=== PATIENT | female | born 1945 | race Caucasian/White ===

== ENCOUNTER 2020-10-26 13:00 | Outpatient (RCR) | payer MEDICARE, OTHER, SELFPAY ==
[2020-10-19 13:14] VITALS: BP 164/61; PULSE 82; RESP 18; TEMP 36.1; BMI 51.5
--- NOTE | 2020-10-19 13:40 | WC ---
pt states she takes no meds
--- NOTE | 2020-10-19 15:10 | PCM.WC.PN ---
(1) Super obesity Status: Chronic Code(s): E66.9 - Obesity, unspecified (2) Cellulitis of left heel Status: Acute Code(s): L03.116 - Cellulitis of left lower limb (3) Decubitus ulcer of left heel, stage 3 Status: Chronic Code(s): L89.623 - Pressure ulcer of left heel, stage 3 (4) Hyperglycemia Status: Chronic Code(s): R73.9 - Hyperglycemia, unspecified (5) CRF (chronic renal failure) Status: Chronic Qualifiers: Chronic kidney disease stage 3 subtype: stage 3b (GFR 30-44) Code(s): N18.9 - Chronic kidney disease, unspecified (6) Lymphedema Status: Chronic Code(s): I89.0 - Lymphedema, not elsewhere classified Comment: ARELY Raphael (7) Venous insufficiency of both lower extremities Status: Chronic Code(s): I87.2 - Venous insufficiency (chronic) (peripheral) (8) Generalized weakness Status: Chronic Code(s): R53.1 - Weakness (9) Elevated BP without diagnosis of hypertension Status: Acute Code(s): R03.0 - Elevated blood-pressure reading, without diagnosis of hypertension (10) Nephrolithiasis Status: Chronic Code(s): N20.0 - Calculus of kidney (11) Hiatal hernia Status: Chronic Code(s): K44.9 - Diaphragmatic hernia without obstruction or gangrene (12) History of gastric polyp Status: Chronic Code(s): Z87.19 - Personal history of other diseases of the digestive system (13) Hyperplastic colon polyp Status: Chronic Code(s): K63.5 - Polyp of colon Comment: Ileocecal valve on colonoscopy in 2016 (14) Tubular adenoma of colon Status: Acute Code(s): D12.6 - Benign neoplasm of colon, unspecified Comment: Ileocecal valve and proximal transverse colon on biopsies in 2016 (15) Right sided sciatica Status: Suspected Code(s): M54.31 - Sciatica, right side Type of Wound Date of Service: 10/19/20 Chief Complaint: non-healing wound of the left heel History of Wound: Cordelia has a ulcer on the Left heel that has been present for several months. He has been treating it with Bacitracin covered with gauze and then application of a JOSEFA wrap. Cordelia can not sleep in a bed and so she has been sleeping in a recliner for quite some time now. She is not ambulatory due to weakness. She has not seen her PCP in at least 14 months. She tells me that she has always been healthy but, when I look back at lab she had done in 2016 she had stage 3 b CRF and the glucose was 140. Her BP is elevated today and she denies hx of HTN. She denies a FH of DM. Her legs feel so heavy she is unable to lift them. She has noticed discoloration of her distal LE's and she also has very dry skin and lumpy skin. She is also c/o pain in the R lateral thigh and hip area and sometimes in the R buttock. - Physical Exam Vital Signs Temp Pulse Resp BP 96.9 F L 82 18 164/61 H 10/19/20 13:14 10/19/20 13:14 10/19/20 13:14 10/19/20 13:14 General: Alert, Oriented x3, Cooperative, - - morbidly obese and unable to even turn herself on her side in the bed. She can not walk and is getting around in a WC. Abdomen: Obese Extremities: - - The toes on the R are dusky.....which I suspect is due to venous HTN because the DP BL is 2-3/3. Wound Measurements and Assessment WC - Nurse 1 - General Ulcer Measurement Start: 10/19/20 13:11 Freq: Status: Active Protocol: Activity Type Activity Date Activity User E-Sign Co-Sign Detail Recorded Client Recorded Date Recorded By Document 10/19/20 13:14 [facility] [id number] 10/19/20 13:37 [facility] 10/19/20 13:14 Wound Center Nurse 1 [Ulcer Assessment] 1-left heel -Combined with other wound No -Current Size (cm) - Length 2.4 -Current Size (cm) - Width 2.4 -Current Size (cm) - Depth 0.5 -Total Square Cm 5.76 -Photo Taken Yes -Epithelialization Small 1-33% -Tunneling No -Undermining/Tunneling No -Circular Undermining No -Classification - Thickness Full Thickness without Exposed Support Structure -Exudate Amt Small -Exudate Type Serosanguineous -Wound Margin Flat & Intact -Granulation Amt None Present (0 %) -Slough/Fibrin Yes -Necrosis Amt Large (67-100%) -Necrotic Tissue Type Adherent Slough -Structure Exposed N/A -Texture (Leah-wound Skin Appearance) Assessed,Callus ,Localized Edema -Moisture (Leah-wound Skin Appearance Assessed ) -Color (Leah-wound Skin Appearance) Assessed -Temperature (Leah-wound Skin No Abnormality Appearance) (Pt Warm) -Tenderness on Palpation (Leah-wound No Skin Appearance) -Ulcer Cleansing Rinsed/ Irrigated with Saline -Foul Odor after Cleansing No -Anesthetic Used 5% Lidocaine Gel [Edema Assessment] -Lower Limb Edema Present Yes -Right Calf (cm) 66 -Right Ankle (cm) 35.3 -Left Calf (cm) 69.6 -Left Ankle (cm) 35.3 The skin over the distal LE's is dry and cracked. There is hyperpigmentation. The skin is inelastic/fibrotic and the edema is non-pitting. There are red nodules over both distal LE's. There is no increased warmth to touch. There is a heel ulcer over the left heel that was covered with eschar. Please see the measurements above. She has dog hair stuck to the bottom of her foot on the left and she and her say she is barefoot in the house because her feet are too swollen to get her shoes on.......she has a pair of tennis shoes on today and the skin folds hang over the sides of the shoes BL. The hard eschar was debrided and underneath the eschar thew wound was moist and malodorous. I debrided the base after the eschar was removed and it goes down into muscle. I could not see any visible bone. Cultures, both anaerobic and aerobic were taken. There was no undermining and no tunneling present. Debridement Note Wound debrided: left heel wound Laterality: Left Wound Grade/Stage: stage 3 Type of Debridement: Excisional debridement Anesthesia Used: 4% Lidocaine Solution Depth: to muscle Percentage of wound debrided: 100 Instrument Used: 7mm curette, #15 blade, Forceps Severity: Necrosis of Muscle Amount of bleeding with debridement: Mild Bleeding Controlled with: Pressure Patient tolerated procedure well Assessment/Plan Active Problems Super obesity (Chronic) Cellulitis of left heel (Acute) Decubitus ulcer of left heel, stage 3 (Chronic) Hyperglycemia (Chronic) CRF (chronic renal failure) (Chronic) Lymphedema (Chronic) BL LE's Venous insufficiency of both lower extremities (Chronic) Generalized weakness (Chronic) Elevated BP without diagnosis of hypertension (Acute) Nephrolithiasis (Chronic) Hiatal hernia (Chronic) History of gastric polyp (Chronic) Hyperplastic colon polyp (Chronic) Ileocecal valve on colonoscopy in 2016 Tubular adenoma of colon (Acute) Ileocecal valve and proximal transverse colon on biopsies in 2016 Plan: 1. plain Xray of the left heel. 2. CMP, CBC, mag, HGBA1C. 3. neuropathic compounded cream to be applied to the R lateral thigh 2-3 times a day. 4. Levaquin 250 mg daily - may nee to change the dose depending on what the kidney function is now. Await the result of the cultures. 5. Duoderm to the left heel. 6. RTC in 1 week for a 45 minute appt -. 7. I referred her to either Dr. Schwartz opr Dr. Mckeon for PCP. She was dropped by Dr. Garnett? 8. recommended weight loss and PT to get her stronger. I recommend she follow up with the [facility] program run by the dieticians at [facility]. 9. will likely need venous dopplers and arterial studies in the future - prime concern at this point is infection. 10. should have a sleep study at some point.....STOP BANG score puts her at high risk for sleep apnea. 11. she has not taken good care of herself for quite some time and has many issues to address. Once she has established herself with a [facility] will defer issues other than wound care to the PCP. 12. It sounds as though she may have sciatica and at some point this will need to be addressed to. Office Visits / Consults: [id number] OV L3 New
--- NOTE | 2020-10-19 15:44 | RAD_ITS ---
STUDY: X-RAY - LEFT FOOT CLINICAL: Female, 75 years old. NON HEALING WOUND TECHNIQUE: 3 view(s) of the foot. COMPARISON: None. FINDINGS: Diffuse osteopenia. Plantar calcaneal spur. Otherwise normal talus, calcaneus, and tarsal bones. Mild degenerative arthrosis of the visualized subtalar, talonavicular, calcaneocuboid, tarsal and tarsometatarsal articulations. Normal metatarsi. Normal metatarsophalangeal joint of the great toe. Normal tibial and fibular sesamoid bones. Normal interphalangeal joint of the great toe. Normal phalanges of the great toe. Normal second through fifth metatarsophalangeal joints. Mild narrowing of the interphalangeal joints otherwise unremarkable phalanges of the lesser toes. The soft tissue structures are unremarkable. There is no demonstrated fracture. Sequela of old fracture through the distal tibia. RAD/Foot min 3 Views IMPRESSION: Diffuse osteopenia along with mild multilevel degenerative disease. No acute fracture or subluxation. Electronically Signed: Radha Alaniz MD at 1:24 EDT , Service support ,
[2020-10-19 16:43] LABS: Absolute Lymphocyte Count 1.01 X10^3/uL (0.83-4.51); Absolute Neutrophil Count 3.5 X10^3/uL (2.0-7.7); Basophil# 0.02 X10^3/uL; Basophil% 0.4 % (0-1); Eosinophil# 0.12 X10^3/uL; Eosinophils% 2.4 % (0-5); Hematocrit 44.6 % (37-47); Hemoglobin 13.9 g/dL (12.0-15.0); Lymphocyte # 1.01 X10^3/ul (4.0); Lymphocyte % 20.5 % (19-41); Mean Corp Hgb Conc 31.2 g/dL (32-36); Mean Corpuscular Hgb 28.4 pg (27.0-32.0); Mean Corpuscular Volume 91.2 fL (81-99); Mean Platelet Vol. 10.2 fl (6.2-12.0); Monocyte# 0.27 X10^3/uL; Monocyte% 5.5 % (0-10); NRBC Flagged by Analyzer 0 % (0-5); Neutrophil # 3.48 X10^3/uL (2.7-7.7); Neutrophil % 70.8 % (47-70); Platelet Count 193 K/mm3 (150-450); RBC Distribution Width CV 14.2 % (11.6-14.6); RBC Distribution Width SD 46.9 fl (35.1-43.9); Red Blood Count 4.89 M/mm3 (4.2-5.4); White Blood Count 4.9 K/mm3 (4.4-11.0)
[2020-10-19 17:04] LABS: Hemoglobin A1c 5.2 % (3.8-5.6)
[2020-10-19 17:20] LABS: AST(SGOT) 14 U/L (15-37); Alanine Aminotransfer ALT/SGPT 16 U/L (13-56); Albumin, Serum 3.6 g/dL (3.2-5.0); Alkaline Phosphatase 98 U/L (45-117); Anion Gap 6 (5-15); BUN 14 mg/dL (7-18); BUN/Creat Ratio 21.8 RATIO (10-20); Calcium,Total 9.3 mg/dL (8.5-10.1); Chloride 105 mmol/L (98-107); Creatinine, Serum 0.64 mg/dL (0.55-1.02); EST Glomerular Filtration Rate 96 mL/min (>60); Est Glom Filt Rate - Afr Amer 116 mL/min (>60); Estimated Creatinine Clearance 42.62 ml/min; Globulin 3.7 g/dL (2.2-4.2); Glucose 84 mg/dL (74-106); Magnesium 2.3 mg/dL (1.6-2.6); Potassium 3.8 mmol/L (3.5-5.1); Protein, Total 7.3 g/dL (6.4-8.2); Sodium Level 141 mmol/L (136-145)
--- NOTE | 2020-10-21 16:13 | PCM.PN.BLA ---
Progress Note I spoke to Cordelia and told her to increase the Levaquin to 500 mg daily. the culture is growing a beta-hemolytic organism and this is most likely going to be Streptococcus. Cordelia will call me on my cell phone on 10/22/2020 at 9 AM and I will review the culture once more. At that time we will determine whether the antibiotic needs to be changed. I discussed the lab results with her and the results of the Xray of the Left foot. she hqas significant osteopenia and I suspect osteoporosis due to her inability to bear weight. She will need a DEXA in the future to accurately assess bone density.
--- NOTE | 2020-10-25 11:29 | PN_ITS ---
Progress Note The wound grew Streptococcus agalactiae and Staphylococcus intermedius. The Staph is oxacillin sensitive and covered by Levaquin. The group B strep is not covered by Levaquin and she is allergic to penicillins will prescribe clindamycin 800 mg 4 times daily for 5 days. This was sent to [facility] in [place]. I also sent a RX for Levaquin 500 mg #2 to the pharmacy to complete 7 days of tx.
[2020-10-26 13:03] VITALS: BP 196/73; PULSE 88; TEMP 36.3; BMI 51.5
--- NOTE | 2020-10-26 14:01 | PCM.WC.PN ---
(1) Super obesity Status: Chronic Code(s): E66.9 - Obesity, unspecified (2) Cellulitis of left heel Status: Acute Code(s): L03.116 - Cellulitis of left lower limb Comment: due to Group B Strep and Staph Intermedius (senitive to Levaquin) (3) Decubitus ulcer of left heel, stage 3 Status: Chronic Code(s): L89.623 - Pressure ulcer of left heel, stage 3 (4) Hyperglycemia Status: Chronic Code(s): R73.9 - Hyperglycemia, unspecified (5) Lymphedema Status: Chronic Code(s): I89.0 - Lymphedema, not elsewhere classified Comment: ARELY Raphael (6) Venous insufficiency of both lower extremities Status: Chronic Code(s): I87.2 - Venous insufficiency (chronic) (peripheral) (7) Generalized weakness Status: Chronic Code(s): R53.1 - Weakness (8) Elevated BP without diagnosis of hypertension Status: Acute Code(s): R03.0 - Elevated blood-pressure reading, without diagnosis of hypertension (9) Nephrolithiasis Status: Chronic Code(s): N20.0 - Calculus of kidney (10) Hiatal hernia Status: Chronic Code(s): K44.9 - Diaphragmatic hernia without obstruction or gangrene (11) History of gastric polyp Status: Chronic Code(s): Z87.19 - Personal history of other diseases of the digestive system (12) Hyperplastic colon polyp Status: Chronic Code(s): K63.5 - Polyp of colon Comment: Ileocecal valve on colonoscopy in 2016 (13) Tubular adenoma of colon Status: Acute Code(s): D12.6 - Benign neoplasm of colon, unspecified Comment: Ileocecal valve and proximal transverse colon on biopsies in 2016 (14) Right sided sciatica Status: Suspected Code(s): M54.31 - Sciatica, right side (15) HTN, goal below 130/80 Status: Chronic Code(s): I10 - Essential (primary) hypertension Type of Wound Date of Service: 11/02/20 Chief Complaint: non-healing wound of the left heel History of Wound: Cordelia has a ulcer on the Left heel that has been present for several months. He has been treating it with Bacitracin covered with gauze and then application of a JOSEFA wrap. Cordelia can not sleep in a bed and so she has been sleeping in a recliner for quite some time now. She is not ambulatory due to weakness. She has not seen her PCP in at least 14 months. She tells me that she has always been healthy but, when I look back at lab she had done in 2016 she had stage 3 b CRF and the glucose was 140. Her BP is elevated today and she denies hx of HTN. She denies a FH of DM. Her legs feel so heavy she is unable to lift them. She has noticed discoloration of her distal LE's and she also has very dry skin and lumpy skin. She is also c/o pain in the R lateral thigh and hip area and sometimes in the R buttock. Progress of Wound: She has not picked the Clindamycin up yet. She has been taking Levaquin 500 mg daily....the creat was normal. There is still an odor to the wound. She denies fevers, chills and sweats. She has the same Duoderm on that we applied last week when she left wound care. I personally reviewed all the lab. The XRAY of the left heel did not show any avinash destruction that would indicate she may have osteomyelitis. - Physical Exam Vital Signs Temp Pulse Resp BP 97.3 F L 88 18 196/73 H 10/26/20 13:03 10/26/20 13:03 10/19/20 13:14 10/26/20 13:03 General: Alert, - - forgetful......I am needing to repeat things to her 3-4 times until she gets it. Lungs: Diminished Cardiovascular: Regular rate, Regular Rhythm, No murmurs, - - Distant heart sounds Abdomen: Non Tender, Non-Distended, Obese, - - No guarding with palpation Extremities: No clubbing, No cyanosis, Edema - Severe lymphedema of both lower extremities extending from the groin to the toes. Skin: No rashes, Ulcer/ Wound Wound Measurements and Assessment WC - Nurse 1 - General Ulcer Measurement Start: 10/19/20 13:11 Freq: Status: Active Protocol: Activity Type Activity Date Activity User E-Sign Co-Sign Detail Recorded Client Recorded Date Recorded By Document 10/26/20 13:03 [facility] [id number] 10/26/20 13:11 [facility] 10/26/20 13:03 Wound Center Nurse 1 [Ulcer Assessment] 1-left heel -Current Size (cm) - Length 1.7 -Current Size (cm) - Width 1.6 -Current Size (cm) - Depth 0.2 -Total Square Cm 2.72 -Wound Margin Distinct, Outline Attached -Granulation Amt None Present (0 %) -Necrosis Amt Large (67-100%) -Necrotic Tissue Type Adherent Slough -Texture (Leah-wound Skin Appearance) Assessed, Scarring -Moisture (Leah-wound Skin Appearance Assessed, ) Maceration -Color (Leah-wound Skin Appearance) No Abnormality, Assessed -Temperature (Leah-wound Skin No Abnormality Appearance) (Pt Warm) -Tenderness on Palpation (Leah-wound No Skin Appearance) -Ulcer Cleansing soap and water -Anesthetic Used 4% Lidocaine Solution WC - Nurse 2 - General Ulcer CM Notes Start: 10/19/20 13:11 Freq: Status: Active Protocol: Activity Type Activity Date Activity User E-Sign Co-Sign Detail Recorded Client Recorded Date Recorded By Document 10/26/20 13:27 MW [id number] 10/26/20 13:32 MW 10/26/20 13:27 Wound Center Nurse 2 [Procedure/Treatment] -Time 13:27 -Correct Patient Yes -Correct Side, Site, Position Yes -Correct Procedure Yes -Procedure Performed Yes -Type of Procedure Debridement -Clinical Debridement Subcutaneous -Tissue Removed Subcutaneous -Post Debridement (cm) - Length 1.3 -Post Debridement (cm) - Width 1.5 -Post Debridement (cm) - Depth 0.2 -Total Square (Post) (cm) 1.95 -Area of Debridement (cm) - Length 1.3 -Area of Debridement (cm) - Width 1.5 -Total Square (Area) (cm) 1.95 -Tunneling No -Undermining/Tunneling No -Circular Undermining No -Wound/Ulcer Outcome Not Healed -Ulcer Cleansing Rinsed/ Irrigated with Saline -Foul Odor after Cleansing No -Bioengineered Tissue No -Bleeding Controlled with Pressure -Offloading No -Treatment Response Procedure Tolerated Well -Debridement - Subq, 1st 20sq cm Yes [See Physician Procedure note for Specifics] Pain Scale: 0-10 Numeric [Pain] -Is Patient Pain Free? Yes WC - Nurse 3 - General Ulcer D/C NN Start: 10/19/20 13:11 Freq: Status: Active Protocol: Activity Type Activity Date Activity User E-Sign Co-Sign Detail Recorded Client Recorded Date Recorded By Document 10/26/20 13:59 MW [id number] 10/26/20 14:01 MW 10/26/20 13:59 Wound Care Nurse 3 [Wound Dressing] 1-left heel -Ulcer Cleansing Rinsed/ Irrigated with Saline -Foul Odor after Cleansing No -Negative Pressure Wound Therapy N/A -Other Dressing c.hydrogel -Primary Dressing Covered/Secured Dry Gauze & with Roll Gauze, Secured with Tape [Post Procedure Tolerated] -Treatment Response Procedure Tolerated Well Pain Scale: 0-10 Numeric [Pain] -Is Patient Pain Free? Yes Teaching: Wound Center [Wound Center Education] (Items with an * have Printed Materials Available- Please identify what is given to patient under the Teaching materials given to patient and caregiver Section. Dressing Your Wound -Person Taught Patient,Family -Teaching Method Discussion, Demonstration -Response to teaching Verbalize understanding WC - Visit Discharge [Visit Discharge Information] -Discharge Condition Stable -Ambulatory Status Wheelchair -Transportation Private Auto -Accompanied by -Medication Reconcilliation completed No & provided to patient/care provider -Clinical Summary of Care Provided Yes The wound is still mostly necrotic slough but less than last week. There is still a mild odor....I suspect it will resolve when she completes the course of Clindamycin. There is no significant leah-wound erythema and there is no increased warmth to touch. The wound was debrided and there is now a portion of muscle visible. No visible bone. The slough is very adherent and difficult to debride off. The tissue of the left foot and LE is better moisturized and less flakey today. there are no other openings in the skin of the LLE. Neurological: Cranial nerves II-XII grossly intact, Neuro grossly intact Psych/Mental Status: Normal Affect, Appropriate Debridement Note Post-Debridement Measurements/Treatment WC - Nurse 2 - General Ulcer CM Notes Start: 10/19/20 13:11 Freq: Status: Active Protocol: Activity Type Activity Date Activity User E-Sign Co-Sign Detail Recorded Client Recorded Date Recorded By Document 10/19/20 17:00 PL [id number] 10/19/20 17:03 PL Document 10/26/20 13:27 MW [id number] 10/26/20 13:32 MW 10/19/20 10/26/20 17:00 13:27 Wound Center Nurse 2 1-left heel -Time 14:43 13:27 -Correct Patient Yes Yes -Correct Side, Site, Position Yes Yes -Correct Procedure Yes Yes -Procedure Performed Yes Yes -Type of Procedure Debridement Debridement -Clinical Debridement Subcutaneous Subcutaneous -Tissue Removed Subcutaneous Subcutaneous -Post Debridement (cm) - Length 2.4 1.3 -Post Debridement (cm) - Width 2.4 1.5 -Post Debridement (cm) - Depth 0.5 0.2 -Total Square (Post) (cm) 5.76 1.95 -Area of Debridement (cm) - Length 2.4 1.3 -Area of Debridement (cm) - Width 2.4 1.5 -Total Square (Area) (cm) 5.76 1.95 -Tunneling No No -Undermining/Tunneling No No -Circular Undermining No No -Wound/Ulcer Outcome Not Healed Not Healed -Ulcer Cleansing Rinsed/ Rinsed/ Irrigated with Irrigated with Saline Saline -Foul Odor after Cleansing No No -Bioengineered Tissue No No -Bleeding Controlled with Pressure Pressure -Offloading No -Treatment Response Procedure Procedure Tolerated Well Tolerated Well -Debridement - Subq, 1st 20sq cm Yes Yes Pain Scale: 0-10 Numeric Is Patient Pain Free? Yes Yes WC - Nurse 3 - General Ulcer D/C NN Start: 10/19/20 13:11 Freq: Status: Active Protocol: Activity Type Activity Date Activity User E-Sign Co-Sign Detail Recorded Client Recorded Date Recorded By Document 10/19/20 17:00 PL [id number] 10/19/20 17:03 PL Document 10/26/20 13:59 MW [id number] 10/26/20 14:01 MW 10/19/20 10/26/20 17:00 13:59 Pain Scale: 0-10 Numeric Is Patient Pain Free? Yes Yes Teaching: Wound Center Dressing Your Wound -Person Taught Patient,Family -Teaching Method Discussion, Demonstration -Response to teaching Verbalize understanding Wound Care Nurse 3 1-left heel -Ulcer Cleansing Rinsed/ Rinsed/ Irrigated with Irrigated with Saline Saline -Foul Odor after Cleansing No No -Negative Pressure Wound Therapy N/A -Primary Dressing Applied Hydrocolloid -Other Dressing c.hydrogel -Primary Dressing Covered/Secured with Dry Gauze & Dry Gauze & Roll Gauze Roll Gauze, Secured with Tape -Hydrocolloid 3 Treatment Response Procedure Tolerated Well WC - Visit Discharge Discharge Condition Stable Stable Ambulatory Status Wheelchair Wheelchair Transportation Private Auto Private Auto Accompanied by Medication Reconcilliation completed & No provided to patient/care provider Clinical Summary of Care Provided Yes Yes Laterality: Left Wound Grade/Stage: stage 3 Type of Debridement: Excisional debridement Anesthesia Used: 4% Lidocaine Solution Depth: in the subcutaneous layer Percentage of wound debrided: 100 Instrument Used: 5mm curette, #15 blade, Forceps Severity: Fat Layer Exposed - a small portion of muscle is exposed so the wound is a stage 3.....No visible bone. Amount of bleeding with debridement: Mild Bleeding Controlled with: Pressure Patient tolerated procedure well Assessment/Plan Clinical Impression(s) from Imaging Studies Foot X-Ray 10/19/20 15:44 IMPRESSION: Diffuse osteopenia along with mild multilevel degenerative disease. No acute fracture or subluxation. Electronically Signed: Radha Alaniz MD at 1:24 EDT , Service support , Active Problems Super obesity (Chronic) Cellulitis of left heel (Acute) due to Group B Strep and Staph Intermedius (senitive to Levaquin) Decubitus ulcer of left heel, stage 3 (Chronic) Hyperglycemia (Chronic) Lymphedema (Chronic) BL LE's Venous insufficiency of both lower extremities (Chronic) Generalized weakness (Chronic) Elevated BP without diagnosis of hypertension (Acute) Nephrolithiasis (Chronic) Hiatal hernia (Chronic) History of gastric polyp (Chronic) Hyperplastic colon polyp (Chronic) Ileocecal valve on colonoscopy in 2016 Tubular adenoma of colon (Acute) Ileocecal valve and proximal transverse colon on biopsies in 2016 HTN, goal below 130/80 (Chronic) Assessment: 1. super obesity. 2. long standing venous insufficiency which is more than likely the cause of lymphedema. 3. HTN - this is high when she comes to the [facility]. She will keep a record of BP's at home. HR is also high........consider starting a low dose beta jaciel. 4. ? memory issues? Will defer work up for this to Dr. Mckeon - she has an appt for November [address] Mckeon. 5. going forward will need a DEXA and a sleep study.......STOP BANG score is high and she is at risk for LEONARD Plan: 1. finish the 7 days of Levaquin 500 mg daily and the 7 days of Clindamycin 4 times a day,. 2. DC the Duoderm and change the dressing to Santyl daily. 3. apply for use of PurePLY. 4. order lymphedema pumps - eventually get her to [facility] for lymphedema and PT to get her walking again. 5. learning services coordinator consult in future for weight loss. 6. Will need an AFO to offload the Left heel. 7. start Atenolol 25 mg daily and have her check the BP at home and record to bring at her next visit Office Visits / Consults: [id number] OV L3 Est
== END 2020-10-27 23:59 ==
LOC: WC 13:00
PROVIDERS: PCP Family Medicine; Referring Provider Internal Medicine; Visit Provider Internal Medicine
DX: L89.623 Pressure ulcer of left heel, stage 3 (principal); L03.116 Cellulitis of left lower limb; E66.01 Morbid (severe) obesity due to excess calories; N18.32 Chronic kidney disease, stage 3b; I89.0 Lymphedema, not elsewhere classified; I87.2 Venous insufficiency (chronic) (peripheral); K44.9 Diaphragmatic hernia without obstruction or gangrene; M79.651 Pain in right thigh; M25.551 Pain in right hip; R03.0 Elevated blood-pressure reading, without diagnosis of hypertension; R53.1 Weakness; Z68.43 Body mass index [BMI] 50.0-59.9, adult; R73.9 Hyperglycemia, unspecified
CPT/HCPCS: 11042; 36415; 73630; 80053; 83036; 83735; 85025; 87070; 87075; 87077; 87186; 87205; 99213; G0463

== ENCOUNTER 2020-11-23 13:30 | Outpatient (RCR) | payer MEDICARE, OTHER, SELFPAY ==
[2020-10-28 00:53] VITALS: BP 196/73; PULSE 88; RESP 18; TEMP 36.3
[2020-11-02 13:26] VITALS: BP 142/77; PULSE 66; RESP 18; TEMP 36.6; BMI 51.5
--- NOTE | 2020-11-02 14:17 | PCM.WC.PN ---
(1) HK (hyperkeratosis) Status: Chronic Code(s): L85.9 - Epidermal thickening, unspecified (2) Cellulitis of left heel Status: Resolved Code(s): L03.116 - Cellulitis of left lower limb Comment: due to Group B Strep and Staph Intermedius (senitive to Levaquin) (3) Decubitus ulcer of left heel, stage 3 Status: Chronic Code(s): L89.623 - Pressure ulcer of left heel, stage 3 (4) HTN, goal below 130/80 Status: Chronic Code(s): I10 - Essential (primary) hypertension (5) Lymphedema Status: Chronic Code(s): I89.0 - Lymphedema, not elsewhere classified Comment: BL DELVIN's stage 3 (6) Venous insufficiency of both lower extremities Status: Chronic Code(s): I87.2 - Venous insufficiency (chronic) (peripheral) (7) Morbid obesity with BMI of 50.0-59.9, adult Status: Acute Code(s): E66.01 - Morbid (severe) obesity due to excess calories; Z68.43 - Body mass index [BMI] 50.0-59.9, adult (8) Memory deficit Status: Chronic Code(s): R41.3 - Other amnesia Type of Wound Date of Service: 11/02/20 Chief Complaint: non-healing wound of the left heel History of Wound: Cordelia has a ulcer on the Left heel that has been present for several months. He has been treating it with Bacitracin covered with gauze and then application of a JOSEFA wrap. Cordelia can not sleep in a bed and so she has been sleeping in a recliner for quite some time now. She is not ambulatory due to weakness. She has not seen her PCP in at least 14 months. She tells me that she has always been healthy but, when I look back at lab she had done in 2016 she had stage 3 b CRF and the glucose was 140. Her BP is elevated today and she denies hx of HTN. She denies a FH of DM. Her legs feel so heavy she is unable to lift them. She has noticed discoloration of her distal LE's and she also has very dry skin and lumpy skin. She is also c/o pain in the R lateral thigh and hip area and sometimes in the R buttock. Progress of Wound: She finished the Clindamycin and she denies fevers, chills and sweats. She had some GI upset while taking the pills but, she denies any diarrhea. She has been using the Ceravie for moisturizing the legs and they are looking much better. Her tells me that since he started wrapping her legs the edema has decreased and she has been able to walk around the house with the aid of a FWW. She has an appt with Dr. Mckeon next week to establish him as her PCP going forward. She was approved for [employer] so we will be doing the first application today. She denies any adverse reactions to the Atenolol. They have not been taking her BP and recording at home. - Physical Exam Vital Signs Temp Pulse Resp BP 97.8 F 66 18 142/77 H 11/02/20 13:26 11/02/20 13:26 11/02/20 13:26 11/02/20 13:26 General: Alert, Oriented x3, Cooperative, No apparent distress Cardiovascular: Regular rate, Regular Rhythm Extremities: No clubbing, No cyanosis, No Calf Tenderness, Edema - the edema in the distal LE's is better today. there is less edema of the dorsum of the foot. Itn is non-pitting. She continues to have many nodules on the anterior shins but the flakey skin is much improved. On the lateral aspect of the left ankle there are many hyperkeratotic raised bumps Wound Measurements and Assessment WC - Nurse 1 - General Ulcer Measurement Start: 11/02/20 13:25 Freq: Status: Active Protocol: Activity Type Activity Date Activity User E-Sign Co-Sign Detail Recorded Client Recorded Date Recorded By Document 11/02/20 13:26 [facility] [id number] 11/02/20 13:36 [facility] 11/02/20 13:26 Wound Center Nurse 1 [Ulcer Assessment] 1-left heel -Combined with other wound No -Current Size (cm) - Length 0.9 -Current Size (cm) - Width 1.3 -Current Size (cm) - Depth 0.1 -Total Square Cm 1.17 -Photo Taken No -Epithelialization None Present -Tunneling No -Undermining/Tunneling No -Circular Undermining No -Exudate Amt Small -Exudate Type Serosanguineous -Wound Margin Distinct, Outline Attached -Granulation Amt None Present (0 %) -Slough/Fibrin Yes -Necrosis Amt Large (67-100%) -Necrotic Tissue Type Adherent Slough -Texture (Leah-wound Skin Appearance) Assessed,Callus ,Scarring -Moisture (Leah-wound Skin Appearance Assessed,Dry/ ) Scaly -Color (Leah-wound Skin Appearance) Assessed -Temperature (Leah-wound Skin No Abnormality Appearance) (Pt Warm) -Tenderness on Palpation (Leah-wound No Skin Appearance) -Ulcer Cleansing Rinsed/ Irrigated with Saline -Foul Odor after Cleansing No -Anesthetic Used 5% Lidocaine Gel WC - Nurse 2 - General Ulcer CM Notes Start: 11/02/20 13:25 Freq: Status: Active Protocol: Activity Type Activity Date Activity User E-Sign Co-Sign Detail Recorded Client Recorded Date Recorded By Document 11/02/20 13:46 MW [id number] 11/02/20 14:10 MW 11/02/20 13:46 Wound Center Nurse 2 [Procedure/Treatment] -Time 13:50 -Correct Patient Yes -Correct Side, Site, Position Yes -Correct Procedure Yes -Procedure Performed Yes -Type of Procedure Debridement -Clinical Debridement Subcutaneous -Tissue Removed Subcutaneous -Post Debridement (cm) - Length 1.0 -Post Debridement (cm) - Width 1.2 -Post Debridement (cm) - Depth 0.1 -Total Square (Post) (cm) 1.20 -Area of Debridement (cm) - Length 1.0 -Area of Debridement (cm) - Width 1.2 -Total Square (Area) (cm) 1.20 -Tunneling No -Undermining/Tunneling No -Circular Undermining No -Wound/Ulcer Outcome Not Healed -Ulcer Cleansing Rinsed/ Irrigated with Saline -Foul Odor after Cleansing No -Bioengineered Tissue Yes -Type of Bioengineered Tissue PuraPly AM -Expiration Date 11/15/22 -Product Lot Number [id number] -Percent Used 100 -Lot number of Saline Used [id number] -Bleeding Controlled with Pressure -Offloading No -Treatment Response Procedure Tolerated Well -Debridement - Subq, 1st 20sq cm No -Apply Skin Sub - 1st 25 sq cm - Legs 1 -PuraPly AM (per sq cm) 4 [See Physician Procedure note for Specifics] Pain Scale: 0-10 Numeric [Pain] -Is Patient Pain Free? Yes The wound has decreased in size from 2.72 centimeters squared to 1.2 cm? today. They have been using Santyl once a day. the surface of the wound is dry and covered with yellow/brown eschar. There is no periwound erythema and no increased warmth to touch. The lateral foot and the plantar surface of the foot is covered with hyperkeratotic skin....the forefoot is not so bad as the lateral surface and the heel. When the eschar was debrided off the wound with a #15 blade and Forceps there was muscle visible in 1 spot but the wound is less deep than in the past. There is no odor today. There is no tunnelling and no undermining. No necrotic tissue today. Debridement Note Post-Debridement Measurements/Treatment WC - Nurse 2 - General Ulcer CM Notes Start: 11/02/20 13:25 Freq: Status: Active Protocol: Activity Type Activity Date Activity User E-Sign Co-Sign Detail Recorded Client Recorded Date Recorded By Document 11/02/20 13:46 MW [id number] 11/02/20 14:10 MW 11/02/20 13:46 Wound Center Nurse 2 1-left heel -Time 13:50 -Correct Patient Yes -Correct Side, Site, Position Yes -Correct Procedure Yes -Procedure Performed Yes -Type of Procedure Debridement -Clinical Debridement Subcutaneous -Tissue Removed Subcutaneous -Post Debridement (cm) - Length 1.0 -Post Debridement (cm) - Width 1.2 -Post Debridement (cm) - Depth 0.1 -Total Square (Post) (cm) 1.20 -Area of Debridement (cm) - Length 1.0 -Area of Debridement (cm) - Width 1.2 -Total Square (Area) (cm) 1.20 -Tunneling No -Undermining/Tunneling No -Circular Undermining No -Wound/Ulcer Outcome Not Healed -Ulcer Cleansing Rinsed/ Irrigated with Saline -Foul Odor after Cleansing No -Bioengineered Tissue Yes -Type of Bioengineered Tissue PuraPly AM -Expiration Date 11/15/22 -Product Lot Number [id number] -Percent Used 100 -Lot number of Saline Used [id number] -Bleeding Controlled with Pressure -Offloading No -Treatment Response Procedure Tolerated Well -Debridement - Subq, 1st 20sq cm No -Apply Skin Sub - 1st 25 sq cm - Legs 1 -PuraPly AM (per sq cm) 4 Pain Scale: 0-10 Numeric Is Patient Pain Free? Yes Wound debrided: Left Heel pressure ulcer. Laterality: Left Wound Grade/Stage: stage 3 Type of Debridement: Excisional debridement Anesthesia Used: 4% Lidocaine Solution, Cetacaine Depth: to muscle Percentage of wound debrided: 100 Instrument Used: #15 blade, Forceps Severity: Fat Layer Exposed Amount of bleeding with debridement: Mild Bleeding Controlled with: Pressure Patient tolerated procedure well Assessment/Plan Active Problems Decubitus ulcer of left heel, stage 3 (Chronic) Lymphedema (Chronic) BL LE's stage 3 Venous insufficiency of both lower extremities (Chronic) HTN, goal below 130/80 (Chronic) HK (hyperkeratosis) (Chronic) Assessment: 1. morbid obesity. 2. long standing venous insufficiency which is more than likely the cause of lymphedema. The edema has improved somewhat with compression, elevation and now that she is walkking I suspect it will improve more. 3. HTN. 4. ? memory issues? Will defer work up for this to Dr. Mckeon - she has an appt for November [address] Mckeon. 5. going forward will need a DEXA and a sleep study.......STOP BANG score is high and she is at risk for LEONARD Plan: 1. Pur-ply was applied to the wound today. This is week 1 and she was approved for 10 treatments. 2. the BP today is 142/77 with a HR of 66...this is down from 196/73 last week with a HR of 88 after starting Atenolol 25 mg daily. She denies lightheadedness, dizziness, fatigue and is toleraring the Atenolol with no adverse reactions. Will continue. 3. Encouraged her to increase the time walking until she is able to walk for 30 minutes. I am still trying to get her into the [facility] program at the hospital for wt loss which will significantly improve her ability to walk. PCP may be more successful at that. 4. needs a DEXA in the future since she has been non wt-bearing due to the severe lymphedema in her legs that make them too heavy to move. 5. RTC in 1 week. Call me if any fevers, pain, chills. Office Visits / Consults: [phone] OV L3 Est
[2020-11-09 13:24] VITALS: BP 182/74; PULSE 66; RESP 18; TEMP 36.6; BMI 51.5
--- NOTE | 2020-11-10 09:35 | PCM.WC.PN ---
(1) HK (hyperkeratosis) Status: Chronic Code(s): L85.9 - Epidermal thickening, unspecified (2) Cellulitis of left heel Status: Resolved Code(s): L03.116 - Cellulitis of left lower limb Comment: due to Group B Strep and Staph Intermedius (senitive to Levaquin) (3) Decubitus ulcer of left heel, stage 3 Status: Chronic Code(s): L89.623 - Pressure ulcer of left heel, stage 3 (4) HTN, goal below 130/80 Status: Chronic Code(s): I10 - Essential (primary) hypertension (5) Lymphedema Status: Chronic Code(s): I89.0 - Lymphedema, not elsewhere classified Comment: BL DELVIN's stage 3 (6) Venous insufficiency of both lower extremities Status: Chronic Code(s): I87.2 - Venous insufficiency (chronic) (peripheral) (7) Morbid obesity with BMI of 50.0-59.9, adult Status: Acute Code(s): E66.01 - Morbid (severe) obesity due to excess calories; Z68.43 - Body mass index [BMI] 50.0-59.9, adult (8) Memory deficit Status: Chronic Code(s): R41.3 - Other amnesia Type of Wound Date of Service: 11/10/20 Chief Complaint: non-healing wound of the left heel History of Wound: Cordelia has a ulcer on the Left heel that has been present for several months. He has been treating it with Bacitracin covered with gauze and then application of a JOSEFA wrap. Cordelia can not sleep in a bed and so she has been sleeping in a recliner for quite some time now. She is not ambulatory due to weakness. She has not seen her PCP in at least 14 months. She tells me that she has always been healthy but, when I look back at lab she had done in 2016 she had stage 3 b CRF and the glucose was 140. Her BP is elevated today and she denies hx of HTN. She denies a FH of DM. Her legs feel so heavy she is unable to lift them. She has noticed discoloration of her distal LE's and she also has very dry skin and lumpy skin. She is also c/o pain in the R lateral thigh and hip area and sometimes in the R buttock. Progress of Wound: Cordelia denies fever, chills, sweats. She denies pain in her left heel. They have been able to offload the pressure on the left heel with pillows quite effectively. She has an appointment with Dr. Mckeon tomorrow to establish care. - Physical Exam Vital Signs Temp Pulse Resp BP 98 F 66 18 182/74 H 11/09/20 13:24 11/09/20 13:24 11/09/20 13:24 11/09/20 13:24 Wound Measurements and Assessment WC - Nurse 1 - General Ulcer Measurement Start: 11/02/20 13:25 Freq: Status: Active Protocol: Activity Type Activity Date Activity User E-Sign Co-Sign Detail Recorded Client Recorded Date Recorded By Document 11/09/20 13:24 BM [id number] 11/09/20 13:26 BM 11/09/20 13:24 Wound Center Nurse 1 [Ulcer Assessment] 1-left heel -Combined with other wound No -Current Size (cm) - Length 0.2 -Current Size (cm) - Width 0.4 -Current Size (cm) - Depth 0.1 -Total Square Cm 0.08 -Photo Taken No -Epithelialization Medium 34-66% -Tunneling No -Undermining/Tunneling No -Circular Undermining No -Exudate Amt Small -Exudate Type Serosanguineous -Wound Margin Distinct, Outline Attached -Granulation Amt Large (67-100%) -Granulation Quality [place] -Texture (Leah-wound Skin Appearance) Assessed, Scarring,Rash -Moisture (Leah-wound Skin Appearance Assessed,Dry/ ) Scaly -Color (Leah-wound Skin Appearance) Assessed -Temperature (Leah-wound Skin No Abnormality Appearance) (Pt Warm) -Tenderness on Palpation (Leah-wound No Skin Appearance) -Ulcer Cleansing SOAPY WATER -Foul Odor after Cleansing No -Anesthetic Used 5% Lidocaine Gel WC - Nurse 2 - General Ulcer CM Notes Start: 11/02/20 13:25 Freq: Status: Active Protocol: Activity Type Activity Date Activity User E-Sign Co-Sign Detail Recorded Client Recorded Date Recorded By Document 11/09/20 13:46 MW [id number] 11/09/20 14:12 MW 11/09/20 13:46 Wound Center Nurse 2 [Procedure/Treatment] -Time 13:46 -Correct Patient Yes -Correct Side, Site, Position Yes -Correct Procedure Yes -Procedure Performed Yes -Type of Procedure Debridement -Clinical Debridement Subcutaneous -Tissue Removed Subcutaneous -Post Debridement (cm) - Length 0.3 -Post Debridement (cm) - Width 0.6 -Post Debridement (cm) - Depth 0.1 -Total Square (Post) (cm) 0.18 -Area of Debridement (cm) - Length 0.3 -Area of Debridement (cm) - Width 0.6 -Total Square (Area) (cm) 0.18 -Tunneling No -Undermining/Tunneling No -Circular Undermining No -Wound/Ulcer Outcome Not Healed -Ulcer Cleansing Rinsed/ Irrigated with Saline -Foul Odor after Cleansing No -Bioengineered Tissue Yes -Type of Bioengineered Tissue NuShield Disc -Expiration Date 02/08/25 -Product Lot Number [id number] -Percent Used 100 -Lot number of Saline Used [id number] -Bleeding Controlled with Pressure -Offloading No -Treatment Response Procedure Tolerated Well -Debridement - Subq, 1st 20sq cm No -Apply Skin Sub - 1st 25 sq cm - Feet 1 -NuShield 16mm Disc 2 Query Text:16mm = 2 [See Physician Procedure note for Specifics] Pain Scale: 0-10 Numeric [Pain] -Is Patient Pain Free? Yes WC - Nurse 3 - General Ulcer D/C NN Start: 11/02/20 13:25 Freq: Status: Active Protocol: Activity Type Activity Date Activity User E-Sign Co-Sign Detail Recorded Client Recorded Date Recorded By Document 11/09/20 14:12 MW [id number] 11/09/20 14:13 MW 11/09/20 14:12 Wound Care Nurse 3 [Wound Dressing] 1-left heel -Ulcer Cleansing Not Cleansed -Foul Odor after Cleansing No -Negative Pressure Wound Therapy N/A -Primary Dressing Applied C Hydrogel ($) -Primary Dressing Covered/Secured Dry Gauze & with Roll Gauze, Secured with Tape -Other Covering abd pad [Post Procedure Tolerated] -Treatment Response Procedure Tolerated Well Pain Scale: 0-10 Numeric [Pain] -Is Patient Pain Free? Yes Teaching: Wound Center [Wound Center Education] (Items with an * have Printed Materials Available- Please identify what is given to patient under the Teaching materials given to patient and caregiver Section. Dressing Your Wound -Person Taught Patient,Family -Teaching Method Discussion, Demonstration -Response to teaching Verbalize understanding WC - Visit Discharge [Visit Discharge Information] -Discharge Condition Stable -Ambulatory Status Wheelchair -Transportation Private Auto -Accompanied by -Medication Reconcilliation completed No & provided to patient/care provider -Clinical Summary of Care Provided Yes The wound continues to contract. It was dressed with Puraply last week for the first time. The wound is covered with adherent hyperkeratotic debris and this had to be debrided off with a Scalpel and forceps. the wound base following debridement is 100% granulating. There is no leah-wound erythema and no increased warmth touch in the area surrounding the wound. No drainage. No odor. No undermining or tunnelling. the skin of the Left foot and L leg distal to the knee is well moisturized and is no longer cracked. There is less edema since her has been applying the compression bandages daily in the AM. The size of the wound has decreased from 2.72cm to 0.18 cm today. Debridement Note Post-Debridement Measurements/Treatment - Nurse 2 - General Ulcer CM Notes Start: 11/02/20 13:25 Freq: Status: Active Protocol: Activity Type Activity Date Activity User E-Sign Co-Sign Detail Recorded Client Recorded Date Recorded By Document 11/02/20 13:46 MW [id number] 11/02/20 14:10 MW Document 11/09/20 13:46 MW [id number] 11/09/20 14:12 MW 11/02/20 11/09/20 13:46 13:46 Wound Center Nurse 2 1-left heel -Time 13:50 13:46 -Correct Patient Yes Yes -Correct Side, Site, Position Yes Yes -Correct Procedure Yes Yes -Procedure Performed Yes Yes -Type of Procedure Debridement Debridement -Clinical Debridement Subcutaneous Subcutaneous -Tissue Removed Subcutaneous Subcutaneous -Post Debridement (cm) - Length 1.0 0.3 -Post Debridement (cm) - Width 1.2 0.6 -Post Debridement (cm) - Depth 0.1 0.1 -Total Square (Post) (cm) 1.20 0.18 -Area of Debridement (cm) - Length 1.0 0.3 -Area of Debridement (cm) - Width 1.2 0.6 -Total Square (Area) (cm) 1.20 0.18 -Tunneling No No -Undermining/Tunneling No No -Circular Undermining No No -Wound/Ulcer Outcome Not Healed Not Healed -Ulcer Cleansing Rinsed/ Rinsed/ Irrigated with Irrigated with Saline Saline -Foul Odor after Cleansing No No -Bioengineered Tissue Yes Yes -Type of Bioengineered Tissue PuraPly AM NuShield Disc -Expiration Date 11/15/22 02/08/25 -Product Lot Number [id number] -Percent Used 100 100 -Lot number of Saline Used [id number] -Bleeding Controlled with Pressure Pressure -Offloading No No -Treatment Response Procedure Procedure Tolerated Well Tolerated Well -Debridement - Subq, 1st 20sq cm No No -Apply Skin Sub - 1st 25 sq cm - Legs 1 -Apply Skin Sub - 1st 25 sq cm - Feet 1 -NuShield 16mm Disc 2 Query Text:16mm = 2 -PuraPly AM (per sq cm) 4 Pain Scale: 0-10 Numeric Is Patient Pain Free? Yes Yes - Nurse 3 - General Ulcer D/C NN Start: 11/02/20 13:25 Freq: Status: Active Protocol: Activity Type Activity Date Activity User E-Sign Co-Sign Detail Recorded Client Recorded Date Recorded By Document 11/02/20 14:26 [facility] [id number] 11/02/20 14:27 [facility] Document 11/09/20 14:12 MW [id number] 11/09/20 14:13 MW 11/02/20 11/09/20 14:26 14:12 Wound Care Nurse 3 1-left heel -Ulcer Cleansing Not Cleansed -Foul Odor after Cleansing No -Negative Pressure Wound Therapy N/A -Primary Dressing Applied C Hydrogel ($) -Other Dressing PURAPLY -Primary Dressing Covered/Secured with Dry Gauze & Dry Gauze & Roll Gauze, Roll Gauze, Secured with Secured with Tape,Other Tape -Other Covering HEEL HAT abd pad Treatment Response Procedure Procedure Tolerated Well Tolerated Well Pain Scale: 0-10 Numeric Is Patient Pain Free? Yes Yes Teaching: Wound Center Dressing Your Wound -Person Taught Patient,Family -Teaching Method Discussion, Demonstration -Response to teaching Verbalize understanding WC - Visit Discharge Discharge Condition Stable Stable Ambulatory Status Wheelchair Wheelchair Transportation Private Auto Private Auto Accompanied by Medication Reconcilliation completed & No provided to patient/care provider Clinical Summary of Care Provided Yes Wound debrided: L heel Laterality: Left Type of Debridement: Excisional debridement Anesthesia Used: 4% Lidocaine Solution, Cetacaine Depth: Down to and including healthy tissue, in the subcutaneous layer Percentage of wound debrided: 100 Instrument Used: #15 blade, Forceps Severity: Fat Layer Exposed Amount of bleeding with debridement: Mild Bleeding Controlled with: Pressure Patient tolerated procedure well - she had some pain but we then used Cetacaine and we were able to proceed Assessment/Plan Active Problems (Last Updated 11/09/20 @ 15:59 by Janntete Kraft) Decubitus ulcer of left heel, stage 3 (Chronic) Lymphedema (Chronic) BL LE's stage 3 Venous insufficiency of both lower extremities (Chronic) HTN, goal below 130/80 (Chronic) HK (hyperkeratosis) (Chronic) Morbid obesity with BMI of 50.0-59.9, adult (Acute) Memory deficit (Chronic) Assessment: 1. morbid obesity. 2. long standing venous insufficiency which is more than likely the cause of lymphedema. The edema has improved somewhat with compression, elevation and now that she is walking I suspect it will improve more. 3. HTN. 4. ? memory issues? Will defer work up for this to Dr. Mckeon - she has an appt for November [address] Mckeon. 5. going forward will need a DEXA and a sleep study.......STOP BANG score is high and she is at risk for LEONARD Plan: 1. Puraply was applied to the wound today- second application. This is week 2 and she was approved for 10 treatments. The wound is very dry with adherent hyperkeratotic slough so we applied Hyrogel over the wound veil to keep the wound moist and her was given a tube of Hydrogel and instructed on how to apply. 2. The BP is elvated again today.....she has an appt with Dr. Mckeon and will defer further managemen of BP to him. 3. Encouraged her to increase the time walking until she is able to walk for 30 minutes. I am still trying to get her into the [facility] program at the hospital for wt loss which will significantly improve her ability to walk. PCP may be more successful at that. 4. needs a DEXA in the future since she has been non wt-bearing due to the severe lymphedema in her legs that make them too heavy to move. 5. RTC in 1 week. Call me if any fevers, pain, chills. 6. Cordelia asks me the same questions at least 3-4 times during the session. Will relay this to Dr. Mckeon because I think she needs to be evaluated for treatable causes of memory loss. 7. Lymphedema pumps when approved by insurance Office Visits / Consults: [id number] OV L2 Est
[2020-11-16 13:13] VITALS: BP 138/81; PULSE 50; TEMP 35.9; BMI 51.5
--- NOTE | 2020-11-16 14:17 | PN.PCM_ITS ---
(1) HK (hyperkeratosis) Status: Chronic Code(s): L85.9 - Epidermal thickening, unspecified (2) Cellulitis of left heel Status: Resolved Code(s): L03.116 - Cellulitis of left lower limb Comment: due to Group B Strep and Staph Intermedius (senitive to Levaquin) (3) Decubitus ulcer of left heel, stage 3 Status: Chronic Code(s): L89.623 - Pressure ulcer of left heel, stage 3 (4) HTN, goal below 130/80 Status: Chronic Code(s): I10 - Essential (primary) hypertension (5) Lymphedema Status: Chronic Code(s): I89.0 - Lymphedema, not elsewhere classified Comment: BL DELVIN's stage 3 (6) Venous insufficiency of both lower extremities Status: Chronic Code(s): I87.2 - Venous insufficiency (chronic) (peripheral) (7) Morbid obesity with BMI of 50.0-59.9, adult Status: Acute Code(s): E66.01 - Morbid (severe) obesity due to excess calories; Z68.43 - Body mass index [BMI] 50.0-59.9, adult (8) Memory deficit Status: Chronic Code(s): R41.3 - Other amnesia Type of Wound Date of Service: 11/16/20 Chief Complaint: non-healing wound of the left heel History of Wound: Cordelia has a ulcer on the Left heel that has been present for several months. He has been treating it with Bacitracin covered with gauze and then application of a JOSEFA wrap. Cordelia can not sleep in a bed and so she has been sleeping in a recliner for quite some time now. She is not ambulatory due to weakness. She has not seen her PCP in at least 14 months. She tells me that she has always been healthy but, when I look back at lab she had done in 2016 she had stage 3 b CRF and the glucose was 140. Her BP is elevated today and she denies hx of HTN. She denies a FH of DM. Her legs feel so heavy she is unable to lift them. She has noticed discoloration of her distal LE's and she also has very dry skin and lumpy skin. She is also c/o pain in the R lateral thigh and hip area and sometimes in the R buttock. Progress of Wound: Cordelia denies fever, chills, sweats. She denies pain in her left heel. They have been able to offload the pressure on the left heel with pillows quite effectively. She had her first appt with Dr. Mckeon and it went well and she is happy with her care. She has not received the lymphedema pumps yet. Hanane reapplied the hydrogel twice since her last visit to the [facility]. - Physical Exam Vital Signs Temp Pulse Resp BP 96.6 F L 50 L 18 138/81 H 11/16/20 13:13 11/16/20 13:13 11/09/20 13:24 11/16/20 13:13 Wound Measurements and Assessment WC - Nurse 1 - General Ulcer Measurement Start: 11/02/20 13:25 Freq: Status: Active Protocol: Activity Type Activity Date Activity User E-Sign Co-Sign Detail Recorded Client Recorded Date Recorded By Document 11/16/20 13:13 KR [id number] 11/16/20 13:19 KR 11/16/20 13:13 Wound Center Nurse 1 [Ulcer Assessment] 1-left heel -Current Size (cm) - Length 0.8 -Current Size (cm) - Width 1.4 -Current Size (cm) - Depth 0.1 -Total Square Cm 1.12 -Exudate Amt Small -Exudate Type Serosanguineous -Wound Margin Distinct, Outline Attached -Granulation Amt Medium (34-66%) -Granulation Quality Red -Necrosis Amt Medium (34-66%) -Necrotic Tissue Type Adherent Slough -Texture (Leah-wound Skin Appearance) Assessed, Scarring -Color (Leah-wound Skin Appearance) No Abnormality, Assessed -Temperature (Leah-wound Skin No Abnormality Appearance) (Pt Warm) -Tenderness on Palpation (Leah-wound No Skin Appearance) -Ulcer Cleansing soap and water -Foul Odor after Cleansing No -Anesthetic Used 4% Lidocaine Solution WC - Nurse 2 - General Ulcer CM Notes Start: 11/02/20 13:25 Freq: Status: Active Protocol: Activity Type Activity Date Activity User E-Sign Co-Sign Detail Recorded Client Recorded Date Recorded By Document 11/16/20 13:34 MW [id number] 11/16/20 13:49 MW 11/16/20 13:34 Wound Center Nurse 2 [Procedure/Treatment] -Time 13:35 -Correct Patient Yes -Correct Side, Site, Position Yes -Correct Procedure Yes -Procedure Performed Yes -Type of Procedure Debridement -Clinical Debridement Subcutaneous -Tissue Removed Subcutaneous -Post Debridement (cm) - Length 0.9 -Post Debridement (cm) - Width 0.6 -Post Debridement (cm) - Depth 0.1 -Total Square (Post) (cm) 0.54 -Area of Debridement (cm) - Length 0.9 -Area of Debridement (cm) - Width 0.6 -Total Square (Area) (cm) 0.54 -Tunneling No -Undermining/Tunneling No -Circular Undermining No -Wound/Ulcer Outcome Not Healed -Ulcer Cleansing Rinsed/ Irrigated with Saline -Foul Odor after Cleansing No -Bioengineered Tissue Yes -Type of Bioengineered Tissue NuShield Disc -Expiration Date 02/08/25 -Product Lot Number [id number] -Percent Used 100 -Lot number of Saline Used [id number] -Bleeding Controlled with Pressure -Offloading No -Treatment Response Procedure Tolerated Well -Debridement - Subq, 1st 20sq cm No -Apply Skin Sub - 1st 25 sq cm - Feet 1 -NuShield 16mm Disc 2 Query Text:16mm = 2 [See Physician Procedure note for Specifics] Pain Scale: 0-10 Numeric [Pain] -Is Patient Pain Free? Yes There is once again a hard callous over the wound on the left heel. There is no purulent DC and there is no per-wound erythema. No tunnelling and no undermining. The skin around the wound is dry and scaly. following debridement NuShield was applied and covered with hydrogel and then a wound veil. Debridement Note Post-Debridement Measurements/Treatment WC - Nurse 2 - General Ulcer CM Notes Start: 11/02/20 13:25 Freq: Status: Active Protocol: Activity Type Activity Date Activity User E-Sign Co-Sign Detail Recorded Client Recorded Date Recorded By Document 11/02/20 13:46 MW [id number] 11/02/20 14:10 MW Document 11/09/20 13:46 MW [id number] 11/09/20 14:12 MW Document 11/16/20 13:34 MW [id number] 11/16/20 13:49 MW 11/02/20 11/09/20 11/16/20 13:46 13:46 13:34 Wound Center Nurse 2 1-left heel -Time 13:50 13:46 13:35 -Correct Patient Yes Yes Yes -Correct Side, Site, Position Yes Yes Yes -Correct Procedure Yes Yes Yes -Procedure Performed Yes Yes Yes -Type of Procedure Debridement Debridement Debridement -Clinical Debridement Subcutaneous Subcutaneous Subcutaneous -Tissue Removed Subcutaneous Subcutaneous Subcutaneous -Post Debridement (cm) - Length 1.0 0.3 0.9 -Post Debridement (cm) - Width 1.2 0.6 0.6 -Post Debridement (cm) - Depth 0.1 0.1 0.1 -Total Square (Post) (cm) 1.20 0.18 0.54 -Area of Debridement (cm) - Length 1.0 0.3 0.9 -Area of Debridement (cm) - Width 1.2 0.6 0.6 -Total Square (Area) (cm) 1.20 0.18 0.54 -Tunneling No No No -Undermining/Tunneling No No No -Circular Undermining No No No -Wound/Ulcer Outcome Not Healed Not Healed Not Healed -Ulcer Cleansing Rinsed/ Rinsed/ Rinsed/ Irrigated with Irrigated with Irrigated with Saline Saline Saline -Foul Odor after Cleansing No No No -Bioengineered Tissue Yes Yes Yes -Type of Bioengineered Tissue PuraPly AM NuShield Disc NuShield Disc -Expiration Date 11/15/22 02/08/25 02/08/25 -Product Lot Number [id number] -Percent Used 100 100 100 -Lot number of Saline Used [id number] -Bleeding Controlled with Pressure Pressure Pressure -Offloading No No No -Treatment Response Procedure Procedure Procedure Tolerated Well Tolerated Well Tolerated Well -Debridement - Subq, 1st 20sq cm No No No -Apply Skin Sub - 1st 25 sq cm - Legs 1 -Apply Skin Sub - 1st 25 sq cm - Feet 1 1 -NuShield 16mm Disc 2 2 Query Text:16mm = 2 -PuraPly AM (per sq cm) 4 Pain Scale: 0-10 Numeric Is Patient Pain Free? Yes Yes Yes WC - Nurse 3 - General Ulcer D/C NN Start: 11/02/20 13:25 Freq: Status: Active Protocol: Activity Type Activity Date Activity User E-Sign Co-Sign Detail Recorded Client Recorded Date Recorded By Document 11/02/20 14:26 [facility] [id number] 11/02/20 14:27 [facility] Document 11/09/20 14:12 MW [id number] 11/09/20 14:13 MW 11/02/20 11/09/20 14:26 14:12 Wound Care Nurse 3 1-left heel -Ulcer Cleansing Not Cleansed -Foul Odor after Cleansing No -Negative Pressure Wound Therapy N/A -Primary Dressing Applied C Hydrogel ($) -Other Dressing PURAPLY -Primary Dressing Covered/Secured with Dry Gauze & Dry Gauze & Roll Gauze, Roll Gauze, Secured with Secured with Tape,Other Tape -Other Covering HEEL HAT abd pad Treatment Response Procedure Procedure Tolerated Well Tolerated Well Pain Scale: 0-10 Numeric Is Patient Pain Free? Yes Yes Teaching: Wound Center Dressing Your Wound -Person Taught Patient,Family -Teaching Method Discussion, Demonstration -Response to teaching Verbalize understanding WC - Visit Discharge Discharge Condition Stable Stable Ambulatory Status Wheelchair Wheelchair Transportation Private Auto Private Auto Accompanied by Medication Reconcilliation completed & No provided to patient/care provider Clinical Summary of Care Provided Yes Wound debrided: He will Laterality: Left Type of Debridement: Excisional debridement Anesthesia Used: 4% Lidocaine Solution, Cetacaine Percentage of wound debrided: 100 Instrument Used: #15 blade, Forceps Severity: Limited To Skin Breakdown Amount of bleeding with debridement: Mild Bleeding Controlled with: Pressure Patient tolerated procedure well Assessment/Plan Active Problems (Last Updated 11/10/20 @ 13:27 by Rosita Moreira) Decubitus ulcer of left heel, stage 3 (Chronic) Lymphedema (Chronic) BL LE's stage 3 Venous insufficiency of both lower extremities (Chronic) HTN, goal below 130/80 (Chronic) HK (hyperkeratosis) (Chronic) Morbid obesity with BMI of 50.0-59.9, adult (Acute) Memory deficit (Chronic) Assessment: 1. morbid obesity. 2. long standing venous insufficiency which is more than likely the cause of lymphedema. The edema has improved somewhat with compression, elevation and now that she is walking I suspect it will improve more. 3. HTN. 4. ? memory issues? D/W Dr. Mckeon and he will address this. 5. pressure ulcer of the left heel - stage 2 Plan: 1. The second application of NuShield was applied today. It was covered with hydrogel to keep the wound moist. 2. She will continue with off-loading the heel. 3. She will call me or the [facility] if she has any fevers, chills, night sweats. 4. RTC in 1 week Office Visits / Consults: [id number] OV L2 Est
[2020-11-23 13:26] VITALS: BP 151/70; PULSE 52; RESP 16; TEMP 36.2; BMI 51.5
--- NOTE | 2020-11-23 15:36 | PCM.WC.PN ---
History of Present Illness Date of Service: 11/29/20 Chief Complaint: non-healing wound of the left heel History of Wound: Cordelia has a ulcer on the Left heel that has been present for several months. He has been treating it with Bacitracin covered with gauze and then application of a JOSEFA wrap. Cordelia can not sleep in a bed and so she has been sleeping in a recliner for quite some time now. She is not ambulatory due to weakness. She has not seen her PCP in at least 14 months. She tells me that she has always been healthy but, when I look back at lab she had done in 2016 she had stage 3 b CRF and the glucose was 140. Her BP is elevated today and she denies hx of HTN. She denies a FH of DM. Her legs feel so heavy she is unable to lift them. She has noticed discoloration of her distal LE's and she also has very dry skin and lumpy skin. She is also c/o pain in the R lateral thigh and hip area and sometimes in the R buttock. Subjective Subjective: No fevers, sweats or chills. She and her are now trying to control what they eat better and they are eating salad for dinner every night. She lost 1/2 pound in the past week and she is trying to increase the time she walking every day. She denies pain. Objective Data Objective Data Vital Signs: Vital Signs Temp Pulse Resp BP 97.2 F L 52 L 16 151/70 H 11/23/20 13:26 11/23/20 13:26 11/23/20 13:26 11/23/20 13:26 Oxygen Delivery Method Room Air Weight: 300 lb Body Mass Index (BMI) 51.5 Assessment & Plan Assessment/Plan (1) Lymphedema: Status: Chronic Code(s): I89.0 - Lymphedema, not elsewhere classified Plan: still awaiting approval for the lymphedema pumps. (2) Decubitus ulcer of left heel, stage 3: Status: Chronic Code(s): L89.623 - Pressure ulcer of left heel, stage 3 Plan: healed. Cordelia will use a Mepilex over the area of the previous Left heel ulcer and cover this with a nurse's hat and then an JOSEFA wrap for compression. She will return for a recheck in 2 weeks. Charges/Coding Office Visits / Consults: [id number] OV L2 Est Physical Exam Const alert Constitutional Narrative: poor short term memory General Appearance: cooperative Extremity Extremity Narrative: the tissue of the LE's is softer since she has been using compression. the skin looks better since her has been using the moisturizer regularly. The skin over the plantar surface of the feet is looking better with less hyperkeratosis since they have been using the ammonium lactate.
== END 2020-11-26 23:59 ==
LOC: WC 13:30
PROVIDERS: PCP Family Medicine; Referring Provider Internal Medicine; Visit Provider Internal Medicine
DX: L89.623 Pressure ulcer of left heel, stage 3 (principal); I12.9 Hypertensive chronic kidney disease with stage 1 through stage 4 chronic kidney disease, or unspecified chronic kidney disease; I89.0 Lymphedema, not elsewhere classified; E66.01 Morbid (severe) obesity due to excess calories; Z68.43 Body mass index [BMI] 50.0-59.9, adult; I87.2 Venous insufficiency (chronic) (peripheral); L85.9 Epidermal thickening, unspecified; N18.32 Chronic kidney disease, stage 3b; L89.622 Pressure ulcer of left heel, stage 2
CPT/HCPCS: 15271; 15275; 99213; Q4160; Q4196; G0463

== ENCOUNTER 2020-12-07 13:30 | Outpatient (RCR) | payer MEDICARE, OTHER, SELFPAY ==
[2020-11-27 00:49] VITALS: BP 151/70; PULSE 52; RESP 16; TEMP 36.2
[2020-12-07 13:29] VITALS: BP 149/78; PULSE 77; RESP 16; TEMP 36.2; BMI 51.5
--- NOTE | 2020-12-07 15:09 | PCM.WC.PN ---
History of Present Illness Date of Service: 12/13/20 Chief Complaint: non-healing wound of the left heel History of Wound: Cordelia has a ulcer on the Left heel that has been present for several months. He has been treating it with Bacitracin covered with gauze and then application of a JOSEFA wrap. Cordelia can not sleep in a bed and so she has been sleeping in a recliner for quite some time now. She is not ambulatory due to weakness. She has not seen her PCP in at least 14 months. She tells me that she has always been healthy but, when I look back at lab she had done in 2016 she had stage 3 b CRF and the glucose was 140. Her BP is elevated today and she denies hx of HTN. She denies a FH of DM. Her legs feel so heavy she is unable to lift them. She has noticed discoloration of her distal LE's and she also has very dry skin and lumpy skin. She is also c/o pain in the R lateral thigh and hip area and sometimes in the R buttock. Subjective Subjective The wound remains healed per Cordelia and her Hanane. She has received the lymphedema pumps and will be having a visit to show her how to apply the pumps, for how long and at what settings in the near future. She is continuing to try and increase the distance she ambulates daily. Denies fevers/chills/night sweats. Denies Leg pain. Objective Data Objective Data Vital Signs: Vital Signs Temp Pulse Resp BP 97.2 F L 77 16 149/78 H 12/07/20 13:29 12/07/20 13:29 12/07/20 13:29 12/07/20 13:29 Weight: 300 lb Body Mass Index (BMI) 51.5 Assessment & Plan Assessment/Plan (1) Decubitus ulcer of left heel, stage 3: PLAN: Healed. She will follow up PRN if the wound opens up again or she develops any other wounds. (2) Lymphedema: PLAN: She will start using the lymphedema pumps after she is instructed in how to use by the nurse. (3) Venous insufficiency of both lower extremities: PLAN: Advised elevation, continued compression and wt loss. She is eating more healthy now and she is trying to increase ambulation time/distance. Charges/Coding Visit Charges Office Visits / Consults: [id number] OV L2 Est Physical Exam Const alert and oriented x3 Constitutional Narrative: forgetful and continues to ask the same question multiple times General Appearance: cooperative Extremity no calf tenderness Extremity Narrative: When her legs are dependent the foot is dusky and purple due to venous hypertension. When it is elevated the toes are pink again. Skin no wounds Wound Narrative: The left heel decubitus ulcer remains healed.
== END 2020-12-07 14:21 | disposition home or self-care (01) ==
LOC: WC 13:30
PROVIDERS: PCP Family Medicine; Referring Provider Internal Medicine; Visit Provider Internal Medicine
DX: Z09 Encounter for follow-up examination after completed treatment for conditions other than malignant neoplasm (principal); N18.32 Chronic kidney disease, stage 3b; I89.0 Lymphedema, not elsewhere classified; I87.2 Venous insufficiency (chronic) (peripheral)
CPT/HCPCS: 99213; G0463

== ENCOUNTER → 2021-07-05 10:23 | Outpatient (CLI) | payer MEDICARE, OTHER, SELFPAY ==
[2021-07-05 12:42] LABS: Absolute Neutrophil Count 2.8 X10^3/uL (2.0-7.7); Basophil# 0.02 X10^3/uL; Basophil% 0.5 % (0-1); Eosinophil# 0.07 X10^3/uL; Eosinophils% 1.7 % (0-5); Hematocrit 44.9 % (37-47); Hemoglobin 14.2 g/dL (12.0-15.0); Lymphocyte % 22.2 % (19-41); Mean Corp Hgb Conc 31.6 g/dL (32-36); Mean Corpuscular Hgb 29.6 pg (27.0-32.0); Mean Corpuscular Volume 93.7 fL (81-99); Mean Platelet Vol. 10.4 fl (6.2-12.0); Monocyte# 0.25 X10^3/uL; Monocyte% 6.2 % (0-10); NRBC Flagged by Analyzer 0 % (0-5); Neutrophil % 69.2 % (47-70); Platelet Count 177 K/mm3 (150-450); RBC Distribution Width CV 13.4 % (11.6-14.6); RBC Distribution Width SD 46.5 fl (35.1-43.9); Red Blood Count 4.79 M/mm3 (4.2-5.4); White Blood Count 4.1 K/mm3 (4.4-11.0)
[2021-07-05 13:18] LABS: AST(SGOT) 16 U/L (15-37); Alanine Aminotransfer ALT/SGPT 15 U/L (13-56); Albumin, Serum 3.7 g/dL (3.2-5.0); Alkaline Phosphatase 78 U/L (45-117); Anion Gap 8 (5-15); BUN 14 mg/dL (7-18); BUN/Creat Ratio 23.7 RATIO (10-20); Calcium,Total 9.3 mg/dL (8.5-10.1); Chloride 107 mmol/L (98-107); Cholesterol 190 mg/dL (200); Creatinine, Serum 0.59 mg/dL (0.55-1.02); EST Glomerular Filtration Rate 106 mL/min (>60); Est Glom Filt Rate - Afr Amer 128 mL/min (>60); Globulin 3.6 g/dL (2.2-4.2); Glucose 98 mg/dL (74-106); High Density Lipoprotein 69 mg/dL; Potassium 4.7 mmol/L (3.5-5.1); Protein, Total 7.3 g/dL (6.4-8.2); Sodium Level 142 mmol/L (136-145); Triglycerides 47 mg/dL; Very Low Density Lipoprotein 9 mg/dL (5-40)
== END ==
PROVIDERS: PCP Internal Medicine; Referring Provider Internal Medicine; Visit Provider Internal Medicine
DX: I10 Essential (primary) hypertension (principal); E55.9 Vitamin D deficiency, unspecified; I89.0 Lymphedema, not elsewhere classified; R53.1 Weakness; E66.01 Morbid (severe) obesity due to excess calories; Z68.43 Body mass index [BMI] 50.0-59.9, adult
CPT/HCPCS: 36415; 80053; 80061; 82306; 84443; 85025

== ENCOUNTER 2022-10-20 01:52 | Inpatient (IN) | payer MEDICARE, OTHER, SELFPAY ==
[2022-10-20] VITALS (47 sets, daily range): BP systolic 65–147; BP diastolic 44–127; PULSE 66–105; RESP 16–30; TEMP 37.2–38.3; O2SAT 92–99; BMI 47.8
--- NOTE | 2022-10-20 01:58 | EKG12_ITS ---
Test Reason : SOB Blood Pressure : / mmHG Vent. Rate : 101 BPM Atrial Rate : 101 BPM P-R Int : 172 ms QRS Dur : 108 ms QT Int : 398 ms P-R-T Axes : 054 -64 049 degrees QTc Int : 516 ms Sinus tachycardia Left axis deviation Minimal voltage criteria for LVH, may be normal variant ( Edward product ) Inferior infarct , age undetermined Anterolateral infarct , age undetermined Abnormal ECG Confirmed by DADA TRUONG, PEPPER ([id number]), web content editor TORREY FLORES ([id number]) on 10/23/2022 2:11:58 PM Referred By: Confirmed By:PEPPER GARLAND MD
--- NOTE | 2022-10-20 02:16 | EDS_ITS ---
HPI History of Present Illness Chief Complaint: Alt LOC Informant: patient, family and EMS Narrative Narrative: Patient presents via EMS secondary to altered level of consciousness, presumed COVID, fall. Daughter at bedside provides much of the history. Daughter states that she was diagnosed with COVID on Sunday of last week. On , 8 days ago, patient became ill with cough and congestion. It was presumed that she had COVID. She was never tested. Patient seemed to be doing well, however on of this week felt feverish around noon. Family turned the thermostat down in the house and gave her plenty of fluids. She seemed to somewhat improved. Tonight she slid from her chair and fell to the floor. She was more confused. EMS states her O2 sat was 76% on room air on their arrival. Patient was noted to have wheezing and was given Solu-Medrol in route. She was initially placed on 5 to 6 L nasal cannula but O2 sats only went up to 88%. She was then placed on CPAP. [facility] Medical History (Updated 10/20/22 @ 03:[address] Kamille Rios MD) Chronic acquired lymphedema GERD (gastroesophageal reflux disease) H/O renal calculi Headache, migraine Hiatal hernia Hypertension Memory deficit Morbid obesity Venous insufficiency of both lower extremities Home Medications NK 03/08/22 [History Last Taken Unknown] Allergy/AdvReac Type Severity Reaction Status Date / Time codeine Allergy Hives Verified 10/20/22 01:57 Penicillins Allergy Hives Verified 10/20/22 01:57 Family History (Updated 10/20/22 @ 02:[address] Mora Horan MD) Mother Myocardial infarction CAD (coronary artery disease) Hypertension Heart disease Father Bladder cancer Sister Diabetes Surgical History History of hysterectomy History of knee replacement History of umbilical hernia repair Social History (Updated 10/20/22 @ 02:[address] Mora Horan MD) household members: spouse Smoking Status: Never smoker alcohol intake: never substance use type: does not use what type of physical activity do you participate in: none ROS ROS ED ROS Narrative Patient removed from CPAP on arrival to the emergency room. She is able to answer questions for me. She denies having any pain. She denies feeling short of breath. She denies any injury from her fall. Constitutional Constitutional ED: Reports fever(s) Eyes Eyes: Denies change in vision ENT ENT ED: Denies rhinorrhea or sore throat Cardiovascular Cardiovascular: Denies chest pain or palpitations Respiratory/Chest Respiratory/Chest: Reports cough; Denies dyspnea Gastrointestinal Gastrointestinal: Denies abdominal pain or vomiting Musculoskeletal Musculoskeletal: Reports myalgias Integumentary Denies rash Neurologic Neurologic: Reports weakness Allergic/Immunologic Allergic/Immunologic ED: Denies mouth swelling or tongue swelling EXAM Physical Exam Const Vital Signs: 10/20/22 01:53 10/20/22 02:02 10/20/22 02:38 Temperature 99.6 F H Temperature Source Temporal Pulse Rate 105 H 97 Respiratory Rate 30 H 26 H Respiratory Effort Respiratory Depth Respiratory Pattern Tachypnea Blood Pressure 147/127 H Blood Pressure Mean 133 Pulse Ox 96 Oxygen Delivery Method Nasal Cannula Oxygen Flow Rate (L/min) 6 10/20/22 02:38 10/20/22 02:49 10/20/22 03:00 Temperature 101 F H 101 F H Temperature Source Core Core Pulse Rate 103 H 100 Respiratory Rate 27 H 29 H Respiratory Effort Short of Breath Respiratory Depth Normal Respiratory Pattern Tachypnea Blood Pressure 75/52 L 71/53 L Blood Pressure Mean 59 59 Pulse Ox 96 95 97 Oxygen Delivery Method Nasal Cannula Nasal Cannula Nasal Cannula Oxygen Flow Rate (L/min) 6 5 5 10/20/22 03:39 Temperature 100.5 F H Temperature Source Core Pulse Rate 96 Respiratory Rate 24 H Respiratory Effort Respiratory Depth Respiratory Pattern Blood Pressure 90/44 L Blood Pressure Mean 59 Pulse Ox 96 Oxygen Delivery Method Nasal Cannula Oxygen Flow Rate (L/min) 5 Positive well nourished and well developed General Appearance ED: well developed HEENT Reports normocephalic and head/scalp atraumatic Eyes PERRL and EOMs intact bilaterally Neck supple Chest Wall inspection of chest normal and palpation of chest normal Resp Resp Narrative: Tachypnea with expiratory wheezes. Cardio regular rhythm Rate: tachycardic GI non-tender Auscultation: hypoactive bowel sounds Palpation: soft Extremity normal to inspection Neuro Neuro Narrative: Patient alert. Spontaneously moves all 4 extremities. Answers questions. Sensorium / Orientation: alert Psych mental status grossly normal Skin no rashes or lesions noted MDM MDM MDM Narrative Medical decision making narrative: Patient placed on junior sales assistant. Patient is removed from CPAP and placed on 6 L nasal cannula. Labwork obtained to evaluate for leukocytosis, anemia, and electrolyte derangement. Troponin obtained to evaluate for cardiac ischemia. D-dimer obtained to evaluate for possible blood clot. Urinalysis obtained to evaluate for infection/hematuria. Swab for COVID and influenza obtained. Rectal Tylenol given for fever. History & Record Review Discussion w/independent historian: EMS personnel, Patient and Family Lab Data Attestation: I reviewed the patient's lab results. Labs: Laboratory Results - last 24 hr 10/20/22 10/20/22 10/20/22 02:27 02:27 02:27 WBC 15.9 H RBC 4.54 Hgb 13.3 Hct 42.2 MCV 93.0 MCH 29.3 MCHC 31.5 L RDW Std Deviation 46.3 H RDW Coeff of Gareth 13.5 Plt Count 123 L MPV 11.1 Immature Gran % (Auto) 2.600 H Neut % (Auto) 93.8 H Lymph % (Auto) 1.8 L Vernon % (Auto) 0.9 Eos % (Auto) 0.0 Baso % (Auto) 0.9 Absolute Neuts (auto) 14.9 H Absolute Lymphs (auto) 0.28 L Nucleated RBC % 0 Differential Comment SCANNED D-Dimer Quant (PE/DVT) 12.49 H* Sodium 138 Potassium 3.3 L Chloride 106 Carbon Dioxide 22.0 Anion Gap 10 BUN 25 H Creatinine 1.83 H Estim Creat Clear Calc 22.58 Est GFR (MDRD) Af Amer 34 L Est GFR (MDRD) Non-Af 29 L BUN/Creatinine Ratio 13.7 Glucose 108 H Lactic Acid Calcium 8.7 Total Bilirubin 2.00 H Direct Bilirubin 0.81 H AST 34 ALT 27 Alkaline Phosphatase 90 Troponin I High Sens 132 H* Total Protein 5.7 L Albumin 2.6 L Globulin 3.1 Procalcitonin Urine Color Urine Clarity Urine pH Ur Specific Marion Urine Protein Urine Glucose (UA) Urine Ketones Urine Occult Blood Urine Nitrite Urine Bilirubin Urine Urobilinogen Ur Leukocyte Esterase Urine RBC Urine WBC Ur Squamous Epith Cells Urine Bacteria Urine Mucus 10/20/22 10/20/22 10/20/22 02:27 02:27 02:41 WBC RBC Hgb Hct MCV MCH MCHC RDW Std Deviation RDW Coeff of Gareth Plt Count MPV Immature Gran % (Auto) Neut % (Auto) Lymph % (Auto) Vernon % (Auto) Eos % (Auto) Baso % (Auto) Absolute Neuts (auto) Absolute Lymphs (auto) Nucleated RBC % Differential Comment D-Dimer Quant (PE/DVT) Sodium Potassium Chloride Carbon Dioxide Anion Gap BUN Creatinine Estim Creat Clear Calc Est GFR (MDRD) Af Amer Est GFR (MDRD) Non-Af BUN/Creatinine Ratio Glucose Lactic Acid 3.8 H* Calcium Total Bilirubin Direct Bilirubin AST ALT Alkaline Phosphatase Troponin I High Sens Total Protein Albumin Globulin Procalcitonin > 50.00 H Urine Color Yellow Urine Clarity Cloudy Urine pH 5.0 Ur Specific Marion 1.025 Urine Protein 100 H Urine Glucose (UA) Normal Urine Ketones 5 H Urine Occult Blood 250 H Urine Nitrite Positive H Urine Bilirubin 1 H Urine Urobilinogen 1 H Ur Leukocyte Esterase 500 H Urine RBC 0-5 SEEN Urine WBC 10-25 SEEN Ur Squamous Epith Cells 0-5 SEEN Urine Bacteria 3+ Urine Mucus 0 SEEN Radiography Chest X-Ray - ED: 1 View and Chronic Changes Diagnostic Testing: Clinical Impression(s) from Imaging Studies Chest X-Ray 10/20/22 02:45 IMPRESSION: Prominent right hilar shadow most likely superimposed pulmonary vessels but underlying pulmonary mass or hilar adenopathy also in the differential. Consider follow-up PA and lateral chest x-ray and/or chest CT. Electronically Signed: Hola Delaney MD at 3:06 EDT , EKG Initial EKG: Attestation: I personally reviewed and interpreted this EKG as follows: Interpretation: Sinus Tachycardia (Sinus tach at 101. No acute ischemic change.) Management Discussion w/another healthcare provider: Hospitalist Additional Tests and Interventions Diagnositc testing considered but not performed: CTA chest considered, however patient's GFR is diminished and she is not able to tolerate IV contrast burden at this time. Treatment and Re-Evaluation :: Although patient's initial blood pressure was good at 147/127, repeat blood pressures have been low in the 70s to 80s systolic. CBC reveals elevated white count of 15.9 with 94% neutrophils. Chemistry studies reveal potassium of 3.3. BUN is 25 and creatinine is 1.83. This is an acute kidney injury when compared to prior labs from approximately 15 months ago. Lactic acid is elevated at 3.8. D-dimer is elevated at 12.49. Troponin is elevated at 132. Urinalysis does reveal veal infection with positive nitrites and 3+ bacteria. Procalcitonin is elevated at greater than 50. Rapid swab for COVID and influenza is negative, however patient has had upper respiratory symptoms for 8 days and rapid test may not be accurate. I believe the patient likely has been recovering from COVID but now has an acute UTI. She is in acute kidney injury. I will give her IV fluid bolus based on adjusted ideal body weight given her morbid obesity. She has been given IV Rocephin and blood and urine cultures have been sent. Potassium has been replaced IV. I will discuss with hospitalist regarding potential use of heparin given her elevated D-dimer and troponin values. Patient is denying chest pain and I see no ischemic change noted on her EKG at this time. Critical Care Time Critical Care Time: Yes Critical care time (excluding procedures): 30-74 minutes (35), Discussing w/Patient &/or Family/Biofuels Processing Technician, Discussing w/Consultants and Arranging Admission or Transfer Discharge Plan Dx/Rx/DC Orders Clinical Impression: Sepsis, UTI (urinary tract infection), Acute kidney injury, Hypokalemia, Respiratory failure, Elevated troponin, Elevated d-dimer Disposition Disposition: Acute Care [facility]
[2022-10-20] MEDS: Acetaminophen 650 MG Suppository RC (02:28)
[2022-10-20] MEDS: Albuterol 2.5 MG/3 ML VIAL.NEB. INHALATION ×2 (02:37→02:38)
[2022-10-20] MEDS: Ipratropium/Albuterol Sulfate 3 ML AMPUL.NEB INHALATION ×4 (02:37→19:11)
[2022-10-20 02:42] LABS: Absolute Lymphocyte Count 0.28 X10^3/uL (0.83-4.51); Absolute Neutrophil Count 14.9 X10^3/uL (2.0-7.7); Basophil# 0.14 X10^3/uL; Basophil% 0.9 % (0-1); Hematocrit 42.2 % (37-47); Hemoglobin 13.3 g/dL (12.0-15.0); Lymphocyte # 0.28 X10^3/ul (0.83-4.51); Lymphocyte % 1.8 % (19-41); Mean Corp Hgb Conc 31.5 g/dL (32-36); Mean Corpuscular Hgb 29.3 pg (27.0-32.0); Mean Platelet Vol. 11.1 fl (6.2-12.0); Monocyte# 0.15 X10^3/uL; Monocyte% 0.9 % (0-10); NRBC Flagged by Analyzer 0 % (0-5); Neutrophil # 14.89 X10^3/uL (2.7-7.7); Neutrophil % 93.8 % (47-70); POSITIVE DIFFERENTIAL YES; POSITIVE MORPHOLOGY YES; Platelet Count 123 K/mm3 (150-450); RBC Distribution Width CV 13.5 % (11.6-14.6); RBC Distribution Width SD 46.3 fl (35.1-43.9); Red Blood Count 4.54 M/mm3 (4.2-5.4); White Blood Count 15.9 K/mm3 (4.4-11.0)
--- NOTE | 2022-10-20 02:45 | RAD_ITS ---
INDICATION: Shortness of breath EXAMINATION/TECHNIQUE: X-RAY - AP view of chest COMPARISON: None FINDINGS: LINES/DEVICES: None. LUNGS: Prominent right hilar shadow. No pulmonary edema. No sizable pleural effusion. No detectable pneumothorax. MEDIASTINUM AND CARDIOVASCULAR STRUCTURES: Heart size within normal limits for imaging technique. Atherosclerotic calcifications along aorta. BONES AND SOFT TISSUES: Skeletal degenerative changes. RAD/Chest 1 View (Portable) IMPRESSION: Prominent right hilar shadow most likely superimposed pulmonary vessels but underlying pulmonary mass or hilar adenopathy also in the differential. Consider follow-up PA and lateral chest x-ray and/or chest CT. Electronically Signed: Hola Delaney MD at 3:06 EDT ,
[2022-10-20 02:47] LABS: Mucous, Urine 0 SEEN /hpf (<or=2+)
[2022-10-20 03:07] LABS: Color, Urine Yellow (Yellow); Glucose, Dipstick Normal (Normal); Ketone-Dipstick 5 mg/dl (Negative); Leukocyte Esterase-Dipstick 500 /ul (Negative); Nitrite-Dipstick Positive (Negative); Occult Blood-Urine 250 /ul (Negative); Protein-Dipstick 100 mg/dl (Negative); Specific Gravity, Urine 1.025 (1.002-1.030); Urine Clarity Cloudy (Clear); Urine Urobilinogen 1 mg/dl (Normal)
[2022-10-20 03:08] LABS: Urine Bilirubin Dipstick 1 mg/dL (Negative)
[2022-10-20 03:10] LABS: Bacteria 3+ /hpf (None Seen); Red Blood Cells-Urine 0-5 SEEN /hpf (0-5); Squamous Epithelial Cells - UA 0-5 SEEN /hpf (5-10); White Blood Cells 10-25 SEEN /hpf (0-5)
[2022-10-20 03:12] LABS: AST(SGOT) 34 U/L (15-37); Alanine Aminotransfer ALT/SGPT 27 U/L (13-56); Albumin, Serum 2.6 g/dL (3.2-5.0); Alkaline Phosphatase 90 U/L (45-117); Anion Gap 10 (5-15); BUN 25 mg/dL (7-18); BUN/Creat Ratio 13.7 RATIO (10-20); Bilirubin, Direct 0.81 mg/dL (0.00-0.30); Calcium,Total 8.7 mg/dL (8.5-10.1); Chloride 106 mmol/L (98-107); Creatinine, Serum 1.83 mg/dL (0.55-1.02); EST Glomerular Filtration Rate 29 mL/min (>60); Est Glom Filt Rate - Afr Amer 34 mL/min (>60); Estimated Creatinine Clearance 22.58 ml/min; Globulin 3.1 g/dL (2.2-4.2); Glucose 108 mg/dL (74-106); Potassium 3.3 mmol/L (3.5-5.1); Protein, Total 5.7 g/dL (6.4-8.2); Sodium Level 138 mmol/L (136-145); Troponin-I HS 132 pg/mL (3.0-54.0)
[2022-10-20 03:18] LABS: Procalcitonin > 50.00 ng/mL (0.00-0.09)
[2022-10-20] MEDS: 0.9% Normal Saline 1,000 ML 999 ML IV ×3 (03:22→07:58)
[2022-10-20 03:24] LABS: D-Dimer Quantitative (DVT/PE) 12.49 FEU/ug/m (0.27-0.49)
[2022-10-20 03:31] LABS: Lactic Acid 3.8 mmol/L (0.4-1.9)
[2022-10-20] MEDS: Potassium Chloride 10mEq/100mL 10 MEQ/100 ML IV.SOLN. 100 MEQ IV BOLUS ×4 (03:32→07:05)
[2022-10-20] MEDS: Ceftriaxone 1 GM/50 ML BAG IV (03:34)
[2022-10-20 03:35] LABS: Differential Indicated SCAN CRITERIA MET
[2022-10-20 03:46] LABS: Differential Comment SCANNED
--- NOTE | 2022-10-20 03:51 | PCM.HP.STD ---
HPI - General General Date of Admission: 10/20/22 Date of Service: 10/20/22 Chief Complaint: Encephalopathy, hypoxia. HPI Narrative The patient is a 77 y/o F w/ PMHx: Chronic Lymphedema, HTN, Migraines headaches, Hx Chronic LE Wounds previously following with [facility] who presents to the [facility] ED on 10/20/22 with reportedly the Sunday prior initially starting with cough and congestion although patient was never formally tested but they presumed COVID because daughter was diagnosed with COVID with initial mild improvement however on of the current week patient began to become feverish however on evening prior to ED presentation she had notable onset increased confusion as well as fall noted to have slid down out of her chair with no loss of consciousness, trauma or injury however given her worsening status EMS called per family with noted hypoxia upon their initial evaluation reported 76% on RA with transition to the ED for evaluation. EMS was concerned that patient was significantly wheezing therefore she was given Solu-Medrol on route to the emergency room. Patient was initially on 5 to 6 L nasal cannula however oxygen only increased to 80% therefore she was transition to CPAP. Patient was vaccinated with Zain & Zain single dose against COVID with no booster follow-up. Daughter present does report that she was confirmed COVID-positive and also the patient's was confirmed COVID +. Patient denies any recent specific urinary frequency, hesitancy or dysuria but on evaluation does have suprapubic discomfort. Patient denies any recent chest discomfort. Despite hypoxia she denies overt dyspnea complaints. In the ED her mental status does improve and she is oriented to self, place and recent events and discussing appropriately but very fatigued and lethargic. Work-up in the ED included T99.6, heart rate 105, BP 147/127--> 75/52-->BP 90/44, respiratory rate 30, 96% on 6 L nasal cannula, CBC with WBC 15.9, hemoglobin 13.3, platelet 123 with significant left shift and lymphopenia blood culture x2 pending per ED, CMP with potassium 3.3, BUN/creatinine 25/1.83, glucose 108, T. bili 2.0, D bili 0.81, AST/ALT 34/27, alk phos 90, troponin initial 132, lactic acid 3.8, procalcitonin >50, urinalysis with elevated specific gravity 1.025, protein 100, ketone 5, occult blood 250, nitrite positive, leukocyte Estrace 500 with urine WBCs 10-25 with 3+ urine bacteria, urine culture pending per ED, rapid SARS COVID and influenza negative, blood culture x2 pending per ED, chest x-ray with prominent right hilar shadow most likely superimposed pulmonary vessels but underlying pulmonary mass or hilar adenopathy also in the differential, EKG with ST without acute evidence of ischemia. Catheter placed in the ED. In the ED patient administered Tylenol 650 rectal x1, albuterol and DuoNeb therapy in addition to normal saline bolus, potassium 40 mEq IV and IV Rocephin. [facility] Medical History Chronic acquired lymphedema GERD (gastroesophageal reflux disease) H/O renal calculi Headache, migraine Hiatal hernia Hypertension Memory deficit Morbid obesity Venous insufficiency of both lower extremities Home Medications NK 03/08/22 [History Last Taken Unknown] Allergy/AdvReac Type Severity Reaction Status Date / Time codeine Allergy Hives Verified 10/20/22 01:57 Penicillins Allergy Hives Verified 10/20/22 01:57 Family History Mother Myocardial infarction CAD (coronary artery disease) Hypertension Heart disease Father Bladder cancer Sister Diabetes Surgical History History of hysterectomy History of knee replacement History of umbilical hernia repair Social History household members: spouse Smoking Status: Never smoker alcohol intake: never substance use type: does not use what type of physical activity do you participate in: none ROS ROS Narrative Admission Review of Systems: CONSTITUTIONAL: No weight loss, + fever, chills, weakness or fatigue. HEENT: + Congestion. Eyes: No visual loss, blurred vision, double vision or yellow sclerae. Ears, Nose, Throat: No hearing loss, sneezing. SKIN: No rash or itching, lesions, wounds. CARDIOVASCULAR: No chest pain, chest pressure or chest discomfort, palpitations, edema, orthopnea, syncopal events. RESPIRATORY: + shortness of breath, cough, wheezing. No marked sputum production, hemoptysis. GASTROINTESTINAL: + anorexia. No nausea, vomiting, diarrhea, abdominal pain, melena, BRBPR. GENITOURINARY: + Suprapubic discomfort. No dysuria, frequency, urgency or retention. NEUROLOGICAL: + headache, No dizziness, syncope, paralysis, ataxia, numbness or tingling in the extremities, focal weakness, change in bowel or bladder control, seizure. MUSCULOSKELETAL: + muscle, back pain, joint pain or stiffness. HEMATOLOGIC: + Easy bleeding or bruising. LYMPHATICS: No enlarged nodes. No history of splenectomy. PSYCHIATRIC: No history of depression or anxiety. ENDOCRINOLOGIC: No reports of sweating, cold or heat intolerance. No polyuria or polydipsia. ALLERGIES: + History of hives. Vital Signs Vital Signs Vital Signs: 10/20/22 01:53 10/20/22 02:02 10/20/22 02:38 Temperature 99.6 F H Temperature Source Temporal Pulse Rate 105 H 97 Respiratory Rate 30 H 26 H Respiratory Effort Respiratory Depth Respiratory Pattern Tachypnea Blood Pressure 147/127 H Blood Pressure Mean 133 Pulse Ox 96 Oxygen Delivery Method Nasal Cannula Oxygen Flow Rate (L/min) 6 10/20/22 02:38 10/20/22 02:49 10/20/22 03:00 Temperature 101 F H 101 F H Temperature Source Core Core Pulse Rate 103 H 100 Respiratory Rate 27 H 29 H Respiratory Effort Short of Breath Respiratory Depth Normal Respiratory Pattern Tachypnea Blood Pressure 75/52 L 71/53 L Blood Pressure Mean 59 59 Pulse Ox 96 95 97 Oxygen Delivery Method Nasal Cannula Nasal Cannula Nasal Cannula Oxygen Flow Rate (L/min) 6 5 5 10/20/22 03:39 Temperature 100.5 F H Temperature Source Core Pulse Rate 96 Respiratory Rate 24 H Respiratory Effort Respiratory Depth Respiratory Pattern Blood Pressure 90/44 L Blood Pressure Mean 59 Pulse Ox 96 Oxygen Delivery Method Nasal Cannula Oxygen Flow Rate (L/min) 5 Weight Weight: 278 lb 14.156 oz Body Mass Index (BMI) 47.8 Physical Exam Narrative Physical Examination: General: Awake, alert, oriented x 3 and cooperative, seated upright in the ED bed, fatigued and ill-appearing, mildly increased respiratory rate with some accessory muscle usage. Skin: Normal color, normal turgor, no icterus, no cyanosis except bilateral lower extremity chronic venous stasis skin changes/lymphedematous. HEENT: AT/NC, EOMI, PERRLA, moderately dry MM, no carotid bruits or JVD noted. Lungs: Diffusely diminished, greater bases, increased respiratory rate with some accessory muscle usage, distant expiratory wheezing noted, no obvious rales or rhonchi. Heart: Mildly tachycardic with regular rhythm; no gallop, rub audible. Abdomen: Soft, morbidly obese, suprapubic discomfort otherwise NTTP, unable to discern distention given habitus, distant hyperactive bowel sounds, unable to discern HSM secondary to habitus. Extremities: No cyanosis, no clubbing, chronic bilateral lower extremity lymphedema. Neurological: Patient awake, alert, oriented as noted, cognitive function intact; pupils equally reactive to light and accommodation, cranial nerves II-XII grossly normal, moving all 4 extremities, no focal deficits, strength severely global decrease secondary to acute presentation. Psychiatric: Affect appears fatigued, ill-appearing, no acute evidence of depressive or anxiety feelings. Results Lab / Micro Data Result Diagrams: 10/20/22 02:27 10/20/22 02:27 Labs: Laboratory Results - last 24 hr 10/20/22 02:27: WBC 15.9 H, RBC 4.54, Hgb 13.3, Hct 42.2, MCV 93.0, MCH 29.3, MCHC 31.5 L, RDW Std Deviation 46.3 H, RDW Coeff of Gareth 13.5, Plt Count 123 L, MPV 11.1, Immature Gran % (Auto) 2.600 H, Neut % (Auto) 93.8 H, Lymph % (Auto) 1.8 L, [place] % (Auto) 0.9, Eos % (Auto) 0.0, Baso % (Auto) 0.9, Absolute Neuts (auto) 14.9 H, Absolute Lymphs (auto) 0.28 L, Nucleated RBC % 0, Differential Comment SCANNED 10/20/22 02:27: D-Dimer Quant (PE/DVT) 12.49 H* 10/20/22 02:27: Sodium 138, Potassium 3.3 L, Chloride 106, Carbon Dioxide 22.0, Anion Gap 10, BUN 25 H, Creatinine 1.83 H, Estim Creat Clear Calc 22.58, Est GFR (MDRD) Af Amer 34 L, Est GFR (MDRD) Non-Af 29 L, BUN/Creatinine Ratio 13.7, Glucose 108 H, Calcium 8.7, Total Bilirubin 2.00 H, Direct Bilirubin 0.81 H, AST 34, ALT 27, Alkaline Phosphatase 90, Troponin I High Sens 132 H*, Total Protein 5.7 L, Albumin 2.6 L, Globulin 3.1 10/20/22 02:27: Lactic Acid 3.8 H* 10/20/22 02:27: Procalcitonin > 50.00 H 10/20/22 02:41: Urine Color Yellow, Urine Clarity Cloudy, Urine pH 5.0, Ur Specific [place] 1.025, Urine Protein 100 H, Urine Glucose (UA) Normal, Urine Ketones 5 H, Urine Occult Blood 250 H, Urine Nitrite Positive H, Urine Bilirubin 1 H, Urine Urobilinogen 1 H, Ur Leukocyte Esterase 500 H, Urine RBC 0-5 SEEN, Urine WBC 10-25 SEEN, Ur Squamous Epith Cells 0-5 SEEN, Urine Bacteria 3+, Urine Mucus 0 SEEN Micro: Microbiology 10/20/22 02:25 Nasal Secretion SARS-CoV-2 & FLU Antigen (Rapid) - Final Radiology Impression Chest X-Ray 10/20/22 02:45 IMPRESSION: Prominent right hilar shadow most likely superimposed pulmonary vessels but underlying pulmonary mass or hilar adenopathy also in the differential. Consider follow-up PA and lateral chest x-ray and/or chest CT. Electronically Signed: Hola Delaney MD at 3:06 EDT , Assessment & Plan Assessment/Plan (1) Sepsis: PLAN: Plan The patient is a 77 y/o F w/ PMHx: Chronic Lymphedema, HTN, Migraines headaches, Hx Chronic LE Wounds previously following with [facility] who presents to the [facility] ED on 10/20/22 with reportedly the Sunday prior initially starting with cough and congestion although patient was never formally tested with initial mild improvement however on of the current week patient began to become feverish however on evening prior to ED presentation she had notable onset increased confusion as well as fall noted to have slid down out of her chair with no loss of consciousness, trauma or injury however given her worsening status EMS called per family with noted hypoxia upon their initial evaluation reported 76% on RA with transition to the ED for evaluation. #1. Acute Encephalopathy (Infectious) secondary to Acute Sepsis, suspected multifactorial, Acute Hypoxic Respiratory Failure secondary to Suspected Recent Acute Viral Syndrome possibly COVID (pending PCR) w/ associated Bronchospasms and Acute Complicated UTI compounded by Morbid obesity, Possible Hypoventilation Syndrome, Possible undiagnosed LEONARD: Will admit patient to the ICU, will consult cellar pumper, will maintain on cardiac monitoring, continue IVF bolus per protocol with initiation of NEP if not effective, continue Gold catheter placed in the ED, trend lactic acid per facility protocol, ABG requested, maintain on oxygen with wean as tolerated to room air, continue ATC duonebs, PRN albuterol, given severity of significant wheezing on evaluation will initiate IV Solu-Medrol, maintained on IV Rocephin, MRSA screen requested, will plan repeat chest x-ray in AM to assure no underlying pneumonia more evident following hydration given dehydrated appearance upon presentation, maintain HOB, IS parameters w/ pending sputum cultures, full respiratory viral panel and urine antigens. Bld cx x 2 obtained in the ED. UCx pending per ED. If COVID positive will change steroids to IV decadron. Not candidate for antivirals given CrCl <30. #2. Acute NSTEMI, suspect type II secondary to acute presentation as noted #1: EKG in ED w/ ST without acute evidence of ischemia, CXR w/ prominent right hilar shadow most likely superimposed pulmonary vessels but underlying pulmonary mass or hilar adenopathy also in differential Trop elevated, 132. Will maintain on a monitored bed, continue serial cardiac enzymes and EKGs. Obtain magnesium level upon admission. Start Heparin drip. Continue medical management. Echocardiogram requested. Cardiology consulted, pending. ASA, NG, morphine. #3. Acute kidney injury: Secondary to suspected hypoperfusion with acute presentation as noted #1 septic shock associate with infection. Admission BUN/Cr 25/1.83, prior baseline creatinine noted to be primarily 0.5-1.0. Will continue to aggressively hydrate, hold nephrotoxic medications and repeat chemistry in AM. If no improvement would plan FeNa and renal ultrasound assessment. #4. Hyperbilirubinemia: Admission CMP with T. bili 2.0, D bili 0.81, LFTs and alk phos normal, suspect related to acute presentation with hypoperfusion, trend CMP with continue treatment as noted #1. #5. Abnormal chest x-ray: Chest x-ray with atypical findings with prominent right hilar shadow possibly superimposed pulmonary vessels but unable to rule out a pulmonary mass or hilar adenopathy, CT of the chest without contrast will be requested given notable acute kidney injury. #6. Elevated D-dimer: ED obtained D-dimer noted to be 12.49, given significant acute kidney injury not appropriate for CTPA, continued hydration with repeat renal function and if appropriate could certainly obtain CTPA however in the interim we will continue heparin drip and will request bilateral lower extremity duplex ultrasound. #7. Hypokalemia: Admission K+ 3.3, supplementation given, repeat level in AM. #8. Migraine headaches: Patient with a history of migraine headaches, not on any chronic regimen, encourage continued outpatient follow-up. #9. Chronic mild memory impairment/deficits: Complicates presentation, patient not on any chronic medications, following with her PCP, encourage continued outpatient assessment and follow-up. #10. History of prior chronic heel ulcer: Patient previously following at the wound care center, last note noted 12/07/2020, resolved. #11. Hypertension: Not on regimen, following with her PCP and given borderline blood pressures decision for continued lifestyle/diet management, currently hypotensive, continue to monitor. #12. Morbid Obesity: Unfortunately patient habitus causes her to utilize a wheelchair the majority of the time per review most recent PCP notes, weight loss and lifestyle changes encouraged. #13. GERD with hiatal hernia: Not on regimen per current list, will have as needed Mylanta. #14. Chronic bilateral lower extremity lymphedema, venous insufficiency: We will place snug Fernando wraps with elevation. #15. DVT prophylaxis: Heparin drip as noted. #16. CODE status: Patient HCPOA and living will are not in place however she does note that if she was unable to make any medical decisions for herself her as well as her daughters would be her decision makers. Discussed CODE status with both her and her daughter present at length including difference between FULL code, DNR-CCA and DNR-CC status. Following discussions about the differences in these status, requested Full Code status. Advanced Care Planning Face to Face Time: 16 minutes. Admission Evaluation Time spent evaluating chart, patient history, patient evaluation, care planning and discussion with specialists: 77 minutes. Charges/Coding Visit Charges Inpatient E&M: 76621 Init Hosp L3 Procedures Hospitalists Procedures: 97879 Advncd Care Plan 30 Min
--- NOTE | 2022-10-20 04:03 | CT_ITS ---
INDICATION: Abnormal CXR. Short of breath. EXAMINATION: CT CHEST WITHOUT CONTRAST - CT Chest W/O Contrast Injection TECHNIQUE: Helically acquired images were obtained of the chest. A radiation dose optimization technique was used for this scan. IV Contrast dosage and agent: None. COMPARISON: 10/20/2022 CXR FINDINGS: LUNGS, PLEURA AND LARGE AIRWAYS: No masses, consolidation, or edema. No pleural effusion or thickening. No pneumothorax. THYROID: No thyroid lesions. HEART AND PERICARDIUM: Mild cardiomegaly. No pericardial effusion. CORONARY ARTERIES: Coronary artery calcification VESSELS: Thoracic aorta is not dilated. The pulmonary arteries are dilated which accounts for the prominent jonas on the chest radiograph. MEDIASTINUM AND JONAS: No mediastinal or hilar adenopathy. Esophagus is unremarkable. No hiatal hernia. UPPER ABDOMEN: No acute pathology. BONES: No suspicious lytic or blastic abnormality. CT/Chest without Contrast IMPRESSION: No acute findings. Mild cardiomegaly. Pulmonary artery dilation which explains the prominent jonas on the radiograph. Electronically Signed: Chalo Jensen MD at 5:38 EDT Reading Location ID and State: [facility] / [place] Tel , Service support ,
--- NOTE | 2022-10-20 04:03 | VDLE_ITS ---
Reason For Study: Elevated D-dimer RIGHT LEFT GSV is normal. GSV is normal. CFV, CFV and PopV is compressible. CFV, CFV and PopV is compressible. T/P Trunk is compressible. T/P Trunk is compressible. PTV is compressible. PTV is compressible. RT PerV is compressible. LT PerV is compressible. Procedure This is a venous duplex using B-mode, color flow and spectral Doppler. Exam performed portable in ICU/CCU. The exam was abbreviated due to the COVID 19 protocol. FV distal visualized with color only, pt unable to tolerate compression. A preliminary report was called and/or faxed to [employer]. VL/Venous Duplex US - Lucien Extrem Interpretation Summary No evidence for acute deep venous thrombosis bilateral lower extremities with p atent and compressible bilateral great saphenous veins. Abbreviated COVID-19 protocol uti lized Ordering Physician: Mora Horan Referring Physician: Bea Mckeon M.D. Performed By: Corina Prasad RVT
[2022-10-20 04:19] LABS: Magnesium 1.4 mg/dL (1.6-2.6)
[2022-10-20 04:24] LABS: International Normalized Ratio 1.4; Prothrombin Time (Protime)PT. 17.3 SECONDS (11.7-14.9)
[2022-10-20 04:25] LABS: Partial Thromboplast Time 35.5 Seconds (24.1-36.2)
[2022-10-20 04:31] LABS: Allen Test Positive; Base Excess -5 mmol/L (-2 to +2); Bicarbonate 18.9 mmol/L (22-26); Blood Gas Specimen Type ART; O2 Delivery Device Cannula; PO2 69 mmHG (75-100); SITE R Radial; SO2 95 % (95-99); Total Carbon Dioxide 20 mmol/L; pCO2 27.6 mmHg (35-45); pH 7.44 (7.35-7.45)
--- NOTE | 2022-10-20 05:09 | ECHOD_ITS ---
Reason For Study: NSTEMI Procedure This was a limited 2D transthoracic echocardiogram. Exam performed portable in ICU/CCU. The exam was abbreviated due to the COVID 19 protocol. Left Ventricle Normal left ventricle. The estimated ejection fraction is 55-60 %. Right Ventricle Normal right ventricle. Normal systolic function. Atria Normal left atrium. Normal right atrium. Mitral Valve The mitral valve is structurally normal. No prolapse or stenosis seen. Trivial mitral valve insufficiency. Tricuspid Valve Normal tricuspid valve. Mild tricuspid valve insufficiency. Aortic Valve Mild diffuse aortic valve calcification. Pulmonic Valve The pulmonic valve is not well visualized. Great Vessels Normal aortic root. Pericardium/Pleural No pericardial effusion. MMode/2D Measurements & Calculations LVIDd: 4.8 cm IVSd: 1.6 cm LA dimension: 3.4 cm LVIDs: 3.8 cm LVPWd: 1.2 cm RVDd: 4.8 cm FS: 21.9 % LAV(MOD-sp4): 93.9 ml LA A4 area: 26.8 cm2 RA A4 area: 19.0 cm2 Doppler Measurements & Calculations Ao V2 max: 160.9 cm/sec PA V2 max: 112.5 cm/sec TR max scottie: 319.3 cm/sec Ao max P.4 mmHg TR max P.8 mmHg Ao V2 mean: 113.2 cm/sec Ao mean P.8 mmHg Ao V2 VTI: 31.5 cm ECHO/Echo Complete Interpretation Summary The estimated ejection fraction is 55-60 %. Mild TR No prior echo to compare Ordering Physician: Mora Horan Referring Physician: Bea Mckeon M.D. Performed By: Teto Ballesteros RCS
[2022-10-20 05:39] LABS: Hematocrit 36.3 % (37-47); Hemoglobin 11.9 g/dL (12.0-15.0); Mean Corp Hgb Conc 32.8 g/dL (32-36); Mean Corpuscular Hgb 29.5 pg (27.0-32.0); Mean Corpuscular Volume 89.9 fL (81-99); Mean Platelet Vol. 11.2 fl (6.2-12.0); POSITIVE COUNT YES; POSITIVE DIFFERENTIAL YES; POSITIVE MORPHOLOGY YES; Platelet Count 95 K/mm3 (150-450); RBC Distribution Width CV 13.5 % (11.6-14.6); RBC Distribution Width SD 44.7 fl (35.1-43.9); Red Blood Count 4.04 M/mm3 (4.2-5.4); White Blood Count 18.8 K/mm3 (4.4-11.0)
[2022-10-20] MEDS: 0.9% Normal Saline 1,000 ML 150 ML IV ×2 (06:05→09:09)
[2022-10-20 06:09] LABS: ALB/GLOB Ratio 0.8 RATIO (0.9-2.4); AST(SGOT) 39 U/L (15-37); Alanine Aminotransfer ALT/SGPT 24 U/L (13-56); Albumin, Serum 2.2 g/dL (3.2-5.0); Alkaline Phosphatase 58 U/L (45-117); Anion Gap 10 (5-15); BUN 27 mg/dL (7-18); BUN/Creat Ratio 15.3 RATIO (10-20); Calcium,Total 7.8 mg/dL (8.5-10.1); Chloride 108 mmol/L (98-107); Creatinine, Serum 1.77 mg/dL (0.55-1.02); EST Glomerular Filtration Rate 30 mL/min (>60); Est Glom Filt Rate - Afr Amer 36 mL/min (>60); Estimated Creatinine Clearance 23.35 ml/min; Globulin 2.7 g/dL (2.2-4.2); Glucose 125 mg/dL (74-106); Potassium 3.5 mmol/L (3.5-5.1); Protein, Total 4.9 g/dL (6.4-8.2); Sodium Level 139 mmol/L (136-145); Troponin-I HS 109 pg/mL (3.0-54.0)
[2022-10-20] MEDS: Heparin Injection (Vial) 5,000 UNIT/ML VIAL 9500 UNIT IV (06:15)
[2022-10-20] MEDS: HEPARIN/D5w 25,000 UNITS 25,000 UNITS/250 ML IV.SOLN. 16 UNITS CONT INF (06:16)
[2022-10-20] MEDS: Aspirin 325 MG Tablet PO (06:20)
[2022-10-20 06:27] LABS: Burr Cells 2+; Ovalocyte RARE; Platelet Estimate MOD DEC (ADEQ)
[2022-10-20 06:29] LABS: Differential Indicated MANUAL DIFF
[2022-10-20 06:31] LABS: Lymphocyte 3 % (19-41); Metamyelocyte 5 % (0-1); Monocyte 4 % (0-10); Myelocyte 1 % (0-0); Neutrophil-Band 10 % (0-5); Neutrophil-Segmented 77 % (47-70); Total Cells Counted 100 (MANUAL DIFF)
[2022-10-20 06:33] LABS: Absolute Lymphocyte Count 0.56 X10^3/uL (0.83-4.51); Absolute Neutrophil Count 16.4 X10^3/uL (2.0-7.7); Neutrophil # 16.35 X10^3/uL (2.7-7.7)
[2022-10-20 06:53] LABS: Reflex Lactate? Y
--- NOTE | 2022-10-20 06:58 | EX.PCM.CONCC ---
Assessment & Plan Assessment/Plan (1) Septic shock: PLAN: Plan RECOMMENDATIONS: 1. Broaden antimicrobials while awaiting infectious work-up. 2. Continue fluid resuscitation per sepsis protocol. 3. Continue Levophed to maintain a mean arterial pressure at or above 65 mmHg. 4. Obtain echocardiogram. 5. Continue Decadron 6 mg daily. 6. Continue heparin infusion while awaiting lower extremity Dopplers. 7. If renal function improves, consider obtaining CTA chest. 8. Wean supplemental oxygen to maintain saturations at or above 90%. IMPRESSIONS: 1. Septic shock The patient presented to the hospital with sepsis due to probable urinary tract source of infection with acute sepsis related organ dysfunction as evidenced by lactic acidemia, altered mental status, thrombocytopenia and acute kidney injury. The patient went on to develop fluid refractory hypotension, requiring the initiation of vasopressor support. Plan to continue gentle IV fluid hydration and Levophed in an attempt to maintain a mean arterial pressure at or above 65 mmHg. The patient will be maintained on empiric broad-spectrum antimicrobials. 2. Shortness of breath and hypoxemia related to COVID-19 pneumonia Continue supplemental oxygen to maintain saturations at or above 90%. Continue supportive measures including Decadron 6 mg daily. Holding off on remdesivir due to underlying renal insufficiency. In addition, the patient did have an elevated D-dimer at presentation. Therefore, underlying VTE is a possibility. However, the patient's underlying renal insufficiency precludes our ability to obtain a CTA chest. Therefore, the patient will remain on empiric heparin while awaiting lower extremity Dopplers. 3. Troponin elevation Likely secondary to demand ischemia in the setting of #1. Agree with obtaining echocardiogram as ordered. 4. Encephalopathy Likely metabolic in etiology. Continue supportive measures as noted above. Avoid sedating medications. 5. History of hypertension/morbid obesity/GERD/chronic lower extremity lymphedema Complicates care, management, recovery and prognosis. Continue supportive measures and medications as noted above. TIME: 36 minutes of critical care time, independent of procedures, was spent addressing the patient's septic shock, shortness of breath with hypoxemia, COVID-19, troponin elevation, encephalopathy, review of all data and collaboration with the care team. HPI Consult Data Date of Consult: 10/20/22 HPI Narrative Reason for Consultation: Sepsis HPI Narrative: The patient is a 77-year-old female, with a history as outlined below, who presented to the emergency department via EMS on October 20 with altered mental status, confusion and cough. The patient has a history of hypertension and chronic lower extremity wounds having previously been followed in the wound care clinic. The patient recently had multiple exposures to individuals who tested positive for COVID. On presentation to the emergency department, the patient was documented to be febrile with a temperature of 99.6 ?F. She was mildly tachycardic and tachypneic. Initial laboratory evaluation revealed an elevated white blood cell count to 16,000. Platelet count was low at 123,000. D-dimer was elevated at 12.49. Chemistry profile was notable for a potassium of 3.3 and creatinine of 1.83. Lactate was elevated at 3.8. Magnesium was low at 1.4. Troponin was elevated at 132. Procalcitonin was elevated to greater than 50. Urine analysis was positive for nitrites and leukocyte Estrace. 3+ urine bacteria was noted. Arterial blood gas obtained on 3 L/min demonstrated a pH of 7.4 with a PCO2 of 27 and PO2 of 69. The patient received supplemental IV fluid hydration and was started on antimicrobials. She was subsequently admitted to the medical intensive care unit for further management. [facility] Medical History Chronic acquired lymphedema GERD (gastroesophageal reflux disease) H/O renal calculi Headache, migraine Hiatal hernia Hypertension Memory deficit Morbid obesity Venous insufficiency of both lower extremities Home Medications NK 03/08/22 [History Last Taken Unknown] Allergy/AdvReac Type Severity Reaction Status Date / Time codeine Allergy Hives Verified 10/20/22 01:57 Penicillins Allergy Hives Verified 10/20/22 01:57 Family History Mother Myocardial infarction CAD (coronary artery disease) Hypertension Heart disease Father Bladder cancer Sister Diabetes Surgical History History of hysterectomy History of knee replacement History of umbilical hernia repair Social History household members: spouse Smoking Status: Never smoker alcohol intake: never substance use type: does not use what type of physical activity do you participate in: none ROS Review of Systems ROS Unobtainable: due to mental status Physical Exam Const Constitutional Narrative: Lethargic and ill in appearance. Responds transiently to verbal stimulation and falls quickly back to sleep. HEENT normocephalic and head/scalp atraumatic Eyes PERRL and EOMs intact bilaterally Neck supple General: trachea midline Chest inspection of chest normal Resp Effort and Inspection: tachypneic Auscultation: wheezes and diminished lung sounds Cardio regular rate and regular rhythm GI normal to inspection, nondistended, normoactive bowel sounds Extremity General Extremity: edema bilateral lower extremity; Negative for clubbing Skin General Skin Exam: venous stasis and dermatitis Neuro no focal motor deficits Psych Mood & Affect: flat affect Lab / Micro Data Result Diagrams: 10/20/22 05:27 10/20/22 05:27 Labs: Laboratory Results - last 24 hr 10/20/22 02:27: WBC 15.9 H, RBC 4.54, Hgb 13.3, Hct 42.2, MCV 93.0, MCH 29.3, MCHC 31.5 L, RDW Std Deviation 46.3 H, RDW Coeff of Gareth 13.5, Plt Count 123 L, MPV 11.1, Immature Gran % (Auto) 2.600 H, Neut % (Auto) 93.8 H, Lymph % (Auto) 1.8 L, Alexander % (Auto) 0.9, Eos % (Auto) 0.0, Baso % (Auto) 0.9, Absolute Neuts (auto) 14.9 H, Absolute Lymphs (auto) 0.28 L, Nucleated RBC % 0, Differential Comment SCANNED 10/20/22 02:27: D-Dimer Quant (PE/DVT) 12.49 H* 10/20/22 02:27: Sodium 138, Potassium 3.3 L, Chloride 106, Carbon Dioxide 22.0, Anion Gap 10, BUN 25 H, Creatinine 1.83 H, Estim Creat Clear Calc 22.58, Est GFR (MDRD) Af Amer 34 L, Est GFR (MDRD) Non-Af 29 L, BUN/Creatinine Ratio 13.7, Glucose 108 H, Calcium 8.7, Total Bilirubin 2.00 H, Direct Bilirubin 0.81 H, AST 34, ALT 27, Alkaline Phosphatase 90, Troponin I High Sens 132 H*, Total Protein 5.7 L, Albumin 2.6 L, Globulin 3.1 10/20/22 02:27: Lactic Acid 3.8 H* 03/24/23 02:27: Procalcitonin > 50.00 H 10/20/22 02:27: PT 17.3 H, INR 1.4, APTT 35.5 10/20/22 02:27: Magnesium 1.4 L 10/20/22 02:41: Urine Color Yellow, Urine Clarity Cloudy, Urine pH 5.0, Ur Specific [place] 1.025, Urine Protein 100 H, Urine Glucose (UA) Normal, Urine Ketones 5 H, Urine Occult Blood 250 H, Urine Nitrite Positive H, Urine Bilirubin 1 H, Urine Urobilinogen 1 H, Ur Leukocyte Esterase 500 H, Urine RBC 0-5 SEEN, Urine WBC 10-25 SEEN, Ur Squamous Epith Cells 0-5 SEEN, Urine Bacteria 3+, Urine Mucus 0 SEEN 10/20/22 05:27: WBC 18.8 H, RBC 4.04 L, Hgb 11.9 L, Hct 36.3 L, MCV 89.9, MCH 29.5, MCHC 32.8, RDW Std Deviation 44.7 H, RDW Coeff of [place]areth 13.5, Plt Count 95 L, MPV 11.2, Neut % (Auto) Not Reportable, Absolute Neuts (auto) 16.4 H, Absolute Lymphs (auto) 0.56 L, Total Counted 100, Neutrophils % (Manual) 77 H, Band Neutrophils % 10 H, Lymphocytes % (Manual) 3 L, Monocytes % (Manual) 4, Metamyelocytes % 5 H, Myelocytes % 1 H, Differential Comment COMMENT, Diff Path Review May foll, Platelet Estimate MOD DEC, Ovalocytes RARE, [place] Cells 2+ 10/20/22 05:27: Sodium 139, Potassium 3.5, Chloride 108 H, Carbon Dioxide 21.0, Anion Gap 10, BUN 27 H, Creatinine 1.77 H, Estim Creat Clear Calc 23.35, Est GFR (MDRD) Af Amer 36 L, Est GFR (MDRD) Non-Af 30 L, BUN/Creatinine Ratio 15.3, Glucose 125 H, Calcium 7.8 L, Total Bilirubin 1.70 H, AST 39 H, ALT 24, Alkaline Phosphatase 58, Troponin I High Sens 109 H, Total Protein 4.9 L, Albumin 2.2 L, Globulin 2.7, Albumin/Globulin Ratio 0.8 L Micro: Microbiology 10/20/22 02:41 Urine Catheter - Catheter Streptococcus pneumoniae Antigen (M - Final 10/20/22 02:25 Nasal Secretion SARS-CoV-2 & FLU Antigen (Rapid) - Final ABG Data ABG results: ABG 10/20/22 04:24 Specimen Type ART Sample Site R Radial pH 7.44 Bicarbonate Actual 18.9 L Total CO2 20 Base Excess -5 L O2 Saturation 95 ABG pCO2 27.6 L ABG pO2 69 L Chang Test Positive O2 Delivery Device Cannula Liter Flow 3.0 Radiology Impression Chest X-Ray 10/20/22 02:45 IMPRESSION: Prominent right hilar shadow most likely superimposed pulmonary vessels but underlying pulmonary mass or hilar adenopathy also in the differential. Consider follow-up PA and lateral chest x-ray and/or chest CT. Electronically Signed: Hola Delaney MD at 3:06 EDT , Chest CT 10/20/22 04:03 IMPRESSION: No acute findings. Mild cardiomegaly. Pulmonary artery dilation which explains the prominent bryan on the radiograph. Electronically Signed: Chalo Jensen MD at 5:38 EDT , Charges/Coding Procedures Hospitalists Procedures: [id number] Critial Care 1st Hr
--- NOTE | 2022-10-20 07:03 | SEPSISATNOTE ---
Sepsis Attestation Sepsis Attestation: Agree w/Sepsis Date exam was performed: 10/20/22 Time exam was performed: 07:03 Possible Source of Sepsis: Genitourinary Sepsis Organ Dysfunction Criteria Present: SBP < 90 mmHg or MAP < 65 mmHg, Platelets <100,000 / uL, Lactic Acid > 2 mmol/L and New/Unexplained change in mental status Fluid Resuscitation Fluid resuscitation indicated?: Yes Fluid Resuscitation ordered: 30 ml/kg fluid bolus ordered Sepsis Note Date exam was performed: 10/20/22 Time exam was performed: 07:05 Sepsis Attestation: Sepsis re-evaluation was performed Response to fluids: Non Fluid responsive hypotension and Vasopressors started
[2022-10-20] MEDS: 0.9% Saline Lock 10 ML Syringe IV (07:05)
--- NOTE | 2022-10-20 07:29 | PCM.HOSP.N ---
Hospitalist Note Patient is a 77-year-old lady admitted with altered mental status and hypoxia. An assessment of septic shock secondary to acute cystitis as well as COVID-19 infection with superimposed suspected bacterial pneumonia. Patient has been admitted to the intensive care unit where she is currently being managed per protocol Patient seen and examined, initial assessment including history and physical, diagnostic data, management orders reviewed. Case was also discussed with Dr Francois with intensive care. We will follow.
[2022-10-20 07:45] LABS: Lactic Acid 1.9 mmol/L (0.4-1.9)
--- NOTE | 2022-10-20 08:00 | EKG12_ITS ---
Test Reason : TIMED Blood Pressure : / mmHG Vent. Rate : 084 BPM Atrial Rate : 084 BPM P-R Int : 196 ms QRS Dur : 120 ms QT Int : 412 ms P-R-T Axes : 040 -48 -04 degrees QTc Int : 486 ms Normal sinus rhythm Left anterior fascicular block Left ventricular hypertrophy with QRS widening Abnormal ECG No previous ECGs available Confirmed by DADA TRUONG, PEPPER ([id number]), acquisitions editor TORREY FLORES ([id number]) on 10/24/2022 9:01:34 AM Referred By: MEGAN Confirmed By:PEPPER GARLAND MD
[2022-10-20 08:03] LABS: M R Staph aureus DNA By PCR Negative (Negative); Probe Check PASS; Specimen Processing Control PASS
--- NOTE | 2022-10-20 08:52 | CON.PCM.CA_ITS ---
Documented by User: Luzmaria DIAZ, EMILY 10/20/22 10:48 Assessment & Plan Assessment/Plan (1) Elevated troponin: (2) Septic shock: PLAN: Plan * NSTEMI: this is likely related to demand ischemia, Echo is pending. Currently on Heparin and ASA. * Hypotension: this is likely from septic shock. It was not responsive to fluids, she is currently on vasopressor. HPI Consult Data Date of Consult: 10/20/22 HPI Narrative HPI Narrative: BONNIE VELASQUEZ, is a 77 F who presented to [facility] on 10/20/2022 with altered level of consciousness. History was obtained by daughter. It was felt that she had COVID earlier in the week but she had not been tested. SPO2 was 76% on room air upon EMS arrival. Initial blood pressure was normal however she then became hypotensive with blood pressures in the 70-80 systolic. Rapid swab for COVID and influenza were negative. Patient was also noted to have an acute UTI with acute kidney injury. She was given IV fluids. Patient was admitted for COVID-19 pneumonia, septic shock, elevated troponin, encephalopathy. Initial troponin was 132, repeat troponin was 109. REPLACED BY [facility] Medical History Chronic acquired lymphedema GERD (gastroesophageal reflux disease) H/O renal calculi Headache, migraine Hiatal hernia Hypertension Memory deficit Morbid obesity Venous insufficiency of both lower extremities Home Medications NK 03/08/22 [History Last Taken Unknown] Allergy/AdvReac Type Severity Reaction Status Date / Time codeine Allergy Hives Verified 10/20/22 01:57 Penicillins Allergy Hives Verified 10/20/22 01:57 Family History Mother Myocardial infarction CAD (coronary artery disease) Hypertension Heart disease Father Bladder cancer Sister Diabetes Surgical History History of hysterectomy History of knee replacement History of umbilical hernia repair Social History household members: spouse Smoking Status: Never smoker alcohol intake: never substance use type: does not use what type of physical activity do you participate in: none ROS Review of Systems ROS Unobtainable: due to mental status Physical Exam Const Constitutional Narrative: Lethargic and ill in appearance. Responds transiently to verbal stimulation and falls quickly back to sleep. HEENT normocephalic and head/scalp atraumatic Eyes PERRL and EOMs intact bilaterally Neck supple General: trachea midline Chest inspection of chest normal Resp Effort and Inspection: tachypneic Auscultation: wheezes and diminished lung sounds Cardio regular rate and regular rhythm GI normal to inspection, nondistended, normoactive bowel sounds Extremity General Extremity: edema bilateral lower extremity; Negative for clubbing Skin General Skin Exam: venous stasis and dermatitis Neuro no focal motor deficits Psych Mood & Affect: flat affect Risk Stratification Risk Stratification Applicable: Yes Age >/= 65: Yes >/= 3 CAD Risk Factors (HTN, HLD, DM, family hx of CAD, or current smoker): No Aspirin Use in the Past 7 Days: Yes Severe Angina (>/= episodes in 24 hours): No EKG ST Changes >/= 0.5mm: No Positive Cardiac Marker: Yes SKINNY Risk Stratification Score: 3 SKINNY % Risk: 13% Risk Charges/Coding Visit Charges Office Visits / Consults: [id number] OP Consult L3 Objective Data Vital Signs: Vital Signs Temp Pulse Resp BP Pulse Ox O2 Del Method O2 Flow Rate 99.5 F H 81 19 H 82/58 L 96 Nasal Cannula 3 10/20/22 07:00 10/20/22 07:30 10/20/22 07:00 10/20/22 07:30 10/20/22 07:00 10/20/22 07:00 10/20/22 07:00 Oxygen Flow Rate (L/min) 3 Oxygen Delivery Method Nasal Cannula Weight: 278 lb 10.629 oz Body Mass Index (BMI) 47.8 Intake & Output: Intake and Output for Last 24 Hours 10/18/22 10/19/22 10/20/22 23:59 23:59 23:59 Intake Total 3075.15 / 3075.15 Output Total Balance 3065.15 / 3065.15 Lab / Micro Data Result Diagrams: 10/20/22 05:27 10/20/22 05:27 Labs: Laboratory Results - last 24 hr 10/20/22 02:27: WBC 15.9 H, RBC 4.54, Hgb 13.3, Hct 42.2, MCV 93.0, MCH 29.3, MCHC 31.5 L, RDW Std Deviation 46.3 H, RDW Coeff of Gareth 13.5, Plt Count 123 L, MPV 11.1, Immature Gran % (Auto) 2.600 H, Neut % (Auto) 93.8 H, Lymph % (Auto) 1.8 L, [place] % (Auto) 0.9, Eos % (Auto) 0.0, Baso % (Auto) 0.9, Absolute Neuts (auto) 14.9 H, Absolute Lymphs (auto) 0.28 L, Nucleated RBC % 0, Differential Comment SCANNED 10/20/22 02:27: D-Dimer Quant (PE/DVT) 12.49 H* 10/20/22 02:27: Sodium 138, Potassium 3.3 L, Chloride 106, Carbon Dioxide 22.0, Anion Gap 10, BUN 25 H, Creatinine 1.83 H, Estim Creat Clear Calc 22.58, Est GFR (MDRD) Af Amer 34 L, Est GFR (MDRD) Non-Af 29 L, BUN/Creatinine Ratio 13.7, Glucose 108 H, Calcium 8.7, Total Bilirubin 2.00 H, Direct Bilirubin 0.81 H, AST 34, ALT 27, Alkaline Phosphatase 90, Troponin I High Sens 132 H*, Total Protein 5.7 L, Albumin 2.6 L, Globulin 3.1 10/20/22 02:27: Lactic Acid 3.8 H* 10/20/22 02:27: Procalcitonin > 50.00 H 10/20/22 02:27: PT 17.3 H, INR 1.4, APTT 35.5 10/20/22 02:27: Magnesium 1.4 L 10/20/22 02:41: Urine Color Yellow, Urine Clarity Cloudy, Urine pH 5.0, Ur Specific [place] 1.025, Urine Protein 100 H, Urine Glucose (UA) Normal, Urine Ketones 5 H, Urine Occult Blood 250 H, Urine Nitrite Positive H, Urine Bilirubin 1 H, Urine Urobilinogen 1 H, Ur Leukocyte Esterase 500 H, Urine RBC 0-5 SEEN, Urine WBC 10-25 SEEN, Ur Squamous Epith Cells 0-5 SEEN, Urine Bacteria 3+, Urine Mucus 0 SEEN 10/20/22 04:15: COVID-19 (ESDRAS) Detected 10/20/22 05:27: WBC 18.8 H, RBC 4.04 L, Hgb 11.9 L, Hct 36.3 L, MCV 89.9, MCH 29.5, MCHC 32.8, RDW Std Deviation 44.7 H, RDW Coeff of Gareth 13.5, Plt Count 95 L , MPV 11.2, Neut % (Auto) Not Reportable, Absolute Neuts (auto) 16.4 H, Absolute Lymphs (auto) 0.56 L, Total Counted 100, Neutrophils % (Manual) 77 H, Band Neutrophils % 10 H, Lymphocytes % (Manual) 3 L, Monocytes % (Manual) 4, Metamyelocytes % 5 H, Myelocytes % 1 H, Differential Comment COMMENT, Diff Path Review May foll, Platelet Estimate MOD DEC, Ovalocytes RARE, [place] Cells 2+ 10/20/22 05:27: Sodium 139, Potassium 3.5, Chloride 108 H, Carbon Dioxide 21.0, Anion Gap 10, BUN 27 H, Creatinine 1.77 H, Estim Creat Clear Calc 23.35, Est GFR (MDRD) Af Amer 36 L, Est GFR (MDRD) Non-Af 30 L, BUN/Creatinine Ratio 15.3, Glucose 125 H, Calcium 7.8 L, Total Bilirubin 1.70 H, AST 39 H, ALT 24, Alkaline Phosphatase 58, Troponin I High Sens 109 H, Total Protein 4.9 L, Albumin 2.2 L, Globulin 2.7, Albumin/Globulin Ratio 0.8 L 10/20/22 05:27: MRSA (PCR) Negative 10/20/22 07:03: Lactic Acid 1.9 Micro: Microbiology 10/20/22 02:41 Urine Catheter - Catheter Streptococcus pneumoniae Antigen (M - Final 10/20/22 02:25 Nasal Secretion SARS-CoV-2 & FLU Antigen (Rapid) - Final ABG Data ABG results: ABG 10/20/22 04:24 Specimen Type ART Sample Site R Radial pH 7.44 Bicarbonate Actual 18.9 L Total CO2 20 Base Excess -5 L O2 Saturation 95 ABG pCO2 27.6 L ABG pO2 69 L Chang Test Positive O2 Delivery Device Cannula Liter Flow 3.0 Cardiology Labs/Tests 10/20/22 02:27: WBC 15.9 H, RBC 4.54, Hgb 13.3, Hct 42.2, MCV 93.0, MCH 29.3, MCHC 31.5 L, Plt Count 123 L, MPV 11.1, Immature Gran % (Auto) 2.600 H, Neut % (Auto) 93.8 H, Lymph % (Auto) 1.8 L, [place] % (Auto) 0.9, Eos % (Auto) 0.0, Baso % (Auto) 0.9, Absolute Neuts (auto) 14.9 H, Nucleated RBC % 0 10/20/22 02:27: D-Dimer Quant (PE/DVT) 12.49 H* 10/20/22 02:27: Sodium 138, Potassium 3.3 L, Chloride 106, Carbon Dioxide 22.0, Anion Gap 10, BUN 25 H, Creatinine 1.83 H, Est GFR (MDRD) Af Amer 34 L, Est GFR (MDRD) Non-Af 29 L, BUN/Creatinine Ratio 13.7, Glucose 108 H, Calcium 8.7, Total Bilirubin 2.00 H, Direct Bilirubin 0.81 H 10/20/22 02:27: Lactic Acid 3.8 H* 10/20/22 02:27: PT 17.3 H, INR 1.4, APTT 35.5 10/20/22 02:27: Magnesium 1.4 L 10/20/22 02:41: Urine Color Yellow, Urine Clarity Cloudy, Urine pH 5.0, Ur Specific [place] 1.025, Urine Protein 100 H, Urine Glucose (UA) Normal, Urine Ketones 5 H, Urine Occult Blood 250 H, Urine Nitrite Positive H, Urine Bilirubin 1 H, Urine Urobilinogen 1 H, Ur Leukocyte Esterase 500 H, Urine RBC 0-5 SEEN, Urine WBC 10-25 SEEN 10/20/22 04:24: pH 7.44, Bicarbonate Actual 18.9 L, Base Excess -5 L, O2 Saturation 95, ABG pCO2 27.6 L, ABG pO2 69 L, Chang Test Positive 10/20/22 05:27: WBC 18.8 H, RBC 4.04 L, Hgb 11.9 L, Hct 36.3 L, MCV 89.9, MCH 29.5, MCHC 32.8, Plt Count 95 L, MPV 11.2, Neut % (Auto) Not Reportable, Absolute Neuts (auto) 16.4 H, Total Counted 100, Neutrophils % (Manual) 77 H, Band Neutrophils % 10 H, Lymphocytes % (Manual) 3 L, Monocytes % (Manual) 4, Metamyelocytes % 5 H, Myelocytes % 1 H 10/20/22 05:27: Sodium 139, Potassium 3.5, Chloride 108 H, Carbon Dioxide 21.0, Anion Gap 10, BUN 27 H, Creatinine 1.77 H, Est GFR (MDRD) Af Amer 36 L, Est GFR (MDRD) Non-Af 30 L, BUN/Creatinine Ratio 15.3, Glucose 125 H, Calcium 7.8 L, Total Bilirubin 1.70 H 10/20/22 07:03: Lactic Acid 1.9 EKG:NSR with HR of 84 Radiography Diagnostic Testing: Radiology Impression Chest X-Ray 10/20/22 02:45 IMPRESSION: Prominent right hilar shadow most likely superimposed pulmonary vessels but underlying pulmonary mass or hilar adenopathy also in the differential. Consider follow-up PA and lateral chest x-ray and/or chest CT. Electronically Signed: Hola Delaney MD at 3:06 EDT , Chest CT 10/20/22 04:03 IMPRESSION: No acute findings. Mild cardiomegaly. Pulmonary artery dilation which explains the prominent bryan on the radiograph. Electronically Signed: Chalo Jensen MD at 5:38 EDT , Documented by User: Dr. Moisés Loya MD 10/20/22 14:37 Assessment & Plan Assessment/Plan (1) Elevated troponin: (2) Septic shock: PLAN: Plan * NSTEMI: this is likely related to demand ischemia, Echo is pending. Currently on Heparin and ASA. * Hypotension: this is likely from septic shock. It was not responsive to fluids, she is currently on vasopressor. Independently reviewed the record of this patient including the EKGs cardiac telemetry current lab test and cardiac enzymes Very critical patient with mild elevation of high sensitive troponin secondary to hypoxia and COVID-19 pneumonia with demand myocardial ischemia Patient also has septic shock. And has been on inotropic support From cardiac standpoint we will evaluate by echocardiogram and will continue to monitor and follow-up clinically. No invasive cardiac plan was set up for this patient. The high sensitive troponin is mildly elevated secondary to hypoxia, With 19 pneumonia and septic shock. HPI Consult Data Date of Consult: 10/20/22 REPLACED BY [facility] Medical History Chronic acquired lymphedema GERD (gastroesophageal reflux disease) H/O renal calculi Headache, migraine Hiatal hernia Hypertension Memory deficit Morbid obesity Venous insufficiency of both lower extremities Home Medications NK 03/08/22 [History Last Taken Unknown] Allergy/AdvReac Type Severity Reaction Status Date / Time codeine Allergy Hives Verified 10/20/22 01:57 Penicillins Allergy Hives Verified 10/20/22 01:57 Family History Mother Myocardial infarction CAD (coronary artery disease) Hypertension Heart disease Father Bladder cancer Sister Diabetes Surgical History History of hysterectomy History of knee replacement History of umbilical hernia repair Social History household members: spouse Smoking Status: Never smoker alcohol intake: never substance use type: does not use what type of physical activity do you participate in: none Risk Stratification Age >/= 65: Yes SKINNY Risk Stratification Score: 3 SKINNY % Risk: 13% Risk Lab / Micro Data Result Diagrams: 10/20/22 05:27 10/20/22 05:27
--- NOTE | 2022-10-20 09:40 | CASEMGMT ---
RN TOOTIE called for initial transition planning/care coordination assessment as patient is confused. LAUREL SOMMERS introduced self and role at [facility]. and daughters willing to participate in assessment and is able to answer all questions appropriately. Care providers, pharmacy, and demographics verified. wishes to discharge home will monitor progress with therapy for recommendations. states he has no further needs or concerns at this time. CM to follow for discharge planning needs that may arise. PCP: Linda Specialists: none [facility] Prescription Benefit: yes Living Will/HPOA: none LNOK: hsuband, daughters Living Arrangements: Patient lives with in a single story home with ramp to enter the home. Patient was independent at home. Transportation: , daughter DME/HHC: Patient has shower chair, grab bars, walker, rollator, wheelchair. No previous HHC or SNF. Disposition Plan: TBD, anticipate HHC vs SNF will monitor progress with therapy. Corina YANG, RN, CM
[2022-10-20] MEDS: dexAMETHasone 10 MG/ML Vial 6 MG IV (10:03)
--- NOTE | 2022-10-20 10:09 | PCM.RX.CS ---
Consult Pharmacy has been consulted to manage selected antiobiotic: Vancomycin Type of Consult: New start Prior Doses of Antibiotics Received/Current Regimen: Medications Vancomycin HCl 2,000 mg/ (Sodium Chloride) 540 mls @ 250 mls/hr IV X1 ONE Stop: 10/20/22 12:09 Last Admin: 10/20/22 10:07 Dose: 250 mls/hr Labs: Sodium 139 mmol/L (136-145) 10/20/22 05:27 Potassium 3.5 mmol/L (3.5-5.1) 10/20/22 05:27 Chloride 108 mmol/L (98-107) H 10/20/22 05:27 Carbon Dioxide 21.0 mmol/L (21.0-32.0) 10/20/22 05:27 Anion Gap 10 (5-15) 10/20/22 05:27 BUN 27 mg/dL (7-18) H 10/20/22 05:27 Creatinine 1.77 mg/dL (0.55-1.02) H 10/20/22 05:27 Est GFR (MDRD) Af Amer 36 mL/min (>60) L 10/20/22 05:27 Est GFR (MDRD) Non-Af 30 mL/min (>60) L 10/20/22 05:27 BUN/Creatinine Ratio 15.3 RATIO (10-20) 10/20/22 05:27 Glucose 125 mg/dL (74-106) H 10/20/22 05:27 Microbiology: Microbiology 10/20/22 02:41 Urine Catheter - Catheter Streptococcus pneumoniae Antigen (M - Final 10/20/22 02:25 Nasal Secretion SARS-CoV-2 & FLU Antigen (Rapid) - Final Weight used for dosin kg Estimated Creatinine Clearance: 23 Goal Trough: 15-20 mcg/mL Pharmacy Plan for Drug Dosing: Vancomycin 2000mg given x1, 1250mg IV q24h with trough prior to 3rd dose per policy. Pharmacy Service will continue to monitor and adjust dosing as required. Follow-Up Labs: Trough Vancomycin - 10/22 @ 0930
[2022-10-20 12:46] LABS: Pathologist Review Reviewed
[2022-10-20 13:31] LABS: Magnesium 2.2 mg/dL (1.6-2.6)
[2022-10-20 13:32] LABS: Troponin-I HS 115 pg/mL (3.0-54.0)
[2022-10-20 13:39] LABS: Partial Thromboplast Time > 200.0 Seconds (24.1-36.2)
--- NOTE | 2022-10-20 14:02 | CON.PCM.ID_ITS ---
Assessment & Plan Assessment/Plan (1) Septic shock: PLAN: Covid (+), will do dex and remdesivir given severity of illness. Suspect MARTIN will improve as we treat underlying causes, will order daily cbc and cmp. Ucx pending, UA with heavy pyuria. Ok to keep meropenem for now. Will stop vanc given negative pcr and low suspicion for new MRSA infection. BLE doppler pending. High d-dimer, on hep gtt. Will follow, thank you (2) Severe acute respiratory syndrome coronavirus 2 (SARS-CoV-2) detected: HPI Consult Data Date of Consult: 10/20/22 HPI Narrative Reason for Consultation: shock HPI Narrative: BONNIE VELASQUEZ, is a 77 F with h/o chronic lymphedema, presented one day of fever, confusion, hypoxia, weakness. Had some cough and congestion last week and daughter was dx with covid. Came to ED, admitted to icu on pressors with ceftriaxone, then changed to vanc/bekah. Covid (+) here. Vaccinated x1 with J&J. No dysuria, no abd pain, no change in taste or smell. Some sore throat. No sputum. Full ROS performed and neg except as noted above. [facility] Medical History Chronic acquired lymphedema GERD (gastroesophageal reflux disease) H/O renal calculi Headache, migraine Hiatal hernia Hypertension Memory deficit Morbid obesity Venous insufficiency of both lower extremities Home Medications NK 03/08/22 [History Last Taken Unknown] Allergy/AdvReac Type Severity Reaction Status Date / Time codeine Allergy Hives Verified 10/20/22 01:57 Penicillins Allergy Hives Verified 10/20/22 01:57 Family History Mother Myocardial infarction CAD (coronary artery disease) Hypertension Heart disease Father Bladder cancer Sister Diabetes Surgical History History of hysterectomy History of knee replacement History of umbilical hernia repair Social History household members: spouse Smoking Status: Never smoker alcohol intake: never substance use type: does not use what type of physical activity do you participate in: none Physical Exam Const alert and no apparent distress General Appearance: cooperative HEENT normocephalic Eyes PERRL and EOMs intact bilaterally Neck supple and No nodes Resp Auscultation: diminished lung sounds Cardio Rate: tachycardic GI soft to palpation, non-tender and non-distended Extremity General Extremity: edema Skin no rashes or lesions noted Neuro CN's II-XII intact bilaterally Lab / Micro Data Attestation: I reviewed the patient's lab results. Result Diagrams: 10/20/22 05:27 10/20/22 05:27 Labs: Laboratory Results - last 24 hr 10/20/22 02:27: WBC 15.9 H, RBC 4.54, Hgb 13.3, Hct 42.2, MCV 93.0, MCH 29.3, MCHC 31.5 L, RDW Std Deviation 46.3 H, RDW Coeff of Gareth 13.5, Plt Count 123 L, MPV 11.1, Immature Gran % (Auto) 2.600 H, Neut % (Auto) 93.8 H, Lymph % (Auto) 1.8 L, Mcdowell % (Auto) 0.9, Eos % (Auto) 0.0, Baso % (Auto) 0.9, Absolute Neuts (auto) 14.9 H, Absolute Lymphs (auto) 0.28 L, Nucleated RBC % 0, Differential Comment SCANNED 10/20/22 02:27: D-Dimer Quant (PE/DVT) 12.49 H* 10/20/22 02:27: Sodium 138, Potassium 3.3 L, Chloride 106, Carbon Dioxide 22.0, Anion Gap 10, BUN 25 H, Creatinine 1.83 H, Estim Creat Clear Calc 22.58, Est GFR (MDRD) Af Amer 34 L, Est GFR (MDRD) Non-Af 29 L, BUN/Creatinine Ratio 13.7, Glucose 108 H, Calcium 8.7, Total Bilirubin 2.00 H, Direct Bilirubin 0.81 H, AST 34, ALT 27, Alkaline Phosphatase 90, Troponin I High Sens 132 H*, Total Protein 5.7 L, Albumin 2.6 L, Globulin 3.1 10/20/22 02:27: Lactic Acid 3.8 H* 10/20/22 02:27: Procalcitonin > 50.00 H 10/20/22 02:27: PT 17.3 H, INR 1.4, APTT 35.5 10/20/22 02:27: Magnesium 1.4 L 10/20/22 02:41: Urine Color Yellow, Urine Clarity Cloudy, Urine pH 5.0, Ur Specific Bison 1.025, Urine Protein 100 H, Urine Glucose (UA) Normal, Urine Ketones 5 H, Urine Occult Blood 250 H, Urine Nitrite Positive H, Urine Bilirubin 1 H, Urine Urobilinogen 1 H, Ur Leukocyte Esterase 500 H, Urine RBC 0-5 SEEN, Urine WBC 10-25 SEEN, Ur Squamous Epith Cells 0-5 SEEN, Urine Bacteria 3+, Urine Mucus 0 SEEN 10/20/22 04:15: COVID-19 (ESDRAS) Detected 10/20/22 05:27: WBC 18.8 H, RBC 4.04 L, Hgb 11.9 L, Hct 36.3 L, MCV 89.9, MCH 29.5, MCHC 32.8, RDW Std Deviation 44.7 H, RDW Coeff of Gareth 13.5, Plt Count 95 L , MPV 11.2, Neut % (Auto) Not Reportable, Absolute Neuts (auto) 16.4 H, Absolute Lymphs (auto) 0.56 L, Total Counted 100, Neutrophils % (Manual) 77 H, Band Neutrophils % 10 H, Lymphocytes % (Manual) 3 L, Monocytes % (Manual) 4, Metamyelocytes % 5 H, Myelocytes % 1 H, Differential Comment COMMENT, Diff Path Review Reviewed, Platelet Estimate MOD DEC, Ovalocytes RARE, Mohan Cells 2+ 10/20/22 05:27: Sodium 139, Potassium 3.5, Chloride 108 H, Carbon Dioxide 21.0, Anion Gap 10, BUN 27 H, Creatinine 1.77 H, Estim Creat Clear Calc 23.35, Est GFR (MDRD) Af Amer 36 L, Est GFR (MDRD) Non-Af 30 L, BUN/Creatinine Ratio 15.3, Glucose 125 H, Calcium 7.8 L, Total Bilirubin 1.70 H, AST 39 H, ALT 24, Alkaline Phosphatase 58, Troponin I High Sens 109 H, Total Protein 4.9 L, Albumin 2.2 L, Globulin 2.7, Albumin/Globulin Ratio 0.8 L 10/20/22 05:27: MRSA (PCR) Negative 10/20/22 05:27: C-React Prot Ext Range 106.00 H 03/24/23 07:03: Lactic Acid 1.9 10/20/22 13:00: Troponin I High Sens 115 H 10/20/22 13:00: Magnesium 2.2 10/20/22 13:00: APTT > 200.0 H* Micro: Microbiology 10/20/22 04:15 Mucosa - Nasopharyngeal Respiratory Panel (PCR) - Final 10/20/22 02:41 Urine Catheter - Catheter Streptococcus pneumoniae Antigen (M - Final 10/20/22 02:25 Nasal Secretion SARS-CoV-2 & FLU Antigen (Rapid) - Final ABG Data ABG results: ABG 10/20/22 04:24 Specimen Type ART Sample Site R Radial pH 7.44 Bicarbonate Actual 18.9 L Total CO2 20 Base Excess -5 L O2 Saturation 95 ABG pCO2 27.6 L ABG pO2 69 L Chang Test Positive O2 Delivery Device Cannula Liter Flow 3.0 Radiology Impression Chest X-Ray 10/20/22 02:45 IMPRESSION: Prominent right hilar shadow most likely superimposed pulmonary vessels but underlying pulmonary mass or hilar adenopathy also in the differential. Consider follow-up PA and lateral chest x-ray and/or chest CT. Electronically Signed: Hola Delaney MD at 3:06 EDT , Chest CT 10/20/22 04:03 IMPRESSION: No acute findings. Mild cardiomegaly. Pulmonary artery dilation which explains the prominent bryan on the radiograph. Electronically Signed: Chalo Jensen MD at 5:38 EDT ,
[2022-10-20 22:10] LABS: Partial Thromboplast Time 210.9 Seconds (24.1-36.2)
[2022-10-21] VITALS (20 sets, daily range): BP systolic 89–129; BP diastolic 50–88; PULSE 81–97; RESP 13–24; TEMP 37–37.5; O2SAT 91–97; BMI 48.4
[2022-10-21 04:58] LABS: Hematocrit 38.1 % (37-47); Hemoglobin 12.4 g/dL (12.0-15.0); Mean Corp Hgb Conc 32.5 g/dL (32-36); Mean Corpuscular Volume 89.2 fL (81-99); Mean Platelet Vol. 11.3 fl (6.2-12.0); POSITIVE COUNT YES; POSITIVE DIFFERENTIAL YES; POSITIVE MORPHOLOGY YES; Platelet Count 86 K/mm3 (150-450); RBC Distribution Width CV 13.8 % (11.6-14.6); Red Blood Count 4.27 M/mm3 (4.2-5.4); White Blood Count 20.7 K/mm3 (4.4-11.0)
[2022-10-21] MEDS: 0.9% Normal Saline 1,000 ML 75 ML IV ×2 (05:00→17:18)
[2022-10-21] MEDS: HEPARIN/D5w 25,000 UNITS 25,000 UNITS/250 ML IV.SOLN. 10 UNITS CONT INF (05:01)
[2022-10-21 05:16] LABS: ALB/GLOB Ratio 0.7 RATIO (0.9-2.4); AST(SGOT) 69 U/L (15-37); Alanine Aminotransfer ALT/SGPT 36 U/L (13-56); Albumin, Serum 2.3 g/dL (3.2-5.0); Alkaline Phosphatase 79 U/L (45-117); Anion Gap 5 (5-15); BUN 36 mg/dL (7-18); BUN/Creat Ratio 21.1 RATIO (10-20); Calcium,Total 7.8 mg/dL (8.5-10.1); Chloride 113 mmol/L (98-107); Creatinine, Serum 1.71 mg/dL (0.55-1.02); EST Glomerular Filtration Rate 31 mL/min (>60); Est Glom Filt Rate - Afr Amer 37 mL/min (>60); Estimated Creatinine Clearance 24.17 ml/min; Globulin 3.1 g/dL (2.2-4.2); Glucose 118 mg/dL (74-106); Phosphorus 2.5 mg/dL (2.5-4.9); Potassium 3.9 mmol/L (3.5-5.1); Protein, Total 5.4 g/dL (6.4-8.2); Sodium Level 140 mmol/L (136-145)
[2022-10-21 05:29] LABS: Eosinophil 1 % (0-5); Lymphocyte 5 % (19-41); Metamyelocyte 2 % (0-1); Monocyte 2 % (0-10); Neutrophil-Band 6 % (0-5); Neutrophil-Segmented 84 % (47-70); Total Cells Counted 100 (MANUAL DIFF)
[2022-10-21 05:32] LABS: Burr Cells 1+; Platelet Estimate MOD DEC (ADEQ); Smudge Cells RARE
[2022-10-21 05:33] LABS: Differential Indicated MANUAL DIFF
[2022-10-21 05:34] LABS: Cholesterol 61 mg/dL (200); High Density Lipoprotein 11 mg/dL; Magnesium 2.4 mg/dL (1.6-2.6); Triglycerides 73 mg/dL; Very Low Density Lipoprotein 15 mg/dL (5-40)
[2022-10-21 05:35] LABS: Absolute Neutrophil Count 18.6 X10^3/uL (2.0-7.7); BNP,B-Type NATRIURETIC PEPTIDE 220.9 pg/mL (0-100); Neutrophil # 18.63 X10^3/uL (2.7-7.7)
[2022-10-21 05:36] LABS: Absolute Lymphocyte Count 1.04 X10^3/uL (0.83-4.51); Lymphocyte # 1.04 X10^3/ul (0.83-4.51)
--- NOTE | 2022-10-21 06:09 | PN.CC_ITS ---
Assessment & Plan Assessment/Plan (1) Septic shock: PLAN: Plan RECOMMENDATIONS: 1. Continue broad-spectrum antimicrobials per ID recommendations. 2. Continue remdesivir and Decadron. 3. Continue heparin infusion. 4. If renal function improves, consider obtaining CTA chest. 5. Wean supplemental oxygen to maintain saturations at or above 90%. IMPRESSIONS: 1. Septic shock The patient presented to the hospital with sepsis due to probable urinary tract source of infection with acute sepsis related organ dysfunction as evidenced by lactic acidemia, altered mental status, thrombocytopenia and acute kidney injury. The patient went on to develop fluid refractory hypotension, requiring the initiation of vasopressor support. The patient has been adequately volume resuscitated and was able to be ultimately weaned from vasopressor support. She remains hemodynamically stable this morning. Plan to continue antimicrobials p er ID recommendations. 2. Shortness of breath and hypoxemia related to COVID-19 pneumonia Continue supplemental oxygen to maintain saturations at or above 90%. Continue supportive measures including Decadron and remdesivir as ordered. In addition, the patient did have an elevated D-dimer at presentation. Therefore, underlying VTE is a possibility. However, the patient's underlying renal insufficiency precludes our ability to obtain a CTA chest. Therefore, the patient will remain on empiric heparin. Lower extremity Dopplers were negative. 3. Troponin elevation Likely secondary to demand ischemia in the setting of #1. Echocardiogram is pending. 4. History of hypertension/morbid obesity/GERD/chronic lower extremity lymphedema Complicates care, management, recovery and prognosis. Continue supportive me asures and medications as noted above. This note was generated with i[employer] dictation software. It may contain incorrect words, spelling, and punctuation that were not noted in checking the note before signing. Subjective Subjective The patient was seen and examined at the bedside this morning. Events from the last 24 hours have been reviewed. The patient is currently afebrile, hemodynamically stable and maintaining appropriate oxygen saturations on 2 L/min via nasal cannula. The patient's Levophed was able to be weaned off completely yesterday afternoon. The patient is documented to be overall net +6.2 L for the hospitalization. White count remains elevated at 20,000. Platelet count is low at 86,000. Creatinine is stable at 1.7. Objective Data Objective Data The patient's most recent lab work, culture data and imaging studies have all been personally reviewed. Lower extremity Doppler study was negative for DVT. Preliminary blood cultures were positive for gram-negative rods. Vital Signs: Vital Signs Temp Pulse Resp BP Pulse Ox O2 Del Method O2 Flow Rate 99.1 F 90 22 H 107/50 L 94 Nasal Cannula 2 10/21/22 06:00 10/21/22 06:00 10/21/22 06:00 10/21/22 06:00 10/21/22 05:00 10/21/22 06:00 10/21/22 06:00 Oxygen Flow Rate (L/min) 2 Oxygen Delivery Method Nasal Cannula Weight: 283 lb 8.231 oz Body Mass Index (BMI) 48.4 Intake & Output: Intake and Output for Last 24 Hours 10/19/22 10/20/22 10/21/22 23:59 23:59 23:59 Intake Total 6865.83 / 6865.83 155.17 / 155.17 Output Total 560 / 560 200 / 200 Balance 6305.83 / 6305.83 -44.83 / -44.83 Lab / Micro Data Attestation: I reviewed the patient's lab results. Result Diagrams: 10/21/22 04:45 10/21/22 04:45 Labs: Laboratory Results - last 24 hr 10/20/22 04:15: COVID-19 (ESDRAS) Detected 10/20/22 05:27: WBC 18.8 H, RBC 4.04 L, Hgb 11.9 L, Hct 36.3 L, MCV 89.9, MCH 29.5, MCHC 32.8, RDW Std Deviation 44.7 H, RDW Coeff of Gareth 13.5, Plt Count 95 L , MPV 11.2, Neut % (Auto) Not Reportable, Absolute Neuts (auto) 16.4 H, Absolute Lymphs (auto) 0.56 L, Total Counted 100, Neutrophils % (Manual) 77 H, Band Neutrophils % 10 H, Lymphocytes % (Manual) 3 L, Monocytes % (Manual) 4, Metamyelocytes % 5 H, Myelocytes % 1 H, Differential Comment COMMENT, Diff Path Review Reviewed, Platelet Estimate MOD DEC, Ovalocytes RARE, Bellerose Cells 2+ 10/20/22 05:27: Sodium 139, Potassium 3.5, Chloride 108 H, Carbon Dioxide 21.0, Anion Gap 10, BUN 27 H, Creatinine 1.77 H, Estim Creat Clear Calc 23.35, Est GFR (MDRD) Af Amer 36 L, Est GFR (MDRD) Non-Af 30 L, BUN/Creatinine Ratio 15.3, Glucose 125 H, Calcium 7.8 L, Total Bilirubin 1.70 H, AST 39 H, ALT 24, Alkaline Phosphatase 58, Troponin I High Sens 109 H, Total Protein 4.9 L, Albumin 2.2 L, Globulin 2.7, Albumin/Globulin Ratio 0.8 L 10/20/22 05:27: MRSA (PCR) Negative 10/20/22 05:27: C-React Prot Ext Range 106.00 H 10/20/22 07:03: Lactic Acid 1.9 10/20/22 13:00: Troponin I High Sens 115 H 10/20/22 13:00: Magnesium 2.2 10/20/22 13:00: APTT > 200.0 H* 10/20/22 21:40: APTT 210.9 H* 10/21/22 04:45: Magnesium 2.4, Triglycerides 73, Cholesterol 61, LDL Cholesterol 35, VLDL Cholesterol 15, HDL Cholesterol 11 L 10/21/22 04:45: WBC 20.7 H, RBC 4.27, Hgb 12.4, Hct 38.1, MCV 89.2, MCH 29.0, MCHC 32.5, RDW Std Deviation 45.0 H, RDW Coeff of Gareth 13.8, Plt Count 86 L, MPV 11.3, Neut % (Auto) Not Reportable, Absolute Neuts (auto) 18.6 H, Absolute Lymphs (auto) 1.04, Total Counted 100, Neutrophils % (Manual) 84 H, Band Neutro phils % 6 H, Lymphocytes % (Manual) 5 L, Monocytes % (Manual) 2, Eosinophils % (Manual) 1, Metamyelocytes % 2 H, Differential Comment COMMENT, Diff Path Review May foll, Smudge Cells RARE, Platelet Estimate MOD DEC, Bellerose Cells 1+ 10/21/22 04:45: Sodium 140, Potassium 3.9, Chloride 113 H, Carbon Dioxide 22.0, Anion Gap 5, BUN 36 H, Creatinine 1.71 H, Estim Creat Clear Calc 24.17, Est GFR (MDRD) Af Amer 37 L, Est GFR (MDRD) Non-Af 31 L, BUN/Creatinine Ratio 21.1 H, Gl ucose 118 H, Calcium 7.8 L, Phosphorus 2.5, Total Bilirubin 1.20 H, AST 69 H, ALT 36, Alkaline Phosphatase 79, Total Protein 5.4 L, Albumin 2.3 L, Globulin 3.1, Albumin/Globulin Ratio 0.7 L 10/21/22 04:45: B-Natriuretic Peptide 220.9 H Micro: Microbiology 10/20/22 02:27 Blood Culture (Wb) - Anticubital Left Blood Culture - Preliminary 10/20/22 02:27 Blood Culture (Wb) - Anticubital Left Blood Culture - Preliminary 10/20/22 04:15 Mucosa - Nasopharyngeal Respiratory Panel (PCR) - Final 10/20/22 02:41 Urine Catheter - Catheter Streptococcus pneumoniae Antigen (M - Final 10/20/22 02:25 Nasal Secretion SARS-CoV-2 & FLU Antigen (Rapid) - Final Radiography Diagnostic Testing: Radiology Impression Venous Doppler Study 10/20/22 04:03 Interpretation Summary No evidence for acute deep venous thrombosis bilateral lower extremities with patent and compressible bilateral great saphenous veins. Abbreviated COVID-19 protocol utilized Ordering Physician: Mora Horan Referring Physician: Bea Mckeon M.D. Performed By: Corina Prasad RVT Physical Exam Const alert and no apparent distress General Appearance: ill appearing Nutritional Appearance: morbidly obese HEENT normocephalic and head/scalp atraumatic Eyes PERRL and EOMs intact bilaterally Neck supple General: trachea midline Chest inspection of chest normal Resp normal respiratory effort Auscultation: diminished lung sounds; Negative for rales, rhonchi or wheezes Cardio regular rate and regular rhythm GI normal to inspection, nondistended, normoactive bowel sounds Extremity General Extremity: edema bilateral lower extremity; Negative for clubbing Skin General Skin Exam: venous stasis and dermatitis Neuro no focal motor deficits Psych Mood & Affect: flat affect Charges/Coding Visit Charges Inpatient E&M: 01560 Subs Hosp L3
[2022-10-21] MEDS: Ipratropium/Albuterol Sulfate 3 ML AMPUL.NEB INHALATION ×4 (07:14→23:40)
[2022-10-21 08:29] LABS: Partial Thromboplast Time 183.7 Seconds (24.1-36.2)
[2022-10-21] MEDS: Menthol/Lanolin/Calamine/Znox 113 GM Tube 1 APPLIC TOPICAL ×2 (09:47→22:21)
[2022-10-21] MEDS: Aspirin 81 MG TAB.CHEW PO (09:47)
[2022-10-21] MEDS: dexAMETHasone 10 MG/ML Vial 6 MG IV (09:48)
--- NOTE | 2022-10-21 13:16 | PN.HOSP_ITS ---
Reason for Visit Reason for Visit: Diagnoses Sepsis, unspecified organism (10/20/22) Severe sepsis with septic shock (10/20/22) Other specified abnormalities of plasma proteins (10/20/22) COVID-19 (10/20/22) Subjective Subjective Was seen and examined in ICU today, I talked briefly with critical care about her care today. Patient is no longer on any pressors, she remains on low-flow nasal cannula oxygen at this time. Objective Data Objective Data Vital Signs: Vital Signs Temp Pulse Resp BP Pulse Ox O2 Del Method O2 Flow Rate 99.1 F 91 20 H 106/80 91 Nasal Cannula 2 10/21/22 12:00 10/21/22 12:00 10/21/22 12:00 10/21/22 12:00 10/21/22 12:00 10/21/22 12:00 10/21/22 12:00 Oxygen Flow Rate (L/min) 2 Oxygen Delivery Method Nasal Cannula Weight: 128.6 kg Body Mass Index (BMI) 48.4 Intake & Output: Intake and Output for Last 24 Hours 10/19/22 10/20/22 10/21/22 23:59 23:59 23:59 Intake Total 6865.83 / 6865.83 191.50 / 191.50 Output Total 560 / 560 200 / 200 Balance 6305.83 / 6305.83 -8.50 / -8.50 Lab / Micro Data Result Diagrams: 10/21/22 04:45 10/21/22 04:45 Labs: Laboratory Results - last 24 hr 10/20/22 13:00: Troponin I High Sens 115 H 10/20/22 13:00: Magnesium 2.2 10/20/22 13:00: APTT > 200.0 H* 10/20/22 21:40: APTT 210.9 H* 10/21/22 04:45: Magnesium 2.4, Triglycerides 73, Cholesterol 61, LDL Cholesterol 35, VLDL Cholesterol 15, HDL Cholesterol 11 L 10/21/22 04:45: WBC 20.7 H, RBC 4.27, Hgb 12.4, Hct 38.1, MCV 89.2, MCH 29.0, MCHC 32.5, RDW Std Deviation 45.0 H, RDW Coeff of Gareth 13.8, Plt Count 86 L, MPV 11.3, Neut % (Auto) Not Reportable, Absolute Neuts (auto) 18.6 H, Absolute Lymphs (auto) 1.04, Total Counted 100, Neutrophils % (Manual) 84 H, Band Williams trophils % 6 H, Lymphocytes % (Manual) 5 L, Monocytes % (Manual) 2, Eosinophils % (Manual) 1, Metamyelocytes % 2 H, Differential Comment COMMENT, Diff Path Review May foll, Smudge Cells RARE, Platelet Estimate MOD DEC, Mohan Cells 1+ 10/21/22 04:45: Sodium 140, Potassium 3.9, Chloride 113 H, Carbon Dioxide 22.0, Anion Gap 5, BUN 36 H, Creatinine 1.71 H, Estim Creat Clear Calc 24.17, Est GFR (MDRD) Af Amer 37 L, Est GFR (MDRD) Non-Af 31 L, BUN/Creatinine Ratio 21.1 H, Glucose 118 H, Calcium 7.8 L, Phosphorus 2.5, Total Bilirubin 1.20 H, AST 69 H, ALT 36, Alkaline Phosphatase 79, Total Protein 5.4 L, Albumin 2.3 L, Globulin 3.1, Albumin/Globulin Ratio 0.7 L 10/21/22 04:45: B-Natriuretic Peptide 220.9 H 10/21/22 07:45: APTT 183.7 H* Micro: Microbiology 10/20/22 02:41 Urine, Catheterized Urine Culture - Preliminary GNR lactose pharmacy services representative 10/20/22 18:00 Stool Enteric Bacteriology - Final 10/20/22 02:27 Blood Culture (Wb) - Anticubital Left Blood Culture - Preliminary GNR lactose pharmacy services representative 10/20/22 02:27 Blood Culture (Wb) - Anticubital Left Blood Culture - Preliminary GNR lactose pharmacy services representative 10/20/22 04:15 Mucosa - Nasopharyngeal Respiratory Panel (PCR) - Final 10/20/22 02:41 Urine Catheter - Catheter Streptococcus pneumoniae Antigen (M - Final 10/20/22 02:25 Nasal Secretion SARS-CoV-2 & FLU Antigen (Rapid) - Final Radiography Diagnostic Testing: Radiology Impression Venous Doppler Study 10/20/22 04:03 Interpretation Summary No evidence for acute deep venous thrombosis bilateral lower extremities with patent and compressible bilateral great saphenous veins. Abbreviated COVID-19 protocol utilized Ordering Physician: Mora Horan Referring Physician: Bea Mckeon M.D. Performed By: Corina Prasad RVT Echocardiogram 10/20/22 05:09 Interpretation Summary The estimated ejection fraction is 55-60 %. Mild TR No prior echo to compare Ordering Physician: Mora Horan Referring Physician: Bea Mckeon M.D. Performed By: Teto Ballesteros [facility] Physical Exam Const alert, oriented x3 and no apparent distress Constitutional Narrative: Patient is morbidly obese HEENT head/scalp atraumatic and moist oral mucous membranes Neck supple and no JVD Resp normal respiratory effort, no retractions, no use of accessory muscles and clear to auscultation bilaterally Cardio regular rate, regular rhythm, S1 normal heart sound, S2 normal heart sound, no rub and no gallops GI non-tender and non-distended GI Narrative: Patient is morbidly obese Extremity General Extremity: edema bilateral lower extremity Neuro oriented x3, CN's II-XII intact bilaterally, moves all extremities and no focal motor deficits Psych affect normal Assessment & Plan Assessment/Plan (1) Severe acute respiratory syndrome coronavirus 2 (SARS-CoV-2) detected: PLAN: Plan 1. Septic shock-secondary to urinary tract infection- patient's blood cultures grew out a lactose fermenting gram-negative jeremy, further defecation is pending at this time, continue present antibiotic coverage #2 COVID-19 pneumonia-continue dexamethasone and remdesivir, infectious diseases is participating in her care #3 acute kidney injury-continue IV fluids, monitor BMP #4 acute cystitis-secondary to gram-negative lactose fragmenting jeremy, further identification pending at this time, continue present antibiotics #5 elevated [id number] cannot undergo a CTA secondary to her impaired renal function at this time, she will continue full anticoagulation with IV heparin, her lower extremity venous duplex scan was negative for VTE. #6 morbid obesity-complicates care, medical course, recovery, and prognosis #7 debility-secondary to severe illness and morbid obesity-PT and OT will continue to work with patient, she may need short-term placement in a [facility] facility #8 chronic lymphedema-complicates care, medical course, recovery, and prognosis Total clinical time spent by myself addressing the patient's medical issues, reviewing all her data, and collaborating with the patient's care team: 50 minutes Charges/Coding Visit Charges Inpatient E&M: 61205 Init Hosp L3
[2022-10-21 18:28] LABS: Partial Thromboplast Time 54.1 Seconds (24.1-36.2)
[2022-10-21] MEDS: Nystatin Powder 15gm Bottle 1 APPLIC TOPICAL (22:21)
[2022-10-22] VITALS (13 sets, daily range): BP systolic 91–113; BP diastolic 59–84; PULSE 66–106; RESP 16–24; TEMP 36.8–37; O2SAT 92–97; BMI 49.7
[2022-10-22 05:27] LABS: Absolute Neutrophil Count 11.4 X10^3/uL (2.0-7.7); Basophil# 0.02 X10^3/uL; Basophil% 0.2 % (0-1); Hemoglobin 11.4 g/dL (12.0-15.0); Lymphocyte % 3.3 % (19-41); Mean Corp Hgb Conc 32.6 g/dL (32-36); Mean Corpuscular Hgb 29.2 pg (27.0-32.0); Mean Corpuscular Volume 89.7 fL (81-99); Mean Platelet Vol. 11.4 fl (6.2-12.0); Monocyte# 0.28 X10^3/uL; Monocyte% 2.3 % (0-10); NRBC Flagged by Analyzer 0 % (0-5); Neutrophil # 11.43 X10^3/uL (2.7-7.7); Neutrophil % 93.5 % (47-70); POSITIVE COUNT YES; POSITIVE DIFFERENTIAL YES; POSITIVE MORPHOLOGY YES; Platelet Count 77 K/mm3 (150-450); RBC Distribution Width CV 14.1 % (11.6-14.6); RBC Distribution Width SD 46.3 fl (35.1-43.9); White Blood Count 12.2 K/mm3 (4.4-11.0)
[2022-10-22 05:36] LABS: Differential Indicated SCAN CRITERIA MET
[2022-10-22 05:42] LABS: Partial Thromboplast Time 42.3 Seconds (24.1-36.2)
[2022-10-22 06:09] LABS: ALB/GLOB Ratio 0.6 RATIO (0.9-2.4); AST(SGOT) 59 U/L (15-37); Alanine Aminotransfer ALT/SGPT 45 U/L (13-56); Alkaline Phosphatase 77 U/L (45-117); Anion Gap 4 (5-15); BUN 47 mg/dL (7-18); BUN/Creat Ratio 31.3 RATIO (10-20); Chloride 114 mmol/L (98-107); EST Glomerular Filtration Rate 36 mL/min (>60); Est Glom Filt Rate - Afr Amer 43 mL/min (>60); Estimated Creatinine Clearance 27.55 ml/min; Globulin 3.1 g/dL (2.2-4.2); Glucose 151 mg/dL (74-106); Protein, Total 5.1 g/dL (6.4-8.2); Sodium Level 139 mmol/L (136-145)
--- NOTE | 2022-10-22 07:08 | PN.CC_ITS ---
Assessment & Plan Assessment/Plan (1) Septic shock: PLAN: Plan RECOMMENDATIONS: 1. Continue antimicrobials per ID recommendations. 2. Continue remdesivir and Decadron. 3. Continue heparin infusion. 4. Consider obtaining CTA chest. 5. Wean supplemental oxygen to maintain saturations at or above 90%. 6. Encourage incentive spirometer use and mobilize patient as tolerated. IMPRESSIONS: 1. Gram-negative septic shock The patient presented to the hospital with sepsis due to urinary tract source of infection with acute sepsis related organ dysfunction as evidenced by lactic acidemia, altered mental status, thrombocytopenia and acute kidney injury. The patient went on to develop fluid refractory hypotension, requiring the initiation of vasopressor support. The patient has been adequately volume resuscitated and was able to be ultimately weaned from vasopressor support. She remains hemodynamically stable this morning. Plan to continue antimicrobials per ID recommendations. 2. Shortness of breath and hypoxemia related to COVID-19 pneumonia Continue supplemental oxygen to maintain saturations at or above 90%. Continue supportive measures including Decadron and remdesivir as ordered. In addition, the patient did have an elevated D-dimer at presentation. Therefore, underlying VTE is a possibility. However, the patient's underlying renal insufficiency precluded our ability to obtain a CTA chest. Therefore, the patient will remain on empiric heparin. Lower extremity Dopplers were negative. 3. Troponin elevation Likely secondary to demand ischemia in the setting of #1. Echocardiogram revealed normal systolic function. 4. History of hypertension/morbid obesity/GERD/chronic lower extremity lymphedema Complicates care, management, recovery and prognosis. Continue supportive measures and medications as noted above. This note was generated with [employer] dictation software. It may contain incorrect words, spelling, and punctuation that were not noted in checking the note before signing. Subjective Subjective The patient was seen and examined at the bedside this morning. Events from the last 24 hours have been reviewed. The patient is currently afebrile, hemodynamically stable and maintaining appropriate oxygen saturations on 3 L/min via nasal cannula. The patient is documented to be overall net +7 L for the hospitalization. Creatinine has improved to 1.5. Objective Data Objective Data The patient's most recent lab work, culture data and imaging studies have all been personally reviewed. Lower extremity Doppler study was negative for DVT. Preliminary blood and urine cultures were positive for gram-negative jeremy, lactose secret code expert. Vital Signs: Vital Signs Temp Pulse Resp BP Pulse Ox O2 Del Method O2 Flow Rate 98.6 F 93 24 H 111/84 H 95 Nasal Cannula 3 10/22/22 03:00 10/22/22 03:00 10/22/22 03:00 10/22/22 03:00 10/22/22 03:00 10/22/22 05:00 10/22/22 05:00 Oxygen Flow Rate (L/min) 3 Oxygen Delivery Method Nasal Cannula Weight: 291 lb 7.218 oz Body Mass Index (BMI) 49.7 Intake & Output: Intake and Output for Last 24 Hours 10/20/22 10/21/22 10/22/22 23:59 23:59 23:59 Intake Total 6865.83 / 6865.83 1901.50 / 1901.50 203.6 / 203.6 Output Total 560 / 560 650 / 1100 450 / 450 Balance 6305.83 / 6305.83 1251.50 / 801.50 -246.4 / -246.4 Lab / Micro Data Attestation: I reviewed the patient's lab results. Result Diagrams: 10/22/22 04:00 10/22/22 04:00 Labs: Laboratory Results - last 24 hr 10/21/22 07:45: APTT 183.7 H* 10/21/22 17:50: APTT 54.1 H 10/22/22 04:00: WBC 12.2 H, RBC 3.90 L, Hgb 11.4 L, Hct 35.0 L, MCV 89.7, MCH 29.2, MCHC 32.6, RDW Std Deviation 46.3 H, RDW Coeff of Gareth 14.1, Plt Count 77 L , MPV 11.4, Immature Gran % (Auto) 0.700, Neut % (Auto) 93.5 H, Lymph % (Auto) 3.3 L, Martin % (Auto) 2.3, Eos % (Auto) 0.0, Baso % (Auto) 0.2, Absolute Neuts (auto) 11.4 H, Absolute Lymphs (auto) 0.40 L, Nucleated RBC % 0 10/22/22 04:00: Sodium 139, Potassium 4.0, Chloride 114 H, Carbon Dioxide 21.0, Anion Gap 4 L, BUN 47 H, Creatinine 1.50 H, Estim Creat Clear Calc 27.55, Est GFR (MDRD) Af Amer 43 L, Est GFR (MDRD) Non-Af 36 L, BUN/Creatinine Ratio 31.3 H , Glucose 151 H, Calcium 8.0 L, Total Bilirubin 0.50, AST 59 H, ALT 45, Alkaline Phosphatase 77, Total Protein 5.1 L, Albumin 2.0 L, Globulin 3.1, Albumin/Globulin Ratio 0.6 L 10/22/22 04:00: APTT 42.3 H Micro: Microbiology 10/20/22 02:41 Urine, Catheterized Urine Culture - Preliminary GNR lactose secret code expert 10/20/22 18:00 Stool Enteric Bacteriology - Final 10/20/22 02:27 Blood Culture (Wb) - Anticubital Left Blood Culture - Preliminary GNR lactose secret code expert 10/20/22 02:27 Blood Culture (Wb) - Anticubital Left Blood Culture - Preliminary GNR lactose secret code expert 10/20/22 04:15 Mucosa - Nasopharyngeal Respiratory Panel (PCR) - Final 10/20/22 02:41 Urine Catheter - Catheter Streptococcus pneumoniae Antigen (M - Final 10/20/22 02:25 Nasal Secretion SARS-CoV-2 & FLU Antigen (Rapid) - Final Radiography Diagnostic Testing: Radiology Impression Echocardiogram 10/20/22 05:09 Interpretation Summary The estimated ejection fraction is 55-60 %. Mild TR No prior echo to compare Ordering Physician: Mora Horan Referring Physician: Bea Mckeon M.D. Performed By: Teto Ballesteros RCS Physical Exam Const alert and no apparent distress General Appearance: ill appearing Nutritional Appearance: morbidly obese HEENT normocephalic and head/scalp atraumatic Eyes PERRL and EOMs intact bilaterally Neck supple General: trachea midline Chest inspection of chest normal Resp normal respiratory effort Auscultation: diminished lung sounds; Negative for rales, rhonchi or wheezes Cardio regular rate and regular rhythm GI normal to inspection, nondistended, normoactive bowel sounds Extremity General Extremity: edema bilateral lower extremity; Negative for clubbing Skin General Skin Exam: venous stasis and dermatitis Neuro no focal motor deficits Psych Mood & Affect: flat affect Charges/Coding Visit Charges Inpatient E&M: 72372 Subs Hosp L2
[2022-10-22 07:16] LABS: Differential Comment SCANNED
--- NOTE | 2022-10-22 07:16 | CT_ITS ---
We are attempting to reach an attending provider to discuss findings. An addendum with communication details will be sent when the communication is complete. STUDY: CTA CHEST REASON FOR EXAM: Female, 77 years old. elevated d-dimer, R/O PE RADIATION DOSAGE (If Supplied By Facility): CTDIvol = ( 10.89 ) mGy, DLP = ( 439.96 ) mGycm TECHNIQUE: The examination was performed with the intravenous administration of IV 100mL Isovue-370. Post-processing of the angiographic images was performed, with multiplanar reformation and 3D reconstruction. Individualized dose optimization techniques were used for this CT. COMPARISON: 10/20/2022 FINDINGS: Normal enhancement of the main pulmonary artery and right and left pulmonary arteries. Normal enhancement of the bilateral peripheral pulmonary arteries. Filling defect within the descending right pulmonary artery consistent with pulmonary embolism. There is prominence of the main pulmonary arteries without peripheral pulmonary vascular congestion, suggesting pulmonary hypertension. Normal thoracic aorta and visualized great vessels. There is no demonstrated aortic dissection. There is cardiomegaly. Normal mediastinum. Normal hilar regions. Normal visualized trachea and bronchi. The lungs are well expanded. Normal pulmonary parenchyma. Small bilateral pleural effusions with some bibasilar atelectasis. Normal chest wall structures. Normal osseous structures. Normal visualized upper abdomen. CT/CTA Chest W/WO Contrast IMPRESSION: 1. Positive for pulmonary embolus in the descending right pulmonary artery. 2. Suspect pulmonary arterial hypertension. 3. Cardiomegaly. 4. Small bilateral pleural effusions with some bibasilar atelectasis. Electronically Signed: Wallace Jean-Baptiste MD at 9:44 EDT ,
[2022-10-22 10:04] LABS: Vancomycin, Trough Level 8.5 ug/mL (5.0-15.0)
[2022-10-22] MEDS: Aspirin 81 MG TAB.CHEW PO (10:29)
[2022-10-22] MEDS: Nystatin Powder 15gm Bottle 1 APPLIC TOPICAL ×2 (10:30→20:56)
[2022-10-22] MEDS: 0.9% Saline Lock 10 ML Syringe IV ×2 (10:31→20:56)
[2022-10-22] MEDS: dexAMETHasone 10 MG/ML Vial 6 MG IV (11:44)
[2022-10-22] MEDS: APIXABAN 5 MG TABLET 10 MG PO ×2 (11:45→20:56)
--- NOTE | 2022-10-22 14:37 | PCM.PN.HOSP ---
Reason for Visit Reason for Visit: Diagnoses Sepsis, unspecified organism (10/20/22) Severe sepsis with septic shock (10/20/22) Other specified abnormalities of plasma proteins (10/20/22) COVID-19 (10/20/22) Subjective Subjective Patient was seen and examined today, she is currently on 3 L of oxygen via nasal cannula. A CTA scan of the chest was performed today to rule out pulmonary embolism, patient did have a pulmonary emboli in the right pulmonary artery. Patient was taken off heparin and placed on Eliquis. Objective Data Objective Data Vital Signs: Vital Signs Temp Pulse Resp BP Pulse Ox O2 Del Method O2 Flow Rate 98.3 F 105 H 18 91/59 L 92 Nasal Cannula 3 10/22/22 14:00 10/22/22 14:00 10/22/22 14:00 10/22/22 14:00 10/22/22 14:00 10/22/22 14:00 10/22/22 14:00 Oxygen Flow Rate (L/min) 3 Oxygen Delivery Method Nasal Cannula Weight: 132.2 kg Body Mass Index (BMI) 49.7 Intake & Output: Intake and Output for Last 24 Hours 10/20/22 10/21/22 10/22/22 23:59 23:59 23:59 Intake Total 6865.83 / 6865.83 1901.50 / 1901.50 1850.9 / 1850.9 Output Total 560 / 560 650 / 1100 800 / 800 Balance 6305.83 / 6305.83 1251.50 / 801.50 1050.9 / 1050.9 Lab / Micro Data Result Diagrams: 10/22/22 04:00 10/22/22 04:00 Labs: Laboratory Results - last 24 hr 10/21/22 17:50: APTT 54.1 H 10/22/22 04:00: WBC 12.2 H, RBC 3.90 L, Hgb 11.4 L, Hct 35.0 L, MCV 89.7, MCH 29.2, MCHC 32.6, RDW Std Deviation 46.3 H, RDW Coeff of Gareth 14.1, Plt Count 77 L, MPV 11.4, Immature Gran % (Auto) 0.700, Neut % (Auto) 93.5 H, Lymph % (Auto) 3.3 L, Patrick % (Auto) 2.3, Eos % (Auto) 0.0, Baso % (Auto) 0.2, Absolute Neuts (auto) 11.4 H, Absolute Lymphs (auto) 0.40 L, Nucleated RBC % 0, Differential Comment SCANNED 10/22/22 04:00: Sodium 139, Potassium 4.0, Chloride 114 H, Carbon Dioxide 21.0, Anion Gap 4 L, BUN 47 H, Creatinine 1.50 H, Estim Creat Clear Calc 27.55, Est GFR (MDRD) Af Amer 43 L, Est GFR (MDRD) Non-Af 36 L, BUN/Creatinine Ratio 31.3 H, Glucose 151 H, Calcium 8.0 L, Total Bilirubin 0.50, AST 59 H, ALT 45, Alkaline Phosphatase 77, Total Protein 5.1 L, Albumin 2.0 L, Globulin 3.1, Albumin/Globulin Ratio 0.6 L 10/22/22 04:00: APTT 42.3 H 10/22/22 09:33: Vancomycin Trough 8.5 Micro: Microbiology 10/20/22 02:41 Urine, Catheterized Urine Culture - Final Escherichia coli 10/20/22 02:27 Blood Culture (Wb) - Anticubital Left Blood Culture - Final GNR lactose compliance examiner 10/20/22 02:27 Blood Culture (Wb) - Anticubital Left Blood Culture - Final Escherichia coli 10/20/22 18:00 Stool Enteric Bacteriology - Final 10/20/22 04:15 Mucosa - Nasopharyngeal Respiratory Panel (PCR) - Final 10/20/22 02:41 Urine Catheter - Catheter Streptococcus pneumoniae Antigen (M - Final 10/20/22 02:25 Nasal Secretion SARS-CoV-2 & FLU Antigen (Rapid) - Final Radiography Diagnostic Testing: Radiology Impression Chest CTA 10/22/22 07:16 IMPRESSION: 1. Positive for pulmonary embolus in the descending right pulmonary artery. 2. Suspect pulmonary arterial hypertension. 3. Cardiomegaly. 4. Small bilateral pleural effusions with some bibasilar atelectasis. Electronically Signed: Wallace Jean-Baptiste MD at 9:44 EDT , ADDENDUM: 10/22/22 0956 IMPRESSION: 1. Positive for pulmonary embolus in the descending right pulmonary artery. 2. Suspect pulmonary arterial hypertension. 3. Cardiomegaly. 4. Small bilateral pleural effusions with some bibasilar atelectasis. N.B. : The above Results were Read Back by Wallace Jean-Baptiste MD to Hola Kenyon MD, and understanding confirmed on 10/22/2022 09:50:01 (ET). Electronically Signed: Wallace Jean-Baptiste MD at 9:44 EDT , ADDENDUM: 10/22/22 1005 IMPRESSION: 1. Positive for pulmonary embolus in the descending right pulmonary artery. 2. Suspect pulmonary arterial hypertension. 3. Cardiomegaly. 4. Small bilateral pleural effusions with some bibasilar atelectasis. N.B. : The above Results were Read Back by Wallace Jean-Baptiste MD to Hola Kenyon MD, and understanding confirmed on 10/22/2022 09:58:26 (ET). Electronically Signed: Wallace Jean-Baptiste MD at 9:44 EDT , Physical Exam Narrative alert, oriented x3 and no apparent distress Constitutional Narrative: Patient is morbidly obese HEENT head/scalp atraumatic and moist oral mucous membranes Neck supple and no JVD Resp normal respiratory effort, no retractions, no use of accessory muscles and clear to auscultation bilaterally Cardio regular rate, regular rhythm, S1 normal heart sound, S2 normal heart sound, no rub and no gallops GI non-tender and non-distended GI Narrative: Patient is morbidly obese Extremity General Extremity: edema bilateral lower extremity Neuro oriented x3, CN's II-XII intact bilaterally, moves all extremities and no focal motor deficits Psych affect normal Assessment & Plan Assessment/Plan (1) Severe acute respiratory syndrome coronavirus 2 (SARS-CoV-2) detected: PLAN: Plan 1. Septic shock-secondary to urinary tract infection from E. coli, it is sensitive to all antibiotics tested. Patient is on meropenem at this time, infectious diseases will follow up with the patient tomorrow to adjust any antibiotics. #2 COVID-19 pneumonia-continue dexamethasone and remdesivir, infectious diseases is participating in her care #3 acute kidney injury-continue IV fluids, monitor BMP, patient's creatinine is improved at 1.5 today, I will recheck BMP tomorrow #4 acute cystitis-secondary to E. coli-antibiotic coverage per ID, patient is currently on meropenem #5 Right-sided pulmonary embolism-again patient was placed on Eliquis today and her heparin drip was discontinued #6 morbid obesity-complicates care, medical course, recovery, and prognosis #7 debility-secondary to severe illness and morbid obesity-PT and OT will continue to work with patient, she may need short-term placement in a long term facility #8 chronic lymphedema-complicates care, medical course, recovery, and prognosis Total clinical time spent by myself addressing the patient's medical issues, reviewing all her data, and collaborating with the patient's care team: 35 minutes Charges/Coding Visit Charges Inpatient E&M: 75929 Subs Hosp L2
[2022-10-22] MEDS: Ipratropium/Albuterol Sulfate 3 ML AMPUL.NEB INHALATION ×2 (14:43→20:27)
[2022-10-22] MEDS: 0.9% Normal Saline 1,000 ML 75 ML IV (17:02)
[2022-10-22] MEDS: Menthol/Lanolin/Calamine/Znox 113 GM Tube 1 APPLIC TOPICAL (20:56)
[2022-10-23] VITALS (10 sets, daily range): BP systolic 116–122; BP diastolic 76–95; PULSE 76–96; RESP 10–21; TEMP 36.8–36.9; O2SAT 95–98; BMI 49.9
[2022-10-23] MEDS: 0.9% Normal Saline 1,000 ML 75 ML IV ×2 (04:51→19:45)
[2022-10-23 06:46] LABS: Absolute Lymphocyte Count 0.65 X10^3/uL (0.83-4.51); Absolute Neutrophil Count 8.9 X10^3/uL (2.0-7.7); Basophil# 0.01 X10^3/uL; Basophil% 0.1 % (0-1); Hematocrit 34.5 % (37-47); Hemoglobin 11.2 g/dL (12.0-15.0); Lymphocyte # 0.65 X10^3/ul (0.83-4.51); Lymphocyte % 6.5 % (19-41); Mean Corp Hgb Conc 32.5 g/dL (32-36); Mean Corpuscular Hgb 29.2 pg (27.0-32.0); Mean Corpuscular Volume 90.1 fL (81-99); Mean Platelet Vol. 11.8 fl (6.2-12.0); Monocyte# 0.29 X10^3/uL; Monocyte% 2.9 % (0-10); NRBC Flagged by Analyzer 0 % (0-5); Neutrophil # 8.93 X10^3/uL (2.7-7.7); Neutrophil % 89.7 % (47-70); POSITIVE COUNT YES; Platelet Count 81 K/mm3 (150-450); RBC Distribution Width CV 14.6 % (11.6-14.6); RBC Distribution Width SD 48.3 fl (35.1-43.9); Red Blood Count 3.83 M/mm3 (4.2-5.4)
[2022-10-23 07:21] LABS: ALB/GLOB Ratio 0.6 RATIO (0.9-2.4); AST(SGOT) 39 U/L (15-37); Alanine Aminotransfer ALT/SGPT 50 U/L (13-56); Albumin, Serum 2.1 g/dL (3.2-5.0); Alkaline Phosphatase 85 U/L (45-117); Anion Gap 3 (5-15); BUN 50 mg/dL (7-18); BUN/Creat Ratio 36.5 RATIO (10-20); Calcium,Total 8.5 mg/dL (8.5-10.1); Chloride 114 mmol/L (98-107); Creatinine, Serum 1.37 mg/dL (0.55-1.02); EST Glomerular Filtration Rate 40 mL/min (>60); Est Glom Filt Rate - Afr Amer 48 mL/min (>60); Estimated Creatinine Clearance 30.17 ml/min; Globulin 3.3 g/dL (2.2-4.2); Glucose 158 mg/dL (74-106); Potassium 4.4 mmol/L (3.5-5.1); Protein, Total 5.4 g/dL (6.4-8.2); Sodium Level 140 mmol/L (136-145)
[2022-10-23] MEDS: Ipratropium/Albuterol Sulfate 3 ML AMPUL.NEB INHALATION ×4 (08:17→18:43)
[2022-10-23] MEDS: Aspirin 81 MG TAB.CHEW PO (10:06)
[2022-10-23] MEDS: Menthol/Lanolin/Calamine/Znox 113 GM Tube 1 APPLIC TOPICAL ×2 (10:06→23:03)
[2022-10-23] MEDS: Nystatin Powder 15gm Bottle 1 APPLIC TOPICAL ×2 (10:07→23:03)
[2022-10-23] MEDS: APIXABAN 5 MG TABLET 10 MG PO ×2 (10:07→23:04)
--- NOTE | 2022-10-23 10:28 | CASEMGMT ---
LAUREL SOMMERS updated by charge nurse that family is interested in SNF at discharge. LAUREL SOMMERS reviewed progress with therapy and patient was an assist x2 and ambulated 1 ft. LAUREL SOMMERS in to patient's room to discuss discharge planning with patient and daughter. Patient states she is agreeable to SNF at discharge for additional rehab. A list of SNF providers including quality and resource use data and consistent with the patient?s preferred geographical region, medical needs, and insurance network were provided from the [facility] Guide. Patient and daughter to review list and provide preferences. Patient and daughter had no further questions or concerns at this time. LAUREL SOMMERS updated SW.
--- NOTE | 2022-10-23 11:27 | CASEMGMT ---
LAUREL SOMMERS received voicemail from daughter that preferences for SNF at 1. [facility]. [facility]. [facility]. Per message daughter will be working today but is able to be reached at [phone]. LAUREL SOMMERS updated SW.
[2022-10-23] MEDS: Bisacodyl 5 MG Tablet 10 MG PO (13:22)
[2022-10-23] MEDS: dexAMETHasone 10 MG/ML Vial 6 MG IV (13:22)
[2022-10-23] MEDS: 0.9% Saline Lock 10 ML Syringe IV (13:23)
[2022-10-23] MEDS: Cephalexin 500 MG Capsule PO ×2 (13:23→22:46)
--- NOTE | 2022-10-23 14:55 | CASEMGMT ---
JOSÉ MIGUEL spoke with family's SNF choices [facility], and [facility]. None of them accept COVID patients. JOSÉ MIGUEL called patient's daughter Gemma and let her know this information. Gemma then asked that referrals be sent to [facility], [facility], and [facility]. SW called [facility] and [facility] and neither of them are accepting COVID positive patients. JOSÉ MIGUEL knows [facility] is taking COVID patients so SW sent a referral to [facility] via [facility]. Johana Norton [employer] P[employer]ICIAN [place]
--- NOTE | 2022-10-23 15:14 | PCM.PN.ID ---
Physical Exam Narrative Feeling better, cough improved, no fever, no abd pain Const alert and no apparent distress Resp normal air movement Cardio regular rate and regular rhythm GI soft to palpation, non-tender and non-distended Skin no rashes or lesions noted ID ID: Route of nutrition/ use of supplements: [] Nutritional Intake: [] IV Site: [] Gold Catheter: [] Assessment & Plan Assessment/Plan (1) Septic shock: PLAN: Covid (+), improving on dex/remdesivir. Isolate for 20 days. Ok to stop these meds at discharge. Ecoli bacteremia from urinary source - abx narrow to keflex, plan on one more week. Will follow, d/w primary team (2) Severe acute respiratory syndrome coronavirus 2 (SARS-CoV-2) detected:
--- NOTE | 2022-10-23 19:03 | PCM.PN.HOSP ---
Reason for Visit Reason for Visit: Diagnoses Sepsis, unspecified organism (10/20/22) Severe sepsis with septic shock (10/20/22) Other specified abnormalities of plasma proteins (10/20/22) COVID-19 (10/20/22) Subjective Subjective Patient was seen and examined today, she is currently on room air, I talked briefly with infectious diseases about her care and we have changed the patient's antibiotics over to oral Keflex. We are currently awaiting for approval for her to be placed in a alf facility, I talked with the patient and her daughter in her room about this today and they are in agreement that she needs to go somewhere for short-term rehab services. Objective Data Objective Data Vital Signs: Vital Signs Temp Pulse Resp BP Pulse Ox O2 Del Method O2 Flow Rate 98.3 F 85 18 122/95 H 98 Room Air 3 10/23/22 18:41 10/23/22 18:41 10/23/22 18:41 10/23/22 18:41 10/23/22 18:43 10/23/22 18:43 10/23/22 04:52 Oxygen Flow Rate (L/min) 3 Oxygen Delivery Method Room Air Weight: 132.7 kg Body Mass Index (BMI) 49.9 Intake & Output: Intake and Output for Last 24 Hours 10/21/22 10/22/22 10/23/22 23:59 23:59 23:59 Intake Total 1901.50 / 1901.50 2200.9 / 2200.9 2036.25 / 2036.25 Output Total 650 / 1100 1075 / 1075 950 / 950 Balance 1251.50 / 801.50 1125.9 / 1125.9 1086.25 / 1086.25 Lab / Micro Data Result Diagrams: 10/23/22 06:20 10/23/22 06:20 Labs: Laboratory Results - last 24 hr 10/23/22 06:20: WBC 10.0, RBC 3.83 L, Hgb 11.2 L, Hct 34.5 L, MCV 90.1, MCH 29.2, MCHC 32.5, RDW Std Deviation 48.3 H, RDW Coeff of Gareth 14.6, Plt Count 81 L, MPV 11.8, Immature Gran % (Auto) 0.800, Neut % (Auto) 89.7 H, Lymph % (Auto) 6.5 L, [place] % (Auto) 2.9, Eos % (Auto) 0.0, Baso % (Auto) 0.1, Absolute Neuts (auto) 8.9 H, Absolute Lymphs (auto) 0.65 L, Nucleated RBC % 0 10/23/22 06:20: Sodium 140, Potassium 4.4, Chloride 114 H, Carbon Dioxide 23.0, Anion Gap 3 L, BUN 50 H, Creatinine 1.37 H, Estim Creat Clear Calc 30.17, Est GFR (MDRD) Af Amer 48 L, Est GFR (MDRD) Non-Af 40 L, BUN/Creatinine Ratio 36.5 H, Glucose 158 H, Calcium 8.5, Total Bilirubin 0.60, AST 39 H, ALT 50, Alkaline Phosphatase 85, Total Protein 5.4 L, Albumin 2.1 L, Globulin 3.3, Albumin/Globulin Ratio 0.6 L Micro: Microbiology 10/20/22 02:41 Urine, Catheterized Urine Culture - Final Escherichia coli 10/20/22 02:27 Blood Culture (Wb) - Anticubital Left Blood Culture - Final GNR lactose straightedge machine operator helper 10/20/22 02:27 Blood Culture (Wb) - Anticubital Left Blood Culture - Final Escherichia coli 10/20/22 18:00 Stool Enteric Bacteriology - Final 10/20/22 04:15 Mucosa - Nasopharyngeal Respiratory Panel (PCR) - Final 10/20/22 02:41 Urine Catheter - Catheter Streptococcus pneumoniae Antigen (M - Final 10/20/22 02:25 Nasal Secretion SARS-CoV-2 & FLU Antigen (Rapid) - Final Physical Exam Narrative alert, oriented x3 and no apparent distress Constitutional Narrative: Patient is morbidly obese HEENT head/scalp atraumatic and moist oral mucous membranes Neck supple and no JVD Resp normal respiratory effort, no retractions, no use of accessory muscles and clear to auscultation bilaterally Cardio regular rate, regular rhythm, S1 normal heart sound, S2 normal heart sound, no rub and no gallops GI non-tender and non-distended GI Narrative: Patient is morbidly obese Extremity General Extremity: edema bilateral lower extremity Neuro oriented x3, CN's II-XII intact bilaterally, moves all extremities and no focal motor deficits Psych affect normal Assessment & Plan Assessment/Plan (1) UTI (urinary tract infection): (2) Severe acute respiratory syndrome coronavirus 2 (SARS-CoV-2) detected: PLAN: Plan 1. Septic shock, resolved-secondary to urinary tract infection from E. coli, it is sensitive to all antibiotics tested. Patient was transitioned over to oral Keflex today #2 COVID-19 pneumonia-continue dexamethasone and remdesivir, infectious diseases is participating in her care #3 acute kidney injury-continue IV fluids, monitor BMP, patient's creatinine is improved at 1.37 today, I will recheck BMP tomorrow #4 acute cystitis-secondary to E. coli-again patient's antibiotics were changed to Keflex today #5 Right-sided pulmonary embolism-patient is on Eliquis #6 morbid obesity-complicates care, medical course, recovery, and prognosis #7 debility-secondary to severe illness and morbid obesity-PT and OT will continue to work with patient, she may need short-term placement in a alf facility #8 chronic lymphedema-complicates care, medical course, recovery, and prognosis Total clinical time spent by myself addressing the patient's medical issues, reviewing all her data, and collaborating with the patient's care team: 35 minutes Charges/Coding Visit Charges Inpatient E&M: 16557 Subs Hosp L2
[2022-10-23] MEDS: guaiFENesin 10 ML UDC (200MG/10ML) PO (23:02)
[2022-10-23] MEDS: Acetaminophen 325 MG Tablet 650 MG PO (23:02)
[2022-10-24] VITALS (9 sets, daily range): BP systolic 114–148; BP diastolic 69–96; PULSE 71–92; RESP 15–20; TEMP 36.5–36.9; O2SAT 92–98; BMI 51.9
[2022-10-24] MEDS: Cephalexin 500 MG Capsule PO ×2 (05:33→13:57)
[2022-10-24] MEDS: Acetaminophen 325 MG Tablet 650 MG PO (05:33)
[2022-10-24 06:06] LABS: Hematocrit 32.8 % (37-47); Hemoglobin 10.5 g/dL (12.0-15.0); Mean Corpuscular Hgb 28.8 pg (27.0-32.0); Mean Corpuscular Volume 89.9 fL (81-99); Mean Platelet Vol. 12.3 fl (6.2-12.0); POSITIVE COUNT YES; Platelet Count 79 K/mm3 (150-450); RBC Distribution Width CV 14.6 % (11.6-14.6); RBC Distribution Width SD 48.7 fl (35.1-43.9); Red Blood Count 3.65 M/mm3 (4.2-5.4)
[2022-10-24 06:58] LABS: ALB/GLOB Ratio 0.7 RATIO (0.9-2.4); AST(SGOT) 36 U/L (15-37); Alanine Aminotransfer ALT/SGPT 50 U/L (13-56); Albumin, Serum 2.1 g/dL (3.2-5.0); Alkaline Phosphatase 78 U/L (45-117); Anion Gap 4 (5-15); BUN 48 mg/dL (7-18); BUN/Creat Ratio 36.6 RATIO (10-20); Calcium,Total 8.5 mg/dL (8.5-10.1); Chloride 113 mmol/L (98-107); Creatinine, Serum 1.31 mg/dL (0.55-1.02); EST Glomerular Filtration Rate 42 mL/min (>60); Est Glom Filt Rate - Afr Amer 51 mL/min (>60); Estimated Creatinine Clearance 31.55 ml/min; Globulin 2.9 g/dL (2.2-4.2); Glucose 218 mg/dL (74-106); Potassium 4.7 mmol/L (3.5-5.1); Sodium Level 138 mmol/L (136-145)
[2022-10-24] MEDS: Ipratropium/Albuterol Sulfate 3 ML AMPUL.NEB INHALATION ×3 (07:17→15:46)
--- NOTE | 2022-10-24 08:25 | CASEMGMT ---
[facility] accepted patient and they can take her today. SW will notify patient, physician, and family. Johana Norton HELMET BINDER [place]
--- NOTE | 2022-10-24 09:20 | CASEMGMT ---
JOSÉ MIGUEL spoke with patient's daughter letting her know [facility] can take patient today. JOSÉ MIGUEL answered her questions. She asked that SW call her at work when SW has a hop picker time. Johana PADGETT
[2022-10-24] MEDS: 0.9% Normal Saline 1,000 ML 75 ML IV (09:49)
[2022-10-24] MEDS: Aspirin 81 MG TAB.CHEW PO (09:53)
[2022-10-24] MEDS: 0.9% Saline Lock 10 ML Syringe IV (09:53)
[2022-10-24] MEDS: APIXABAN 5 MG TABLET 10 MG PO (09:53)
[2022-10-24] MEDS: dexAMETHasone 10 MG/ML Vial 6 MG IV (09:53)
[2022-10-24] MEDS: Menthol/Lanolin/Calamine/Znox 113 GM Tube 1 APPLIC TOPICAL (09:54)
[2022-10-24] MEDS: Nystatin Powder 15gm Bottle 1 APPLIC TOPICAL (09:54)
--- NOTE | 2022-10-24 12:53 | TREXTCAR_ITS ---
Diet Diet Order/Speech Therapy: 10/21/22 09:31 Diet: 2000 dalila ADA Routine Orders/Code Status Routine Lab Work: - (Finger stick blood sugar fasting and 4 PM daily, notify attending if blood sugar above 150) Code Status: Full Code Wound(s) RIGHT SIDE ABD FOLD: Wound Type: Abrasion LEFT HAND: Wound Type: Skin Tear Therapies Weight Bearing: Full weight bearing (with walker) Physical Therapy: Eval and Treat Occupational Therapy: Eval and Treat Problem/Diagnosis (1) UTI (urinary tract infection): Status: Acute Code(s): N39.0 - Urinary tract infection, site not specified (2) Severe acute respiratory syndrome coronavirus 2 (SARS-CoV-2) detected: Status: Acute Code(s): U07.1 - COVID-19 Plan 1. Septic shock, resolved-secondary to urinary tract infection from E. coli, it is sensitive to all antibiotics tested. Patient was transitioned over to oral Keflex today #2 COVID-19 pneumonia-continue dexamethasone and remdesivir, infectious diseases is participating in her care #3 acute kidney injury-continue IV fluids, monitor BMP, patient's creatinine is improved at 1.31 today #4 acute cystitis-secondary to E. coli-again patient's antibiotics were changed to Keflex today #5 Right-sided pulmonary embolism-patient is on Eliquis #6 morbid obesity-complicates care, medical course, recovery, and prognosis #7 debility-secondary to severe illness and morbid obesity-PT and OT will nick nue to work with patient, she may need short-term placement in a fpc facility #8 chronic lymphedema-complicates care, medical course, recovery, and prognosis #9 hyperglycemia-this is probably secondary to corticosteroid usage, patient will be discharged to the fpc facility without corticosteroids, I will write for fingerstick blood sugars to monitor blood sugar Total clinical time spent by myself addressing the patient's medical issues, reviewing all her data, and collaborating with the patient's care team: 35 minutes Allergies/Procedures Done in Hospital Allergies codeine Allergy (Verified 10/20/22 01:57) Hives Penicillins Allergy (Verified 10/20/22 01:57) Hives wheezing/sob Procedures: None Type of Care/Length of Stay Estimated LOS: Convalescent Care Less Than 30 days Type of Care Needed: Skilled Rehab Potential: Good Prognosis: Good Additional Orders/Day of Discharge H&P will serve as current which was dated: 10/20/22 Day of Discharge: 10/24/22 Dietary and Speech Recommendations Dietitian Recommendations/Changes: Continue regular diet as ordered. Offer ONS as needed only if PO ails at meals. Restrict carbohydrates as indicated; blood glucose 158. Discharge Plan Admission Admit Date/Time: 10/20/22 03:53 Primary Reason for Your Visit: Septic shock secondary to E. coli urinary tract infection, COVID-19, PE Attending Provider: Hola Kenyon Primary Care Provider: Bea Mckeon Consulting Providers: Mora Horan ; Jose Moreno ; Moisés Loya ; Guido Joe ; Davion Tanner Discharge Orders/Prescriptions Prescriptions: New acetaminophen 325 mg Tablet 650 mg PO Q4H PRN PRN (Reason: Fever, pain 1-05/08) Qty: 0 0RF Eliquis 5 mg Tablet 10 mg PO BID Qty: 0 0RF Rx Instructions: take 10 mg tonite on 10/24/22, then take 10 mg twice a day for 4 days starting on 10/25/22, then take 5 mg twice a day thereafter cephalexin 500 mg Capsule 500 mg PO Q8 Qty: 0 0RF Rx Instructions: take for 5 days beginning tonite 10/24/22 and then discontinue aspirin 81 mg Tablet,Chewable 81 mg PO BREAKFAST Qty: 0 0RF nystatin [Nyamyc] 100,000 unit/gram Powder 1 applic topical BID Qty: 0 0RF Protocol: *Topical Application Instructions APPLICATION INSTRUCTIONS: Apply to affected areas Rx Instructions: apply to affected areas menthol-zinc oxide [Calmoseptine] 0.44-20.6 % Ointment 1 applic topical BID Qty: 0 0RF Protocol: *Topical Application Instructions APPLICATION INSTRUCTIONS: Apply to coccyx Rx Instructions: apply to affected areas Referrals / Follow Up: Bea Mckeon MD [Primary Care Provider] - Disposition Disposition (needs filled in before D/C Order can be placed): Detention Facility
--- NOTE | 2022-10-24 13:18 | PCM.DC.SUM ---
Providers Date of Admission: 10/20/22 Date of Discharge: 10/24/22 Primary Care Physician: Dr. Bea Mckeon MD Consultations 10/20/22 05:09 Consult: Desizing Machine Operator Head End / Pulmonary Medicine Routine Consulting Provider: Davion Tanner Reason for Consult: Sepsis, UTI EMERGENT Consult: No Notified: Yes Date Notified: 10/20/22 Time Notified: 03:57 Method of Notification: Text 10/20/22 07:00 Consult: Cardiology Routine Consulting Provider: Moisés Loya Reason for Consult: NSTEMI, type II EMERGENT Consult: No Notified: Yes Date Notified: 10/20/22 Time Notified: 07:00 Method of Notification: Text 10/20/22 07:30 Consult: Infectious Disease Routine Consulting Provider: Guido Joe Reason for Consult: COVID, Septic Shock EMERGENT Consult: No Notified: Yes Date Notified: 10/20/22 Time Notified: 08:20 Method of Notification: Text Reason For Visit: SEPSIS, ENCEPHALOPATHY, UTI Diagnosis Discharge Diagnosis (1) UTI (urinary tract infection): Status: Acute Code(s): N39.0 - Urinary tract infection, site not specified (2) Severe acute respiratory syndrome coronavirus 2 (SARS-CoV-2) detected: Status: Acute Code(s): U07.1 - COVID-19 Plan 1. Septic shock, resolved-secondary to urinary tract infection from E. coli, it is sensitive to all antibiotics tested. Patient was transitioned over to oral Keflex today #2 COVID-19 pneumonia-continue dexamethasone and remdesivir, infectious diseases is participating in her care #3 acute kidney injury-continue IV fluids, monitor BMP, patient's creatinine is improved at 1.31 today #4 acute cystitis-secondary to E. coli-again patient's antibiotics were changed to Keflex today #5 Right-sided pulmonary embolism-patient is on Eliquis #6 morbid obesity-complicates care, medical course, recovery, and prognosis #7 debility-secondary to severe illness and morbid obesity-PT and OT will continue to work with patient, she may need short-term placement in a retirement facility #8 chronic lymphedema-complicates care, medical course, recovery, and prognosis #9 hyperglycemia-this is probably secondary to corticosteroid usage, patient will be discharged to the retirement facility without corticosteroids, I will write for fingerstick blood sugars to monitor blood sugar #10 non-STEMI type II Total clinical time spent by myself addressing the patient's medical issues, reviewing all her data, and collaborating with the patient's care team: 35 minutes Medications at Discharge Home Medications acetaminophen 325 mg tablet 650 mg PO Q4H PRN PRN Fever, pain 1-05/08 #0 tabs 10/24/22 apixaban 5 mg tablet (Eliquis) 10 mg PO BID #0 tabs 10/24/22 aspirin 81 mg chewable tablet 81 mg PO BREAKFAST #0 tabs 10/24/22 cephalexin 500 mg capsule 500 mg PO Q8 #0 caps 10/24/22 menthol 0.44 %-zinc oxide 20.6 % topical ointment (Calmoseptine) 1 applic topical BID #0 grams 10/24/22 nystatin 100,000 unit/gram topical powder (Nyamyc) 1 applic topical BID #0 grams 10/24/22 Hospital Course Operations None Procedures 2-D Echocardiogram Summary of Care Provided Minutes Spent on Discharge: 33 Hospital Course: 27-year-old white female was seen in the emergency room at [facility] after being brought in by squad due to altered level of consciousness and a fall at home. Patient's daughter had been diagnosed with COVID recently, patient became ill approximately a week prior and had cough and congestion. Patient was never tested as an outpatient. EMS stated that the patient's O2 sat was 76 on room air on their arrival, she was given Solu-Medrol in route to the emergency room due to wheezing. Patient required 6 L nasal cannula O2 to maintain her pulse ox in the emergency room, swab for COVID and influenza was obtained, labs showed an elevated white blood cell count of 15.9, chemistry profile was remarkable for potassium of 3.3, creatinine of 1.83, BUN of 25. Patient troponin was elevated at 132, bilirubin was elevated at 2. Urinalysis showed +3 bacteria and 10-25 white blood cells. Chest x-ray showed prominent right hilar shadow much most likely superimposed pulmonary vessels but underlying pulmonary mass or hilar adenopathy could not be ruled out. Patient's blood pressure trended downward in the emergency room, lactic acid was noted to be elevated at 3.8 and D-dimer was elevated at 12.49. Patient's rapid COVID test was negative, she was given IV fluids and IV antibiotics, IV potassium was also administered. Patient was admitted to the ICU and placed on a heparin drip as well as IV antibiotics and IV fluids, she was seen in consultation by critical care and cardiology. Patient had a COVID-19 PCR performed which was positive. She was seen in consultation by infectious diseases also. Patient was placed on remdesivir and Decadron, she stabilized and was moved out of the ICU to PCU. A CTA of the chest was performed which showed a pulmonary embolism. Patient was transition from IV heparin over to Eliquis. Patient was seen by PT and OT, it was felt that she would benefit from short-term placement in a retirement facility. Patient was eventually weaned off oxygen. On 10/24/2022, patient was seen and examined: On examination she appeared in good health and spirits, she does not appear to be in any distress. Vital signs as documented. Skin warm and dry and without overt rashes. Neck without JVD, thyroid appears normal, trachea is midline, neck is supple. Lungs clear, normal air movement was noted. Heart exam notable for regular rhythm, normal sounds and absence of murmurs, rubs or gallops. Abdomen unremarkable and without evidence of organomegaly, masses, or abdominal aortic enlargement, bowel sounds are present in all 4 quadrants, no abdominal tenderness was noted. Extremities-patient had bilateral lower leg edema,, no cyanosis was noted, no clubbing was noted. Neuro: Cranial nerves II through XII are grossly intact, no focal motor deficits were noted, sensation to light touch and pinprick is intact, motor exam 5/5 throughout. Psych: Patient is alert and oriented x3, she does not appear anxious or depressed, she does not appear agitated. Patient was transferred to [facility] for further care on 10/24/2022 in stable condition. Weight / BMI Weight Weight: 137.2 kg Body Mass Index (BMI) 51.9 ABG / Lab / Microbiology Data Result Diagrams: 10/24/22 05:17 10/24/22 05:17 Laboratory: Laboratory Results - last 24 hr 10/24/22 05:17: WBC 8.0, RBC 3.65 L, Hgb 10.5 L, Hct 32.8 L, MCV 89.9, MCH 28.8, MCHC 32.0, RDW Std Deviation 48.7 H, RDW Coeff of Gareth 14.6, Plt Count 79 L, MPV 12.3 H 10/24/22 05:17: Sodium 138, Potassium 4.7, Chloride 113 H, Carbon Dioxide 21.0, Anion Gap 4 L, BUN 48 H, Creatinine 1.31 H, Estim Creat Clear Calc 31.55, Est GFR (MDRD) Af Amer 51 L, Est GFR (MDRD) Non-Af 42 L, BUN/Creatinine Ratio 36.6 H, Glucose 218 H, Calcium 8.5, Total Bilirubin 0.40, AST 36, ALT 50, Alkaline Phosphatase 78, Total Protein 5.0 L, Albumin 2.1 L, Globulin 2.9, Albumin/Globulin Ratio 0.7 L Microbiology: Microbiology 10/20/22 02:41 Urine, Catheterized Urine Culture - Final Escherichia coli 10/20/22 02:27 Blood Culture (Wb) - Anticubital Left Blood Culture - Final GNR lactose database management specialist 10/20/22 02:27 Blood Culture (Wb) - Anticubital Left Blood Culture - Final Escherichia coli 10/20/22 18:00 Stool Enteric Bacteriology - Final 10/20/22 04:15 Mucosa - Nasopharyngeal Respiratory Panel (PCR) - Final 10/20/22 02:41 Urine Catheter - Catheter Streptococcus pneumoniae Antigen (M - Final 10/20/22 02:25 Nasal Secretion SARS-CoV-2 & FLU Antigen (Rapid) - Final Meaningful Use Info Meaningful Use Diagnoses (Choose all that apply): None applicable Discharge Plan Admission Admit Date/Time: 10/20/22 03:53 Primary Reason for Your Visit: Septic shock secondary to E. coli urinary tract infection, COVID-19, PE Attending Provider: Hola Kenyon Primary Care Provider: Bea Mckeon Consulting Providers: Mora Horan ; Jose Moreno ; Moisés Loya ; Guido Joe ; Davion Tanner Discharge Orders/Prescriptions Prescriptions: New acetaminophen 325 mg Tablet 650 mg PO Q4H PRN PRN (Reason: Fever, pain 1-10/10) Qty: 0 0RF Eliquis 5 mg Tablet 10 mg PO BID Qty: 0 0RF Rx Instructions: take 10 mg tonite on 10/24/22, then take 10 mg twice a day for 4 days starting on 10/25/22, then take 5 mg twice a day thereafter cephalexin 500 mg Capsule 500 mg PO Q8 Qty: 0 0RF Rx Instructions: take for 5 days beginning tonite 10/24/22 and then discontinue aspirin 81 mg Tablet,Chewable 81 mg PO BREAKFAST Qty: 0 0RF nystatin [Nyamyc] 100,000 unit/gram Powder 1 applic topical BID Qty: 0 0RF Protocol: *Topical Application Instructions APPLICATION INSTRUCTIONS: Apply to affected areas Rx Instructions: apply to affected areas menthol-zinc oxide [Calmoseptine] 0.44-20.6 % Ointment 1 applic topical BID Qty: 0 0RF Protocol: *Topical Application Instructions APPLICATION INSTRUCTIONS: Apply to coccyx Rx Instructions: apply to affected areas Referrals / Follow Up: Bea Mckeon MD [Primary Care Provider] - Disposition Disposition (needs filled in before D/C Order can be placed): Longterm Facility Charges/Coding Visit Charges Inpatient E&M: 73039 Disch Hosp >30min
[2022-10-24 13:36] LABS: Pathologist Review Reviewed
--- NOTE | 2022-10-24 14:23 | PHA.DC.MR ---
Pharmacy Service has performed discharge medication reconciliation for this patient. The patient's discharge medication list was reviewed for discrepancies and discrepancies were resolved. Home Medications acetaminophen 325 mg tablet 650 mg PO Q4H PRN PRN Fever, pain 1-05/08 #0 tabs 10/24/22 apixaban 5 mg tablet (Eliquis) 10 mg PO BID #0 tabs 10/24/22 aspirin 81 mg chewable tablet 81 mg PO BREAKFAST #0 tabs 10/24/22 cephalexin 500 mg capsule 500 mg PO Q8 #0 caps 10/24/22 menthol 0.44 %-zinc oxide 20.6 % topical ointment (Calmoseptine) 1 applic topical BID #0 grams 10/24/22 nystatin 100,000 unit/gram topical powder (Nyamyc) 1 applic topical BID #0 grams 10/24/22
--- NOTE | 2022-10-24 15:42 | CASEMGMT ---
Patient is ready for discharge to [facility]. JOSÉ MIGUEL called [facility] and arranged for patient to get picked up at 5p via cot. SW sent orders and picker/puller time to [facility] via [employer]. JOSÉ MIGUEL called patient's daughter Gemma and notified her of picker/puller time. Gmema asked JOSÉ MIGUEL to tell patient she will be going to [facility] today at 5p. SW went to patient's room and told her the plan. JOSÉ MIGUEL also notified medical secretary receptionist and RN. Plan: d/c to [facility] under skilled level of care on a convalescent stay. Physicians transported via cot. Johana Norton WAISTLINE JOINER [place]
== END 2022-10-24 16:54 | disposition skilled nursing facility (03) | DRG 871 ==
LOC: ED 03:49 → ICU 04:17 → PCU 10-21 16:59
PROVIDERS: Internal Medicine; Internal Medicine Critical Care Medicine; Internal Medicine Infectious Disease; Admitting Provider Family Medicine; Emergency Provider Emergency Medicine; PCP Internal Medicine; Visit Provider Internal Medicine
DX: A41.51 Sepsis due to Escherichia coli [E. coli] (principal); U07.1 COVID-19; I26.99 Other pulmonary embolism without acute cor pulmonale; J12.82 Pneumonia due to coronavirus disease 2019; R65.21 Severe sepsis with septic shock; J15.5 Pneumonia due to Escherichia coli; I21.A1 Myocardial infarction type 2; N17.9 Acute kidney failure, unspecified; Z68.43 Body mass index [BMI] 50.0-59.9, adult; E87.20 Acidosis, unspecified; N30.00 Acute cystitis without hematuria; E66.01 Morbid (severe) obesity due to excess calories; I10 Essential (primary) hypertension; E87.6 Hypokalemia; I87.2 Venous insufficiency (chronic) (peripheral); G31.84 Mild cognitive impairment of uncertain or unknown etiology; R53.81 Other malaise; R09.02 Hypoxemia; Z79.01 Long term (current) use of anticoagulants; Z79.52 Long term (current) use of systemic steroids; Z79.899 Other long term (current) drug therapy
CPT/HCPCS: 36415; 36569; 36600; 51702; 71045; 71250; 71275; 80048; 80053; 80061; 80076; 80202; 81001; 82803; 83605; 83735; 83880; 84100; 84145; 84484; 85025; 85027; 85379; 85610; 85730; 86140; 87040; 87077; 87086; 87088; 87186; 87428; 87449; 87506; 87633; 87635; 87641; 93005; 93306; 93970; 94640; 94668; 94762; 97110; 97163; 97166; 99252; 99285; J2185; J7030; J7040; J7050; Q9957; Q9967; A4216; G0463; J0248; U0003; U0005

== ENCOUNTER 2022-11-07 16:40 | Inpatient (IN) | payer MEDICARE, OTHER, SELFPAY ==
[2022-11-07] VITALS (13 sets, daily range): BP systolic 96–139; BP diastolic 37–80; PULSE 66–82; RESP 12–22; TEMP 36.4–37.2; O2SAT 90–96; BMI 49.3; BMI 47.0
--- NOTE | 2022-11-07 16:56 | EX.ED.DYSGE1 ---
HPI <SHERRELL Jara - Last Filed: 11/07/22 18:34> History of Present Illness Chief Complaint: GI Bleed Narrative Narrative: 77-year-old female with history of morbid obesity, dementia, generalized weakness, who currently lives in residential presents to the emergency department for blood in stool. The patient was recently admitted to the hospital October 19, 2022 for COVID-19, diagnosed with COVID-19, pulmonary embolus, started on Eliquis. Patient has been at the residential for 10+ days. The patient's hemoglobin is continued to drop.Patient's hemoglobin on October 25, 2022, hemoglobin 10.5, 9.5 on November 01, today is 8.8 on November 07, 2022. Patient states that she has been feeling weak. I spoke with the nurse practitioner taking care of this patient, she has not been very participative, she does not get around a lot and has been sleeping more often. Patient is currently on Eliquis as well as aspirin. PFSH <SHERRELL Jara - Last Filed: 11/07/22 18:34> [facility] Medical History Chronic acquired lymphedema GERD (gastroesophageal reflux disease) H/O renal calculi Headache, migraine Hiatal hernia Hypertension Memory deficit Morbid obesity Venous insufficiency of both lower extremities Home Medications nystatin 100,000 unit/gram topical powder (Nyamyc) 1 applic topical BID #0 grams 10/24/22 [Rx Last Taken 11/07/22] acetaminophen 500 mg tablet (Acetaminophen Extra Strength) 500 mg PO TID PAIN 11/07/22 [History Last Taken 11/07/22] apixaban 5 mg tablet (Eliquis) 10 mg PO BID BLOOD THINNER 11/07/22 [History Last Taken 11/07/22] aspirin 81 mg chewable tablet 81 mg PO BREAKFAST HEART HEALTH 11/07/22 [History Last Taken 11/07/22] ferrous sulfate 325 mg (65 mg iron) tablet 325 mg PO QHS SUPPLEMENT 11/07/22 [History Last Taken Unknown] sennosides 8.6 mg-docusate sodium 50 mg capsule (Senna Plus) 1 tab-cap PO BID STOOL 11/07/22 [History Last Taken 11/07/22] zinc oxide 20 % topical ointment 1 applic topical BID 11/07/22 [History Last Taken 11/07/22] Allergy/AdvReac Type Severity Reaction Status Date / Time codeine Allergy Hives Verified 11/07/22 16:50 Penicillins Allergy Hives Verified 11/07/22 16:50 Family History Mother Myocardial infarction CAD (coronary artery disease) Hypertension Heart disease Father Bladder cancer Sister Diabetes Surgical History History of hysterectomy History of knee replacement History of umbilical hernia repair Social History household members: spouse Smoking Status: Never smoker alcohol intake: never substance use type: does not use what type of physical activity do you participate in: none ROS <SHERRELL Jara - Last Filed: 11/07/22 18:34> ROS ED ROS Narrative Constitutional: Negative for fever, chills, weight loss, positive for weakness Eyes: Negative for vision loss, vision change, double vision ENT: Negative for any sore throat, ear pain, congestion Cardiovascular: Negative for any chest pain, tightness, palpitations Respiratory: Negative for any cough, sputum production, hemoptysis, dyspnea, dyspnea on exertion, orthopnea Gastrointestinal: Negative for any abdominal pain, nausea, vomiting, diarrhea, constipation, blood in vomit. Positive for blood in stool : Negative for any urinary frequency, dysuria, retention, blood in urine Muscle skeletal: Negative for any muscle joint pain, stiffness, myalgias, arthralgias, neck pain, back pain Neurological: Negative for any headache, syncope, numbness or tingling, dizziness Skin: Negative for any rashes, lumps, itching, abrasions, lacerations Psychiatric: Negative for any depression, anxiety, stress, suicidal ideation, homicidal ideation Hematologic: Negative for any easy bruising, excessive bruising, easy bleeding Allergies: Negative for any eczema, hives, rash EXAM <SHERRELL Jara - Last Filed: 11/07/22 18:34> Physical Exam Narrative Exam Narrative: Vital signs reviewed. Vital signs are stable. HEET: Head normocephalic atraumatic, TMs clear bilaterally. Posterior pharynx is clear, moist mucous membranes. Nares clear bilaterally. Pale conjunctiva Neck: Supple with no lymphadenopathy or tenderness. No signs of meningismus, negative jolt sign. Cardiac: Regular rate and rhythm no murmurs gallops or rubs, equal peripheral pulses bilaterally. Respiratory: Lungs clear to auscultation bilaterally. No chest tenderness. Abdomen: Soft, nontender, nondistended. No abdominal bruit or pulsatile masses. No hepatosplenomegaly Extremities: No peripheral edema, no signs of gross trauma or deformity. Active full range of motion of all extremities. Neuro: Cranial nerves II through XII intact, no focal neurological deficits. Skin: Clean dry and intact with no rash, purpura, petechiae, vesicles or pustules. Backs/flank: No CVA tenderness, no midline spinal tenderness, no deformity. Psych: Normal mood and affect. No SI, HI or acute psychosis. Rectal exam: Patient had exam completed with female nurse readers' advisory service librarian. Patient had maroon-colored stools that was leaking out of the anus. The odor was of a GI bleed. Const Vital Signs: 11/07/22 16:42 11/07/22 17:52 11/07/22 18:30 Temperature 99 F 97.5 F L 97.8 F Temperature Source Temporal Temporal Temporal Pulse Rate 77 66 72 Respiratory Rate 14 12 21 H Blood Pressure 124/75 H 114/80 103/65 Blood Pressure Mean 91 91 77 Blood Pressure Source Monitor Blood Pressure Position Semi-Fowlers Blood Pressure Location Right Arm Pulse Ox 90 92 92 Oxygen Delivery Method Room Air Room Air Room Air 11/07/22 18:45 11/07/22 19:00 Temperature Temperature Source Pulse Rate 79 73 Respiratory Rate 22 H 21 H Blood Pressure 97/47 L 96/37 L Blood Pressure Mean 63 56 Blood Pressure Source Monitor Monitor Blood Pressure Position Semi-Fowlers Semi-Fowlers Blood Pressure Location Right Arm Right Arm Pulse Ox 91 92 Oxygen Delivery Method Room Air Room Air Positive obese Nutritional Appearance: obese <Dr. Fito Hernandez MD - Last Filed: 11/07/22 20:54> Physical Exam Const Vital Signs: 11/07/22 16:42 11/07/22 17:52 11/07/22 18:30 Temperature 99 F 97.5 F L 97.8 F Temperature Source Temporal Temporal Temporal Pulse Rate 77 66 72 Respiratory Rate 14 12 21 H Blood Pressure 124/75 H 114/80 103/65 Blood Pressure Mean 91 91 77 Blood Pressure Source Monitor Blood Pressure Position Semi-Fowlers Blood Pressure Location Right Arm Pulse Ox 90 92 92 Oxygen Delivery Method Room Air Room Air Room Air 11/07/22 18:45 11/07/22 19:00 Temperature Temperature Source Pulse Rate 79 73 Respiratory Rate 22 H 21 H Blood Pressure 97/47 L 96/37 L Blood Pressure Mean 63 56 Blood Pressure Source Monitor Monitor Blood Pressure Position Semi-Fowlers Semi-Fowlers Blood Pressure Location Right Arm Right Arm Pulse Ox 91 92 Oxygen Delivery Method Room Air Room Air [facility] <SHERRELL Jraa - Last Filed: 11/07/22 18:34> [facility] Lab Data Labs: Laboratory Results - last 24 hr 11/07/22 11/07/22 17:24 17:24 WBC 5.5 RBC 3.28 L Hgb 9.5 L Hct 30.8 L MCV 93.9 MCH 29.0 MCHC 30.8 L RDW Std Deviation 51.5 H RDW Coeff of Gareth 15.0 H Plt Count 213 MPV 9.7 Immature Gran % (Auto) 1.600 H Neut % (Auto) 69.7 Lymph % (Auto) 18.6 L Canadian % (Auto) 6.9 Eos % (Auto) 2.5 Baso % (Auto) 0.7 Absolute Neuts (auto) 3.9 Absolute Lymphs (auto) 1.03 Nucleated RBC % 0 Blood Type A POSITIVE Antibody Screen NEGATIVE Radiography Diagnostic Testing: Clinical Impression(s) from Imaging Studies Chest X-Ray 11/07/22 17:22 IMPRESSION: No acute findings in the chest. Electronically Signed: Alfredo Santoro MD at 17:33 EDT , EKG EKG shows normal sinus rhythm : Attestation: I personally reviewed and interpreted this EKG as follows: Comments: Normal sinus rhythm with sinus arrhythmia, rate of 81 bpm, DE interval 176 ms, QRS duration 96 ms, no acute ST elevation, no acute infarct noted. Treatment and Re-Evaluation :: Patient is alert and oriented x2, I believe this is the patient's baseline. Patient's vital signs are stable. Patient presents to the emergency department for lowering hemoglobin as well as GI bleed in her stool. Patient is currently on Eliquis as well as aspirin, rectal exam was positive for maroon-colored stools, it was leaking out of her rectum. Patient received a repeat CBC tonight to compare to today. Patient is currently a full code. Patient will be typed and screened, chest x-ray, EKG was unremarkable. Patient's CBC shows a hemoglobin 9.5, this was elevated from 8.8 which was earlier this morning. Patient's vital signs remained stable. Patient was stool occult positive. Patient did have blood typing completed. This case was slightly complex secondary to the patient being anticoagulated with Eliquis as well as aspirin. However patient is currently being treated for a pulmonary embolus that was diagnosed 2 weeks ago, this could cause another issue for the patient. We spoke with multiple specialists including vascular surgery who agrees that the patient needs a filter placed however the patient will not be placed off of her Eliquis today. Patient will be admitted to the hospital, she will admitted to ICU secondary to the anticoagulation, as well as the rectal bleeding. Patient, daughter were made aware. Patient is stable for admission. <Dr. Fito Hernandez MD - Last Filed: 11/07/22 20:54> [facility] MDM Narrative Medical decision making narrative: I have personally performed a face to face assessment of the patient and have reviewed the GLO Note. I performed a substantive portion of the visit including all aspects of the following. My yarbrough findings include: History is remarkable for decrease in hemoglobin of approximately 2 g from October 24. Heme globin was 10.5 on October 24. Hemoglobin was 9.5 on November 01 and earlier today it was 8.8. Patient was sent in for GI bleed especially since she is on Eliquis due to recent diagnosis of pulmonary embolus. Patient complains of generalized weakness. Blood work from earlier today was reviewed. Patient does have an elevated BUN to creatinine ratio. She presently has no complaints. Exam is patient appears pale. Conjunctive is pale. There is erythema crease of the palms. Patient has maroon-colored stool. Heart is regular without murmur, gallop or rub. Lungs are clear to auscultation. Abdomen soft nontender. Medical Decision Making Labs from earlier today were reviewed. H&H was obtained to determine if there is significant drop in her hemoglobin since stool was not maroon per nurse practitioner at nursing facility. H&H is now 9.5 and 30.8. Patient has been typed and screened. Case was discussed with hospitalist, stake setter and vascular surgeon. Per discussion with stake setter and vascular surgeon patient is not to be reversed unless she becomes hemodynamically unstable. Plan is for [place] filter be placed by Dr. Godwin in the morning. The hospitalist made aware of this. Other additions or changes: Critical care time 33 minutes Lab Data Labs: Laboratory Results - last 24 hr 11/07/22 11/07/22 17:24 17:24 WBC 5.5 RBC 3.28 L Hgb 9.5 L Hct 30.8 L MCV 93.9 MCH 29.0 MCHC 30.8 L RDW Std Deviation 51.5 H RDW Coeff of Gareth 15.0 H Plt Count 213 MPV 9.7 Immature Gran % (Auto) 1.600 H Neut % (Auto) 69.7 Lymph % (Auto) 18.6 L Canadian % (Auto) 6.9 Eos % (Auto) 2.5 Baso % (Auto) 0.7 Absolute Neuts (auto) 3.9 Absolute Lymphs (auto) 1.03 Nucleated RBC % 0 Blood Type A POSITIVE Antibody Screen NEGATIVE Radiography Diagnostic Testing: Clinical Impression(s) from Imaging Studies Chest X-Ray 11/07/22 17:22 IMPRESSION: No acute findings in the chest. Electronically Signed: Alfredo Santoro MD at 17:33 EDT Reading Location ID and State: [facility] / [place] , Service support , <Dr. Fito Hernandez MD - Last Filed: 11/07/22 20:54> Critical Care Time Critical Care Time: Yes Critical care time (excluding procedures): 30-74 minutes (33 minutes), Including time spent: (History, physical, documentation, interpretation of lab results), Discussing w/Patient &/or Family/Hoop Machine Operator (Spoke with family member in the room and patient and informed of plan), Discussing w/Consultants (Case discussed with hospitalist, stake setter and vascular surgeon) and Arranging Admission or Transfer Discharge Plan Dx/Rx/DC Orders Clinical Impression: Anticoagulated by anticoagulation treatment, Rectal bleed, Anemia, History of pulmonary embolism, Acute GI bleeding, Lymphedema, Acute blood loss anemia, Anticoagulant long-term use, Pulmonary embolus, Morbid obesity Disposition Disposition: Acute Care Hospital [facility] Discharge Date/Time: 11/07/22 18:43
--- NOTE | 2022-11-07 17:22 | RAD_ITS ---
EXAM: XR CHEST, 1 VIEW CLINICAL INDICATION: cough TECHNIQUE: Frontal view of the chest. This report was created using [employer] report generation technology. COMPARISON: 10.20.22 FINDINGS: LUNGS AND PLEURAL SPACES: Prominent right hilum. No pneumothorax. No effusion. HEART: Unremarkable. Cardiac silhouette not enlarged. MEDIASTINUM: Central airways and mediastinal contour are unremarkable. BONES/JOINTS: Unremarkable. SOFT TISSUES: Unremarkable. RAD/Chest 1 View (Portable) IMPRESSION: No acute findings in the chest. Electronically Signed: Alfredo Santoro MD at 17:33 EDT ,
[2022-11-07 17:45] LABS: Absolute Lymphocyte Count 1.03 X10^3/uL (0.83-4.51); Absolute Neutrophil Count 3.9 X10^3/uL (2.0-7.7); Basophil# 0.04 X10^3/uL; Basophil% 0.7 % (0-1); Eosinophil# 0.14 X10^3/uL; Eosinophils% 2.5 % (0-5); Hematocrit 30.8 % (37-47); Hemoglobin 9.5 g/dL (12.0-15.0); Lymphocyte # 1.03 X10^3/ul (0.83-4.51); Lymphocyte % 18.6 % (19-41); Mean Corp Hgb Conc 30.8 g/dL (32-36); Mean Corpuscular Volume 93.9 fL (81-99); Mean Platelet Vol. 9.7 fl (6.2-12.0); Monocyte# 0.38 X10^3/uL; Monocyte% 6.9 % (0-10); NRBC Flagged by Analyzer 0 % (0-5); Neutrophil # 3.86 X10^3/uL (2.7-7.7); Neutrophil % 69.7 % (47-70); Platelet Count 213 K/mm3 (150-450); RBC Distribution Width SD 51.5 fl (35.1-43.9); Red Blood Count 3.28 M/mm3 (4.2-5.4); White Blood Count 5.5 K/mm3 (4.4-11.0)
--- NOTE | 2022-11-07 20:04 | HP.PCM.HOS_ITS ---
HPI - General General Date of Admission: 11/07/22 Date of Service: 11/07/22 Chief Complaint: Red rectal bleeding HPI Narrative BONNIE VELASQUEZ, is a 77 F who presents to the emergency room at [facility] after being sent in from a local extended care facility where the patient is undergoing inpatient rehab services after a hospitalization in September 2022 for septic shock and COVID-19 infection complicated by a pulmonary emboli sm. Patient was noted to have rectal bleeding yesterday at the care home, hemoglobin was obtained today at the care home which showed a hemoglobin of 8.8, when the patient was discharged from the hospital here on October 24, her hemoglobin was 10.5, it had been repeated in the care home on 11/01/2022 and was 9.5. Patient has been on Eliquis since she has been discharged from the hospital in September, in the emergency room today there was noted to be some maroon stool, her hemoglobin was repeated in the ER today and it was actually 9.5. Other labs obtained today included a chemistry panel which was remarkable for BUN of 21. The emergency room physician talked with critical care and vascular surgery, this discussion was undertaken before the patient's hemoglobin result in the emergency room was known today, initially was felt that the patient should go to ICU because it was unknown whether she was actively bleeding. At the time of this dictation, patient is seeing no more active rectal bleeding, her vital signs appear stable, I talked with critical care by phone tonight and they are available if necessary to see the patient, I do not think at this time they need to get involved with this patient's care, I also talked with vascular surgery (Dr. Godwin) and he will see the patient in the morning he advised that the patient be kept on IV heparin, it is unknown whether the patient will need an IVC filter placed. I think it would be a good idea that the patient undergo a lower endoscopy due to the necessity of her being on continued anticoagulants until her pulmonary embolus resolves. I will be contacting GI tomorrow and hopefully patient will be able to have a colonoscopy on to ascertain where the rectal bleeding is coming from. Patient states she had a colonoscopy in the past through the [facility], she is not sure what year this was she thinks it might be 2015 or 2012. I had a long discussion with her daughter who was in the room at the time my examination in the ICU, I answered all her medical questions and I had a lengthy discussion with the patient about her medical care. Patient will be kept on clear liquids for now and I have placed her on IV fluids and IV Protonix, the source of her lower GI bleeding might be either diverticular, hemorrhoidal, neoplastic, polyps, or AVM. [facility] Medical History Chronic acquired lymphedema GERD (gastroesophageal reflux disease) H/O renal calculi Headache, migraine Hiatal hernia Hypertension Memory deficit Morbid obesity Venous insufficiency of both lower extremities Home Medications nystatin 100,000 unit/gram topical powder (Nyamyc) 1 applic topical BID #0 grams 10/24/22 [Rx Last Taken 11/07/22] acetaminophen 500 mg tablet (Acetaminophen Extra Strength) 500 mg PO TID PAIN 11/07/22 [History Last Taken 11/07/22] apixaban 5 mg tablet (Eliquis) 10 mg PO BID BLOOD THINNER 11/07/22 [History Last Taken 11/07/22] aspirin 81 mg chewable tablet 81 mg PO BREAKFAST HEART HEALTH 11/07/22 [History Last Taken 11/07/22] ferrous sulfate 325 mg (65 mg iron) tablet 325 mg PO QHS SUPPLEMENT 11/07/22 [History Last Taken Unknown] sennosides 8.6 mg-docusate sodium 50 mg capsule (Senna Plus) 1 tab-cap PO BID STOOL 11/07/22 [History Last Taken 11/07/22] zinc oxide 20 % topical ointment 1 applic topical BID 11/07/22 [History Last Taken 11/07/22] Allergy/AdvReac Type Severity Reaction Status Date / Time codeine Allergy Hives Verified 11/07/22 16:50 Penicillins Allergy Hives Verified 11/07/22 16:50 Family History Mother Myocardial infarction CAD (coronary artery disease) Hypertension Heart disease Father Bladder cancer Sister Diabetes Surgical History History of hysterectomy History of knee replacement History of umbilical hernia repair Social History household members: spouse Smoking Status: Never smoker alcohol intake: never substance use type: does not use what type of physical activity do you participate in: none ROS Constitutional Constitutional: Denies anorexia, change in weight, chills, fatigue, fever(s), night sweats or weakness Eyes Eyes: Denies blurry vision, change in vision, discharge from eye(s) or eye pain Cardiovascular Cardiovascular: Denies chest pain, claudication, dyspnea on exertion, edema, lightheadedness or palpitations Respiratory/Chest Respiratory/Chest: Denies cough, excessive phlegm production, hemoptysis, productive cough, shortness of breath at rest or shortness of breath with exertion Gastrointestinal Gastrointestinal: Reports hematochezia; Denies abdominal pain, constipation, diarrhea, hematemesis, melena, nausea or vomiting Genitourinary Genitourinary: Denies dysuria, hematuria, urinary frequency, urinary hesitancy, urinary incontinence or urinary urgency Musculoskeletal Musculoskeletal: Denies back pain, joint pain, joint stiffness, joint swelling, myalgias or neck pain Neurologic Neurologic: Denies abnormal gait, abnormal speech, dizziness, focal weakness, headache(s), loss of vision, numbness, other visual disturbances, paresthesias, syncope or tingling Psychiatric Psychiatric: Denies anxiety, cognitive impairment, depression, irritability, mood swings or suicidal ideation Endocrine Endocrinology: Denies change in body appearance, cold intolerance, excessive sweating, heat intolerance, polydipsia or polyuria Hematologic/Lymphatic Hematologic/Lymphatic: Denies none, anemia, easy bleeding, easy bruising or lymphadenopathy Allergic/Immunologic Allergic/Immunologic: Denies rhinitis, urticaria, eczemia or asthma Vital Signs Vital Signs Vital Signs: 11/07/22 16:42 11/07/22 17:52 11/07/22 18:30 Temperature 99 F 97.5 F L 97.8 F Temperature Source Temporal Temporal Temporal Pulse Rate 77 66 72 Respiratory Rate 14 12 21 H Blood Pressure 124/75 H 114/80 103/65 Blood Pressure Mean 91 91 77 Blood Pressure Source Monitor Blood Pressure Position Semi-Fowlers Blood Pressure Location Right Arm Pulse Ox 90 92 92 Oxygen Delivery Method Room Air Room Air Room Air 11/07/22 18:45 11/07/22 19:00 Temperature Temperature Source Pulse Rate 79 73 Respiratory Rate 22 H 21 H Blood Pressure 97/47 L 96/37 L Blood Pressure Mean 63 56 Blood Pressure Source Monitor Monitor Blood Pressure Position Semi-Fowlers Semi-Fowlers Blood Pressure Location Right Arm Right Arm Pulse Ox 91 92 Oxygen Delivery Method Room Air Room Air Weight Weight: 124.3 kg Body Mass Index (BMI) 47.0 Physical Exam Const alert, oriented x3 and no apparent distress Constitutional Narrative: Patient is morbidly obese General Appearance: cooperative, well kempt and well developed Orientation / Consciousness: awake, oriented to person, oriented to place and oriented to time HEENT normocephalic, head/scalp atraumatic and moist oral mucous membranes Eyes PERRL, EOMs intact bilaterally and conjunctivae normal Neck supple, no JVD, thyroid normal and no carotid bruits General: trachea midline Resp normal respiratory effort, no retractions, no use of accessory muscles and clear to auscultation bilaterally Auscultation: Negative for rales, rhonchi or wheezes Cardio regular rate, regular rhythm, S1 normal heart sound, S2 normal heart sound, no murmurs, no rub and no gallops GI normal to inspection, nondistended, normoactive bowel sounds, soft to palpation, non-tender and non-distended GI Narrative: Rectal examination was not done by this examiner Extremity normal to inspection and no clubbing, cyanosis or edema Skin no rashes or lesions noted General Skin Exam: no breakdown Neuro oriented x3, CN's II-XII intact bilaterally, moves all extremities, no focal motor deficits and no sensory deficits noted Sensorium / Orientation: awake and alert Speech: speech normal Psych affect normal Results Lab / Micro Data Result Diagrams: 11/07/22 17:24 Labs: Laboratory Results - last 24 hr 11/07/22 17:24: Blood Type A POSITIVE, Antibody Screen NEGATIVE 11/07/22 17:24: WBC 5.5, RBC 3.28 L, Hgb 9.5 L, Hct 30.8 L, MCV 93.9, MCH 29.0, MCHC 30.8 L, RDW Std Deviation 51.5 H, RDW Coeff of Gareth 15.0 H, Plt Count 213, MPV 9.7, Immature Gran % (Auto) 1.600 H, Neut % (Auto) 69.7, Lymph % (Auto) 18.6 L, Millard % (Auto) 6.9, Eos % (Auto) 2.5, Baso % (Auto) 0.7, Absolute Neuts (auto) 3.9, Absolute Lymphs (auto) 1.03, Nucleated RBC % 0 Micro: Microbiology 11/07/22 17:28 Stool Stool Occult Blood (DANE) - Final Occult Blood Positive Radiology Impression Chest X-Ray 11/07/22 17:22 IMPRESSION: No acute findings in the chest. Electronically Signed: Alfredo Santoro MD at 17:33 EDT , Assessment & Plan Assessment/Plan (1) Rectal bleed: PLAN: Plan 1. Hematochezia-etiology unclear at this point, patient will need a lower endoscopy performed before she returns back to the longterm facility for further rehab services. Patient was admitted to ICU, she will be given IV fluids, she will be seen in consultation by gastroenterology and vascular surgery, she will be placed on an IV heparin drip without bolus. Labs will be monitored, again at this time I do not see the need for critical care to see the patient. #2 recent pulmonary embolism September 2022-patient will be placed on IV heparin for now and monitor for any active bleeding, she is not requiring any supplemental oxygen at the time my examination #3 morbid obesity-complicates care, medical course, recovery, and prognosis #4 generalized debility secondary to recent hospitalization for septic shock and COVID-19-PT and OT will see the patient, she will need to return to longterm facility for further rehab services, she is not quite ready to go home at this time. #5 essential hypertension-patient will remain on her present medication Total clinical time spent by myself addressing the patient's medical issues, reviewing all of her data, and collaborating with patient's care team: 75 minutes Charges/Coding Visit Charges Inpatient E&M: 83071 Init Hosp L3
[2022-11-07] MEDS: HEPARIN/D5w 25,000 UNITS 25,000 UNITS/250 ML IV.SOLN. 16 UNITS CONT INF (22:31)
[2022-11-07] MEDS: 0.9% Normal Saline 1,000 ML 60 ML IV (22:45)
[2022-11-07 22:55] LABS: Partial Thromboplast Time 39.7 Seconds (24.1-36.2)
[2022-11-07 23:50] LABS: Hematocrit 28.5 % (37-47); Hemoglobin 8.6 g/dL (12.0-15.0)
[2022-11-08] VITALS (34 sets, daily range): BP systolic 73–133; BP diastolic 42–117; PULSE 74–122; RESP 17–36; TEMP 37–40; O2SAT 87–100; BMI 47.0
[2022-11-08] MEDS: Acetaminophen 325 MG Tablet 650 MG PO ×3 (03:22→16:30)
[2022-11-08] MEDS: oxyCODONE 5 MG Tablet PO (04:07)
[2022-11-08 04:38] LABS: Absolute Lymphocyte Count 0.31 X10^3/uL (0.83-4.51); Absolute Neutrophil Count 3.4 X10^3/uL (2.0-7.7); Basophil# 0.02 X10^3/uL; Basophil% 0.5 % (0-1); Eosinophil# 0.05 X10^3/uL; Eosinophils% 1.3 % (0-5); Hematocrit 31.7 % (37-47); Hemoglobin 9.6 g/dL (12.0-15.0); Lymphocyte # 0.31 X10^3/ul (0.83-4.51); Lymphocyte % 8.1 % (19-41); Mean Corp Hgb Conc 30.3 g/dL (32-36); Mean Corpuscular Hgb 28.7 pg (27.0-32.0); Mean Corpuscular Volume 94.6 fL (81-99); Mean Platelet Vol. 9.8 fl (6.2-12.0); Monocyte# 0.04 X10^3/uL; NRBC Flagged by Analyzer 0 % (0-5); Neutrophil # 3.35 X10^3/uL (2.7-7.7); Neutrophil % 87.5 % (47-70); POSITIVE DIFFERENTIAL YES; Platelet Count 166 K/mm3 (150-450); RBC Distribution Width CV 15.1 % (11.6-14.6); RBC Distribution Width SD 51.8 fl (35.1-43.9); Red Blood Count 3.35 M/mm3 (4.2-5.4); White Blood Count 3.8 K/mm3 (4.4-11.0)
[2022-11-08 04:44] LABS: Differential Indicated SCAN CRITERIA MET
[2022-11-08 04:52] LABS: Anion Gap 3 (5-15); BUN 21 mg/dL (7-18); BUN/Creat Ratio 20.8 RATIO (10-20); Calcium,Total 8.8 mg/dL (8.5-10.1); Chloride 106 mmol/L (98-107); Creatinine, Serum 1.01 mg/dL (0.55-1.02); EST Glomerular Filtration Rate 57 mL/min (>60); Est Glom Filt Rate - Afr Amer 68 mL/min (>60); Estimated Creatinine Clearance 40.92 ml/min; Glucose 123 mg/dL (74-106); Potassium 4.4 mmol/L (3.5-5.1); Sodium Level 136 mmol/L (136-145)
[2022-11-08] MEDS: Heparin Injection (Vial) 5,000 UNIT/ML VIAL IV (05:06)
[2022-11-08 05:26] LABS: Differential Comment SCANNED
[2022-11-08] MEDS: Furosemide 40 MG/4 ML Vial IV (09:59)
[2022-11-08 11:06] LABS: Color, Urine Yellow (Yellow); Glucose, Dipstick Normal (Normal); Ketone-Dipstick Negative (Negative); Leukocyte Esterase-Dipstick 500 /ul (Negative); Nitrite-Dipstick Negative (Negative); Occult Blood-Urine 25 /ul (Negative); Protein-Dipstick 15 mg/dl (Negative); Specific Gravity, Urine 1.015 (1.002-1.030); Urine Bilirubin Dipstick Negative (Negative); Urine Clarity Sl. Cloudy (Clear); Urine Urobilinogen Normal (Normal)
[2022-11-08 11:33] LABS: Partial Thromboplast Time 221.8 Seconds (24.1-36.2)
--- NOTE | 2022-11-08 11:50 | RAD_ITS ---
STUDY: X-RAY CHEST REASON FOR EXAM: Female, 77 years old. Hypoxia TECHNIQUE: Single AP portable view of the chest. COMPARISON: 11/07/2022 FINDINGS: EKG leads overlie the chest Lungs are expanded with chronic interstitial changes. Since the previous study, slight increase in opacification in the left costophrenic angle suggests an enlarging pleural effusion. Normal size heart. Normal mediastinum and bryan. Normal visualized pulmonary arteries. There is atherosclerotic calcification of the aortic arch with tortuosity. There are diffuse degenerative changes of the visualized thoracic spine. There is degenerative osteoarthritis of the bilateral shoulders. There is no demonstrated abnormality of the visualized soft tissue structures of the upper abdomen. RAD/Chest 1 View (Portable) IMPRESSION: Chronic interstitial changes with slight enlargement of a previously noted left pleural effusion since the previous study. Electronically Signed: Roman Gordon MD at 12:40 EDT ,
[2022-11-08] MEDS: Bisacodyl 5 MG Tablet 20 MG PO (13:48)
--- NOTE | 2022-11-08 15:25 | CON.PCM.SX_ITS ---
Assessment & Plan Assessment/Plan (1) History of pulmonary embolism: PLAN: -hgb remains stable for several serial lab checks while on Eliquis and now heparin -await results from endoscopy; pending findings continue anticoagulation vs IVC filter but expect the former HPI Consult Data Date of Consult: 11/08/22 HPI Narrative HPI Narrative: BONNIE VELASQUEZ, is a 77 F who presents with malaise/fatigue, loose maroon stools. Was on Eliquis for recent PE several weeks prior while admitted with covid, sepsis and she is currently residing in SNF. [facility] suggested acute on chronic anemia and initial labs in ED supported drop in Hgb. Repeats however have been stable/improved with no overt bleeding. She is currently on heparin drip. [facility] Medical History Acute kidney injury Chronic acquired lymphedema Elevated d-dimer Elevated troponin GERD (gastroesophageal reflux disease) H/O renal calculi Headache, migraine Hiatal hernia Hypertension Hypokalemia Memory deficit Morbid obesity Respiratory failure Sepsis Septic shock Severe acute respiratory syndrome coronavirus 2 (SARS-CoV-2) detected UTI (urinary tract infection) Venous insufficiency of both lower extremities Home Medications nystatin 100,000 unit/gram topical powder (Nyamyc) 1 applic topical BID #0 grams 10/24/22 [Rx Last Taken 11/07/22] acetaminophen 500 mg tablet (Acetaminophen Extra Strength) 500 mg PO TID PAIN 11/07/22 [History Last Taken 11/07/22] apixaban 5 mg tablet (Eliquis) 10 mg PO BID BLOOD THINNER 11/07/22 [History Last Taken 11/07/22] aspirin 81 mg chewable tablet 81 mg PO BREAKFAST HEART HEALTH 11/07/22 [History Last Taken 11/07/22] ferrous sulfate 325 mg (65 mg iron) tablet 325 mg PO QHS SUPPLEMENT 11/07/22 [History Last Taken Unknown] sennosides 8.6 mg-docusate sodium 50 mg capsule (Senna Plus) 1 tab-cap PO BID STOOL 11/07/22 [History Last Taken 11/07/22] zinc oxide 20 % topical ointment 1 applic topical BID 11/07/22 [History Last Taken 11/07/22] Allergy/AdvReac Type Severity Reaction Status Date / Time codeine Allergy Hives Verified 11/07/22 16:50 Penicillins Allergy Hives Verified 11/07/22 16:50 Family History Mother Myocardial infarction CAD (coronary artery disease) Hypertension Heart disease Father Bladder cancer Sister Diabetes Surgical History History of hysterectomy History of knee replacement History of umbilical hernia repair Social History household members: spouse Smoking Status: Never smoker alcohol intake: never substance use type: does not use what type of physical activity do you participate in: none ROS Review of Systems ROS Unobtainable: due to mental status Physical Exam Const no apparent distress General Appearance: cooperative and ill appearing; Negative for combative or le thargic Orientation / Consciousness: awake Exam Limitations: altered mental status HEENT Head and Scalp: normocephalic and atraumatic Eyes EOMs intact bilaterally General Eye: normal appearance of both eyes Neck full ROM General: trachea midline Resp normal respiratory effort and no use of accessory muscles Effort and Inspection: Negative for labored, stridor or audible wheezes Cardio regular rate and regular rhythm Peripheral Pulses: brachial pulses present and radial pulses present; Negative for popliteal pulses present, posterior tibial pulses present or dorsalis pedis pulses present GI non-tender and non-distended; Negative for hepatosplenomegaly Back/Spine Cervical Spine: cervical ROM normal Extremity General Extremity: edema Skin no rashes or lesions noted and no wounds Neuro oriented x3, CN's II-XII intact bilaterally, no focal motor deficits and no sensory deficits noted Psych thought process normal, cooperative, affect normal, speech normal and activity/motor behavior normal Lab / Micro Data Result Diagrams: 11/08/22 04:15 11/08/22 04:15 Labs: Laboratory Results - last 24 hr 11/07/22 17:24: Blood Type A POSITIVE, Antibody Screen NEGATIVE 11/07/22 17:24: WBC 5.5, RBC 3.28 L, Hgb 9.5 L, Hct 30.8 L, MCV 93.9, MCH 29.0, MCHC 30.8 L, RDW Std Deviation 51.5 H, RDW Coeff of Gareth 15.0 H, Plt Count 213, MPV 9.7, Immature Gran % (Auto) 1.600 H, Neut % (Auto) 69.7, Lymph % (Auto) 18.6 L, [place] % (Auto) 6.9, Eos % (Auto) 2.5, Baso % (Auto) 0.7, Absolute Neuts (auto) 3.9, Absolute Lymphs (auto) 1.03, Nucleated RBC % 0 11/07/22 22:10: APTT 39.7 H 11/07/22 23:30: Hgb 8.6 L, Hct 28.5 L 11/08/22 04:15: WBC 3.8 L, RBC 3.35 L, Hgb 9.6 L, Hct 31.7 L, MCV 94.6, MCH 28.7, MCHC 30.3 L, RDW Std Deviation 51.8 H, RDW Coeff of Gareth 15.1 H, Plt Count 166, MPV 9.8, Immature Gran % (Auto) 1.600 H, Neut % (Auto) 87.5 H, Lymph % (Auto) 8.1 L, [place] % (Auto) 1.0, Eos % (Auto) 1.3, Baso % (Auto) 0.5, Absolute Neuts (auto) 3.4, Absolute Lymphs (auto) 0.31 L, Nucleated RBC % 0, Differential Comment SCANNED, Diff Path Review November11/08/22 04:15: Sodium 136, Potassium 4.4, Chloride 106, Carbon Dioxide 27.0, Anion Gap 3 L, BUN 21 H, Creatinine 1.01, Estim Creat Clear Calc 40.92, Est GFR (MDRD) Af Amer 68, Est GFR (MDRD) Non-Af 57 L, BUN/Creatinine Ratio 20.8 H, Glucose 123 H, Calcium 8.8 11/08/22 04:15: APTT 53.0 H 11/08/22 10:45: Urine Color Yellow, Urine Clarity Sl. Cloudy, Urine pH 5.0, Ur Specific [place] 1.015, Urine Protein 15 H, Urine Glucose (UA) Normal, Urine Ketones Negative, Urine Occult Blood 25 H, Urine Nitrite Negative, Urine Bilirubin Negative, Urine Urobilinogen Normal, Ur Leukocyte Esterase 500 H 11/08/22 11:00: APTT 221.8 H* Micro: Microbiology 11/07/22 17:28 Stool Stool Occult Blood (DANE) - Final Occult Blood Positive Radiology Impression Chest X-Ray 11/07/22 17:22 IMPRESSION: No acute findings in the chest. Electronically Signed: Alfredo Santoro MD at 17:33 EDT Reading Location ID and State: [facility] / [place] , Service support , Charges/Coding Visit Charges Inpatient E&M: 69223 Init Hosp L3
[2022-11-08] MEDS: HEPARIN/D5w 25,000 UNITS 25,000 UNITS/250 ML IV.SOLN. 14 UNITS CONT INF (16:33)
[2022-11-08 16:45] LABS: Bacteria 0 SEEN /hpf (None Seen); Mucous, Urine 0 SEEN /hpf (<or=2+); Red Blood Cells-Urine 0 SEEN /hpf (0-5); Squamous Epithelial Cells - UA 0 SEEN /hpf (5-10)
[2022-11-08 16:52] LABS: Color, Urine Yellow (Yellow); Glucose, Dipstick Normal (Normal); Ketone-Dipstick Negative (Negative); Leukocyte Esterase-Dipstick 500 /ul (Negative); Nitrite-Dipstick Negative (Negative); Occult Blood-Urine 250 /ul (Negative); Protein-Dipstick 100 mg/dl (Negative); Urine Clarity Turbid (Clear); Urine Urobilinogen 1 mg/dl (Normal)
--- NOTE | 2022-11-08 17:05 | CT_ITS ---
STUDY: CT ABDOMEN AND PELVIS WITH CONTRAST REASON FOR EXAM: Female, 77 years old. Fever and blood in stool RADIATION DOSAGE (If Supplied By Facility): CTDIvol = ( 20.18 ) mGy, DLP = ( 1360.26 ) mGycm TECHNIQUE: IV 25 mL Isovue-300 was administered. Transaxial images were obtained from the dome of the diaphragm to the symphysis pubis. Multiplanar coronal and sagittal images were reformatted. Individualized Dose Optimization Techniques Were Used For This CT. COMPARISON: 08/05/2015; 10/22/2022 CTA chest FINDINGS: Mild bilateral dependent atelectasis. The visualized portions of the heart are within normal limits. Normal liver. Normal gallbladder and extrahepatic biliary system. There is moderate splenomegaly. Normal pancreas. Normal bilateral adrenal glands. Normal visualized stomach. Normal small intestine. Rectal stool ball with perhaps mild circumferential rectal wall thickening. No perirectal inflammatory stranding. Inspissated stool throughout the large bowel. There is non-visualization of the appendix. Normal abdominal aorta. No retroperitoneal adenopathy. Normal right kidney. Calculus or calculi measuring up to 7 mm in caliber. A 2.4 cm segment of the proximal left ureter. Moderate hydronephrosis. Multiple other left renal collecting system calculi. Delayed left nephrogram. Gold catheter and gas in the urinary bladder. There is absence of the uterus consistent with a prior hysterectomy. Normal abdominal wall. Right hip deformity. Lumbar spine degenerative change. CT/Abdomen/Pelvis W IV Cont ONLY IMPRESSION: 1. Large obstructing calculus burden in the proximal left ureter with moderate hydronephrosis and delayed left nephrogram. Multiple other left renal collecting system calculi. 2. Findings suspicious for developing stercoral colitis. No perirectal inflammatory stranding. Electronically Signed: Blake Saavedra MD at 17:36 EDT ,
--- NOTE | 2022-11-08 17:10 | CON.PCM.GI_ITS ---
HPI Consult Data Date of Consult: 11/08/22 HPI Narrative Reason for Consultation: GI bleed HPI Narrative: BONNIE VELASQUEZ, is a 77-year-old female with history of morbid obesity, dementia, generalized weakness, who [facility] presents to the emergency department for blood in stool.? The patient was recently admitted to the hospital October 19, 2022 for COVID-19, diagnosed with COVID-19, pulmonary embolus, started on Eliquis.? Patient has been at the penitentiary for 10[facility] days.? The patient's hemoglobin is continued to drop.Patient's hemoglobin on October 25, 2022, hemoglobin 10.5, 9.5 on November 01, today is 8.8 on November 07, 2022.? Patient states that she has been feeling weak.? I was consulted for GI bleed. Currently patient is experiencing rigors. Her current temperature is 103.7. She denies any dysuria but does complain of abdominal pain.? [facility] Medical History Acute kidney injury Chronic acquired lymphedema Elevated d-dimer Elevated troponin GERD (gastroesophageal reflux disease) H/O renal calculi Headache, migraine Hiatal hernia Hypertension Hypokalemia Memory deficit Morbid obesity Respiratory failure Sepsis Septic shock Severe acute respiratory syndrome coronavirus 2 (SARS-CoV-2) detected UTI (urinary tract infection) Venous insufficiency of both lower extremities Home Medications nystatin 100,000 unit/gram topical powder ([facility]) 1 applic topical BID #0 grams 10/24/22 [Rx Last Taken 11/07/22] acetaminophen 500 mg tablet (Acetaminophen Extra Strength) 500 mg PO TID PAIN 11/07/22 [History Last Taken 11/07/22] apixaban 5 mg tablet (Eliquis) 10 mg PO BID BLOOD THINNER 11/07/22 [History Last Taken 11/07/22] aspirin 81 mg chewable tablet 81 mg PO BREAKFAST HEART HEALTH 11/07/22 [History Last Taken 11/07/22] ferrous sulfate 325 mg (65 mg iron) tablet 325 mg PO QHS SUPPLEMENT 11/07/22 [History Last Taken Unknown] sennosides 8.6 mg-docusate sodium 50 mg capsule (Senna Plus) 1 tab-cap PO BID STOOL 11/07/22 [History Last Taken 11/07/22] zinc oxide 20 % topical ointment 1 applic topical BID 11/07/22 [History Last Taken 11/07/22] Allergy/AdvReac Type Severity Reaction Status Date / Time codeine Allergy Hives Verified 11/07/22 16:50 Penicillins Allergy Hives Verified 11/07/22 16:50 Family History Mother Myocardial infarction CAD (coronary artery disease) Hypertension Heart disease Father Bladder cancer Sister Diabetes Surgical History History of hysterectomy History of knee replacement History of umbilical hernia repair Social History household members: spouse Smoking Status: Never smoker alcohol intake: never substance use type: does not use what type of physical activity do you participate in: none ROS Constitutional Constitutional: Denies anorexia, change in weight, chills, fatigue, fever(s), night sweats or weakness Eyes Eyes: Denies blurry vision, change in vision, discharge from eye(s) or eye pain Cardiovascular Cardiovascular: Denies chest pain, claudication, dyspnea on exertion, edema, lightheadedness or palpitations Respiratory/Chest Respiratory/Chest: Denies cough, excessive phlegm production, hemoptysis, productive cough, shortness of breath at rest or shortness of breath with exertion Gastrointestinal Gastrointestinal: Reports hematochezia; Denies abdominal pain, constipation, diarrhea, hematemesis, melena, nausea or vomiting Genitourinary Genitourinary: Denies dysuria, hematuria, urinary frequency, urinary hesitancy, urinary incontinence or urinary urgency Musculoskeletal Musculoskeletal: Denies back pain, joint pain, joint stiffness, joint swelling, myalgias or neck pain Neurologic Neurologic: Denies abnormal gait, abnormal speech, dizziness, focal weakness, headache(s), loss of vision, numbness, other visual disturbances, paresthesias, syncope or tingling Psychiatric Psychiatric: Denies anxiety, cognitive impairment, depression, irritability, mood swings or suicidal ideation Endocrine Endocrinology: Denies change in body appearance, cold intolerance, excessive sweating, heat intolerance, polydipsia or polyuria Hematologic/Lymphatic Hematologic/Lymphatic: Denies none, anemia, easy bleeding, easy bruising or lymphadenopathy Allergic/Immunologic Allergic/Immunologic: Denies rhinitis, urticaria, eczemia or asthma Physical Exam Const no apparent distress General Appearance: cooperative and ill appearing; Negative for combative or let hargic Orientation / Consciousness: awake Exam Limitations: altered mental status HEENT Head and Scalp: normocephalic and atraumatic Eyes EOMs intact bilaterally General Eye: normal appearance of both eyes Neck full ROM General: trachea midline Resp normal respiratory effort and no use of accessory muscles Effort and Inspection: Negative for labored, stridor or audible wheezes Cardio regular rate and regular rhythm Peripheral Pulses: brachial pulses present and radial pulses present; Negative for popliteal pulses present, posterior tibial pulses present or dorsalis pedis pulses present GI non-tender and non-distended; Negative for hepatosplenomegaly Back/Spine Cervical Spine: cervical ROM normal Extremity General Extremity: edema Skin no rashes or lesions noted and no wounds Neuro oriented x3, CN's II-XII intact bilaterally, no focal motor deficits and no sensory deficits noted Psych thought process normal, cooperative, affect normal, speech normal and activity/motor behavior normal Lab / Micro Data Result Diagrams: 11/08/22 04:15 11/08/22 04:15 Labs: Laboratory Results - last 24 hr 11/07/22 17:24: Blood Type A POSITIVE, Antibody Screen NEGATIVE 11/07/22 17:24: WBC 5.5, RBC 3.28 L, Hgb 9.5 L, Hct 30.8 L, MCV 93.9, MCH 29.0, MCHC 30.8 L, RDW Std Deviation 51.5 H, RDW Coeff of Gareth 15.0 H, Plt Count 213, MPV 9.7, Immature Gran % (Auto) 1.600 H, Neut % (Auto) 69.7, Lymph % (Auto) 18.6 L, [place] % (Auto) 6.9, Eos % (Auto) 2.5, Baso % (Auto) 0.7, Absolute Neuts (auto) 3.9, Absolute Lymphs (auto) 1.03, Nucleated RBC % 0 11/07/22 22:10: APTT 39.7 H 11/07/22 23:30: Hgb 8.6 L, Hct 28.5 L 11/08/22 04:15: WBC 3.8 L, RBC 3.35 L, Hgb 9.6 L, Hct 31.7 L, MCV 94.6, MCH 28.7, MCHC 30.3 L, RDW Std Deviation 51.8 H, RDW Coeff of Gareth 15.1 H, Plt Count 166, MPV 9.8, Immature Gran % (Auto) 1.600 H, Neut % (Auto) 87.5 H, Lymph % (Auto) 8.1 L, [place] % (Auto) 1.0, Eos % (Auto) 1.3, Baso % (Auto) 0.5, Absolute Neuts (auto) 3.4, Absolute Lymphs (auto) 0.31 L, Nucleated RBC % 0, Differential Comment SCANNED, Diff Path Review November11/08/22 04:15: Sodium 136, Potassium 4.4, Chloride 106, Carbon Dioxide 27.0, Anion Gap 3 L, BUN 21 H, Creatinine 1.01, Estim Creat Clear Calc 40.92, Est GFR (MDRD) Af Amer 68, Est GFR (MDRD) Non-Af 57 L, BUN/Creatinine Ratio 20.8 H, Glucose 123 H, Calcium 8.8 11/08/22 04:15: APTT 53.0 H 11/08/22 10:45: Urine Color Yellow, Urine Clarity Sl. Cloudy, Urine pH 5.0, Ur Specific [place] 1.015, Urine Protein 15 H, Urine Glucose (UA) Normal, Urine Ketones Negative, Urine Occult Blood 25 H, Urine Nitrite Negative, Urine Bilirubin Negative, Urine Urobilinogen Normal, Ur Leukocyte Esterase 500 H 11/08/22 11:00: APTT 221.8 H* Micro: Microbiology 11/07/22 17:28 Stool Stool Occult Blood (DANE) - Final Occult Blood Positive Radiology Impression Chest X-Ray 11/07/22 17:22 IMPRESSION: No acute findings in the chest. Electronically Signed: Alfredo Santoro MD at 17:33 EDT Reading Location ID and State: [facility] / [place] , Service support , Chest X-Ray 11/08/22 11:50 IMPRESSION: Chronic interstitial changes with slight enlargement of a previously noted left pleural effusion since the previous study. Electronically Signed: Roman Gordon MD at 12:40 EDT , Assessment & Plan Assessment/Plan (1) Rectal bleed: PLAN: Plan Rectal bleeding. The differential diagnosis does include lower GI bleed secondary to diverticular disease, stercoral ulcer, ischemic colitis, less likely malignancy or hemorrhoidal disease. Since she has a lot abdominal pain I will get a stat CT scan abdomen pelvis. Would also recommend to check ESR, CRP, lactic acid, LDH. Her urine did look chronic cloudy. Recommend empiric antibiotic coverage. I will discuss this with the primary team. This plan was discussed in detail with the patient's daughter who is at the bedside. If everything is okay then we may be able to prep her for colonoscopy. Charges/Coding Visit Charges Inpatient E&M: 58306 Init Hosp L2
[2022-11-08 17:11] LABS: Urine Bilirubin Dipstick 1 mg/dL (Negative)
[2022-11-08 17:12] LABS: White Blood Cells >100 SEEN /hpf (0-5)
--- NOTE | 2022-11-08 17:15 | PCM.PN.HOSP ---
Reason for Visit Reason for Visit: Diagnoses Other pulmonary embolism without acute cor pulmonale (11/07/22) Hemorrhage of anus and rectum (11/07/22) Personal history of pulmonary embolism (11/07/22) Subjective Subjective Patient was seen and examined earlier today, I talk with her family members who were in the room visiting the patient. Patient did not complain of any abdominal discomfort today, her white blood cell count was low this morning and her hemoglobin appears stable at 9.6. Later this afternoon, patient spiked a temperature, I obtained blood cultures and a chest x-ray which did not show an active infiltrate, patient's urinalysis was read out as showing leukocyte esterase but there was no readout for white blood cells red blood cells or bacteria, we obtained another urinalysis on the patient this afternoon and it appears that she has a large number of white cells in the urine so I think it is possible she has a urinary tract infection. I have made the decision to start her on meropenem and vancomycin and I discussed this with the family and the patient today. I talked briefly with GI and it was recommended the patient undergo a CT of the abdomen and pelvis without contrast which was done this afternoon, at the time of this dictation results are pending. In addition, I think it is prudent to put a PICC line in the patient in case we needed for hemodynamic support. Patient has had some episodic hemoptysis today which did not appear to be severe however. Objective Data Objective Data Vital Signs: Vital Signs Temp Pulse Resp BP Pulse Ox O2 Del Method O2 Flow Rate 100.6 F H 74 19 H 93/49 L 100 Nasal Cannula 4 11/08/22 15:00 11/08/22 15:00 11/08/22 15:00 11/08/22 15:00 11/08/22 15:00 11/08/22 15:00 11/08/22 15:00 Oxygen Flow Rate (L/min) 4 Oxygen Delivery Method Nasal Cannula Weight: 124.3 kg Body Mass Index (BMI) 47.0 Intake & Output: Intake and Output for Last 24 Hours 11/06/22 11/07/22 11/08/22 23:59 23:59 23:59 Intake Total 110 / 110 1274.00 / 1274.00 Output Total 550 / 550 Balance 110 / 110 724.00 / 724.00 Lab / Micro Data Result Diagrams: 11/08/22 04:15 11/08/22 04:15 Labs: Laboratory Results - last 24 hr 11/07/22 17:24: Blood Type A POSITIVE, Antibody Screen NEGATIVE 11/07/22 17:24: WBC 5.5, RBC 3.28 L, Hgb 9.5 L, Hct 30.8 L, MCV 93.9, MCH 29.0, MCHC 30.8 L, RDW Std Deviation 51.5 H, RDW Coeff of Gareth 15.0 H, Plt Count 213, MPV 9.7, Immature Gran % (Auto) 1.600 H, Neut % (Auto) 69.7, Lymph % (Auto) 18.6 L, [place] % (Auto) 6.9, Eos % (Auto) 2.5, Baso % (Auto) 0.7, Absolute Neuts (auto) 3.9, Absolute Lymphs (auto) 1.03, Nucleated RBC % 0 11/07/22 22:10: APTT 39.7 H 11/07/22 23:30: Hgb 8.6 L, Hct 28.5 L 11/08/22 04:15: WBC 3.8 L, RBC 3.35 L, Hgb 9.6 L, Hct 31.7 L, MCV 94.6, MCH 28.7, MCHC 30.3 L, RDW Std Deviation 51.8 H, RDW Coeff of [place] 15.1 H, Plt Count 166, MPV 9.8, Immature Gran % (Auto) 1.600 H, Neut % (Auto) 87.5 H, Lymph % (Auto) 8.1 L, [place] % (Auto) 1.0, Eos % (Auto) 1.3, Baso % (Auto) 0.5, Absolute Neuts (auto) 3.4, Absolute Lymphs (auto) 0.31 L, Nucleated RBC % 0, Differential Comment SCANNED, Diff Path Review November11/08/22 04:15: Sodium 136, Potassium 4.4, Chloride 106, Carbon Dioxide 27.0, Anion Gap 3 L, BUN 21 H, Creatinine 1.01, Estim Creat Clear Calc 40.92, Est GFR (MDRD) Af Amer 68, Est GFR (MDRD) Non-Af 57 L, BUN/Creatinine Ratio 20.8 H, Glucose 123 H, Calcium 8.8 04/12/23 04:15: APTT 53.0 H 11/08/22 10:45: Urine Color Yellow, Urine Clarity Sl. Cloudy, Urine pH 5.0, Ur Specific [place] 1.015, Urine Protein 15 H, Urine Glucose (UA) Normal, Urine Ketones Negative, Urine Occult Blood 25 H, Urine Nitrite Negative, Urine Bilirubin Negative, Urine Urobilinogen Normal, Ur Leukocyte Esterase 500 H 11/08/22 11:00: APTT 221.8 H* 11/08/22 16:40: Urine Color Yellow, Urine Clarity Turbid, Urine pH 5.0, Ur Specific [place] 1.020, Urine Protein 100 H, Urine Glucose (UA) Normal, Urine Ketones Negative, Urine Occult Blood 250 H, Urine Nitrite Negative, Urine Bilirubin 1 H, Urine Urobilinogen 1 H, Ur Leukocyte Esterase 500 H, Urine RBC 0 SEEN, Urine WBC >100 SEEN, Ur Squamous Epith Cells 0 SEEN, Urine Bacteria 0 SEEN, Urine Mucus 0 SEEN Micro: Microbiology 11/07/22 17:28 Stool Stool Occult Blood (DANE) - Final Occult Blood Positive Radiography Diagnostic Testing: Radiology Impression Chest X-Ray 11/07/22 17:22 IMPRESSION: No acute findings in the chest. Electronically Signed: Alfredo Santoro MD at 17:33 EDT , Chest X-Ray 11/08/22 11:50 IMPRESSION: Chronic interstitial changes with slight enlargement of a previously noted left pleural effusion since the previous study. Electronically Signed: Roman Gordon MD at 12:40 EDT , Physical Exam Const alert, oriented x3 and no apparent distress Constitutional Narrative: Patient appears to be mildly somnolent, she does awaken to questions and appropriately responsive to them. Patient denies any dysuria General Appearance: cooperative, well kempt and well developed Orientation / Consciousness: awake, oriented to person, oriented to place and oriented to time HEENT normocephalic and moist oral mucous membranes Eyes PERRL, EOMs intact bilaterally and conjunctivae normal Neck supple, no JVD, thyroid normal and no carotid bruits General: trachea midline Resp normal respiratory effort, no retractions, no use of accessory muscles and clear to auscultation bilaterally Auscultation: Negative for rales, rhonchi or wheezes Cardio regular rate, regular rhythm, S1 normal heart sound, S2 normal heart sound, no murmurs, no rub and no gallops GI normal to inspection, nondistended, normoactive bowel sounds, soft to palpation, non-tender and non-distended Extremity no clubbing, cyanosis or edema Skin no rashes or lesions noted General Skin Exam: no breakdown Neuro oriented x3, CN's II-XII intact bilaterally, moves all extremities, no focal motor deficits and no sensory deficits noted Sensorium / Orientation: awake, oriented to person and oriented to place Speech: speech normal Psych affect normal Assessment & Plan Assessment/Plan (1) Rectal bleed: PLAN: Plan 1. Hematochezia-etiology unclear at this point, patient's hemoglobin has remained stable since admission, due to her suspected urinary tract infection and high fever, her colonoscopy will have to be delayed. CT of the abdomen and pelvis is pending at this time #2 febrile illness-felt to be acute urinary tract infection, patient will be given IV meropenem and vancomycin, urine culture was obtained, blood cultures were obtained earlier today. I obtained rapid influenza A and B testing, at the time of this dictation it is pending. Due to concerns of impending hypotension from possible severe infection, I have elected to have a PICC line placed in case the patient needs pressor support. #3 recent pulmonary embolism September 2022-patient will be placed on IV heparin for now and monitor for any active bleeding, she is not requiring any supplemental oxygen at the time my examination #4 morbid obesity-complicates care, medical course, recovery, and prognosis #5 generalized debility secondary to recent hospitalization for septic shock and COVID-19-PT and OT will see the patient, [facility], she is not quite ready to go home at this time. #6 essential hypertension-patient will remain on her present medication #7 leukopenia-probably secondary to acute infection, CBC will be monitored Total clinical time spent by myself addressing the patient's medical issues, reviewing all of her data, and collaborating with patient's care team: 50 minutes Charges/Coding Visit Charges Inpatient E&M: 10417 [facility] Hosp L3
[2022-11-08 19:33] LABS: Partial Thromboplast Time 109.1 Seconds (24.1-36.2)
--- NOTE | 2022-11-08 19:39 | PCM.RX.CS ---
Consult Pharmacy has been consulted to manage selected antiobiotic: Vancomycin Type of Consult: New start Suspected Infection: Other Labs: Sodium 136 mmol/L (136-145) 11/08/22 04:15 Potassium 4.4 mmol/L (3.5-5.1) 11/08/22 04:15 Chloride 106 mmol/L (98-107) 11/08/22 04:15 Carbon Dioxide 27.0 mmol/L (21.0-32.0) 11/08/22 04:15 Anion Gap 3 (5-15) L 11/08/22 04:15 BUN 21 mg/dL (7-18) H 11/08/22 04:15 Creatinine 1.01 mg/dL (0.55-1.02) 11/08/22 04:15 Est GFR (MDRD) Af Amer 68 mL/min (>60) 11/08/22 04:15 Est GFR (MDRD) Non-Af 57 mL/min (>60) L 11/08/22 04:15 BUN/Creatinine Ratio 20.8 RATIO (10-20) H 11/08/22 04:15 Glucose 123 mg/dL (74-106) H 11/08/22 04:15 Microbiology: Microbiology 11/07/22 17:28 Stool Stool Occult Blood (DANE) - Final Occult Blood Positive Goal Trough: 15-20 mcg/mL Pharmacy Plan for Drug Dosing: NEW START IV VANCOMYCIN Consulting Physician: Dr. Kenyon Indication: Infection R/O Goal Trough: 15-20 SrCr: 1.01 CrCl:62mL/min (using adjBW) Comments: Loading dose of 2g IV x1 ordered and administered 11/08/22 @1811 Vancomycin Dose: 1500mg IV Q12hr to start 11/09/22 @0600 Pending Level: 11/10/22 @0530, prior to 4th total dose per protocol Pharmacy Service will continue to monitor and adjust dosing as required.
[2022-11-08 19:43] LABS: Lactic Acid 1.3 mmol/L (0.4-1.9)
--- NOTE | 2022-11-08 19:57 | PCM.HOSP.N ---
Hospitalist Note Patient underwent a CT of the abdomen and pelvis tonmehrdad, it showed evidence of left ureteral obstruction from stones, I talked with Dr. Francois and he will see the patient in consultation. In the meantime I have elected to give the patient IV fluid, I gave her a bolus of 500 cc of normal saline and placed her on an IV of 100 cc/h of normal saline. Critical care will also see the patient tomorrow in consultation. I talked briefly with Dr. Riggs about it jakub.
[2022-11-08] MEDS: Polyethylene Glycol 3350 BOWEL PREP PO (21:02)
[2022-11-08] MEDS: 0.9% Normal Saline 1,000 ML 100 ML IV (21:03)
[2022-11-08 23:36] LABS: Hematocrit 26.4 % (37-47); Hemoglobin 8.4 g/dL (12.0-15.0)
[2022-11-09] VITALS (43 sets, daily range): BP systolic 80–155; BP diastolic 37–121; PULSE 69–118; RESP 14–32; TEMP 37.3–39.1; O2SAT 94–100; BMI 48.3
[2022-11-09] MEDS: Ondansetron 4 MG/2 ML Vial IV (03:26)
[2022-11-09] MEDS: 0.9% Saline Lock 10 ML Syringe IV (03:26)
[2022-11-09 03:41] LABS: Absolute Lymphocyte Count 0.73 X10^3/uL (0.83-4.51); Absolute Neutrophil Count 7.6 X10^3/uL (2.0-7.7); Basophil# 0.03 X10^3/uL; Basophil% 0.3 % (0-1); Eosinophil# 0.03 X10^3/uL; Eosinophils% 0.3 % (0-5); Hematocrit 28.7 % (37-47); Hemoglobin 8.5 g/dL (12.0-15.0); Lymphocyte # 0.73 X10^3/ul (0.83-4.51); Lymphocyte % 8.3 % (19-41); Mean Corp Hgb Conc 29.6 g/dL (32-36); Mean Corpuscular Hgb 28.9 pg (27.0-32.0); Mean Corpuscular Volume 97.6 fL (81-99); Mean Platelet Vol. 10.6 fl (6.2-12.0); Monocyte# 0.37 X10^3/uL; Monocyte% 4.2 % (0-10); NRBC Flagged by Analyzer 0 % (0-5); Neutrophil % 86.1 % (47-70); Platelet Count 171 K/mm3 (150-450); RBC Distribution Width CV 15.4 % (11.6-14.6); RBC Distribution Width SD 54.8 fl (35.1-43.9); Red Blood Count 2.94 M/mm3 (4.2-5.4); White Blood Count 8.8 K/mm3 (4.4-11.0)
[2022-11-09 04:04] LABS: Partial Thromboplast Time 92.8 Seconds (24.1-36.2)
[2022-11-09 04:11] LABS: ALB/GLOB Ratio 0.5 RATIO (0.9-2.4); AST(SGOT) 41 U/L (15-37); Alanine Aminotransfer ALT/SGPT 19 U/L (13-56); Alkaline Phosphatase 95 U/L (45-117); Anion Gap 4 (5-15); BUN 32 mg/dL (7-18); BUN/Creat Ratio 22.7 RATIO (10-20); Calcium,Total 8.1 mg/dL (8.5-10.1); Chloride 107 mmol/L (98-107); Creatinine, Serum 1.41 mg/dL (0.55-1.02); EST Glomerular Filtration Rate 39 mL/min (>60); Est Glom Filt Rate - Afr Amer 47 mL/min (>60); Estimated Creatinine Clearance 29.31 ml/min; Glucose 140 mg/dL (74-106); Sodium Level 136 mmol/L (136-145)
[2022-11-09] MEDS: Acetaminophen 325 MG Tablet 650 MG PO ×2 (05:33→15:33)
--- NOTE | 2022-11-09 07:08 | CON.PCM.UR_ITS ---
Assessment & Plan Assessment/Plan (1) Anticoagulated by anticoagulation treatment: (2) Rectal bleed: (3) Anemia: (4) History of pulmonary embolism: (5) Acute GI bleeding: (6) Morbid obesity: (7) H/O renal calculi: PLAN: She has a stone in the left proximal ureter with mild to moderate hydronephrosis on the left side looks chronic, at this point she is not clinically stable enough to take to the operating room for intervention. I spoke to the patient today let her know that when she is clinically stable we can get her on the schedule for lithotripsy and laser lithotripsy she will have to be off anticoagulation to treat the stone as well she does have a history of being on anticoagulations for a pulmonary embolism and multiple medical problems also GI bleeding. So for now no plan for intervention until medical service t hinks she is clinically stable, I spoke to the primary hospitalist regarding her care and we both agreed to the plan. HPI Consult Data Date of Consult: 11/09/22 HPI Narrative Reason for Consultation: Partially obstructing left this is a patient who presents to the hospital f HPI Narrative: BONNIE VELASQUEZ, is a 77 F with multiple medical problems she is in the intensive care unit on some intravenous pressure medications to maintain her blood pressure high she is being treated for an infection. CT scan demonstrates that she has a stone in the proximal left ureter some mild hydroureter nephrosis she has a partially obstructing stone in the left kidney she has no pain in that side. Overnight her blood pressures have been getting better she is weaning Levophed but still not clinically stable [facility] Medical History Acute kidney injury Chronic acquired lymphedema Elevated d-dimer Elevated troponin GERD (gastroesophageal reflux disease) H/O renal calculi Headache, migraine Hiatal hernia Hypertension Hypokalemia Memory deficit Morbid obesity Respiratory failure Sepsis Septic shock Severe acute respiratory syndrome coronavirus 2 (SARS-CoV-2) detected UTI (urinary tract infection) Venous insufficiency of both lower extremities Home Medications nystatin 100,000 unit/gram topical powder (Nyamyc) 1 applic topical BID #0 grams 10/24/22 [Rx Last Taken 11/07/22] acetaminophen 500 mg tablet (Acetaminophen Extra Strength) 500 mg PO TID PAIN 11/07/22 [History Last Taken 11/07/22] apixaban 5 mg tablet (Eliquis) 10 mg PO BID BLOOD THINNER 11/07/22 [History Last Taken 11/07/22] aspirin 81 mg chewable tablet 81 mg PO BREAKFAST HEART HEALTH 11/07/22 [History Last Taken 11/07/22] ferrous sulfate 325 mg (65 mg iron) tablet 325 mg PO QHS SUPPLEMENT 11/07/22 [Hi story Last Taken Unknown] sennosides 8.6 mg-docusate sodium 50 mg capsule (Senna Plus) 1 tab-cap PO BID STOOL 11/07/22 [History Last Taken 11/07/22] zinc oxide 20 % topical ointment 1 applic topical BID 11/07/22 [History Last Taken 11/07/22] Allergy/AdvReac Type Severity Reaction Status Date / Time codeine Allergy Hives Verified 11/07/22 16:50 Penicillins Allergy Hives Verified 11/07/22 16:50 Family History Mother Myocardial infarction CAD (coronary artery disease) Hypertension Heart disease Father Bladder cancer Sister Diabetes Surgical History History of hysterectomy History of knee replacement History of umbilical hernia repair Social History household members: spouse Smoking Status: Never smoker alcohol intake: never substance use type: does not use what type of physical activity do you participate in: none ROS Constitutional Constitutional: Denies chills, fever(s) or malaise Eyes Eyes: Denies blurry vision or change in vision ENT HEENT: Reports none Cardiovascular Cardiovascular: Denies chest pain or palpitations Respiratory/Chest Respiratory/Chest: Denies cough or shortness of breath with exertion Gastrointestinal Gastrointestinal: Denies abdominal pain, constipation or diarrhea Musculoskeletal Musculoskeletal: Denies back pain, joint stiffness or joint swelling Integumentary Integumentary: Denies dry skin, jaundice, lesions or rash Neurologic Neurologic: Denies confusion, syncope or weakness Psychiatric Psychiatric: Reports none; Denies anxiety or depression Endocrine Endocrinology: Denies excessive sweating, fatigue or flushing Hematologic/Lymphatic Hematologic/Lymphatic: Denies anemia, easy bleeding or easy bruising Physical Exam Const alert and oriented x3 General Appearance: cooperative HEENT normocephalic, head/scalp atraumatic, EAC's normal and TM's normal bilaterally Eyes PERRL and EOMs intact bilaterally Pupil: sluggish Neck no lymphadenopathy, supple and no JVD General: trachea midline Lymph Lymphatic: no lymphadenopathy noted, lymphedema and lymphadenopathy Resp normal respiratory effort, normal air movement and clear to auscultation bilaterally Cardio regular rate, regular rhythm and peripheral pulses 2+ throughout GI soft to palpation, non-tender and non-distended Extremity normal capillary refill and no clubbing, cyanosis or edema General Extremity: no tenderness to palpation of joints or extremities Skin no rashes or lesions noted General Skin Exam: turgor normal Lesions: no lesions Rashes: no rashes Neuro CN's II-XII intact bilaterally Speech: speech normal Motor Exam: strength 5/5 throughout; Negative for general weakness Psych thought process normal, cooperative and affect normal Appearance: appropriate Lab / Micro Data Result Diagrams: 11/09/22 03:30 11/09/22 03:30 Labs: Laboratory Results - last 24 hr 11/08/22 10:45: Urine Color Yellow, Urine Clarity Sl. Cloudy, Urine pH 5.0, Ur Specific [place] 1.015, Urine Protein 15 H, Urine Glucose (UA) Normal, Urine Ketones Negative, Urine Occult Blood 25 H, Urine Nitrite Negative, Urine Bilirubin Negative, Urine Urobilinogen Normal, Ur Leukocyte Esterase 500 H 11/08/22 11:00: APTT 221.8 H* 11/08/22 16:40: Urine Color Yellow, Urine Clarity Turbid, Urine pH 5.0, Ur Specific [place] 1.020, Urine Protein 100 H, Urine Glucose (UA) Normal, Urine Ketones Negative, Urine Occult Blood 250 H, Urine Nitrite Negative, Urine Bilirubin 1 H, Urine Urobilinogen 1 H, Ur Leukocyte Esterase 500 H, Urine RBC 0 SEEN, Urine WBC >100 SEEN, Ur Squamous Epith Cells 0 SEEN, Urine Bacteria 0 SEE N, Urine Mucus 0 SEEN 11/08/22 19:05: APTT 109.1 H* 11/08/22 19:05: Lactic Acid 1.3 11/08/22 23:29: Hgb 8.4 L, Hct 26.4 L 11/09/22 03:30: APTT 92.8 H* 11/09/22 03:30: WBC 8.8, RBC 2.94 L, Hgb 8.5 L, Hct 28.7 L, MCV 97.6, MCH 28.9, MCHC 29.6 L, RDW Std Deviation 54.8 H, RDW Coeff of [place] 15.4 H, Plt Count 171, MPV 10.6, Immature Gran % (Auto) 0.800, Neut % (Auto) 86.1 H, Lymph % (Auto) 8.3 L, [place] % (Auto) 4.2, Eos % (Auto) 0.3, Baso % (Auto) 0.3, Absolute Neuts (auto) 7.6, Absolute Lymphs (auto) 0.73 L, Nucleated RBC % 0 11/09/22 03:30: Sodium 136, Potassium 5.0, Chloride 107, Carbon Dioxide 25.0, Anion Gap 4 L, BUN 32 H, Creatinine 1.41 H, Estim Creat Clear Calc 29.31, Est GFR (MDRD) Af Amer 47 L, Est GFR (MDRD) Non-Af 39 L, BUN/Creatinine Ratio 22.7 H , Glucose 140 H, Calcium 8.1 L, Total Bilirubin 1.20 H, AST 41 H, ALT 19, Alkaline Phosphatase 95, Total Protein 6.0 L, Albumin 2.0 L, Globulin 4.0, Albumin/Globulin Ratio 0.5 L Micro: Microbiology 11/08/22 16:40 Mucosa - Nasopharyngeal Influenza Types A,B Direct FA (DANE) - Final 11/08/22 11:00 Blood Culture (Wb) - Left Wrist Blood Culture - Preliminary 11/08/22 10:45 Blood Culture (Wb) - Left Forearm Blood Culture - Preliminary Radiology Impression Chest X-Ray 11/08/22 11:50 IMPRESSION: Chronic interstitial changes with slight enlargement of a previously noted left pleural effusion since the previous study. Electronically Signed: Roman Gordon MD at 12:40 EDT , Abdomen/Pelvis CT 11/08/22 17:05 IMPRESSION: 1. Large obstructing calculus burden in the proximal left ureter with moderate hydronephrosis and delayed left nephrogram. Multiple other left renal collecting system calculi. 2. Findings suspicious for developing stercoral colitis. No perirectal inflammatory stranding. Electronically Signed: Blake Saavedra MD at 17:36 EDT ,
--- NOTE | 2022-11-09 07:50 | PCM.RX.CS ---
Consult Type of Consult: Follow-up Suspected Infection: Other - Empiric Labs: Sodium 136 mmol/L (136-145) 11/09/22 03:30 Potassium 5.0 mmol/L (3.5-5.1) 11/09/22 03:30 Chloride 107 mmol/L (98-107) 11/09/22 03:30 Carbon Dioxide 25.0 mmol/L (21.0-32.0) 11/09/22 03:30 Anion Gap 4 (5-15) L 11/09/22 03:30 BUN 32 mg/dL (7-18) H 11/09/22 03:30 Creatinine 1.41 mg/dL (0.55-1.02) H 11/09/22 03:30 Est GFR (MDRD) Af Amer 47 mL/min (>60) L 11/09/22 03:30 Est GFR (MDRD) Non-Af 39 mL/min (>60) L 11/09/22 03:30 BUN/Creatinine Ratio 22.7 RATIO (10-20) H 11/09/22 03:30 Glucose 140 mg/dL (74-106) H 11/09/22 03:30 Microbiology: Microbiology 11/08/22 16:40 Mucosa - Nasopharyngeal Influenza Types A,B Direct FA (DANE) - Final 11/08/22 11:00 Blood Culture (Wb) - Left Wrist Blood Culture - Preliminary 11/08/22 10:45 Blood Culture (Wb) - Left Forearm Blood Culture - Preliminary 11/07/22 17:28 Stool Stool Occult Blood (DANE) - Final Occult Blood Positive Goal Trough: 15-20 mcg/mL Pharmacy Plan for Drug Dosing: DAILY ASSESSMENT Current Vancomycin Dose: 1500mg Q12H Number of Doses Received: 2000mg x1, 1500mg x1 Current Renal Function: sCr 1.41 (CrCl 45 mL/min using AdjBW 83.9kg) Renal Function Trend: declined Any Change in Vanc Plan: Yes - adjust Vancomycin dosing regimen to 1000mg Q12H Pending Level: Vancomycin trough @ 1730 11/10/22 Pharmacy Service will continue to monitor and adjust dosing as required. Labs to be done on [date and time ordered]: Vancomycin trough @ 1730 11/10/22
--- NOTE | 2022-11-09 08:06 | EX.PCM.CONCC ---
Assessment & Plan Assessment/Plan (1) Septic shock: (2) History of pulmonary embolism: (3) Acute GI bleeding: (4) Morbid obesity: PLAN: Plan RECOMMENDATIONS: 1. Continue empiric antibiotics for now. Possibly discontinue vancomycin tomorrow 2. Wean pressors as tolerated 3. Await urology intervention once more hemodynamically stable 4. Defer to GI on bowel prep 5. Transfuse for hemoglobin less than 8 given concomitant sepsis and ongoing bleeding 6. Encourage incentive spirometer. Wean oxygen as tolerated 7. Possible empiric BiPAP therapy with sleep if continues to decompensate IMPRESSIONS: 1. Septic shock secondary to obstructive uropathy with gram-negative organism Cultures are showing gram-negative rods in the blood. Await final species and sensitivities. Anticipate vancomycin can be discontinued tomorrow. Continue meropenem as patient would be at risk for MDRO. Wean pressors as tolerated. Patient will likely require definitive therapy of stone in the future once more hemodynamically stable. 2. Hematochezia with acute blood loss anemia secondary to stercoral colitis Patient was given a bowel regimen overnight. Patient continues to have maroon stools. Continue with serial H&H's. Anticipate transfusions with hemoglobin of 8 or less given ongoing bleeding, Eliquis therapy and ongoing septic shock. Unclear if patient is going to require a decompressive colonoscopy at some point. Some inflammatory stranding may be secondary to the sepsis in general. GI has been consulted. 3. Acute hypoxic respiratory insufficiency with recent PE and COVID-pneumonia Patient on 4 L nasal cannula. High suspicion for concomitant obstructive sleep apnea. Could use BiPAP overnight with sleep. We will continue to have patient work with PT/OT when more clinically stable. Patient will benefit from outpatient pulmonary function test for quantification clarification of lung function once back to a stable condition. 4. Morbid obesity/generalized debility/hypertension/history of decubitus ulcers/sciatica Complicates care, management, recovery and prognosis. Antihypertensive should be held given problem #1. We will continue with skin care. PT/OT can follow with patient, but anticipate she will need to go back to a longterm facility for further rehab before going home. TIME: 37 minutes of critical care time spent addressing patient septic shock, obstructive uropathy, acute blood loss anemia, hypoxia, review of all data and collaboration with care team HPI Consult Data Date of Consult: 11/09/22 HPI Narrative Reason for Consultation: Hypotension HPI Narrative: BONNIE VELASQUEZ is a 77 F, with past medical history listed below, who presents to [facility] on 11/07/2022 secondary to generalized weakness and blood in her stool. Patient was recently hospitalized at the end of September secondary to COVID-19 and was diagnosed with a pulmonary embolism. Patient was started on Eliquis at that time and [facility]. Patient's hemoglobin appears to be 10.5 at baseline and is down to 8.8 on presentation. Patient had reported feeling weak and had not been participating in therapy. In the ER, patient was afebrile and normotensive. Patient was saturating well on room air initially. Over the course of the ER course, patient did have some hypotension and was given some fluids. Laboratory work-up showed a white blood cell count of 5.5, hemoglobin of 9.5 and platelets of 213. Chest x-ray showed no acute findings. Patient did have a maroon positive rectal exam. Vascular surgery was consulted for possible IVC filter. Patient was admitted to the hospital, but given relative stability of hemoglobin, critical care was not consulted initially. Overnight, patient was seen by GI. Patient subsequently had a CT scan of the abdomen showing colitis with an obstructing stone and hydronephrosis. Patient subsequently became hypotensive and had to be started on Levophed. For this reason, critical care was consulted. Patient has continued to have significant fevers as high as 40 ?C. Patient has come back positive with gram-negative rods in her blood. Patient overall feels subjectively slightly improved compared to previous. Patient is reporting rigors that she associates with the cooling blanket. Patient denies any current chest pain or dyspnea, but is requiring 3 L to maintain saturations. Patient was not feeling well enough to give a full review of systems and had asked to just get some sleep. [facility] Medical History (Updated 11/09/22 @ 08:[address] Dustin Riggs MD) Acute kidney injury Chronic acquired lymphedema Elevated d-dimer Elevated troponin GERD (gastroesophageal reflux disease) H/O renal calculi Headache, migraine Hiatal hernia Hypertension Hypokalemia Memory deficit Morbid obesity Respiratory failure Sepsis Septic shock Severe acute respiratory syndrome coronavirus 2 (SARS-CoV-2) detected UTI (urinary tract infection) Venous insufficiency of both lower extremities Home Medications nystatin 100,000 unit/gram topical powder (Nyamyc) 1 applic topical BID #0 grams 10/24/22 [Rx Last Taken 11/07/22] acetaminophen 500 mg tablet (Acetaminophen Extra Strength) 500 mg PO TID PAIN 11/07/22 [History Last Taken 11/07/22] apixaban 5 mg tablet (Eliquis) 10 mg PO BID BLOOD THINNER 11/07/22 [History Last Taken 11/07/22] aspirin 81 mg chewable tablet 81 mg PO BREAKFAST HEART HEALTH 11/07/22 [History Last Taken 11/07/22] ferrous sulfate 325 mg (65 mg iron) tablet 325 mg PO QHS SUPPLEMENT 11/07/22 [History Last Taken Unknown] sennosides 8.6 mg-docusate sodium 50 mg capsule (Senna Plus) 1 tab-cap PO BID STOOL 11/07/22 [History Last Taken 11/07/22] zinc oxide 20 % topical ointment 1 applic topical BID 11/07/22 [History Last Taken 11/07/22] Allergy/AdvReac Type Severity Reaction Status Date / Time codeine Allergy Hives Verified 11/07/22 16:50 Penicillins Allergy Hives Verified 11/07/22 16:50 Family History Mother Myocardial infarction CAD (coronary artery disease) Hypertension Heart disease Father Bladder cancer Sister Diabetes Surgical History History of hysterectomy History of knee replacement History of umbilical hernia repair Social History household members: spouse Smoking Status: Never smoker alcohol intake: never substance use type: does not use what type of physical activity do you participate in: none ROS ROS Narrative See HPI Physical Exam Const alert and oriented x3 Constitutional Narrative: Appears tired. Morbidly obese. Cooling blanket in place. HEENT normocephalic and head/scalp atraumatic HEENT Narrative: Dry mucous membranes. Mallampati 3. Eyes PERRL, EOMs intact bilaterally and conjunctivae normal Neck no lymphadenopathy, supple and no JVD General: trachea midline Lymph Lymphatic: no lymphadenopathy noted Resp normal respiratory effort Resp Narrative: Fair effort Auscultation: diminished lung sounds; Negative for rales, rhonchi or wheezes Cardio regular rate, regular rhythm, S1 normal heart sound, S2 normal heart sound, no murmurs, no rub and no gallops GI soft to palpation and non-distended Palpation: tender epigastric Percussion: Negative for fluid wave Extremity Extremity Narrative: Slightly reduced lower extremity capillary refill General Extremity: edema Skin no rashes or lesions noted Lesions: no lesions Rashes: no rashes Neuro CN's II-XII intact bilaterally Speech: speech normal Motor Exam: strength 5/5 throughout and general weakness Psych thought process normal and affect normal Appearance: appropriate Medical Records Data Attestation: I reviewed the patient's medical records Lab / Micro Data Attestation: I reviewed the patient's lab results. Result Diagrams: 11/09/22 03:30 11/09/22 03:30 Labs: Laboratory Results - last 24 hr 11/08/22 10:45: Urine Color Yellow, Urine Clarity Sl. Cloudy, Urine pH 5.0, Ur Specific [place] 1.015, Urine Protein 15 H, Urine Glucose (UA) Normal, Urine Ketones Negative, Urine Occult Blood 25 H, Urine Nitrite Negative, Urine Bilirubin Negative, Urine Urobilinogen Normal, Ur Leukocyte Esterase 500 H 11/08/22 11:00: APTT 221.8 H* 11/08/22 16:40: Urine Color Yellow, Urine Clarity Turbid, Urine pH 5.0, Ur Specific [place] 1.020, Urine Protein 100 H, Urine Glucose (UA) Normal, Urine Ketones Negative, Urine Occult Blood 250 H, Urine Nitrite Negative, Urine Bilirubin 1 H, Urine Urobilinogen 1 H, Ur Leukocyte Esterase 500 H, Urine RBC 0 SEEN, Urine WBC >100 SEEN, Ur Squamous Epith Cells 0 SEEN, Urine Bacteria 0 SEEN, Urine Mucus 0 SEEN 11/08/22 19:05: APTT 109.1 H* 11/08/22 19:05: Lactic Acid 1.3 11/08/22 23:29: Hgb 8.4 L, Hct 26.4 L 11/09/22 03:30: APTT 92.8 H* 11/09/22 03:30: WBC 8.8, RBC 2.94 L, Hgb 8.5 L, Hct 28.7 L, MCV 97.6, MCH 28.9, MCHC 29.6 L, RDW Std Deviation 54.8 H, RDW Coeff of Gareth 15.4 H, Plt Count 171, MPV 10.6, Immature Gran % (Auto) 0.800, Neut % (Auto) 86.1 H, Lymph % (Auto) 8.3 L, [place] % (Auto) 4.2, Eos % (Auto) 0.3, Baso % (Auto) 0.3, Absolute Neuts (auto) 7.6, Absolute Lymphs (auto) 0.73 L, Nucleated RBC % 0 11/09/22 03:30: Sodium 136, Potassium 5.0, Chloride 107, Carbon Dioxide 25.0, Anion Gap 4 L, BUN 32 H, Creatinine 1.41 H, Estim Creat Clear Calc 29.31, Est GFR (MDRD) Af Amer 47 L, Est GFR (MDRD) Non-Af 39 L, BUN/Creatinine Ratio 22.7 H, Glucose 140 H, Calcium 8.1 L, Total Bilirubin 1.20 H, AST 41 H, ALT 19, Alkaline Phosphatase 95, Total Protein 6.0 L, Albumin 2.0 L, Globulin 4.0, Albumin/Globulin Ratio 0.5 L Micro: Microbiology 11/08/22 16:40 Mucosa - Nasopharyngeal Influenza Types A,B Direct FA (DANE) - Final 11/08/22 11:00 Blood Culture (Wb) - Left Wrist Blood Culture - Preliminary 11/08/22 10:45 Blood Culture (Wb) - Left Forearm Blood Culture - Preliminary Radiology Impression Chest X-Ray 11/08/22 11:50 IMPRESSION: Chronic interstitial changes with slight enlargement of a previously noted left pleural effusion since the previous study. Electronically Signed: Roman Gordon MD at 12:40 EDT , Abdomen/Pelvis CT 11/08/22 17:05 IMPRESSION: 1. Large obstructing calculus burden in the proximal left ureter with moderate hydronephrosis and delayed left nephrogram. Multiple other left renal collecting system calculi. 2. Findings suspicious for developing stercoral colitis. No perirectal inflammatory stranding. Electronically Signed: Blake Saavedra MD at 17:36 EDT , Charges/Coding Procedures Hospitalists Procedures: [id number] [facility] 1st Hr
--- NOTE | 2022-11-09 08:22 | PCM.PROGNOTE ---
Subjective Subjective Patient still with fever complaining of some. Lower abdominal pain mostly on the left lower quadrant and suprapubic area. She had a couple episodes of rectal bleeding overnight. Objective Data Objective Data Vital Signs: Vital Signs Temp Pulse Resp BP Pulse Ox O2 Del Method O2 Flow Rate 100.4 F H 88 14 107/50 L 98 Nasal Cannula 4 11/09/22 07:00 11/09/22 07:00 11/09/22 07:00 11/09/22 07:00 11/09/22 07:00 11/09/22 07:00 11/09/22 07:00 Oxygen Flow Rate (L/min) 4 Oxygen Delivery Method Nasal Cannula Weight: 281 lb 12.012 oz Body Mass Index (BMI) 48.3 Intake & Output: Intake and Output for Last 24 Hours 11/07/22 11/08/22 11/09/22 23:59 23:59 23:59 Intake Total 110 / 110 2624.60 / 3174.00 2249.45 / 2249.45 Output Total 900 / 1125 550 / 550 Balance 110 / 110 1724.60 / 2049.00 1699.45 / 1699.45 Lab / Micro Data Result Diagrams: 11/09/22 03:30 11/09/22 03:30 Labs: Laboratory Results - last 24 hr 11/08/22 10:45: Urine Color Yellow, Urine Clarity Sl. Cloudy, Urine pH 5.0, Ur Specific [place] 1.015, Urine Protein 15 H, Urine Glucose (UA) Normal, Urine Ketones Negative, Urine Occult Blood 25 H, Urine Nitrite Negative, Urine Bilirubin Negative, Urine Urobilinogen Normal, Ur Leukocyte Esterase 500 H 11/08/22 11:00: APTT 221.8 H* 11/08/22 16:40: Urine Color Yellow, Urine Clarity Turbid, Urine pH 5.0, Ur Specific [place] 1.020, Urine Protein 100 H, Urine Glucose (UA) Normal, Urine Ketones Negative, Urine Occult Blood 250 H, Urine Nitrite Negative, Urine Bilirubin 1 H, Urine Urobilinogen 1 H, Ur Leukocyte Esterase 500 H, Urine RBC 0 SEEN, Urine WBC >100 SEEN, Ur Squamous Epith Cells 0 SEEN, Urine Bacteria 0 SEEN, Urine Mucus 0 SEEN 11/08/22 19:05: APTT 109.1 H* 11/08/22 19:05: Lactic Acid 1.3 11/08/22 23:29: Hgb 8.4 L, Hct 26.4 L 11/09/22 03:30: APTT 92.8 H* 11/09/22 03:30: WBC 8.8, RBC 2.94 L, Hgb 8.5 L, Hct 28.7 L, MCV 97.6, MCH 28.9, MCHC 29.6 L, RDW Std Deviation 54.8 H, RDW Coeff of Gareth 15.4 H, Plt Count 171, MPV 10.6, Immature Gran % (Auto) 0.800, Neut % (Auto) 86.1 H, Lymph % (Auto) 8.3 L, [place] % (Auto) 4.2, Eos % (Auto) 0.3, Baso % (Auto) 0.3, Absolute Neuts (auto) 7.6, Absolute Lymphs (auto) 0.73 L, Nucleated RBC % 0 11/09/22 03:30: Sodium 136, Potassium 5.0, Chloride 107, Carbon Dioxide 25.0, Anion Gap 4 L, BUN 32 H, Creatinine 1.41 H, Estim Creat Clear Calc 29.31, Est GFR (MDRD) Af Amer 47 L, Est GFR (MDRD) Non-Af 39 L, BUN/Creatinine Ratio 22.7 H, Glucose 140 H, Calcium 8.1 L, Total Bilirubin 1.20 H, AST 41 H, ALT 19, Alkaline Phosphatase 95, Total Protein 6.0 L, Albumin 2.0 L, Globulin 4.0, Albumin/Globulin Ratio 0.5 L Micro: Microbiology 11/08/22 16:40 Mucosa - Nasopharyngeal Influenza Types A,B Direct FA (DANE) - Final 11/08/22 11:00 Blood Culture (Wb) - Left Wrist Blood Culture - Preliminary 11/08/22 10:45 Blood Culture (Wb) - Left Forearm Blood Culture - Preliminary 11/07/22 17:28 Stool Stool Occult Blood (DANE) - Final Occult Blood Positive Radiography Diagnostic Testing: Radiology Impression Chest X-Ray 11/08/22 11:50 IMPRESSION: Chronic interstitial changes with slight enlargement of a previously noted left pleural effusion since the previous study. Electronically Signed: Roman Gordon MD at 12:40 EDT , Abdomen/Pelvis CT 11/08/22 17:05 IMPRESSION: 1. Large obstructing calculus burden in the proximal left ureter with moderate hydronephrosis and delayed left nephrogram. Multiple other left renal collecting system calculi. 2. Findings suspicious for developing stercoral colitis. No perirectal inflammatory stranding. Electronically Signed: Blake Saavedra MD at 17:36 EDT , Physical Exam Const alert and oriented x3 General Appearance: cooperative HEENT normocephalic, head/scalp atraumatic, EAC's normal and TM's normal bilaterally Eyes PERRL and EOMs intact bilaterally Pupil: sluggish Neck no lymphadenopathy, supple and no JVD General: trachea midline Lymph Lymphatic: no lymphadenopathy noted, lymphedema and lymphadenopathy Resp normal respiratory effort, normal air movement and clear to auscultation bilaterally Cardio regular rate, regular rhythm and peripheral pulses 2+ throughout GI soft to palpation, non-tender and non-distended Extremity normal capillary refill and no clubbing, cyanosis or edema General Extremity: no tenderness to palpation of joints or extremities Skin no rashes or lesions noted General Skin Exam: turgor normal Lesions: no lesions Rashes: no rashes Neuro CN's II-XII intact bilaterally Speech: speech normal Motor Exam: strength 5/5 throughout; Negative for general weakness Psych thought process normal, cooperative and affect normal Appearance: appropriate Assessment & Plan Assessment/Plan (1) Rectal bleed: PLAN: CT scan of the abdomen pelvis does show some inflammation in the rectal area. Differential diagnosis would be ischemic proctitis and sigmoiditis, Solitary Rectal Ulcer Syndrome, less likely ulcerative colitis. She is not having any bleeding at this time. Her current issues are sepsis possibly secondary to nephrolithiasis. I do not think it would be safe for her to undergo endoscopic procedure at this time due to sepsis and blood pressure instability secondary to sepsis. Continue to monitor hemoglobin at this time and transfuse 1 unit packed red blood cells for hemoglobin less than 8. Charges/Coding Visit Charges Inpatient E&M: 98614 Subs Hosp L2
[2022-11-09] MEDS: 0.9% Normal Saline 1,000 ML 100 ML IV ×2 (10:32→20:32)
--- NOTE | 2022-11-09 11:07 | CASEMGMT ---
Patient originally from [facility]. SW spoke with patient regarding discharge planning and whether she would like to return and patient was unable to provide an answe due to not feeling well. JOSÉ MIGUEL spoke with [facility] pt's spouse, who reports the plan is to return there and that she has been at [facility] since mid September and it was originally to be for 4-6 weeks. Updates and request to return sent to [place]. 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
[2022-11-09] MEDS: Menthol/Lanolin/Calamine/Znox 113 GM Tube 1 APPLIC TOPICAL ×2 (11:50→21:07)
--- NOTE | 2022-11-09 12:12 | PN.HOSP_ITS ---
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 Patient is stooling, there is no gross evidence of any blood from her stools. Patient's blood culture is growing gram-negative rods. I talked briefly with urology and they are planning lithotripsy and a stent to be placed in the left ureter this Sunday if the patient is medically stable. I talked briefly with pulmonary medicine about her care. Patient is having chills today, she does not complain of any shortness of breath, she does complain of generalized body aches. Objective Data Objective Data Vital Signs: Vital Signs Temp Pulse Resp BP Pulse Ox O2 Del Method O2 Flow Rate 101.7 F H 96 24 H 107/44 L 94 Nasal Cannula 4 11/09/22 11:00 11/09/22 11:45 11/09/22 11:00 11/09/22 11:45 11/09/22 11:00 11/09/22 11:00 11/09/22 11:00 Oxygen Flow Rate (L/min) 4 Oxygen Delivery Method Nasal Cannula Weight: 127.8 kg Body Mass Index (BMI) 48.3 Intake & Output: Intake and Output for Last 24 Hours 11/07/22 11/08/22 11/09/22 23:59 23:59 23:59 Intake Total 110 / 110 2624.60 / 3174.00 2621.15 / 2621.15 Output Total 900 / 1125 850 / 850 Balance 110 / 110 1724.60 / 2049.00 1771.15 / 1771.15 Lab / Micro Data Result Diagrams: 11/09/22 03:30 11/09/22 03:30 Labs: Laboratory Results - last 24 hr 11/08/22 16:40: Urine Color Yellow, Urine Clarity Turbid, Urine pH 5.0, Ur Specific [place] 1.020, Urine Protein 100 H, Urine Glucose (UA) Normal, Urine Ketones Negative, Urine Occult Blood 250 H, Urine Nitrite Negative, Urine Bilirubin 1 H, Urine Urobilinogen 1 H, Ur Leukocyte Esterase 500 H, Urine RBC 0 SEEN, Urine WBC >100 SEEN, Ur Squamous Epith Cells 0 SEEN, Urine Bacteria 0 SEEN, Urine Mucus 0 SEEN 11/08/22 19:05: APTT 109.1 H* 11/08/22 19:05: Lactic Acid 1.3 11/08/22 23:29: Hgb 8.4 L, Hct 26.4 L 11/09/22 03:30: APTT 92.8 H* 11/09/22 03:30: WBC 8.8, RBC 2.94 L, Hgb 8.5 L, Hct 28.7 L, MCV 97.6, MCH 28.9, MCHC 29.6 L, RDW Std Deviation 54.8 H, RDW Coeff of Gareth 15.4 H, Plt Count 171, MPV 10.6, Immature Gran % (Auto) 0.800, Neut % (Auto) 86.1 H, Lymph % (Auto) 8.3 L, [place] % (Auto) 4.2, Eos % (Auto) 0.3, Baso % (Auto) 0.3, Absolute Neuts (auto) 7.6, Absolute Lymphs (auto) 0.73 L, Nucleated RBC % 0 11/09/22 03:30: Sodium 136, Potassium 5.0, Chloride 107, Carbon Dioxide 25.0, Anion Gap 4 L, BUN 32 H, Creatinine 1.41 H, Estim Creat Clear Calc 29.31, Est GFR (MDRD) Af Amer 47 L, Est GFR (MDRD) Non-Af 39 L, BUN/Creatinine Ratio 22.7 H , Glucose 140 H, Calcium 8.1 L, Total Bilirubin 1.20 H, AST 41 H, ALT 19, Alkaline Phosphatase 95, Total Protein 6.0 L, Albumin 2.0 L, Globulin 4.0, Albumin/Globulin Ratio 0.5 L Micro: Microbiology 11/08/22 10:45 Urine Catheter - Catheter Urine Culture - 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 Electronically Signed: Roman Gordon MD at 12:40 EDT , Abdomen/Pelvis CT 11/08/22 17:05 IMPRESSION: 1. Large obstructing calculus burden in the proximal left ureter with moderate hydronephrosis and delayed left nephrogram. Multiple other left renal collecting system calculi. 2. Findings suspicious for developing stercoral colitis. No perirectal inflammatory stranding. Electronically Signed: Blake Saavedra MD at 17:36 EDT , Physical Exam Narrative alert, oriented x3, she appears to have chills at this time Constitutional Narrative: Patient appears to be mildly somnolent, she does awaken to questions and appropriately responsive to them.? General Appearance: cooperative, well kempt and well developed Orientation / Consciousness: awake, oriented to person, oriented to place and oriented to time HEENT normocephalic and moist oral mucous membranes Eyes PERRL, EOMs intact bilaterally and conjunctivae normal Neck supple, no JVD, thyroid normal and no carotid bruits General: trachea midline Resp normal respiratory effort, no retractions, no use of accessory muscles and clear to auscultation bilaterally Auscultation: Negative for rales, rhonchi or wheezes Cardio regular rate, regular rhythm, S1 normal heart sound, S2 normal heart sound, no murmurs, no rub and no gallops GI normal to inspection, nondistended, normoactive bowel sounds, soft to palpation, non-tender and non-distended Extremity no clubbing, cyanosis or edema Skin no rashes or lesions noted General Skin Exam: no breakdown Neuro oriented x3, CN's II-XII intact bilaterally, moves all extremities, no focal motor deficits and no sensory deficits noted Sensorium / Orientation: awake, oriented to person and oriented to place Speech: speech normal Psych affect normal Assessment & Plan Assessment/Plan (1) Septic shock: (2) Rectal bleed: PLAN: Plan 1. Septic shock secondary to left obstructive uropathy and pyelonephritis-Gram negative bacteremia-await culture results, patient remains on meropenem and v ancomycin at this time, she is on pressors at this time, patient was seen by urology, she will probably undergo lithotripsy and stent placement on 11/11/2022. Pulmonary medicine is participating in her care. #2 Hematochezia-etiology unclear at this point, patient's hemoglobin has remained stable since admission, due to septic shock from pyelonephritis, patient's colonoscopy will be delayed #3 recent pulmonary embolism September 2022-patient will be placed on IV heparin for now and monitor for any active bleeding, patient is currently on 4 L via nasal cannula #4 morbid obesity-complicates care, medical course, recovery, and prognosis #5 generalized debility secondary to recent hospitalization for septic shock and COVID-19-PT and OT will see the patient, she will need to return to [facility] facility for further rehab services, she is not quite ready to go home at this time. #6 essential hypertension-patient will remain on her present medication #7 leukopenia-probably secondary to acute infection, CBC will be monitored #8 hypoxia-etiology unclear, patient is currently on 4 L via nasal cannula Total clinical time spent by myself addressing the patient's medical issues, reviewing all of her data, and collaborating with patient's care team: 37 minutes Charges/Coding Visit Charges Inpatient E&M: 68100 Subs Hosp L2
[2022-11-09 12:32] LABS: Partial Thromboplast Time 69.2 Seconds (24.1-36.2)
[2022-11-09 12:56] LABS: Pathologist Review Reviewed
[2022-11-09] MEDS: TITRATION PARAMETER CHANGE 1 EACH IV (14:05)
--- NOTE | 2022-11-09 15:41 | PN.SURG_ITS ---
Subjective Subjective Evolving clinical situation, now on pressors and febrile with positive cultures, left ureteral obstructing stone. Hgb remains stable. Loose stools with prep were maroon, no overt bleeding and no concerning stools since prep completed. Objective Data Objective Data Vital Signs: Vital Signs Temp Pulse Resp BP Pulse Ox O2 Del Method O2 Flow Rate 100.7 F H 90 18 113/52 L 98 Nasal Cannula 3 11/09/22 14:00 11/09/22 14:00 11/09/22 14:00 11/09/22 14:00 11/09/22 14:00 11/09/22 14:00 11/09/22 15:15 Oxygen Flow Rate (L/min) 3 Oxygen Delivery Method Nasal Cannula Weight: 281 lb 12.012 oz Body Mass Index (BMI) 48.3 Intake & Output: Intake and Output for Last 24 Hours 11/07/22 11/08/22 11/09/22 23:59 23:59 23:59 Intake Total 110 / 110 2624.60 / 3174.00 3063.81 / 3063.81 Output Total 900 / 1125 850 / 850 Balance 110 / 110 1724.60 / 2049.00 2213.81 / 2213.81 Lab / Micro Data Result Diagrams: 11/09/22 03:30 11/09/22 03:30 Labs: Laboratory Results - last 24 hr 11/08/22 04:15: Diff Path Review Reviewed 11/08/22 16:40: Urine Color Yellow, Urine Clarity Turbid, Urine pH 5.0, Ur Specific [place] 1.020, Urine Protein 100 H, Urine Glucose (UA) Normal, Urine Ketones Negative, Urine Occult Blood 250 H, Urine Nitrite Negative, Urine Bilirubin 1 H, Urine Urobilinogen 1 H, Ur Leukocyte Esterase 500 H, Urine RBC 0 SEEN, Urine WBC >100 SEEN, Ur Squamous Epith Cells 0 SEEN, Urine Bacteria 0 SEEN, Urine Mucus 0 SEEN 11/08/22 19:05: APTT 109.1 H* 11/08/22 19:05: Lactic Acid 1.3 11/08/22 23:29: Hgb 8.4 L, Hct 26.4 L 11/09/22 03:30: APTT 92.8 H* 11/09/22 03:30: WBC 8.8, RBC 2.94 L, Hgb 8.5 L, Hct 28.7 L, MCV 97.6, MCH 28.9, MCHC 29.6 L, RDW Std Deviation 54.8 H, RDW Coeff of Gareth 15.4 H, Plt Count 171, MPV 10.6, Immature Gran % (Auto) 0.800, Neut % (Auto) 86.1 H, Lymph % (Auto) 8.3 L, [place] % (Auto) 4.2, Eos % (Auto) 0.3, Baso % (Auto) 0.3, Absolute Neuts (auto) 7.6, Absolute Lymphs (auto) 0.73 L, Nucleated RBC % 0 11/09/22 03:30: Sodium 136, Potassium 5.0, Chloride 107, Carbon Dioxide 25.0, Anion Gap 4 L, BUN 32 H, Creatinine 1.41 H, Estim Creat Clear Calc 29.31, Est GFR (MDRD) Af Amer 47 L, Est GFR (MDRD) Non-Af 39 L, BUN/Creatinine Ratio 22.7 H , Glucose 140 H, Calcium 8.1 L, Total Bilirubin 1.20 H, AST 41 H, ALT 19, Alkaline Phosphatase 95, Total Protein 6.0 L, Albumin 2.0 L, Globulin 4.0, Albumin/Globulin Ratio 0.5 L 11/09/22 12:10: APTT 69.2 H Micro: Microbiology 11/08/22 10:45 Urine Catheter - Catheter Urine Culture - Preliminary GNR lactose store loss prevention manager 11/08/22 16:40 Mucosa - Nasopharyngeal Influenza Types A,B Direct FA (DANE) - Final 11/08/22 11:00 Blood Culture (Wb) - Left Wrist Blood Culture - Preliminary 11/08/22 10:45 Blood Culture (Wb) - Left Forearm Blood Culture - Preliminary 11/07/22 17:28 Stool Stool Occult Blood (DANE) - Final Occult Blood Positive Radiography Diagnostic Testing: Radiology Impression Chest X-Ray 11/08/22 11:50 IMPRESSION: Chronic interstitial changes with slight enlargement of a previously noted left pleural effusion since the previous study. Electronically Signed: Roman Gordon MD at 12:40 EDT Reading Location ID and State: [facility] / [place] , Service support , Abdomen/Pelvis CT 11/08/22 17:05 IMPRESSION: 1. Large obstructing calculus burden in the proximal left ureter with moderate hydronephrosis and delayed left nephrogram. Multiple other left renal collecting system calculi. 2. Findings suspicious for developing stercoral colitis. No perirectal inflammatory stranding. Electronically Signed: Blake Saavedra MD at 17:36 EDT , Physical Exam Const no apparent distress General Appearance: cooperative and ill appearing; Negative for combative or lethargic Orientation / Consciousness: awake Exam Limitations: altered mental status HEENT Head and Scalp: normocephalic and atraumatic Eyes EOMs intact bilaterally General Eye: normal appearance of both eyes Neck full ROM General: trachea midline Resp normal respiratory effort and no use of accessory muscles Effort and Inspection: Negative for labored, stridor or audible wheezes Cardio regular rate and regular rhythm Back/Spine Cervical Spine: cervical ROM normal Extremity General Extremity: edema Skin no rashes or lesions noted and no wounds Neuro oriented x3, CN's II-XII intact bilaterally, no focal motor deficits and no sensory deficits noted Assessment & Plan Assessment/Plan (1) History of pulmonary embolism: PLAN: -hgb essentially stable -cont heparin, ok to hold for any procedures -no plan for filter at this time -will follow Charges/Coding Visit Charges Inpatient E&M: 97635 Subs Hosp L2
--- NOTE | 2022-11-09 16:37 | PCM.PROGNOTE ---
Subjective Subjective Patient says that she feels about the same she still having intermittent fevers. Her abdominal pain is a little better and regarding the intensity. This is the same location in the left lower quadrant and suprapubic region. Objective Data Objective Data Vital Signs: Vital Signs Temp Pulse Resp BP Pulse Ox O2 Del Method O2 Flow Rate 100.0 F H 70 22 H 101/51 L 99 Nasal Cannula 3 11/09/22 16:00 11/09/22 16:00 11/09/22 16:00 11/09/22 16:00 11/09/22 16:00 11/09/22 16:07 11/09/22 16:07 Oxygen Flow Rate (L/min) 3 Oxygen Delivery Method Nasal Cannula Weight: 281 lb 12.012 oz Body Mass Index (BMI) 48.3 Intake & Output: Intake and Output for Last 24 Hours 11/07/22 11/08/22 11/09/22 23:59 23:59 23:59 Intake Total 110 / 110 2624.60 / 3174.00 3101.41 / 3101.41 Output Total 900 / 1125 850 / 850 Balance 110 / 110 1724.60 / 2049.00 2251.41 / 2251.41 Lab / Micro Data Result Diagrams: 11/09/22 03:30 11/09/22 03:30 Labs: Laboratory Results - last 24 hr 11/08/22 04:15: Diff Path Review Reviewed 11/08/22 16:40: Urine Color Yellow, Urine Clarity Turbid, Urine pH 5.0, Ur Specific [place] 1.020, Urine Protein 100 H, Urine Glucose (UA) Normal, Urine Ketones Negative, Urine Occult Blood 250 H, Urine Nitrite Negative, Urine Bilirubin 1 H, Urine Urobilinogen 1 H, Ur Leukocyte Esterase 500 H, Urine RBC 0 SEEN, Urine WBC >100 SEEN, Ur Squamous Epith Cells 0 SEEN, Urine Bacteria 0 SEEN, Urine Mucus 0 SEEN 11/08/22 19:05: APTT 109.1 H* 11/08/22 19:05: Lactic Acid 1.3 11/08/22 23:29: Hgb 8.4 L, Hct 26.4 L 11/09/22 03:30: APTT 92.8 H* 11/09/22 03:30: WBC 8.8, RBC 2.94 L, Hgb 8.5 L, Hct 28.7 L, MCV 97.6, MCH 28.9, MCHC 29.6 L, RDW Std Deviation 54.8 H, RDW Coeff of Gareth 15.4 H, Plt Count 171, MPV 10.6, Immature Gran % (Auto) 0.800, Neut % (Auto) 86.1 H, Lymph % (Auto) 8.3 L, [place] % (Auto) 4.2, Eos % (Auto) 0.3, Baso % (Auto) 0.3, Absolute Neuts (auto) 7.6, Absolute Lymphs (auto) 0.73 L, Nucleated RBC % 0 11/09/22 03:30: Sodium 136, Potassium 5.0, Chloride 107, Carbon Dioxide 25.0, Anion Gap 4 L, BUN 32 H, Creatinine 1.41 H, Estim Creat Clear Calc 29.31, Est GFR (MDRD) Af Amer 47 L, Est GFR (MDRD) Non-Af 39 L, BUN/Creatinine Ratio 22.7 H, Glucose 140 H, Calcium 8.1 L, Total Bilirubin 1.20 H, AST 41 H, ALT 19, Alkaline Phosphatase 95, Total Protein 6.0 L, Albumin 2.0 L, Globulin 4.0, Albumin/Globulin Ratio 0.5 L 11/09/22 12:10: APTT 69.2 H Micro: Microbiology 11/08/22 10:45 Urine Catheter - Catheter Urine Culture - Preliminary GNR lactose director of anesthesia services 11/08/22 16:40 Mucosa - Nasopharyngeal Influenza Types A,B Direct FA (DANE) - Final 11/08/22 11:00 Blood Culture (Wb) - Left Wrist Blood Culture - Preliminary 11/08/22 10:45 Blood Culture (Wb) - Left Forearm Blood Culture - Preliminary 11/07/22 17:28 Stool Stool Occult Blood (DANE) - Final Occult Blood Positive Radiography Diagnostic Testing: Radiology Impression Abdomen/Pelvis CT 11/08/22 17:05 IMPRESSION: 1. Large obstructing calculus burden in the proximal left ureter with moderate hydronephrosis and delayed left nephrogram. Multiple other left renal collecting system calculi. 2. Findings suspicious for developing stercoral colitis. No perirectal inflammatory stranding. Electronically Signed: Blake Saavedra MD at 17:36 EDT , Physical Exam Const no apparent distress General Appearance: cooperative and ill appearing; Negative for combative or lethargic Orientation / Consciousness: awake Exam Limitations: altered mental status HEENT Head and Scalp: normocephalic and atraumatic Eyes EOMs intact bilaterally General Eye: normal appearance of both eyes Neck full ROM General: trachea midline Resp normal respiratory effort and no use of accessory muscles Effort and Inspection: Negative for labored, stridor or audible wheezes Cardio regular rate and regular rhythm Back/Spine Cervical Spine: cervical ROM normal Extremity General Extremity: edema Skin no rashes or lesions noted and no wounds Neuro oriented x3, CN's II-XII intact bilaterally, no focal motor deficits and no sensory deficits noted Assessment & Plan Assessment/Plan (1) Rectal bleed: PLAN: She is now on pressors and febrile with positive cultures, left ureteral obstructing stone. Hgb remains stable.CT scan of the abdomen pelvis does show some inflammation in the rectal area. Differential diagnosis would be ischemic proctitis and sigmoiditis, Solitary Rectal Ulcer Syndrome, less likely ulcerative colitis. She is not having any bleeding at this time. Her current issues are sepsis possibly secondary to nephrolithiasis. I do not think it would be safe for her to undergo endoscopic procedure at this time due to sepsis and blood pressure instability secondary to sepsis. Continue to monitor hemoglobin at this time and transfuse 1 unit packed red blood cells for hemoglobin less than 8. Charges/Coding Visit Charges Inpatient E&M: 09790 Subs Hosp L2
[2022-11-09 18:43] LABS: Partial Thromboplast Time 78.2 Seconds (24.1-36.2)
[2022-11-09] MEDS: Vancomycin IV 1,000 MG/200 ML BAG 200 MG IV (19:01)
[2022-11-09] MEDS: HEPARIN/D5w 25,000 UNITS 25,000 UNITS/250 ML IV.SOLN. 9 UNITS CONT INF (20:14)
[2022-11-10] VITALS (67 sets, daily range): BP systolic 81–145; BP diastolic 43–117; PULSE 70–130; RESP 14–38; TEMP 36.9–40; O2SAT 93–100; BMI 49.5
[2022-11-10 05:10] LABS: Absolute Lymphocyte Count 0.74 X10^3/uL (0.83-4.51); Absolute Neutrophil Count 4.5 X10^3/uL (2.0-7.7); Basophil# 0.03 X10^3/uL; Basophil% 0.5 % (0-1); Eosinophil# 0.23 X10^3/uL; Eosinophils% 3.8 % (0-5); Hematocrit 23.3 % (37-47); Hemoglobin 7.1 g/dL (12.0-15.0); Lymphocyte # 0.74 X10^3/ul (0.83-4.51); Lymphocyte % 12.2 % (19-41); Mean Corp Hgb Conc 30.5 g/dL (32-36); Mean Corpuscular Hgb 28.7 pg (27.0-32.0); Mean Corpuscular Volume 94.3 fL (81-99); Mean Platelet Vol. 10.6 fl (6.2-12.0); Monocyte# 0.52 X10^3/uL; Monocyte% 8.6 % (0-10); NRBC Flagged by Analyzer 0 % (0-5); Neutrophil # 4.45 X10^3/uL (2.7-7.7); Neutrophil % 73.6 % (47-70); Platelet Count 141 K/mm3 (150-450); RBC Distribution Width CV 15.5 % (11.6-14.6); RBC Distribution Width SD 53.3 fl (35.1-43.9); Red Blood Count 2.47 M/mm3 (4.2-5.4); White Blood Count 6.1 K/mm3 (4.4-11.0)
[2022-11-10] MEDS: CHLORHEXIDINE GLUC 2% CLOTH 1 EACH TOWELETTE TOPICAL (05:37)
[2022-11-10] MEDS: 0.9% Saline Lock 10 ML Syringe IV (05:37)
[2022-11-10] MEDS: Vancomycin IV 1,000 MG/200 ML BAG 200 MG IV (05:37)
[2022-11-10 05:54] LABS: Partial Thromboplast Time 56.3 Seconds (24.1-36.2)
[2022-11-10 05:57] LABS: Anion Gap 3 (5-15); BUN 25 mg/dL (7-18); BUN/Creat Ratio 25.2 RATIO (10-20); Chloride 111 mmol/L (98-107); Creatinine, Serum 0.99 mg/dL (0.55-1.02); EST Glomerular Filtration Rate 58 mL/min (>60); Est Glom Filt Rate - Afr Amer 70 mL/min (>60); Estimated Creatinine Clearance 41.75 ml/min; Glucose 112 mg/dL (74-106); Sodium Level 140 mmol/L (136-145)
[2022-11-10] MEDS: 0.9% Normal Saline 1,000 ML 100 ML IV ×2 (07:52→20:02)
--- NOTE | 2022-11-10 08:21 | PCM.PN.INT ---
Assessment & Plan Assessment/Plan (1) Septic shock: (2) History of pulmonary embolism: (3) Acute GI bleeding: (4) Morbid obesity: PLAN: Plan RECOMMENDATIONS: 1. Continue empiric antibiotics for now. Discontinue vancomycin 2. Wean pressors as tolerated 3. Await urology intervention once more hemodynamically stable 4. Defer to GI on bowel prep 5. Transfuse for hemoglobin less than 7 given cessation of ongoing bleeding 6. Encourage incentive spirometer. Wean oxygen as tolerated 7. Possible empiric BiPAP therapy with sleep if continues to decompensate IMPRESSIONS: 1. Septic shock secondary to obstructive uropathy with gram-negative organism Improving. Cultures are showing gram-negative rods in the blood. Await final species and sensitivities. Anticipate vancomycin can be discontinued tomorrow. Continue meropenem as patient would be at risk for MDRO. Wean pressors as tolerated. Patient will likely require definitive therapy of stone in the future once more hemodynamically stable. 2. Hematochezia with acute blood loss anemia secondary to stercoral colitis Resolved. Patient was given a bowel regimen overnight. Patient continues to have maroon stools. Continue with serial H&H's. Bleeding appears to be improved from the lower GI. Will transfuse for hemoglobin less than 7. Unclear if patient is going to require a decompressive colonoscopy at some point. Some inflammatory stranding may be secondary to the sepsis in general. GI is following. 3. Acute hypoxic respiratory insufficiency with recent PE and COVID-pneumonia Improving. Patient on 2L nasal cannula. High suspicion for concomitant obstructive sleep apnea. Could use BiPAP overnight with sleep. We will continue to have patient work with PT/OT when more clinically stable. Patient will benefit from outpatient pulmonary function test for quantification clarification of lung function once back to a stable condition. 4. Morbid obesity/generalized debility/hypertension/history of decubitus ulcers/sciatica Complicates care, management, recovery and prognosis. Antihypertensive should be held given problem #1. We will continue with skin care. PT/OT can follow with patient, but anticipate she will need to go back to a intermediate facility for further rehab before going home. TIME: 32 minutes of critical care time spent addressing patient septic shock, obstructive uropathy, acute blood loss anemia, hypoxia, review of all data and collaboration with care team Subjective Subjective Patient continues to improve. Patient is on a heparin and Levophed drip. Oxygenation has done well. Patient did have significant fever yesterday, but cooling blanket was able to be discontinued overnight. Patient reportedly has had bowel movements, but no blood reported. Objective Data Objective Data Vital Signs: Vital Signs Temp Pulse Resp BP Pulse Ox O2 Del Method O2 Flow Rate 37.3 C 86 25 H 127/55 H 100 Nasal Cannula 2 11/10/22 06:00 11/10/22 07:00 11/10/22 07:00 11/10/22 07:00 11/10/22 07:00 11/10/22 07:00 11/10/22 07:00 FiO2 40 11/10/22 06:00 Oxygen Flow Rate (L/min) 2 Oxygen Delivery Method Nasal Cannula Weight: 130.8 kg Body Mass Index (BMI) 49.5 Intake & Output: Intake and Output for Last 24 Hours 11/08/22 11/09/22 11/10/22 23:59 23:59 23:59 Intake Total 2624.60 / 3174.00 4262.37 / 4281.17 1516.76 / 1516.76 Output Total 900 / 1125 1200 / 1500 700 / 700 Balance 1724.60 / 2049.00 3062.37 / 2781.17 816.76 / 816.76 Lab / Micro Data Attestation: I reviewed the patient's lab results. Result Diagrams: 11/10/22 04:58 11/10/22 04:58 Labs: Laboratory Results - last 24 hr 11/08/22 04:15: Diff Path Review Reviewed 11/09/22 12:10: APTT 69.2 H 11/09/22 18:20: APTT 78.2 H 11/10/22 04:58: APTT 56.3 H 11/10/22 04:58: WBC 6.1, RBC 2.47 L, Hgb 7.1 L, Hct 23.3 L, MCV 94.3, MCH 28.7, MCHC 30.5 L, RDW Std Deviation 53.3 H, RDW Coeff of Gareth 15.5 H, Plt Count 141 L, MPV 10.6, Immature Gran % (Auto) 1.300 H, Neut % (Auto) 73.6 H, Lymph % (Auto) 12.2 L, [place] % (Auto) 8.6, Eos % (Auto) 3.8, Baso % (Auto) 0.5, Absolute Neuts (auto) 4.5, Absolute Lymphs (auto) 0.74 L, Nucleated RBC % 0 11/10/22 04:58: Sodium 140, Potassium 4.0, Chloride 111 H, Carbon Dioxide 26.0, Anion Gap 3 L, BUN 25 H, Creatinine 0.99, Estim Creat Clear Calc 41.75, Est GFR (MDRD) Af Amer 70, Est GFR (MDRD) Non-Af 58 L, BUN/Creatinine Ratio 25.2 H, Glucose 112 H, Calcium 8.0 L Micro: Microbiology 11/08/22 10:45 Urine Catheter - Catheter Urine Culture - Preliminary GNR lactose anesthesiology technologist 11/08/22 16:40 Mucosa - Nasopharyngeal Influenza Types A,B Direct FA (DANE) - Final 11/08/22 11:00 Blood Culture (Wb) - Left Wrist Blood Culture - Preliminary 11/08/22 10:45 Blood Culture (Wb) - Left Forearm Blood Culture - Preliminary 11/07/22 17:28 Stool Stool Occult Blood (DANE) - Final Occult Blood Positive Physical Exam Const alert and oriented x3 Constitutional Narrative: Appears tired. Morbidly obese. No longer on cooling blanket HEENT normocephalic and head/scalp atraumatic Eyes PERRL, EOMs intact bilaterally and conjunctivae normal Neck no lymphadenopathy, supple and no JVD General: trachea midline Lymph Lymphatic: no lymphadenopathy noted Resp normal respiratory effort Resp Narrative: Fair effort Auscultation: diminished lung sounds; Negative for rales, rhonchi or wheezes Cardio regular rate, regular rhythm, S1 normal heart sound, S2 normal heart sound, no murmurs, no rub and no gallops GI soft to palpation and non-distended Palpation: tender epigastric Percussion: Negative for fluid wave Extremity Extremity Narrative: Slightly reduced lower extremity capillary refill General Extremity: edema Skin no rashes or lesions noted Neuro CN's II-XII intact bilaterally Speech: speech normal Motor Exam: general weakness Psych cooperative Appearance: appropriate Mood & Affect: flat affect Charges/Coding Procedures Hospitalists Procedures: 66232 Critial Care 1st Hr
[2022-11-10] MEDS: Menthol/Lanolin/Calamine/Znox 113 GM Tube 1 APPLIC TOPICAL ×2 (10:52→21:19)
--- NOTE | 2022-11-10 11:23 | CASEMGMT ---
Addendum entered by Liyah Terrell 11/10/22 11:27: Social Work SW received a call back from Eva at [facility]. Pt is still skilled at [facility] but has been there longer than 30 days. She did not know how pt was moving, she gave SW number to call PT. SW called PT at [facility]([phone]), message left. SIMON Eddy Original Note: Social Work SW sent updates in [facility] to [facility], letting them know that pt will not be ready for discharge until early next week. As per [facility]'s response yesterday in [facility], they did not think pt was ready for discharge yet and would not be able to take her back until she was more stable. SW also called to inquire if pt is skilled or intermediate there, short vs jail, and how she was getting around prior to coming here. Message left. JOSÉ MIGUEL will continue to follow. SIMON Eddy
--- NOTE | 2022-11-10 13:02 | PCM.PROGNOTE ---
Objective Data Objective Data Vital Signs: Vital Signs Temp Pulse Resp BP Pulse Ox O2 Del Method O2 Flow Rate 99.3 F H 77 20 H 101/49 L 99 Nasal Cannula 2 11/10/22 12:25 11/10/22 12:25 11/10/22 12:25 11/10/22 12:25 11/10/22 12:25 11/10/22 12:25 11/10/22 12:25 FiO2 40 11/10/22 06:00 Oxygen Flow Rate (L/min) 2 Oxygen Delivery Method Nasal Cannula Weight: 288 lb 5.834 oz Body Mass Index (BMI) 49.5 Intake & Output: Intake and Output for Last 24 Hours 11/08/22 11/09/22 11/10/22 23:59 23:59 23:59 Intake Total 2624.60 / 3174.00 4262.37 / 4281.17 2219.01 / 2219.01 Output Total 900 / 1125 1200 / 1500 1000 / 1000 Balance 1724.60 / 2049.00 3062.37 / 2781.17 1219.01 / 1219.01 Lab / Micro Data Result Diagrams: 11/10/22 04:58 11/10/22 04:58 Labs: Laboratory Results - last 24 hr 11/07/22 17:22: Crossmatch See Detail 11/09/22 18:20: APTT 78.2 H 11/10/22 04:58: APTT 56.3 H 11/10/22 04:58: WBC 6.1, RBC 2.47 L, Hgb 7.1 L, Hct 23.3 L, MCV 94.3, MCH 28.7, MCHC 30.5 L, RDW Std Deviation 53.3 H, RDW Coeff of Gareth 15.5 H, Plt Count 141 L, MPV 10.6, Immature Gran % (Auto) 1.300 H, Neut % (Auto) 73.6 H, Lymph % (Auto) 12.2 L, [place] % (Auto) 8.6, Eos % (Auto) 3.8, Baso % (Auto) 0.5, Absolute Neuts (auto) 4.5, Absolute Lymphs (auto) 0.74 L, Nucleated RBC % 0 11/10/22 04:58: Sodium 140, Potassium 4.0, Chloride 111 H, Carbon Dioxide 26.0, Anion Gap 3 L, BUN 25 H, Creatinine 0.99, Estim Creat Clear Calc 41.75, Est GFR (MDRD) Af Amer 70, Est GFR (MDRD) Non-Af 58 L, BUN/Creatinine Ratio 25.2 H, Glucose 112 H, Calcium 8.0 L Micro: Microbiology 11/08/22 10:45 Urine Catheter - Catheter Urine Culture - Final Escherichia coli 11/08/22 10:45 Blood Culture (Wb) - Left Forearm Blood Culture - Preliminary GNR lactose vaccine specialist 11/08/22 11:00 Blood Culture (Wb) - Left Wrist Blood Culture - Preliminary GNR lactose vaccine specialist 11/08/22 16:40 Mucosa - Nasopharyngeal Influenza Types A,B Direct FA (DANE) - Final 11/07/22 17:28 Stool Stool Occult Blood (DANE) - Final Occult Blood Positive Assessment & Plan Assessment/Plan (1) Rectal bleed: PLAN: She is now on pressors and febrile with positive cultures, left ureteral obstructing stone. Hgb remains stable.CT scan of the abdomen pelvis does show some inflammation in the rectal area. Differential diagnosis would be ischemic proctitis and sigmoiditis, Solitary Rectal Ulcer Syndrome, less likely ulcerative colitis. She is not having any bleeding at this time. Her current issues are sepsis possibly secondary to nephrolithiasis. I do not think it would be safe for her to undergo endoscopic procedure at this time due to sepsis and blood pressure instability secondary to sepsis. Continue to monitor hemoglobin at this time and transfuse 1 unit packed red blood cells for hemoglobin less than 8. She is currently being followed by nephrology, likely due to infection. Charges/Coding Visit Charges Inpatient E&M: 13708 Subs Hosp L2
--- NOTE | 2022-11-10 17:55 | PCM.CONS.U ---
Assessment & Plan Assessment/Plan (1) Septic shock: (2) Nephrolithiasis: PLAN: Plan to proceed with cystoscopy and left stent placement in the morning HPI Consult Data Date of Consult: 11/10/22 HPI Narrative Reason for Consultation: Obstructing left ureteral calculus HPI Narrative: BONNIE VELASQUEZ, is a 77 F with multiple medical problems she was in the intensive care unit with sepsis for sepsis is improving so I plan to take her to surgery for a cystoscopy and left stent placement now that she is more clinically stable. [facility] Medical History (Updated 11/09/22 @ 08:[address] Dustin Riggs MD) Acute kidney injury Chronic acquired lymphedema Elevated d-dimer Elevated troponin GERD (gastroesophageal reflux disease) H/O renal calculi Headache, migraine Hiatal hernia Hypertension Hypokalemia Memory deficit Morbid obesity Respiratory failure Sepsis Septic shock Severe acute respiratory syndrome coronavirus 2 (SARS-CoV-2) detected UTI (urinary tract infection) Venous insufficiency of both lower extremities Home Medications nystatin 100,000 unit/gram topical powder (Nyamyc) 1 applic topical BID #0 grams 10/24/22 [Rx Last Taken 11/07/22] acetaminophen 500 mg tablet (Acetaminophen Extra Strength) 500 mg PO TID PAIN 11/07/22 [History Last Taken 11/07/22] apixaban 5 mg tablet (Eliquis) 10 mg PO BID BLOOD THINNER 11/07/22 [History Last Taken 11/07/22] aspirin 81 mg chewable tablet 81 mg PO BREAKFAST HEART HEALTH 11/07/22 [History Last Taken 11/07/22] ferrous sulfate 325 mg (65 mg iron) tablet 325 mg PO QHS SUPPLEMENT 11/07/22 [History Last Taken Unknown] sennosides 8.6 mg-docusate sodium 50 mg capsule (Senna Plus) 1 tab-cap PO BID STOOL 11/07/22 [History Last Taken 11/07/22] zinc oxide 20 % topical ointment 1 applic topical BID 11/07/22 [History Last Taken 11/07/22] Allergy/AdvReac Type Severity Reaction Status Date / Time codeine Allergy Hives Verified 11/07/22 16:50 Penicillins Allergy Hives Verified 11/07/22 16:50 Family History Mother Myocardial infarction CAD (coronary artery disease) Hypertension Heart disease Father Bladder cancer Sister Diabetes Surgical History History of hysterectomy History of knee replacement History of umbilical hernia repair Social History household members: spouse Smoking Status: Never smoker alcohol intake: never substance use type: does not use what type of physical activity do you participate in: none Lab / Micro Data Result Diagrams: 11/10/22 04:58 11/10/22 04:58 Labs: Laboratory Results - last 24 hr 11/07/22 17:22: Crossmatch See Detail 11/09/22 18:20: APTT 78.2 H 11/10/22 04:58: APTT 56.3 H 11/10/22 04:58: WBC 6.1, RBC 2.47 L, Hgb 7.1 L, Hct 23.3 L, MCV 94.3, MCH 28.7, MCHC 30.5 L, RDW Std Deviation 53.3 H, RDW Coeff of Gareth 15.5 H, Plt Count 141 L, MPV 10.6, Immature Gran % (Auto) 1.300 H, Neut % (Auto) 73.6 H, Lymph % (Auto) 12.2 L, [place] % (Auto) 8.6, Eos % (Auto) 3.8, Baso % (Auto) 0.5, Absolute Neuts (auto) 4.5, Absolute Lymphs (auto) 0.74 L, Nucleated RBC % 0 11/10/22 04:58: Sodium 140, Potassium 4.0, Chloride 111 H, Carbon Dioxide 26.0, Anion Gap 3 L, BUN 25 H, Creatinine 0.99, Estim Creat Clear Calc 41.75, Est GFR (MDRD) Af Amer 70, Est GFR (MDRD) Non-Af 58 L, BUN/Creatinine Ratio 25.2 H, Glucose 112 H, Calcium 8.0 L Micro: Microbiology 11/08/22 10:45 Urine Catheter - Catheter Urine Culture - Final Escherichia coli 11/08/22 10:45 Blood Culture (Wb) - Left Forearm Blood Culture - Preliminary GNR lactose senior benefits specialist 11/08/22 11:00 Blood Culture (Wb) - Left Wrist Blood Culture - Preliminary GNR lactose senior benefits specialist
--- NOTE | 2022-11-10 19:40 | PCM.PN.HOSP ---
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 coli which is pansensitive, her blood culture was positive for gram-negative lactose faculty support coordinator. I talked briefly with critical care and urology about her care today, urology is going to put a stent in her left ureter tomorrow. Patient was given 1 unit of packed red blood cells today. Objective Data Objective Data Vital Signs: Vital Signs Temp Pulse Resp BP Pulse Ox O2 Del Method O2 Flow Rate 100.4 F H 93 24 H 113/60 97 Nasal Cannula 2 11/10/22 19:00 11/10/22 19:00 11/10/22 19:00 11/10/22 19:00 11/10/22 19:00 11/10/22 19:00 11/10/22 19:00 FiO2 40 11/10/22 06:00 Oxygen Flow Rate (L/min) 2 Oxygen Delivery Method Nasal Cannula Weight: 130.8 kg Body Mass Index (BMI) 49.5 Intake & Output: Intake and Output for Last 24 Hours 11/08/22 11/09/22 11/10/22 23:59 23:59 23:59 Intake Total 2624.60 / 3174.00 4262.37 / 4281.17 2805.71 / 2805.71 Output Total 900 / 1125 1200 / 1500 1325 / 1325 Balance 1724.60 / 2049.00 3062.37 / 2781.17 1480.71 / 1480.71 Lab / Micro Data Result Diagrams: 11/11/22 04:00 11/11/22 04:00 Labs: Laboratory Results - last 24 hr 04/11/23 17:22: Crossmatch See Detail 11/10/22 04:58: APTT 56.3 H 11/10/22 04:58: WBC 6.1, RBC 2.47 L, Hgb 7.1 L, Hct 23.3 L, MCV 94.3, MCH 28.7, MCHC 30.5 L, RDW Std Deviation 53.3 H, RDW Coeff of Gareth 15.5 H, Plt Count 141 L, MPV 10.6, Immature Gran % (Auto) 1.300 H, Neut % (Auto) 73.6 H, Lymph % (Auto) 12.2 L, [place] % (Auto) 8.6, Eos % (Auto) 3.8, Baso % (Auto) 0.5, Absolute Neuts (auto) 4.5, Absolute Lymphs (auto) 0.74 L, Nucleated RBC % 0 11/10/22 04:58: Sodium 140, Potassium 4.0, Chloride 111 H, Carbon Dioxide 26.0, Anion Gap 3 L, BUN 25 H, Creatinine 0.99, Estim Creat Clear Calc 41.75, Est GFR (MDRD) Af Amer 70, Est GFR (MDRD) Non-Af 58 L, BUN/Creatinine Ratio 25.2 H, Glucose 112 H, Calcium 8.0 L Micro: Microbiology 11/08/22 10:45 Urine Catheter - Catheter Urine Culture - Final Escherichia coli 11/08/22 10:45 Blood Culture (Wb) - Left Forearm Blood Culture - Preliminary GNR lactose faculty support coordinator 11/08/22 11:00 Blood Culture (Wb) - Left Wrist Blood Culture - Preliminary GNR lactose faculty support coordinator 11/08/22 16:40 Mucosa - Nasopharyngeal Influenza Types A,B Direct FA (DANE) - Final 11/07/22 17:28 Stool Stool Occult Blood (DANE) - Final Occult Blood Positive Physical Exam Narrative alert, oriented x3, she appears comfortable at this time Constitutional Narrative: Patient appears to be mildly somnolent, she does awaken to questions and appropriately responsive to them.? General Appearance: cooperative, well kempt and well developed Orientation / Consciousness: awake, oriented to person, oriented to place and oriented to time HEENT normocephalic and moist oral mucous membranes Eyes PERRL, EOMs intact bilaterally and conjunctivae normal Neck supple, no JVD, thyroid normal and no carotid bruits General: trachea midline Resp normal respiratory effort, no retractions, no use of accessory muscles and clear to auscultation bilaterally Auscultation: Negative for rales, rhonchi or wheezes Cardio regular rate, regular rhythm, S1 normal heart sound, S2 normal heart sound, no murmurs, no rub and no gallops GI normal to inspection, nondistended, normoactive bowel sounds, soft to palpation, non-tender and non-distended Extremity no clubbing, cyanosis or edema Skin no rashes or lesions noted General Skin Exam: no breakdown Neuro oriented x3, CN's II-XII intact bilaterally, moves all extremities, no focal motor deficits and no sensory deficits noted Sensorium / Orientation: awake, oriented to person and oriented to place Speech: speech normal Psych affect normal Assessment & Plan Assessment/Plan (1) Septic shock: (2) Rectal bleed: PLAN: Plan 1. Septic shock secondary to left obstructive uropathy and pyelonephritis-Gram negative bacteremia-await culture results, patient remains on meropenem at this time, she is on pressors at this time, patient was seen by urology, she will probably undergo lithotripsy and stent placement on 11/11/2022. Pulmonary medicine is participating in her care. Patient's vancomycin was stopped. #2 Hematochezia-etiology unclear at this point, patient was given 1 unit of packed red blood cells #3 recent pulmonary embolism September 2022-patient is on IV heparin #4 morbid obesity-complicates care, medical course, recovery, and prognosis #5 generalized debility secondary to recent hospitalization for septic shock and COVID-19-PT and OT will see the patient, she will [facility], she is not quite ready to go home at this time. #6 essential hypertension-patient will remain on her present medication #7 leukopenia-probably secondary to acute infection, CBC will be monitored #8 hypoxia-etiology unclear, patient is currently on 4 L via nasal cannula Total clinical time spent by myself addressing the patient's medical issues, reviewing all of her data, and collaborating with patient's care team: 38 minutes Charges/Coding Visit Charges Inpatient E&M: 11288 Subs Hosp L2
[2022-11-10] MEDS: Acetaminophen 325 MG Tablet 650 MG PO (20:11)
[2022-11-11] VITALS (52 sets, daily range): BP systolic 88–143; BP diastolic 45–96; PULSE 72–115; RESP 15–32; TEMP 36.6–39.7; O2SAT 16–100; BMI 50.8
[2022-11-11 04:09] LABS: Absolute Neutrophil Count 5.1 X10^3/uL (2.0-7.7); Basophil# 0.02 X10^3/uL; Basophil% 0.3 % (0-1); Eosinophil# 0.03 X10^3/uL; Eosinophils% 0.5 % (0-5); Hematocrit 24.8 % (37-47); Hemoglobin 7.5 g/dL (12.0-15.0); Lymphocyte % 5.1 % (19-41); Mean Corp Hgb Conc 30.2 g/dL (32-36); Mean Corpuscular Hgb 28.3 pg (27.0-32.0); Mean Corpuscular Volume 93.6 fL (81-99); Mean Platelet Vol. 10.6 fl (6.2-12.0); Monocyte# 0.43 X10^3/uL; Monocyte% 7.3 % (0-10); NRBC Flagged by Analyzer 0 % (0-5); Neutrophil # 5.05 X10^3/uL (2.7-7.7); Neutrophil % 85.4 % (47-70); POSITIVE DIFFERENTIAL YES; POSITIVE MORPHOLOGY YES; Platelet Count 138 K/mm3 (150-450); RBC Distribution Width CV 15.4 % (11.6-14.6); Red Blood Count 2.65 M/mm3 (4.2-5.4); White Blood Count 5.9 K/mm3 (4.4-11.0)
[2022-11-11 04:11] LABS: Differential Indicated SCAN CRITERIA MET
[2022-11-11 04:18] LABS: Differential Comment SCANNED
[2022-11-11 04:19] LABS: Partial Thromboplast Time 34.7 Seconds (24.1-36.2)
[2022-11-11 04:22] LABS: Anion Gap 2 (5-15); BUN 22 mg/dL (7-18); BUN/Creat Ratio 22.9 RATIO (10-20); Chloride 112 mmol/L (98-107); Creatinine, Serum 0.96 mg/dL (0.55-1.02); EST Glomerular Filtration Rate 60 mL/min (>60); Est Glom Filt Rate - Afr Amer 73 mL/min (>60); Estimated Creatinine Clearance 43.05 ml/min; Glucose 112 mg/dL (74-106); Potassium 3.9 mmol/L (3.5-5.1); Sodium Level 140 mmol/L (136-145)
[2022-11-11] MEDS: 0.9% Saline Lock 10 ML Syringe IV ×3 (05:09→20:29)
[2022-11-11] MEDS: Acetaminophen 325 MG Tablet 650 MG PO ×2 (05:11→20:28)
[2022-11-11] MEDS: 0.9% Normal Saline 1,000 ML 100 ML IV (05:12)
--- NOTE | 2022-11-11 06:50 | PN.CC_ITS ---
Assessment & Plan Assessment/Plan (1) Septic shock: (2) History of pulmonary embolism: (3) Acute GI bleeding: (4) Morbid obesity: PLAN: Plan RECOMMENDATIONS: 1. Continue broad-spectrum antibiotics pending repeat cultures 2. Wean pressors as tolerated 3. Okay to proceed with urologic stent from my perspective 4. Defer to GI on bowel prep 5. Transfuse for hemoglobin less than 7 given cessation of ongoing bleeding 6. Encourage incentive spirometer. Wean oxygen as tolerated 7. Possible empiric BiPAP therapy with sleep if continues to decompensate IMPRESSIONS: 1. Septic shock secondary to obstructive uropathy with gram-negative organism Improving. Initial cultures showed pansensitive E. coli in the blood. However, given issues overnight we will continue with broad-spectrum gram- negative coverage for now. Continue meropenem as patient would be at risk for MDRO. Wean pressors as tolerated. Okay to proceed with stent from a critical care perspective. Plenty of room on pressors if necessary. Patient will likely require definitive therapy of stone in the future once more hemodynamically stable. 2. Hematochezia with acute blood loss anemia secondary to stercoral colitis Resolved. Patient was given a bowel regimen overnight. Patient continues to have intermittent maroon stools. Continue with serial H&H's. Bleeding appears to be improved from the lower GI. Will transfuse for hemoglobin less than 7. Unclear if patient is going to require a decompressive colonoscopy at some point. Some inflammatory stranding may be secondary to the sepsis in general. GI is following. 3. Acute hypoxic respiratory insufficiency with recent PE and COVID- pneumonia Improving. Patient on 2L nasal cannula. High suspicion for concomitant obstructive sleep apnea. Could use BiPAP overnight with sleep. We will continue to have patient work with PT/OT when more clinically stable. Patient will benefit from outpatient pulmonary function test for quantification clarification of lung function once back to a stable condition. 4. Morbid obesity/generalized debility/hypertension/history of decubitus ulcers/sciatica Complicates care, management, recovery and prognosis. Antihypertensive should be held given problem #1. We will continue with skin care. PT/OT can follow with patient, but anticipate she will need to [facility] for [facility] before going home. TIME: 32 minutes of critical care time spent addressing patient septic shock, obstructive uropathy, acute blood loss anemia, hypoxia, review of all data and collaboration with care team Subjective Subjective Overnight events were reviewed in detail with the nurses. Patient reportedly started to have chills and then rapidly developed a fever above 103 ?F. Patient's respiratory status did not change, but pressors had to be reinitiated. Patient was taken off of heparin overnight for a planned stent by urology today. Objective Data Objective Data Vital Signs: Vital Signs Temp Pulse Resp BP Pulse Ox O2 Del Method O2 Flow Rate 38.6 C H 96 22 H 94/51 L 95 Nasal Cannula 4 11/11/22 04:00 11/11/22 05:04 11/11/22 05:04 11/11/22 05:04 11/11/22 05:04 11/11/22 05:04 11/11/22 05:04 FiO2 40 11/10/22 06:00 Oxygen Flow Rate (L/min) 4 Oxygen Delivery Method Nasal Cannula Weight: 134.4 kg Body Mass Index (BMI) 50.8 Intake & Output: Intake and Output for Last 24 Hours 11/09/22 11/10/22 11/11/22 23:59 23:59 23:59 Intake Total 4262.37 / 4281.17 3402.63 / 3404.98 1186.65 / 1186.65 Output Total 1200 / 1500 1525 / 1525 150 / 150 Balance 3062.37 / 2781.17 1877.63 / 1879.98 1036.65 / 1036.65 Lab / Micro Data Attestation: I reviewed the patient's lab results. Result Diagrams: 11/11/22 04:00 11/11/22 04:00 Labs: Laboratory Results - last 24 hr 11/07/22 17:22: Crossmatch See Detail 11/11/22 04:00: APTT 34.7 11/11/22 04:00: WBC 5.9, RBC 2.65 L, Hgb 7.5 L, Hct 24.8 L, MCV 93.6, MCH 28.3, MCHC 30.2 L, RDW Std Deviation 53.0 H, RDW Coeff of Gareth 15.4 H, Plt Count 138 L, MPV 10.6, Immature Gran % (Auto) 1.400 H, Neut % (Auto) 85.4 H, Lymph % (Auto) 5.1 L, [place] % (Auto) 7.3, Eos % (Auto) 0.5, Baso % (Auto) 0.3, Absolute Neuts (auto) 5.1, Absolute Lymphs (auto) 0.30 L, Nucleated RBC % 0, Differential Comment SCANNED 11/11/22 04:00: Sodium 140, Potassium 3.9, Chloride 112 H, Carbon Dioxide 26.0, Anion Gap 2 L, BUN 22 H, Creatinine 0.96, Estim Creat Clear Calc 43.05, Est GFR (MDRD) Af Amer 73, Est GFR (MDRD) Non-Af 60, BUN/Creatinine Ratio 22.9 H, Glucose 112 H, Calcium 8.0 L Micro: Microbiology 11/08/22 10:45 Blood Culture (Wb) - Left Forearm Blood Culture - Final GNR lactose 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 Morbidly obese. Back on cooling blanket HEENT normocephalic and head/scalp atraumatic Eyes PERRL, EOMs intact bilaterally and conjunctivae normal Neck no lymphadenopathy, supple and no JVD General: trachea midline Lymph Lymphatic: no lymphadenopathy noted Resp normal respiratory effort Resp Narrative: Fair effort Auscultation: diminished lung sounds; Negative for rales, rhonchi or wheezes Cardio regular rate, regular rhythm, S1 normal heart sound, S2 normal heart sound, no murmurs, no rub and no gallops GI soft to palpation, non-tender and non-distended Percussion: Negative for fluid wave Extremity Extremity Narrative: Slightly reduced lower extremity capillary refill General Extremity: edema Skin no rashes or lesions noted Lesions: no lesions Rashes: no rashes Neuro CN's II-XII intact bilaterally Speech: speech normal Motor Exam: strength 5/5 throughout and general weakness Psych thought process normal, cooperative and affect normal Appearance: appropriate Mood & Affect: flat affect Charges/Coding Procedures Hospitalists Procedures: 82634 Critial Care 1st Hr
--- NOTE | 2022-11-11 08:24 | NURSING ---
Patient was taken to Surgery at this time and is now off the floor.
--- NOTE | 2022-11-11 08:56 | PCM.OPRPT ---
Report of Operation Date of Procedure: 11/11/22 Pre-Operative Diagnosis: Obstructing left ureteral calculus with sepsis Post-Operative Diagnosis: The same Description of Surgical Findings:: Patient was taken back to the operating room after induction of general anesthesia, the patient was placed in dorsolithotomy position. The urethra and genitals were prepped and draped in usual sterile fashion. Using a 21 Prydeinig rigid cystourethroscope the entire length of the urethra was normal then went into the bladder. Identified the trigone the left and right ureteral orifice. I then cannulated the left ureteral orifice and advanced a wire up into the kidney. I then backloaded a 5 Prydeinig open ended catheter over the wire and injected contrast to delineate the anatomy. After the retrograde was performed I then used fluoroscopic images and guidance to advanced a wire up into the kidney and over the 0.038 glidewire I advanced a 6 Prydeinig by 26 cm double pigtail stent. I then pulled the 0.038 Glidewire off and the stent coiled in the kidney bladder good position. The bladder was then drained. We confirmed the position of the stent by fluoroscopy. Patient anesthetic was reversed and was taken back to the PACU in good condition. Surgeon: Yair Francois Type of Anesthesia: General Drains: stent Admit VTE Documentation VTE Present on Admission: No VTE Mechan Device Prophylaxis: SCD's VTE Pharm Prophylaxis ordered?: No
[2022-11-11] MEDS: Menthol/Lanolin/Calamine/Znox 113 GM Tube 1 APPLIC TOPICAL ×2 (09:42→20:29)
[2022-11-11] MEDS: HEPARIN/D5w 25,000 UNITS 25,000 UNITS/250 ML IV.SOLN. 9 UNITS CONT INF (13:12)
[2022-11-11] MEDS: 0.9% Normal Saline 1,000 ML 75 ML IV (16:49)
--- NOTE | 2022-11-11 17:10 | PCM.PN.HOSP ---
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 Patient is currently on 2 L of oxygen, she remains on low-dose pressors at this time. I talked briefly with critical care about her care today. Patient underwent a stent placement this morning, her temperature at this time is 99.9. Objective Data Objective Data Vital Signs: Vital Signs Temp Pulse Resp BP Pulse Ox O2 Del Method O2 Flow Rate 99.9 F H 78 21 H 119/52 L 100 Nasal Cannula 2 11/11/22 16:00 11/11/22 17:00 11/11/22 17:00 11/11/22 17:00 11/11/22 17:00 11/11/22 17:00 11/11/22 17:00 FiO2 40 11/10/22 06:00 Oxygen Flow Rate (L/min) 2 Oxygen Delivery Method Nasal Cannula Weight: 134.4 kg Body Mass Index (BMI) 50.8 Intake & Output: Intake and Output for Last 24 Hours 11/09/22 11/10/22 11/11/22 23:59 23:59 23:59 Intake Total 4262.37 / 4281.17 3402.63 / 3404.98 2620.63 / 2620.63 Output Total 1200 / 1500 1525 / 1525 150 / 150 Balance 3062.37 / 2781.17 1877.63 / 1879.98 2470.63 / 2470.63 Lab / Micro Data Result Diagrams: 11/11/22 04:00 11/11/22 04:00 Labs: Laboratory Results - last 24 hr 11/11/22 04:00: APTT 34.7 11/11/22 04:00: WBC 5.9, RBC 2.65 L, Hgb 7.5 L, Hct 24.8 L, MCV 93.6, MCH 28.3, MCHC 30.2 L, RDW Std Deviation 53.0 H, RDW Coeff of Gareth 15.4 H, Plt Count 138 L, MPV 10.6, Immature Gran % (Auto) 1.400 H, Neut % (Auto) 85.4 H, Lymph % (Auto) 5.1 L, [place] % (Auto) 7.3, Eos % (Auto) 0.5, Baso % (Auto) 0.3, Absolute Neuts (auto) 5.1, Absolute Lymphs (auto) 0.30 L, Nucleated RBC % 0, Differential Comment SCANNED 11/11/22 04:00: Sodium 140, Potassium 3.9, Chloride 112 H, Carbon Dioxide 26.0, Anion Gap 2 L, BUN 22 H, Creatinine 0.96, Estim Creat Clear Calc 43.05, Est GFR (MDRD) Af Amer 73, Est GFR (MDRD) Non-Af 60, BUN/Creatinine Ratio 22.9 H, Glucose 112 H, Calcium 8.0 L Micro: Microbiology 11/08/22 10:45 Blood Culture (Wb) - Left Forearm Blood Culture - Final GNR lactose supervisor melt house 11/08/22 11:00 Blood Culture (Wb) - Left Wrist Blood Culture - Final Escherichia coli 11/08/22 10:45 Urine Catheter - Catheter Urine Culture - Final Escherichia coli 11/08/22 16:40 Mucosa - Nasopharyngeal Influenza Types A,B Direct FA (DANE) - Final 11/07/22 17:28 Stool Stool Occult Blood (DANE) - Final Occult Blood Positive Physical Exam Narrative alert, oriented x3, she appears comfortable at this time Constitutional Narrative: Patient appears to be mildly somnolent, she does awaken to questions and appropriately responsive to them.? General Appearance: cooperative, well kempt and well developed Orientation / Consciousness: awake, oriented to person, oriented to place and oriented to time HEENT normocephalic and moist oral mucous membranes Eyes PERRL, EOMs intact bilaterally and conjunctivae normal Neck supple, no JVD, thyroid normal and no carotid bruits General: trachea midline Resp normal respiratory effort, no retractions, no use of accessory muscles and clear to auscultation bilaterally Auscultation: Negative for rales, rhonchi or wheezes Cardio regular rate, regular rhythm, S1 normal heart sound, S2 normal heart sound, no murmurs, no rub and no gallops GI normal to inspection, nondistended, normoactive bowel sounds, soft to palpation, non-tender and non-distended Extremity no clubbing, cyanosis or edema Skin no rashes or lesions noted General Skin Exam: no breakdown Neuro oriented x3, CN's II-XII intact bilaterally, moves all extremities, no focal motor deficits and no sensory deficits noted Sensorium / Orientation: awake, oriented to person and oriented to place Speech: speech normal Psych affect normal Assessment & Plan Assessment/Plan (1) Septic shock: (2) Rectal bleed: PLAN: Plan 1. Septic shock secondary to left obstructive uropathy and pyelonephritis with E. coli, patient remains on meropenem at this time, she is on pressors at this time, patient underwent a stent placement in the left ureter today #2 Hematochezia-etiology unclear at this point, patient will need to undergo a colonoscopy on Sunday, hemoglobin today was 7.5 #3 recent pulmonary embolism September 2022-patient is on IV heparin #4 morbid obesity-complicates care, medical course, recovery, and prognosis #5 generalized debility secondary to recent hospitalization for septic shock and COVID-19-PT and OT will see the patient, [facility] #6 essential hypertension-patient's blood pressure medicines are being held at this time due to hypotension from septic shock #7 leukopenia-resolved at this time #8 hypoxia-etiology unclear, patient is currently on 2 L via nasal cannula Total clinical time spent by myself addressing the patient's medical issues, reviewing all of her data, and collaborating with patient's care team: 38 minutes Charges/Coding Visit Charges Inpatient E&M: 44407 Subs Hosp L2
[2022-11-11 21:08] LABS: Partial Thromboplast Time 46.8 Seconds (24.1-36.2)
[2022-11-11] MEDS: Heparin Injection (Vial) 5,000 UNIT/ML VIAL IV (21:33)
[2022-11-12] VITALS (22 sets, daily range): BP systolic 91–139; BP diastolic 48–70; PULSE 71–92; RESP 13–23; TEMP 36.6–37.3; O2SAT 92–100; BMI 51.3
[2022-11-12 03:57] LABS: Absolute Lymphocyte Count 0.86 X10^3/uL (0.83-4.51); Absolute Neutrophil Count 3.8 X10^3/uL (2.0-7.7); Basophil# 0.02 X10^3/uL; Basophil% 0.4 % (0-1); Eosinophil# 0.25 X10^3/uL; Eosinophils% 4.5 % (0-5); Hematocrit 23.6 % (37-47); Hemoglobin 7.1 g/dL (12.0-15.0); Lymphocyte # 0.86 X10^3/ul (0.83-4.51); Lymphocyte % 15.3 % (19-41); Mean Corp Hgb Conc 30.1 g/dL (32-36); Mean Corpuscular Hgb 28.3 pg (27.0-32.0); Mean Platelet Vol. 9.8 fl (6.2-12.0); Monocyte# 0.56 X10^3/uL; NRBC Flagged by Analyzer 0 % (0-5); Neutrophil # 3.76 X10^3/uL (2.7-7.7); Neutrophil % 66.9 % (47-70); Platelet Count 157 K/mm3 (150-450); RBC Distribution Width CV 15.7 % (11.6-14.6); RBC Distribution Width SD 54.4 fl (35.1-43.9); Red Blood Count 2.51 M/mm3 (4.2-5.4); White Blood Count 5.6 K/mm3 (4.4-11.0)
[2022-11-12 04:11] LABS: Anion Gap 2 (5-15); BUN 18 mg/dL (7-18); BUN/Creat Ratio 25.2 RATIO (10-20); Calcium,Total 7.6 mg/dL (8.5-10.1); Chloride 116 mmol/L (98-107); Creatinine, Serum 0.71 mg/dL (0.55-1.02); EST Glomerular Filtration Rate 85 mL/min (>60); Est Glom Filt Rate - Afr Amer 102 mL/min (>60); Estimated Creatinine Clearance 41.33 ml/min; Glucose 94 mg/dL (74-106); Partial Thromboplast Time 60.8 Seconds (24.1-36.2); Potassium 3.5 mmol/L (3.5-5.1); Sodium Level 142 mmol/L (136-145)
[2022-11-12] MEDS: 0.9% Normal Saline 1,000 ML 75 ML IV ×2 (05:18→19:58)
--- NOTE | 2022-11-12 06:48 | PCM.PN.INT ---
Assessment & Plan Assessment/Plan (1) Septic shock: (2) History of pulmonary embolism: (3) Acute GI bleeding: (4) Morbid obesity: PLAN: Plan RECOMMENDATIONS: 1. Complete 10 days of antibiotics 2. Await results of GI work-up 3. Transfuse 1 unit of packed red blood cells 4. Increase activity as tolerated 5. Continue empiric BiPAP with sleep recommendations. Outpatient sleep study 6. Okay to leave the intensive care unit from my perspective 7. Hemodynamically stable on room air. Will sign off from a critical care perspective IMPRESSIONS: 1. Septic shock secondary to obstructive uropathy with gram-negative organism Improving. Initial cultures showed pansensitive E. coli in the blood. However, given waxing and waning we will continue with broad-spectrum gram-negative coverage for now for total of 10 days. Continue meropenem as patient would be at risk for MDRO. Wean pressors as tolerated. Okay to proceed with stent from a critical care perspective. Plenty of room on pressors if necessary. Patient will likely require definitive therapy of stone in the future once more hemodynamically stable. 2. Hematochezia with acute blood loss anemia secondary to stercoral colitis Improved. Patient reportedly to have a colonoscopy tomorrow. Patient continues to have intermittent maroon stools. Continue with serial H&H's. Given marginal hemoglobin with ongoing maroon stools, will transfuse 1 unit of packed red blood cells. Some inflammatory stranding may be secondary to the sepsis in general. GI is following. 3. Acute hypoxic respiratory insufficiency with recent PE and COVID-pneumonia Improving. Patient on room air. High suspicion for concomitant obstructive sleep apnea. Could use BiPAP overnight with sleep while in the hospital. An outpatient sleep study would be recommended on discharge. We will continue to have patient work with PT/OT when more clinically stable. Patient will benefit from outpatient pulmonary function test for quantification clarification of lung function once back to a stable condition. 4. Morbid obesity/generalized debility/hypertension/history of decubitus ulcers/sciatica Complicates care, management, recovery and prognosis. Antihypertensive should be held given problem #1. We will continue with skin care. PT/OT can follow with patient, but anticipate she will need to go back to a [place] [facility] facility for further rehab before going home. Subjective Subjective Patient did well overnight. Patient had a stent placed yesterday and was able to be taken off of Levophed yesterday following the procedure. Patient did have a maroon stool overnight. Patient reportedly to have a colonoscopy possibly tomorrow. Patient does report generalized body aches, but no obvious pain Objective Data Objective Data Transition to room air during my evaluation Vital Signs: Vital Signs Temp Pulse Resp BP Pulse Ox O2 Del Method O2 Flow Rate 36.8 C 76 18 120/56 L 100 Nasal Cannula 2 11/12/22 00:00 11/12/22 01:00 11/12/22 01:00 11/12/22 01:00 11/12/22 01:00 11/12/22 04:00 11/12/22 04:00 FiO2 40 11/10/22 06:00 Oxygen Flow Rate (L/min) 2 Oxygen Delivery Method Nasal Cannula Weight: 135.7 kg Body Mass Index (BMI) 51.3 Intake & Output: Intake and Output for Last 24 Hours 11/10/22 11/11/22 11/12/22 23:59 23:59 23:59 Intake Total 3402.63 / 3404.98 2695.48 / 2820.48 1250.25 / 1250.25 Output Total 1525 / 1525 450 / 700 600 / 600 Balance 1877.63 / 1879.98 2245.48 / 2120.48 650.25 / 650.25 Lab / Micro Data Attestation: I reviewed the patient's lab results. Result Diagrams: 11/12/22 03:50 11/12/22 03:50 Labs: Laboratory Results - last 24 hr 11/11/22 20:30: APTT 46.8 H 11/12/22 03:50: WBC 5.6, RBC 2.51 L, Hgb 7.1 L, Hct 23.6 L, MCV 94.0, MCH 28.3, MCHC 30.1 L, RDW Std Deviation 54.4 H, RDW Coeff of Gareth 15.7 H, Plt Count 157, MPV 9.8, Immature Gran % (Auto) 2.900 H, Neut % (Auto) 66.9, Lymph % (Auto) 15.3 L, [place] % (Auto) 10.0, Eos % (Auto) 4.5, Baso % (Auto) 0.4, Absolute Neuts (auto) 3.8, Absolute Lymphs (auto) 0.86, Nucleated RBC % 0 11/12/22 03:50: Sodium 142, Potassium 3.5, Chloride 116 H, Carbon Dioxide 24.0, Anion Gap 2 L, BUN 18, Creatinine 0.71, Estim Creat Clear Calc 41.33, Est GFR (MDRD) Af Amer 102, Est GFR (MDRD) Non-Af 85, BUN/Creatinine Ratio 25.2 H, Glucose 94, Calcium 7.6 L 11/12/22 03:50: APTT 60.8 H 11/12/22 06:20: Crossmatch See Detail Micro: Microbiology 11/08/22 10:45 Blood Culture (Wb) - Left Forearm Blood Culture - Final GNR lactose newspaper illustrator 11/08/22 11:00 Blood Culture (Wb) - Left Wrist Blood Culture - Final Escherichia coli 11/08/22 10:45 Urine Catheter - Catheter Urine Culture - Final Escherichia coli 11/08/22 16:40 Mucosa - Nasopharyngeal Influenza Types A,B Direct FA (DANE) - Final 11/07/22 17:28 Stool Stool Occult Blood (DANE) - Final Occult Blood Positive Physical Exam Const alert and oriented x3 Constitutional Narrative: Appears tired. Morbidly obese. Off cooling blanket HEENT normocephalic and head/scalp atraumatic Eyes PERRL, EOMs intact bilaterally and conjunctivae normal Eyes Narrative: Glasses in place Neck no lymphadenopathy, supple and no JVD General: trachea midline Lymph Lymphatic: no lymphadenopathy noted Resp normal respiratory effort Auscultation: diminished lung sounds; Negative for rales, rhonchi or wheezes Cardio regular rate, regular rhythm, S1 normal heart sound, S2 normal heart sound, no murmurs, no rub and no gallops GI soft to palpation, non-tender and non-distended Palpation: tender epigastric Percussion: Negative for fluid wave Extremity Extremity Narrative: Slightly reduced lower extremity capillary refill General Extremity: edema Skin no rashes or lesions noted Lesions: no lesions Rashes: no rashes Neuro CN's II-XII intact bilaterally Speech: speech normal Motor Exam: strength 5/5 throughout and general weakness Psych thought process normal, cooperative and affect normal Appearance: appropriate Mood & Affect: flat affect Charges/Coding Visit Charges Inpatient E&M: 29815 Subs Hosp L2
[2022-11-12] MEDS: Menthol/Lanolin/Calamine/Znox 113 GM Tube 1 APPLIC TOPICAL (11:07)
[2022-11-12 12:33] LABS: Partial Thromboplast Time 49.3 Seconds (24.1-36.2)
[2022-11-12] MEDS: Heparin Injection (Vial) 5,000 UNIT/ML VIAL IV ×2 (13:30→20:47)
[2022-11-12] MEDS: HEPARIN/D5w 25,000 UNITS 25,000 UNITS/250 ML IV.SOLN. 11 UNITS CONT INF (14:16)
--- NOTE | 2022-11-12 19:41 | PN.HOSP_ITS ---
Reason for Visit Reason for Visit: Diagnoses Sepsis, unspecified organism (11/07/22) Anemia, unspecified (11/07/22) Morbid (severe) obesity due to excess calories (11/07/22) Other pulmonary embolism without acute cor pulmonale (11/07/22) Hemorrhage of anus and rectum (11/07/22) Gastrointestinal hemorrhage, unspecified (11/07/22) Calculus of kidney (11/07/22) Severe sepsis with septic shock (11/07/22) salvage determiner (current) use of anticoagulants (11/07/22) Personal history of pulmonary embolism (11/07/22) Personal history of urinary calculi (11/07/22) Subjective Subjective Patient was seen and examined today, her hemoglobin today was 7.1, patient's BMP was unremarkable. Patient is to undergo colonoscopy tomorrow. Objective Data Objective Data Vital Signs: Vital Signs Temp Pulse Resp BP Pulse Ox O2 Del Method O2 Flow Rate 98.2 F 80 16 111/57 L 100 Nasal Cannula 2 11/12/22 15:27 11/12/22 15:27 11/12/22 15:27 11/12/22 15:27 11/12/22 15:27 11/12/22 17:27 11/12/22 17:27 FiO2 40 11/10/22 06:00 Oxygen Flow Rate (L/min) 2 Oxygen Delivery Method Nasal Cannula Weight: 135.7 kg Body Mass Index (BMI) 51.3 Intake & Output: Intake and Output for Last 24 Hours 11/10/22 11/11/22 11/12/22 23:59 23:59 23:59 Intake Total 3402.63 / 3404.98 2695.48 / 2820.48 2299.50 / 2299.50 Output Total 1525 / 1525 450 / 700 1700 / 1700 Balance 1877.63 / 1879.98 2245.48 / 2120.48 599.50 / 599.50 Lab / Micro Data Result Diagrams: 11/12/22 03:50 11/12/22 03:50 Labs: Laboratory Results - last 24 hr 11/11/22 20:30: APTT 46.8 H 11/12/22 03:50: WBC 5.6, RBC 2.51 L, Hgb 7.1 L, Hct 23.6 L, MCV 94.0, MCH 28.3, MCHC 30.1 L, RDW Std Deviation 54.4 H, RDW Coeff of Gareth 15.7 H, Plt Count 157, MPV 9.8, Immature Gran % (Auto) 2.900 H, Neut % (Auto) 66.9, Lymph % (Auto) 15.3 L, [place] % (Auto) 10.0, Eos % (Auto) 4.5, Baso % (Auto) 0.4, Absolute Neuts (auto) 3.8, Absolute Lymphs (auto) 0.86, Nucleated RBC % 0 11/12/22 03:50: Sodium 142, Potassium 3.5, Chloride 116 H, Carbon Dioxide 24.0, Anion Gap 2 L, BUN 18, Creatinine 0.71, Estim Creat Clear Calc 41.33, Est GFR (MDRD) Af Amer 102, Est GFR (MDRD) Non-Af 85, BUN/Creatinine Ratio 25.2 H, Glucose 94, Calcium 7.6 L 11/12/22 03:50: APTT 60.8 H 11/12/22 06:20: Blood Type A POSITIVE, Antibody Screen NEGATIVE, Crossmatch See Detail 11/12/22 12:10: APTT 49.3 H Micro: Microbiology 11/08/22 10:45 Blood Culture (Wb) - Left Forearm Blood Culture - Final GNR lactose auto tire recapper 11/08/22 11:00 Blood Culture (Wb) - Left Wrist Blood Culture - Final Escherichia coli 11/08/22 10:45 Urine Catheter - Catheter Urine Culture - Final Escherichia coli 11/08/22 16:40 Mucosa - Nasopharyngeal Influenza Types A,B Direct FA (DANE) - Final 11/07/22 17:28 Stool Stool Occult Blood (DANE) - Final Occult Blood Positive Physical Exam Narrative alert, oriented x3, she appears comfortable at this time Constitutional Narrative: Patient appears to be mildly somnolent, she does awaken to questions and appropriately responsive to them.? General Appearance: cooperative, well kempt and well developed Orientation / Consciousness: awake, oriented to person, oriented to place and oriented to time HEENT normocephalic and moist oral mucous membranes Eyes PERRL, EOMs intact bilaterally and conjunctivae normal Neck supple, no JVD, thyroid normal and no carotid bruits General: trachea midline Resp normal respiratory effort, no retractions, no use of accessory muscles and clear to auscultation bilaterally Auscultation: Negative for rales, rhonchi or wheezes Cardio regular rate, regular rhythm, S1 normal heart sound, S2 normal heart sound, no murmurs, no rub and no gallops GI normal to inspection, nondistended, normoactive bowel sounds, soft to palpation, non-tender and non-distended Extremity no clubbing, cyanosis or edema Skin no rashes or lesions noted General Skin Exam: no breakdown Neuro oriented x3, CN's II-XII intact bilaterally, moves all extremities, no focal motor deficits and no sensory deficits noted Sensorium / Orientation: awake, oriented to person and oriented to place Speech: speech normal Psych affect normal Assessment & Plan Assessment/Plan (1) Septic shock: (2) Rectal bleed: PLAN: Plan 1. Septic shock secondary to left obstructive uropathy and pyelonephritis with E. coli, patient remains on meropenem at this time, she is not on no pressor agents at this time and will be transferred to PCU for further care. I will reorder a CBC in the morning on the patient #2 Hematochezia-etiology unclear at this point, patient will need to undergo a colonoscopy on Sunday, hemoglobin today was 7.5 #3 recent pulmonary embolism September 2022-patient is on IV heparin, patient will n eed to be placed back on Eliquis when she goes back to the skilled care facility #4 morbid obesity-complicates care, medical course, recovery, and prognosis #5 generalized debility secondary to recent hospitalization for recent septic shock and COVID-19-PT and OT will see the patient, she will need to return to group home facility for further rehab services #6 essential hypertension-patient's blood pressure medicines are being held at this time due to hypotension from septic shock #7 leukopenia-resolved at this time #8 hypoxia-etiology unclear, patient is currently on 2 L via nasal cannula #9 acute blood loss anemia-requiring blood transfusion, secondary to lower GI bleed, CBC will be repeated tomorrow morning, she will more than likely need a blood transfusion tomorrow if it drops to 7 or below. Total clinical time spent by myself addressing the patient's medical issues, rev iewing all of her data, and collaborating with patient's care team: 37 minutes Charges/Coding Visit Charges Inpatient E&M: 12658 Subs Hosp L2
[2022-11-12 20:14] LABS: Partial Thromboplast Time 50.3 Seconds (24.1-36.2)
[2022-11-12] MEDS: Electrolyte Solution/Peg's 4000 ML 2000 ML PO (20:47)
[2022-11-13] VITALS (16 sets, daily range): BP systolic 110–151; BP diastolic 55–87; PULSE 72–88; RESP 16–20; TEMP 36.3–36.9; O2SAT 92–100; BMI 52.2
[2022-11-13 02:55] LABS: Hemoglobin 8.6 g/dL (12.0-15.0); Mean Corp Hgb Conc 30.7 g/dL (32-36); Mean Corpuscular Hgb 28.3 pg (27.0-32.0); Mean Corpuscular Volume 92.1 fL (81-99); Mean Platelet Vol. 9.9 fl (6.2-12.0); POSITIVE COUNT YES; POSITIVE MORPHOLOGY YES; Platelet Count 205 K/mm3 (150-450); RBC Distribution Width CV 15.9 % (11.6-14.6); RBC Distribution Width SD 53.6 fl (35.1-43.9); Red Blood Count 3.04 M/mm3 (4.2-5.4); White Blood Count 5.9 K/mm3 (4.4-11.0)
[2022-11-13 03:20] LABS: Differential Indicated MANUAL DIFF
[2022-11-13 03:23] LABS: Partial Thromboplast Time 65.4 Seconds (24.1-36.2)
[2022-11-13 04:02] LABS: Anisocytosis 1+; Platelet Estimate ADEQUATE (ADEQ); Red Cell Morphology NORM C+C NORMAL (NORM C&C)
[2022-11-13 04:07] LABS: Absolute Lymphocyte Count 1.18 X10^3/uL (0.83-4.51); Eosinophil 2 % (0-5); Lymphocyte 20 % (19-41); Monocyte 8 % (0-10); Myelocyte 2 % (0-0); Neutrophil-Segmented 68 % (47-70); Total Cells Counted 100 (MANUAL DIFF)
[2022-11-13 04:20] LABS: ALB/GLOB Ratio 0.5 RATIO (0.9-2.4); AST(SGOT) 21 U/L (15-37); Alanine Aminotransfer ALT/SGPT 15 U/L (13-56); Albumin, Serum 1.8 g/dL (3.2-5.0); Alkaline Phosphatase 84 U/L (45-117); Anion Gap 0 (5-15); BUN 15 mg/dL (7-18); BUN/Creat Ratio 21.4 RATIO (10-20); Calcium,Total 8.3 mg/dL (8.5-10.1); Chloride 117 mmol/L (98-107); EST Glomerular Filtration Rate 86 mL/min (>60); Est Glom Filt Rate - Afr Amer 104 mL/min (>60); Estimated Creatinine Clearance 41.33 ml/min; Globulin 3.4 g/dL (2.2-4.2); Glucose 98 mg/dL (74-106); Potassium 3.8 mmol/L (3.5-5.1); Protein, Total 5.2 g/dL (6.4-8.2); Sodium Level 144 mmol/L (136-145)
[2022-11-13 09:14] LABS: Partial Thromboplast Time 51.3 Seconds (24.1-36.2)
[2022-11-13] MEDS: 0.9% Normal Saline 1,000 ML 75 ML IV ×2 (10:08→18:53)
--- NOTE | 2022-11-13 10:56 | CASEMGMT ---
Updates sent to [facility] Radha Harris
--- NOTE | 2022-11-13 11:45 | COLBX_PTH ---
PATIENT: BONNIE VELASQUEZ LOC: [facility] U#:[id number] AGE/SX: 77/F ROOM: [facility] RE11/07/[address]: Dr. Enrique Sanabria MD : 1945 BED: 1 DIS: 11/14/2022 SPEC #: [id number] RECD: 11/13/22 14:14 STATUS: JESSIE RE #: [id number] IVONNE: 11/13/22 11:[address]: Micah Gant DEPT: SURGICAL PATHOLOGY RECD BY: Thais Wills ENTERED: 11/14/22 09:35 SP TYPE: COLON BX OTHR DR: MD Dr. Davion Craig DO Dr. Eric Turney, MD Dr. Juan Miguel Proano, MD Dr. Lee Ann Baggott, MD Dr. Loren Kirchner, MD Dr. Mark Tereletsky, DO Dr. Prakash Chand, MD Dr. Tanmay Panchabhai, MD Christina Muller, DRIFT MINER-C Tissues: COLON BIOPSY Procedures: Surgery Specimen Level IV Comments: @ Ordering doctor for SUIV edited from to @ by RGOOD at 11/14/22 1444 @ Submitting doctor edited from to @ by RGOOD at 11/14/22 1444 HEADER OPERATION: Colonoscopy (MAC), polypectomy, gold probe PRE-OP DIAGNOSIS: Rectal bleed TISSUE SUBMITTED: Polyp hepatic flexure MICROSCOPIC DIAGNOSIS Colonic polyp at hepatic flexure, biopsy: Fragments of tubular adenoma. AM:jareth 11/15/2022 MICROSCOPIC DESCRIPTION Slides are reviewed. GROSS DESCRIPTION Received in fixative is one container labeled with the patient's name and designated polyp hepatic flexure. The specimen consists of multiple irregular fragments of light napoles soft tissue that in aggregate measure 1.0 x 0.5 x 0.3 cm. The specimen is totally submitted in one cassette. / SJ:jareth 11/14/2022 TC:5 CPT: 91175
--- NOTE | 2022-11-13 12:58 | OP.COLON_ITS ---
Patient Name: Modesta Hanson Procedure Date: 11/13/2022 12:06 PM Date of : 1945 Age: 77 Procedure: Colonoscopy Indications: Hematochezia Providers: Micah Gant DO Medicines: Monitored Anesthesia Care Patient Profile: This is a 77 year old female. Refer to note in patient chart for documentation of history and physical. Last Colonoscopy: date unknown. Unable to locate last colonoscopy report. Complications: No immediate complications. Procedure: Pre-Anesthesia Assessment: - Prior to the procedure, a History and Physical was performed, and patient medications and allergies were reviewed. The patient is competent. The risks and benefits of the procedure and the sedation options and risks were discussed with the patient. All questions were answered and informed consent was obtained. Patient identification and proposed procedure were verified by the physician. Mental Status Examination: normal. Prophylactic Antibiotics: The patient does not require prophylactic antibiotics. Prior Anticoagulants: The patient has taken aspirin, last dose was 6 days prior to procedure. ASA Grade Assessment: III - A patient with severe systemic disease. After reviewing the risks and benefits, the patient was deemed in satisfactory condition to undergo the procedure. The anesthesia plan was to use monitored anesthesia care (MAC). Immediately prior to administration of medications, the patient was re-assessed for adequacy to receive sedatives. The heart rate, respiratory rate, oxygen saturations, blood pressure, adequacy of pulmonary ventilation, and response to care were monitored throughout the procedure. The physical status of the patient was re-assessed after the procedure. After I obtained informed consent, the scope was passed under direct vision. Throughout the procedure, the patient's blood pressure, pulse, and oxygen saturations were monitored continuously. The Colonoscope was introduced through the anus and advanced to the cecum, identified by appendiceal orifice and ileocecal valve. The colonoscopy was performed without difficulty. The patient tolerated the procedure well. The quality of the bowel preparation was poor. Scope In: 12:20:26 PM Scope Withdrawal Time 0 hours 8 minutes 3 seconds Scope Out: 12:51:31 PM Total Procedure Duration Time 0 hours 31 minutes 5 seconds Findings: Hemorrhoids were found on perianal exam. Non-bleeding external and internal hemorrhoids were found during retroflexion. The hemorrhoids were Grade III (internal hemorrhoids that prolapse but require manual reduction). Multiple small and large-mouthed diverticula were found in the recto-sigmoid colon, sigmoid colon, descending colon and hepatic flexure. Discontinuous areas of bleeding ulcerated mucosa with stigmata of recent bleeding were present in the rectum. Coagulation for hemostasis using heater probe was successful. Area was successfully injected with 5 mL of a 1:10,000 solution of epinephrine for drug delivery. Estimated blood loss was minimal. A 5 mm polyp was found in the hepatic flexure. The polyp was sessile. The polyp was removed with a hot snare. Resection and retrieval were complete. Verification of patient identification for the specimen was done. To prevent bleeding after the polypectomy, two hemostatic clips were successfully placed. There was no bleeding at the end of the procedure. Impression: - Preparation of the colon was poor. - Hemorrhoids found on perianal exam. - Non-bleeding external and internal hemorrhoids. - Diverticulosis in the recto-sigmoid colon, in the sigmoid colon, in the descending colon and at the hepatic flexure. - Mucosal ulceration. Treated with a heater probe. Injected. - One 5 mm polyp at the hepatic flexure, removed with a hot snare. Resected and retrieved. Clips were placed. Recommendation: - Repeat colonoscopy in 4 months for surveillance. - Continue present medications. Procedure Code(s): --- Professional --- 71460, 59, Colonoscopy, flexible; with control of bleeding, any method 64879, Colonoscopy, flexible; with removal of tumor(s), polyp(s), or other lesion(s) by snare technique CPT copyright 2017 [employer]. All rights reserved. The codes documented in this report are preliminary and upon boiler control room operator review may be revised to meet current compliance requirements. Micah Gant DO 11/13/2022 12:57:50 PM This report has been signed electronically. Number of Addenda: 0 Note Initiated On: 11/13/2022 12:06 PM
--- NOTE | 2022-11-13 12:59 | OP.CCLET_ITS ---
11/13/2022 Bea Mckeon [facility] [address] [place] [address] Re : Colonoscopy procedure for Modesta Hanson Dear Dr. Mckeon This procedure was performed on Sunday, November 13, 2022. My impressions and recommendations are as follows: Impressions : - Preparation of the colon was poor. - Hemorrhoids found on perianal exam. - Non-bleeding external and internal hemorrhoids. - Diverticulosis in the recto-sigmoid colon, in the sigmoid colon, in the descending colon and at the hepatic flexure. - Mucosal ulceration. Treated with a heater probe. Injected. - One 5 mm polyp at the hepatic flexure, removed with a hot snare. Resected and retrieved. Clips were placed. Recommendations : - Repeat colonoscopy in 4 months for surveillance. - Continue present medications. My findings are described in the full procedure note, which is enclosed. If I can be of further assistance, please feel free to contact me at . Sincerely, Micah Gant, 11/13/2022 12:57:50 PM This report has been signed electronically.
--- NOTE | 2022-11-13 14:46 | PN.HOSP_ITS ---
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 Mild short of breath on appearance even on laying flat. Denies chest pain or tightness. Objective Data Objective Data Vital Signs: Vital Signs Temp Pulse Resp BP Pulse Ox O2 Del Method O2 Flow Rate 98.5 F 79 16 121/76 H 100 Nasal Cannula 2 11/13/22 14:32 11/13/22 14:32 11/13/22 14:32 11/13/22 14:32 11/13/22 14:32 11/13/22 14:32 11/13/22 14:32 FiO2 40 11/10/22 06:00 Oxygen Flow Rate (L/min) 2 Oxygen Delivery Method Nasal Cannula Weight: 304 lb 0.279 oz Body Mass Index (BMI) 52.2 Intake & Output: Intake and Output for Last 24 Hours 11/11/22 11/12/22 11/13/22 23:59 23:59 23:59 Intake Total 2695.48 / 2820.48 7542.40 / 7542.40 1527.20 / 1527.20 Output Total 450 / 700 2049 / 2049 300 / 300 Balance 2245.48 / 2120.48 5492.40 / 5492.40 1227.20 / 1227.20 Lab / Micro Data Result Diagrams: 11/13/22 02:49 11/13/22 02:49 Labs: Laboratory Results - last 24 hr 11/12/22 06:20: Blood Type A POSITIVE, Antibody Screen NEGATIVE, Crossmatch See Detail 11/12/22 19:35: APTT 50.3 H 11/13/22 02:49: WBC 5.9, RBC 3.04 L, Hgb 8.6 L, Hct 28.0 L, MCV 92.1, MCH 28.3, MCHC 30.7 L, RDW Std Deviation 53.6 H, RDW Coeff of Gareth 15.9 H, Plt Count 205, MPV 9.9, Neut % (Auto) Not Reportable, Absolute Neuts (auto) 4.0, Absolute Lymphs (auto) 1.18, Total Counted 100, Neutrophils % (Manual) 68, Lymphocytes % (Manual) 20, Monocytes % (Manual) 8, Eosinophils % (Manual) 2, Myelocytes % 2 H, Diff Path Review November, Platelet Estimate ADEQUATE, RBC Morphology NORM C+C, Anisocytosis 1+ 11/13/22 02:49: Sodium 144, Potassium 3.8, Chloride 117 H, Carbon Dioxide 27.0, Anion Gap 0 L, BUN 15, Creatinine 0.70, Estim Creat Clear Calc 41.33, Est GFR (MDRD) Af Amer 104, Est GFR (MDRD) Non-Af 86, BUN/Creatinine Ratio 21.4 H, Glucose 98, Calcium 8.3 L, Total Bilirubin 0.90, AST 21, ALT 15, Alkaline Phosphatase 84, Total Protein 5.2 L, Albumin 1.8 L, Globulin 3.4, Albumin/Jayda bulin Ratio 0.5 L 11/13/22 02:49: APTT 65.4 H 11/13/22 08:45: APTT 51.3 H Micro: Microbiology 11/08/22 10:45 Blood Culture (Wb) - Left Forearm Blood Culture - Final GNR lactose sliver lap tender 11/11/22 01:55 Blood Culture (Wb) - Pic Blood Culture - Preliminary No growth in 48 hours. 11/11/22 02:05 Blood Culture (Wb) - Right Forearm Blood Culture - Preliminary No growth in 48 hours. 11/10/22 22:40 Urine Catheter - Gold Urine Culture - Final Escherichia coli 11/08/22 11:00 Blood Culture (Wb) - Left Wrist Blood Culture - Final Escherichia coli 11/08/22 10:45 Urine Catheter - Catheter Urine Culture - Final Escherichia coli 11/08/22 16:40 Mucosa - Nasopharyngeal Influenza Types A,B Direct FA (DANE) - Final 11/07/22 17:28 Stool Stool Occult Blood (DANE) - Final Occult Blood Positive Physical Exam Narrative Seen and examined. I talked to the patient's daughter near the bedside. Patient was admitted with septic shock probably due to UTI and lower GI bleed. Pulmonary embolism on heparin drip. Colonoscopy scheduled for today. Physical exam General: Alert, Oriented x3, Cooperative, morbid obesity BMI 52.2 kg/m?. HEENT: Atraumatic, PERRLA, EOMI, Normocephalic Oral: Oral mucosa moist. No Gingival or Mucosal Lesions/ Ulcerations Neck: Supple, No JVD, Negative Carotid Bruits Chest wall/lungs: Air entry diminished in bilateral lung bases. No crepitation/rhonchi, cannot sit upright for posterior chest auscultation. Cardiovascular: Sinus rhythm, Normal S1, Normal S2, No murmurs Abdomen: Bowel Sounds Present, Soft, Non Tender, Non-Distended : Incontinent. No renal angle tenderness. No suprapubic tenderness. Extremities: Mild edema, Capillary Refill Less than 3 Seconds Skin: No rashes, No breakdown Musculoskeletal: No Tenderness to Palpation of Joints or Extremities. ROM severely limited. Bilateral knee and hip joints arthritis. Neurological: Cranial nerves II-XII grossly intact, DTR 2+/4, no acute focal n eurological deficit. Psych/Mental Status: Flat affect. Assessment & Plan Assessment/Plan (1) Septic shock: (2) Rectal bleed: PLAN: Plan 1. Septic shock secondary to left obstructive uropathy and pyelonephritis with E. coli: Patient was admitted in ICU for septic shock. The patient had septic shock due to obstructive left ureteral calculus leading to E. coli UTI with bacteremia with acute sepsis-related organ dysfunction as evidenced by lactic acidosis, leukocytosis, resistant hypotension requiring vasopressors. Patient on ESBL negative E. coli on blood culture and culture. Patient on meropenem since 11/08. She is allergic to penicillin with hives. Antibiotic changed to levofloxacin. Blood cultures from 11/11 are negative for more than [address] abdomen showed large obstructive calculus in proximal left ureter with moderate hydronephrosis and delayed nephrogram for which patient had left ureteric stent by Dr. Francois. It also showed developing stercoral colitis #2 Hematochezia-etiology unclear at this point, patient will need to undergo a colonoscopy on Sunday, hemoglobin today was 7.5. Patient had colonoscopy which reported preparation was poor. Hemorrhoids on perianal exam. Nonbleeding external and internal hemorrhoids. Diverticulosis in the rectosigmoid, sigmoid, DC and hepatic flexure. Mucosal ulceration. One 5 mm polyp at hepatic flexure. Repeat colonoscopy in 4 months for surveillance. #3 recent pulmonary embolism September 2022-patient on IV heparin temporarily held today for colonoscopy. Check with GI for restarting Eliquis. patient is on IV heparin, patient will need to be placed back on Eliquis when she goes back to the skilled care facility #4 morbid obesity-complicates care, medical course, recovery, and prognosis #5 generalized debility secondary to recent hospitalization for recent septic shock and COVID-19-PT and OT will see the patient, she will need to return to retirement facility for further rehab services #6 essential hypertension-patient's blood pressure medicines are being held at this time due to hypotension from septic shock #7 leukopenia-resolved at this time #8 hypoxia-etiology unclear, patient is currently on 2 L via nasal cannula #9 acute blood loss anemia-requiring blood transfusion, secondary to lower GI bleed, hemoglobin 8.6. Monitor CBC Clinical Impression(s) from Imaging Studies Chest X-Ray 11/07/22 17:22 IMPRESSION: No acute findings in the chest. Electronically Signed: Alfredo Santoro MD at 17:33 EDT , Chest X-Ray 11/08/22 11:50 IMPRESSION: Chronic interstitial changes with slight enlargement of a previously noted left pleural effusion since the previous study. Electronically Signed: Roman Gordon MD at 12:40 EDT , Abdomen/Pelvis CT 11/08/22 17:05 IMPRESSION: 1. Large obstructing calculus burden in the proximal left ureter with moderate hydronephrosis and delayed left nephrogram. Multiple other left renal collecting system calculi. 2. Findings suspicious for developing stercoral colitis. No perirectal inflammatory stranding. Electronically Signed: Blake Saavedra MD at 17:36 EDT , Charges/Coding Visit Charges Inpatient E&M: 60999 Subs Hosp L2
[2022-11-13] MEDS: Menthol/Lanolin/Calamine/Znox 113 GM Tube 1 APPLIC TOPICAL (20:57)
[2022-11-13] MEDS: Pantoprazole Sodium 40 MG Tablet PO (20:57)
[2022-11-13] MEDS: APIXABAN 5 MG TABLET PO (20:58)
[2022-11-14] VITALS (8 sets, daily range): BP systolic 120–142; BP diastolic 65–74; PULSE 69–94; RESP 16–18; TEMP 36.4–36.7; O2SAT 91–99; BMI 52.2
--- NOTE | 2022-11-14 09:00 | PN_ITS ---
Subjective Subjective Patient underwent an upper and lower endoscopy yesterday for lower GI bleeding and anemia. Objective Data Objective Data Vital Signs: Vital Signs Temp Pulse Resp BP Pulse Ox O2 Del Method O2 Flow Rate 98.1 F 75 16 120/65 91 Nasal Cannula 2 11/14/22 09:14 11/14/22 09:14 11/14/22 09:14 11/14/22 09:14 11/14/22 11:04 11/14/22 09:14 11/14/22 09:14 FiO2 40 11/10/22 06:00 Oxygen Flow Rate (L/min) 2 Oxygen Delivery Method Nasal Cannula Weight: 304 lb 10.861 oz Body Mass Index (BMI) 52.2 Intake & Output: Intake and Output for Last 24 Hours 11/12/22 11/13/22 11/14/22 23:59 23:59 23:59 Intake Total 7542.40 / 7542.40 3430.85 / 3430.85 1000 / 1000 Output Total 2049 / 2049 550 / 550 850 / 850 Balance 5492.40 / 5492.40 2880.85 / 2880.85 150 / 150 Lab / Micro Data Result Diagrams: 11/13/22 02:49 11/13/22 02:49 Labs: Laboratory Results - last 24 hr 11/13/22 02:49: Diff Path Review Reviewed Micro: Microbiology 11/14/22 10:40 Nasal Secretion SARS-CoV-2 Antigen (Rapid) - Final 11/08/22 10:45 Blood Culture (Wb) - Left Forearm Blood Culture - Final GNR lactose credit director 11/11/22 01:55 Blood Culture (Wb) - Pic Blood Culture - Preliminary No growth in 48 hours. 11/11/22 02:05 Blood Culture (Wb) - Right Forearm Blood Culture - Prelimin kuldip No growth in 48 hours. 11/10/22 22:40 Urine Catheter - Gold Urine Culture - Final Escherichia coli 11/08/22 11:00 Blood Culture (Wb) - Left Wrist Blood Culture - Final Escherichia coli 11/08/22 10:45 Urine Catheter - Catheter Urine Culture - Final Escherichia coli 11/08/22 16:40 Mucosa - Nasopharyngeal Influenza Types A,B Direct FA (DANE) - Final 11/07/22 17:28 Stool Stool Occult Blood (DANE) - Final Occult Blood Positive Physical Exam Narrative Seen and examined on the day of discharge. Patient on semireclined position. Gold catheter is getting removed. Patient has right arm PICC line. Discontinue PICC line. Physical exam General: Alert, Oriented x3, Cooperative, morbid obesity BMI 52.2 kg/m?. HEENT: Atraumatic, PERRLA, EOMI, Normocephalic Oral: Oral mucosa moist.? No Gingival or Mucosal Lesions/ Ulcerations Neck: Supple, No JVD, Negative Carotid Bruits Chest wall/lungs:? Air entry diminished in bilateral lung bases.? No crepitation/rhonchi. Cardiovascular: Sinus rhythm, Normal S1, Normal S2, No murmurs Abdomen: Bowel Sounds Present, Soft, Non Tender, Non-Distended : Incontinent.? No renal angle tenderness.? No suprapubic tenderness. Extremities: Bilateral chronic lymphedema. Capillary Refill Less than 3 Seconds Skin: No rashes, No breakdown Musculoskeletal: No Tenderness to Palpation of Joints or Extremities.? ROM severely limited.? Bilateral knee and hip joints arthritis. Neurological: Cranial nerves II-XII grossly intact, DTR? 2+/4, no acute focal neurological deficit. Psych/Mental Status: Flat affect. Assessment & Plan Assessment/Plan (1) Septic shock: (2) Rectal bleed: PLAN: Plan Septic shock secondary to left obstructive uropathy and pyelonephritis with E. coli: Patient was admitted in ICU for septic shock. The patient had septic shock due to obstructive left ureteral calculus leading to E. coli UTI with bacteremia with acute sepsis-related organ dysfunction as evidenced by lactic acidosis, leukocytosis, resistant hypotension requiring vasopressors. Patient on ESBL negative E. coli on blood culture and culture. Patient on meropenem since 11/08. She is allergic to penicillin with hives. Antibiotic changed to levofloxacin. Blood cultures from 11/11 are negative for more than [address] abdomen showed large obstructive calculus in proximal left ureter with moderate hydronephrosis and delayed nephrogram for which patient had left ureteric stent by Dr. Francois. It also showed developing stercoral colitis Hematochezia-etiology unclear at this point, patient will need to undergo a colonoscopy on Sunday, hemoglobin today was 7.5. Patient had colonoscopy which reported preparation was poor. Hemorrhoids on perianal exam. Nonbleeding external and internal hemorrhoids. Diverticulosis in the rectosigmoid, sigmoid, DC and hepatic flexure. Mucosal ulceration. One 5 mm polyp at hepatic flexure. She did have a total of 4 polyps were removed but none of them had any stigmata of bleeding. Repeat colonoscopy in 4 months for surveillance. Charges/Coding Visit Charges Inpatient E&M: 65945 Subs Hosp L3
[2022-11-14] MEDS: levoFLOXacin IV 500 MG/100 ML BAG 100 MG IV (09:23)
[2022-11-14] MEDS: 0.9% Saline Lock 10 ML Syringe IV (09:28)
[2022-11-14] MEDS: 0.9% Normal Saline 1,000 ML 75 ML IV (09:29)
[2022-11-14] MEDS: APIXABAN 5 MG TABLET PO (09:31)
[2022-11-14] MEDS: Pantoprazole Sodium 40 MG Tablet PO (09:31)
[2022-11-14] MEDS: Menthol/Lanolin/Calamine/Znox 113 GM Tube 1 APPLIC TOPICAL (09:32)
--- NOTE | 2022-11-14 09:34 | PN.HOSP_ITS ---
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 (11/07/22) Personal history of pulmonary embolism (11/07/22) Personal history of urinary calculi (11/07/22) Objective Data Objective Data Vital Signs: Vital Signs Temp Pulse Resp BP Pulse Ox O2 Del Method O2 Flow Rate 98.1 F 75 16 120/65 99 Nasal Cannula 2 11/14/22 09:14 11/14/22 09:14 11/14/22 09:14 11/14/22 09:14 11/14/22 09:14 11/14/22 09:14 11/14/22 09:14 FiO2 40 11/10/22 06:00 Oxygen Flow Rate (L/min) 2 Oxygen Delivery Method Nasal Cannula Weight: 304 lb 10.861 oz Body Mass Index (BMI) 52.2 Intake & Output: Intake and Output for Last 24 Hours 11/12/22 11/13/22 11/14/22 23:59 23:59 23:59 Intake Total 7542.40 / 7542.40 3430.85 / 3430.85 1000 / 1000 Output Total 2049 / 2049 550 / 550 850 / 850 Balance 5492.40 / 5492.40 2880.85 / 2880.85 150 / 150 Lab / Micro Data Result Diagrams: 11/13/22 02:49 11/13/22 02:49 Micro: Microbiology 11/08/22 10:45 Blood Culture (Wb) - Left Forearm Blood Culture - Final GNR lactose ski binding fitter and repairer 11/11/22 01:55 Blood Culture (Wb) - Pic Blood Culture - Preliminary No growth in 48 hours. 11/11/22 02:05 Blood Culture (Wb) - Right Forearm Blood Culture - Preliminary No growth in 48 hours. 11/10/22 22:40 Urine Catheter - Gold Urine Culture - Final Escherichia coli 11/08/22 11:00 Blood Culture (Wb) - Left Wrist Blood Culture - Final Escherichia coli 11/08/22 10:45 Urine Catheter - Catheter Urine Culture - Final Escherichia coli 11/08/22 16:40 Mucosa - Nasopharyngeal Influenza Types A,B Direct FA (DANE) - Final 11/07/22 17:28 Stool Stool Occult Blood (DANE) - Final Occult Blood Positive Physical Exam Narrative Seen and examined. I talked to the patient's daughter near the bedside. Patient was admitted with septic shock probably due to UTI and lower GI bleed. Pulmonary embolism on heparin drip. Colonoscopy scheduled for today. Physical exam General: Alert, Oriented x3, Cooperative, morbid obesity BMI 52.2 kg/m?. HEENT: Atraumatic, PERRLA, EOMI, Normocephalic Oral: Oral mucosa moist. No Gingival or Mucosal Lesions/ Ulcerations Neck: Supple, No JVD, Negative Carotid Bruits Chest wall/lungs: Air entry diminished in bilateral lung bases. No crepitation/rhonchi, cannot sit upright for posterior chest auscultation. Cardiovascular: Sinus rhythm, Normal S1, Normal S2, No murmurs Abdomen: Bowel Sounds Present, Soft, Non Tender, Non-Distended : Incontinent. No renal angle tenderness. No suprapubic tenderness. Extremities: Mild edema, Capillary Refill Less than 3 Seconds Skin: No rashes, No breakdown Musculoskeletal: No Tenderness to Palpation of Joints or Extremities. ROM severely limited. Bilateral knee and hip joints arthritis. Neurological: Cranial nerves II-XII grossly intact, DTR 2+/4, no acute focal neurological deficit. Psych/Mental Status: Flat affect. Assessment & Plan Assessment/Plan (1) Septic shock: (2) Rectal bleed: PLAN: Plan 1. Septic shock secondary to left obstructive uropathy and pyelonephritis with E. coli: Patient was admitted in ICU for septic shock. The patient had septic shock due to obstructive left ureteral calculus leading to E. coli UTI with bacteremia with acute sepsis-related organ dysfunction as evidenced by lactic acidosis, leukocytosis, resistant hypotension requiring vasopressors. Patient on ESBL negative E. coli on blood culture and culture. Patient on meropenem since 11/08. She is allergic to penicillin with hives. Antibiotic changed to levofloxacin. Blood cultures from 11/11 are negative for more than [address] abdomen showed large obstructive calculus in proximal left ureter with moderate hydronephrosis and delayed nephrogram for which patient had left ureteric stent by Dr. Francois. It also showed developing stercoral colitis #2 Hematochezia-etiology unclear at this point, patient will need to undergo a colonoscopy on Sunday, hemoglobin today was 7.5. Patient had colonoscopy which reported preparation was poor. Hemorrhoids on perianal exam. Nonbleeding external and internal hemorrhoids. Diverticulosis in the rectosigmoid, sigmoid, DC and hepatic flexure. Mucosal ulceration. One 5 mm polyp at hepatic flexure. Repeat colonoscopy in 4 months for surveillance. #3 recent pulmonary embolism September 2022-patient on IV heparin temporarily held today for colonoscopy. Check with GI for restarting Eliquis. patient is on IV heparin, patient will need to be placed back on Eliquis when she goes back to the skilled care facility #4 morbid obesity-complicates care, medical course, recovery, and prognosis #5 generalized debility secondary to recent hospitalization for recent septic shock and COVID-19-PT and OT will see the patient, she will need to return to assisted facility for further rehab services #6 essential hypertension-patient's blood pressure medicines are being held at this time due to hypotension from septic shock #7 leukopenia-resolved at this time #8 hypoxia-etiology unclear, patient is currently on 2 L via nasal cannula #9 acute blood loss anemia-requiring blood transfusion, secondary to lower GI bleed, hemoglobin 8.6. Monitor CBC Clinical Impression(s) from Imaging Studies Chest X-Ray 11/07/22 17:22 IMPRESSION: No acute findings in the chest. Electronically Signed: Alfredo Santoro MD at 17:33 EDT , Chest X-Ray 11/08/22 11:50 IMPRESSION: Chronic interstitial changes with slight enlargement of a previously noted left pleural effusion since the previous study. Electronically Signed: Roman Gordon MD at 12:40 EDT , Abdomen/Pelvis CT 11/08/22 17:05 IMPRESSION: 1. Large obstructing calculus burden in the proximal left ureter with moderate hydronephrosis and delayed left nephrogram. Multiple other left renal collecting system calculi. 2. Findings suspicious for developing stercoral colitis. No perirectal inflammatory stranding. Electronically Signed: Blake Saavedra MD at 17:36 EDT ,
--- NOTE | 2022-11-14 09:54 | PCM.TXEXTCAR ---
Diet Diet Order/Speech Therapy: 11/13/22 15:45 Diet: Transitional Food consistency:: Soft & Bite Sized Liquid Consistency:: Regular/Thin Is pt able to select menu?: Yes Routine Orders/Code Status Suppository Type: Dulcolax 10mg Suppository Frequency: Daily PRN Code Status: Full Code Wound(s) left inner thigh: Wound Type: Skin Tear Problem/Diagnosis (1) Septic shock: Status: Acute Code(s): A41.9 - Sepsis, unspecified organism; R65.21 - Severe sepsis with septic shock (2) Rectal bleed: Status: Acute Code(s): K62.5 - Hemorrhage of anus and rectum Plan 1. Septic shock secondary to left obstructive uropathy and pyelonephritis with E. coli: Patient was admitted in ICU for septic shock. The patient had septic shock due to obstructive left ureteral calculus leading to E. coli UTI with bacteremia with acute sepsis-related organ dysfunction as evidenced by lactic acidosis, leukocytosis, resistant hypotension requiring vasopressors. Patient on ESBL negative E. coli on blood culture and culture. Patient on meropenem since 11/08. She is allergic to penicillin with hives. Antibiotic changed to levofloxacin. Blood cultures from 11/11 are negative for more than [address] abdomen showed large obstructive calculus in proximal left ureter with moderate hydronephrosis and delayed nephrogram for which patient had left ureteric stent by Dr. Francois. It also showed developing stercoral colitis #2 Hematochezia-etiology unclear at this point, patient will need to undergo a colonoscopy on Sunday, hemoglobin today was 7.5. Patient had colonoscopy which reported preparation was poor. Hemorrhoids on perianal exam. Nonbleeding external and internal hemorrhoids. Diverticulosis in the rectosigmoid, sigmoid, DC and hepatic flexure. Mucosal ulceration. One 5 mm polyp at hepatic flexure. Repeat colonoscopy in 4 months for surveillance. #3 recent pulmonary embolism September 2022-patient on IV heparin temporarily held today for colonoscopy. Check with GI for restarting Eliquis. patient is on IV heparin, patient will need to be placed back on Eliquis when she goes back to the skilled care facility #4 morbid obesity-complicates care, medical course, recovery, and prognosis #5 generalized debility secondary to recent hospitalization for recent septic shock and COVID-19-PT and OT will see the patient, she will need to return to [facility] facility for further rehab services #6 essential hypertension-patient's blood pressure medicines are being held at this time due to hypotension from septic shock #7 leukopenia-resolved at this time #8 hypoxia-etiology unclear, patient is currently on 2 L via nasal cannula #9 acute blood loss anemia-requiring blood transfusion, secondary to lower GI bleed, hemoglobin 8.6. Monitor CBC Clinical Impression(s) from Imaging Studies Chest X-Ray 11/07/22 17:22 IMPRESSION: No acute findings in the chest. Electronically Signed: Alfredo Santoro MD at 17:33 EDT , Chest X-Ray 11/08/22 11:50 IMPRESSION: Chronic interstitial changes with slight enlargement of a previously noted left pleural effusion since the previous study. Electronically Signed: Roman Gordon MD at 12:40 EDT , Abdomen/Pelvis CT 11/08/22 17:05 IMPRESSION: 1. Large obstructing calculus burden in the proximal left ureter with moderate hydronephrosis and delayed left nephrogram. Multiple other left renal collecting system calculi. 2. Findings suspicious for developing stercoral colitis. No perirectal inflammatory stranding. Electronically Signed: Blake Saavedra MD at 17:36 EDT , Allergies/Procedures Done in Hospital Allergies codeine Allergy (Verified 11/07/22 16:50) Hives Penicillins Allergy (Verified 11/07/22 16:50) Hives wheezing/sob Type of Care/Length of Stay Estimated LOS: More Than 30 Days Type of Care Needed: Skilled Rehab Potential: Fair Prognosis: Fair Additional Orders/Day of Discharge Day of Discharge: 11/14/22 Dietary and Speech Recommendations Dietitian Recommendations/Changes: As medically able, rec MESSI to Regular Discharge Plan Admission Admit Date/Time: 11/07/22 19:15 Primary Reason for Your Visit: Septic shock secondary to left obstructive uropathy/pyelonephritis. Attending Provider: Enrique Sanabria Primary Care Provider: Bea Mckeon Consulting Providers: Dustin Riggs ; Davion Tanner ; Alejandro Garcia ; Taz Chase ; Cary Duenas INDUSTRIAL PLANT CUSTODIAN ; Yair Francois ; Juvenal Godwin ; Hola Kenyon Discharge Orders/Prescriptions Prescriptions: New pantoprazole 40 mg Tablet,Delayed Release (Dr/Ec) 40 mg PO BID Qty: 0 0RF Rx Instructions: 40 mg twice daily for 1 week and then once daily Deep Sea Nasal 0.65 % Aerosol,[place] 1 spray NASAL BID PRN PRN (Reason: NASAL DRYNESS) Qty: 0 0RF menthol-zinc oxide [Calmoseptine] 0.44-20.6 % Ointment 1 applic topical BID Qty: 0 0RF Protocol: *Topical Application Instructions APPLICATION INSTRUCTIONS: apply to affected area ciprofloxacin HCl [Cipro] 500 mg tablet 500 mg PO BID 4 Days Qty: 8 0RF Continued nystatin [Nyamyc] 100,000 unit/gram Powder 1 applic topical BID Qty: 0 0RF Protocol: *Topical Application Instructions APPLICATION INSTRUCTIONS: Apply to affected areas zinc oxide 20 % Ointment 1 applic TOPICAL BID acetaminophen [Acetaminophen Extra Strength] 500 mg Tablet 500 mg PO TID ferrous sulfate 325 mg (65 mg iron) Tablet 325 mg PO QHS Senna Plus 8.6-50 mg Capsule 1 tab-cap PO BID Changed Eliquis 5 mg tablet 5 mg PO BID 30 Days Qty: 60 2RF Discontinued aspirin 81 mg tablet,chewable 81 mg PO BREAKFAST Referrals / Follow Up: Bea Mckeon MD [Primary Care Provider] - Yair Francois MD [Med Staff - Active Staff] - Within 2 Weeks Alejandro Garcia MD [Med Staff - Active Staff] - Within 1 Month Micah Gant DO [Med Staff - Active Staff] - Within 1 Month Disposition Disposition (needs filled in before D/C Order can be placed): [facility] Facility
--- NOTE | 2022-11-14 10:18 | CASEMGMT ---
JOSÉ MIGUEL sent updates to [place] and notified Eva patient will be returning today. Johana Norton [employer]
--- NOTE | 2022-11-14 12:23 | DS.PCM_ITS ---
Providers Date of Admission: 11/07/22 Date of Discharge: 11/14/22 Primary Care Physician: Dr. Bea Mckeon MD Consultations 11/07/22 21:22 Consult: Vascular Surgery Routine Consulting Provider: Juvenal Godwin Reason for Consult: possible need for IVC filter EMERGENT Consult: No Notified: Yes Date Notified: 11/07/22 Time Notified: 19:38 Method of Notification: Verbal 11/08/22 07:42 Consult: Gastroenterology Routine Consulting Provider: [facility] Reason for Consult: lower GI bleed EMERGENT Consult: No Notified: Yes Date Notified: 11/08/22 Time Notified: 07:42 Method of Notification: Verbal 11/08/22 19:31 Consult: Medical Coding Instructor / Pulmonary Medicine Routine Consulting Provider: Pulmonary Medicine lavern [place] Reason for Consult: hypotension, sepsis EMERGENT Consult: No Notified: Yes Date Notified: 11/08/22 Time Notified: 19:34 Method of Notification: Verbal Consult: Urology Routine Consulting Provider: Yair Francois Reason for Consult: left ureteral obstruction EMERGENT Consult: No Notified: Yes Date Notified: 11/08/22 Time Notified: 19:31 Method of Notification: Verbal Reason For Visit: LOWER GI BLEED Diagnosis Discharge Diagnosis (1) Septic shock: Status: Acute Code(s): A41.9 - Sepsis, unspecified organism; R65.21 - Severe sepsis with septic shock (2) Rectal bleed: Status: Acute Code(s): K62.5 - Hemorrhage of anus and rectum Plan 77-year-old female initially came to ED from [facility] for rectal bleeding, noticed 1 day before admission. Hemoglobin at nursing was 8.8. During previous hospitalization in September 2022 patient was admitted for septic shock and COVID-19 infection complicated by pulmonary embolism. This time during hospital course patient again went to septic shock from left obstructive left ureteric calculus uropathy and pyelonephritis 1. Septic shock secondary to left obstructive uropathy and pyelonephritis with E. coli: Patient was admitted in ICU for septic shock. The patient had septic shock due to obstructive left ureteral calculus leading to E. coli UTI with bacteremia with acute sepsis-related organ dysfunction as evidenced by lactic acidosis, leukocytosis, resistant hypotension requiring vasopressors.? Patient on ESBL negative E. coli on blood culture and culture.? Patient on meropenem since 11/08.? She is allergic to penicillin with hives.? Antibiotic changed to levofloxacin.? Blood cultures from 11/11 are negative for more than [address] abdomen showed large obstructive calculus in proximal left ureter with moderate hydronephrosis and delayed nephrogram for which patient had left ureteric stent by Dr. Francois.? It also showed developing stercoral colitis. 11/14: Patient had 6 days of antibiotic meropenem. She is discharged on 4 more days of ciprofloxacin to complete total 10 days of antibiotic based on culture and sensitivity. Follow-up Dr. Francois for left ureteric stent and obstructive uropathy. Patient has Gold catheter getting removed today. Monitor for spontaneous voiding. #2 Hematochezia-etiology unclear at this point, patient will need to undergo a colonoscopy on Sunday, hemoglobin today was 7.5.? Patient had colonoscopy which reported preparation was poor.? Hemorrhoids on perianal exam.? Nonbleeding external and internal hemorrhoids.? Diverticulosis in the rectosigmoid, sigmoid, DC and hepatic flexure.? Mucosal ulceration.? One 5 mm polyp at hepatic flexure.? Repeat colonoscopy in 4 months for surveillance. 11/14: Patient is discharged on Protonix with follow-up with Dr. Gant in 4 weeks. #3 recent pulmonary embolism September 2022-patient on IV heparin temporarily held today for colonoscopy.? Check with GI for restarting Eliquis. patient is on IV heparin, patient will need to be placed back on Eliquis when she goes back to the skilled care facility 11/14: Patient was put back on Eliquis after colonoscopy. Tolerated well. Hemoglobin 8.6. Baby aspirin on home medication discontinued. #4 morbid obesity-complicates care, medical course, recovery, and prognosis #5 generalized debility secondary to recent hospitalization for recent septic shock and COVID-19-PT and OT will see the patient, she will need to [facility] to [facility] facility for further rehab services #6 essential hypertension-patient's blood pressure medicines are being held at this time due to hypotension from septic shock #7 leukopenia-resolved at this time #8 hypoxia-etiology unclear, patient is currently on 2 L via nasal cannula #9 acute blood loss anemia-requiring blood transfusion, secondary to lower GI bleed, hemoglobin 8.6.? As mentioned above. Patient is discharged on ferrous sulfate. Discharge medication reconciliation done. Discharge follow-up instructions completed. Discharge process discussed with the patient and all questions were answered to patient's satisfaction. Total time spent, exact 35 minutes on discharge meds reconciliation, examination, coordination of care with nurses and ancillary staff, review of imaging and blood test and discussion with the patient on follow-up instructions. Microbiology Past 72 Hours 11/14/22 10:40 Nasal Secretion SARS-CoV-2 Antigen (Rapid) - Final 11/08/22 10:45 Blood Culture (Wb) - Left Forearm Blood Culture - Final GNR lactose car construction superintendent 11/11/22 01:55 Blood Culture (Wb) - Pic Blood Culture - Preliminary No growth in 48 hours. 11/11/22 02:05 Blood Culture (Wb) - Right Forearm Blood Culture - Preliminary No growth in 48 hours. 11/10/22 22:40 Urine Catheter - Gold Urine Culture - Final Escherichia coli Medications at Discharge Home Medications nystatin 100,000 unit/gram topical powder (Nyamyc) 1 applic topical BID #0 grams 10/24/22 acetaminophen 500 mg tablet (Acetaminophen Extra Strength) 500 mg PO TID PAIN 11/07/22 ferrous sulfate 325 mg (65 mg iron) tablet 325 mg PO QHS SUPPLEMENT 11/07/22 sennosides 8.6 mg-docusate sodium 50 mg capsule (Senna Plus) 1 tab-cap PO BID STOOL 11/07/22 zinc oxide 20 % topical ointment 1 applic topical BID 11/07/22 apixaban 5 mg tablet (Eliquis) 5 mg PO BID BLOOD THINNER 30 days #60 tabs 11/14/22 ciprofloxacin HCl 500 mg tablet (Cipro) 500 mg PO BID 4 days #8 tabs 11/14/22 menthol 0.44 %-zinc oxide 20.6 % topical ointment (Calmoseptine) 1 applic topical BID #0 grams 11/14/22 pantoprazole 40 mg tablet,delayed release 40 mg PO BID #0 tabs 11/14/22 sodium chloride 0.65 % nasal spray aerosol (Deep Sea Nasal) 1 spray NASAL BID PRN PRN NASAL DRYNESS #0 mL 11/14/22 Physical Exam Narrative Seen and examined on the day of discharge. Patient on semireclined position. Gold catheter is getting removed. Patient has right arm PICC line. Discontinue PICC line. Physical exam General: Alert, Oriented x3, Cooperative, morbid obesity BMI 52.2 kg/m?. HEENT: Atraumatic, PERRLA, EOMI, Normocephalic Oral: Oral mucosa moist.? No Gingival or Mucosal Lesions/ Ulcerations Neck: Supple, No JVD, Negative Carotid Bruits Chest wall/lungs:? Air entry diminished in bilateral lung bases.? No crepitation/rhonchi. Cardiovascular: Sinus rhythm, Normal S1, Normal S2, No murmurs Abdomen: Bowel Sounds Present, Soft, Non Tender, Non-Distended : Incontinent.? No renal angle tenderness.? No suprapubic tenderness. Extremities: Bilateral chronic lymphedema. Capillary Refill Less than 3 Seconds Skin: No rashes, No breakdown Musculoskeletal: No Tenderness to Palpation of Joints or Extremities.? ROM severely limited.? Bilateral knee and hip joints arthritis. Neurological: Cranial nerves II-XII grossly intact, DTR? 2+/4, no acute focal neurological deficit. Psych/Mental Status: Flat affect. Weight / BMI Weight Weight: 304 lb 10.861 oz Body Mass Index (BMI) 52.2 ABG / Lab / Microbiology Data Result Diagrams: 11/13/22 02:49 11/13/22 02:49 Microbiology: Microbiology 11/14/22 10:40 Nasal Secretion SARS-CoV-2 Antigen (Rapid) - Final 11/08/22 10:45 Blood Culture (Wb) - Left Forearm Blood Culture - Final GNR lactose car construction superintendent 11/11/22 01:55 Blood Culture (Wb) - Pic Blood Culture - Preliminary No growth in 48 hours. 11/11/22 02:05 Blood Culture (Wb) - Right Forearm Blood Culture - Preliminary No growth in 48 hours. 11/10/22 22:40 Urine Catheter - Gold Urine Culture - Final Escherichia coli 11/08/22 11:00 Blood Culture (Wb) - Left Wrist Blood Culture - Final Escherichia coli 11/08/22 10:45 Urine Catheter - Catheter Urine Culture - Final Escherichia coli 11/08/22 16:40 Mucosa - Nasopharyngeal Influenza Types A,B Direct FA (DANE) - Final 11/07/22 17:28 Stool Stool Occult Blood (DANE) - Final Occult Blood Positive Meaningful Use Info Meaningful Use Diagnoses (Choose all that apply): None applicable Discharge Plan Admission Admit Date/Time: 11/07/22 19:15 Primary Reason for Your Visit: Septic shock secondary to left obstructive uropathy/pyelonephritis. Attending Provider: Enrique Sanabria Primary Care Provider: Bea Mckeon Consulting Providers: Dustin Riggs ; Davion Tanner ; Alejandro Garcia ; Taz Chase ; Cary Duenas VENDOR RELATIONSHIP MANAGER ; Yair Francois ; Juvenal Godwin ; Hola Keynon Discharge Orders/Prescriptions Prescriptions: New pantoprazole 40 mg Tablet,Delayed Release (Dr/Ec) 40 mg PO BID Qty: 0 0RF Rx Instructions: 40 mg twice daily for 1 week and then once daily Deep Sea Nasal 0.65 % Aerosol,[place] 1 spray NASAL BID PRN PRN (Reason: NASAL DRYNESS) Qty: 0 0RF menthol-zinc oxide [Calmoseptine] 0.44-20.6 % Ointment 1 applic topical BID Qty: 0 0RF Protocol: *Topical Application Instructions APPLICATION INSTRUCTIONS: apply to affected area ciprofloxacin HCl [Cipro] 500 mg tablet 500 mg PO BID 4 Days Qty: 8 0RF Continued nystatin [Nyamyc] 100,000 unit/gram Powder 1 applic topical BID Qty: 0 0RF Protocol: *Topical Application Instructions APPLICATION INSTRUCTIONS: Apply to affected areas zinc oxide 20 % Ointment 1 applic TOPICAL BID acetaminophen [Acetaminophen Extra Strength] 500 mg Tablet 500 mg PO TID ferrous sulfate 325 mg (65 mg iron) Tablet 325 mg PO QHS Senna Plus 8.6-50 mg Capsule 1 tab-cap PO BID Changed Eliquis 5 mg tablet 5 mg PO BID 30 Days Qty: 60 2RF Discontinued aspirin 81 mg tablet,chewable 81 mg PO BREAKFAST Referrals / Follow Up: Yair Francois MD [Med Staff - Active Staff] - Within 2 Weeks Alejandro Garcia MD [Med Staff - Active Staff] - Within 1 Month Bea Mckeon MD [Primary Care Provider] - Micah Gant DO [Med Staff - Active Staff] - Within 1 Month Disposition Disposition (needs filled in before D/C Order can be placed): [facility] Charges/Coding Visit Charges Inpatient E&M: 30199 Disch Hosp >30min
[2022-11-14 13:06] LABS: Pathologist Review Reviewed
--- NOTE | 2022-11-14 13:32 | PHA.DC.MR ---
Pharmacy Service has performed discharge medication reconciliation for this patient. The patient's discharge medication list was reviewed for discrepancies and discrepancies were resolved. Home Medications nystatin 100,000 unit/gram topical powder (Nyamyc) 1 applic topical BID #0 grams 10/24/22 acetaminophen 500 mg tablet (Acetaminophen Extra Strength) 500 mg PO TID PAIN 11/07/22 ferrous sulfate 325 mg (65 mg iron) tablet 325 mg PO QHS SUPPLEMENT 11/07/22 sennosides 8.6 mg-docusate sodium 50 mg capsule (Senna Plus) 1 tab-cap PO BID STOOL 11/07/22 zinc oxide 20 % topical ointment 1 applic topical BID 11/07/22 apixaban 5 mg tablet (Eliquis) 5 mg PO BID BLOOD THINNER 30 days #60 tabs 11/14/22 ciprofloxacin HCl 500 mg tablet (Cipro) 500 mg PO BID 4 days #8 tabs 11/14/22 menthol 0.44 %-zinc oxide 20.6 % topical ointment (Calmoseptine) 1 applic topical BID #0 grams 11/14/22 pantoprazole 40 mg tablet,delayed release 40 mg PO BID #0 tabs 11/14/22 sodium chloride 0.65 % nasal spray aerosol (Deep Sea Nasal) 1 spray NASAL BID PRN PRN NASAL DRYNESS #0 mL 11/14/22
--- NOTE | 2022-11-14 14:11 | CASEMGMT ---
Patient is ready for discharge back to [place]. SW called [facility] and arranged for patient to get picked up at 3p via cot. SW sent orders, COVID test, and picker and packer time to [place]. SW notified RN, nursing secretary, and patient's about picker and packer time. Patient was sleeping. Plan: d/c back to [place] under skilled level of care. Physicians transported via cot. Johana Norton [employer]ATING MIXER [employer]
--- NOTE | 2022-11-14 17:34 | NURSING ---
report called to nurse at [facility]
== END 2022-11-14 16:49 | disposition skilled nursing facility (03) | DRG 853 ==
LOC: ED 17:44 → ICU 18:34 → PCU 11-12 12:38
PROVIDERS: Hospitalist; Internal Medicine Critical Care Medicine; Internal Medicine Gastroenterology; Nurse Practitioner; Urology; Admitting Provider Internal Medicine; Emergency Provider Emergency Medicine; PCP Internal Medicine; Visit Provider Internal Medicine
PROC: 0T778DZ Dilation of Left Ureter with Intraluminal Device, Via Natural or Artificial Opening Endoscopic (ICD-10-PCS; principal; 2022-11-11 08:45)
PROC: 0DJD8ZZ Inspection of Lower Intestinal Tract, Via Natural or Artificial Opening Endoscopic (ICD-10-PCS; CPT 45378; principal; 2022-11-13 11:40)
DX: A41.51 Sepsis due to Escherichia coli [E. coli] (principal); R65.21 Severe sepsis with septic shock; I26.99 Other pulmonary embolism without acute cor pulmonale; K57.31 Diverticulosis of large intestine without perforation or abscess with bleeding; E87.20 Acidosis, unspecified; D68.32 Hemorrhagic disorder due to extrinsic circulating anticoagulants; D62 Acute posthemorrhagic anemia; K62.6 Ulcer of anus and rectum; Z68.43 Body mass index [BMI] 50.0-59.9, adult; N13.6 Pyonephrosis; Z16.12 Extended spectrum beta lactamase (ESBL) resistance; I95.9 Hypotension, unspecified; F03.90 Unspecified dementia, unspecified severity, without behavioral disturbance, psychotic disturbance, mood disturbance, and anxiety; E66.01 Morbid (severe) obesity due to excess calories; I10 Essential (primary) hypertension; I25.10 Atherosclerotic heart disease of native coronary artery without angina pectoris; K64.2 Third degree hemorrhoids; D12.3 Benign neoplasm of transverse colon; D72.819 Decreased white blood cell count, unspecified; T45.515A Adverse effect of anticoagulants, initial encounter; R53.81 Other malaise; R09.02 Hypoxemia; Z79.01 Long term (current) use of anticoagulants; Z79.82 Long term (current) use of aspirin; Z79.899 Other long term (current) drug therapy; Z86.16 Personal history of COVID-19
CPT/HCPCS: 36415; 36569; 71045; 74177; 76000; 80048; 80053; 81001; 81002; 82274; 83605; 85014; 85018; 85025; 85730; 86850; 86900; 86901; 86920; 86921; 86922; 87040; 87077; 87086; 87088; 87186; 87804; 87811; 88305; 93005; 94762; 97110; 97162; 97166; 97530; 97535; 99285; J2185; J7030; J7040; J7050; P9016; Q9967; A4216; C1769; C2617; J1940; J2405

== ENCOUNTER 2022-12-20 09:09 | Day surgery (SDC) | payer MEDICARE, OTHER, SELFPAY ==
[2022-12-20 09:44] VITALS: BP 102/71; PULSE 71; RESP 18; TEMP 36.4; O2SAT 95; BMI 54.1
[2022-12-20] MEDS: Lactated Ringers 1,000 ML 15 ML IV (09:55)
--- NOTE | 2022-12-20 12:05 | PCM.HP.STD ---
[facility] - General General Date of Service: 12/20/22 Chief Complaint: Kidney stones [facility] Narrative BONNIE VELASQUEZ, is a 77 F who presents for treatment of kidney stones of the left side with ureteroscopy laser and probable stent [facility] Medical History (Updated 12/19/22 @ 10:28 by Maliha Carrillo) Acute kidney injury Arthritis Chronic acquired lymphedema Depression Elevated d-dimer Elevated troponin H/O renal calculi Headache, migraine Hiatal hernia History of echocardiogram Hypertension Hypokalemia Lives in care home Memory deficit Morbid obesity Respiratory failure Sepsis Septic shock Severe acute respiratory syndrome coronavirus 2 (SARS-CoV-2) detected UTI (urinary tract infection) Venous insufficiency of both lower extremities Home Medications acetaminophen 500 mg capsule 1,000 mg PO Q8H PRN Pain 12/19/22 [History Last Taken Unknown] bacitracin 500 unit/gram topical ointment 1 applic topical TID 12/19/22 [History Last Taken Unknown] food supplemt, lactose-reduced 120 ml PO TID 12/19/22 [History Last Taken Unknown] cephalexin 500 mg capsule 500 mg PO TID 12/20/22 [History Last Taken Unknown] citalopram 10 mg tablet 10 mg PO DAILY 12/20/22 [History Last Taken Unknown] doxycycline hyclate 100 mg tablet 100 mg PO BID 12/20/22 [History Last Taken Unknown] ferrous sulfate 325 mg (65 mg iron) tablet 325 mg PO DAILY 12/20/22 [History Last Taken Unknown] pantoprazole 40 mg tablet,delayed release (Protonix) 40 mg PO DAILY 12/20/22 [History Last Taken Unknown] sucralfate 1 gram tablet (Carafate) 1 g PO TID 12/20/22 [History Last Taken Unknown] Allergy/AdvReac Type Severity Reaction Status Date / Time codeine Allergy Hives Verified 12/20/22 09:35 Penicillins Allergy Hives Verified 12/20/22 09:35 Family History Mother Myocardial infarction CAD (coronary artery disease) Hypertension Heart disease Father Bladder cancer Sister Diabetes Surgical History (Updated 12/18/22 @ 10:07 by Maliha Carrillo) History of cystoscopy History of hysterectomy History of knee replacement History of umbilical hernia repair Social History household members: spouse Smoking Status: Never smoker alcohol intake: never substance use type: does not use what type of physical activity do you participate in: none Vital Signs Vital Signs Vital Signs: 12/20/22 09:44 12/20/22 09:44 Temperature 97.5 F L Temperature Source Temporal Pulse Rate 71 Respiratory Rate 18 Respiratory Pattern Normal Blood Pressure 102/71 Blood Pressure Mean 81 Blood Pressure Source Monitor Blood Pressure Position Semi-Fowlers Blood Pressure Location Left Arm Pulse Ox 95 Oxygen Delivery Method Nasal Cannula Oxygen Flow Rate (L/min) 2 Weight Weight: 142.882 kg Body Mass Index (BMI) 54.1
[2022-12-20] MEDS: Cefazolin 2 GM in 0.9% Normal Saline 100 ML IV (12:47)
[2022-12-20] MEDS: Lubricating Jelly 60 GM Tube 30 GM (13:13)
--- NOTE | 2022-12-20 13:47 | DCINST_ITS ---
Discharge Instructions Diet Discharge Diet: No restrictions Follow Up Care Test Results: Test results from this visit will be discussed in further detail at your follow- up appointment, if applicable. Discharge Plan Admission Attending Provider: Yair Francois Primary Care Provider: Bea Mckeon Discharge Orders/Prescriptions Prescriptions: No Action bacitracin 500 unit/gram Ointment 1 applic TOPICAL TID acetaminophen 500 mg Capsule 1,000 mg PO Q8H PRN (Reason: Pain) Boost Breeze Liquid 120 ml PO TID citalopram 10 mg Tablet 10 mg PO DAILY sucralfate [Carafate] 1 gram Tablet 1 g PO TID cephalexin 500 mg Capsule 500 mg PO TID pantoprazole [Protonix] 40 mg Tablet,Delayed Release (Dr/Ec) 40 mg PO DAILY ferrous sulfate 325 mg (65 mg iron) Tablet 325 mg PO DAILY doxycycline hyclate 100 mg Tablet 100 mg PO BID Referrals / Follow Up: Bea Mckeon MD [Primary Care Provider] - Disposition Disposition (needs filled in before D/C Order can be placed): Home, Self Care
--- NOTE | 2022-12-20 13:48 | PCM.OPRPT ---
Report of Operation Date of Procedure: 12/20/22 Pre-Operative Diagnosis: Left ureteral calculi status post stent Post-Operative Diagnosis: The same Surgery/Procedure Performed:: Cystoscopy left stent removal, left ureteroscopy laser lithotripsy of stone, left retrograde pyelogram interpretation fluoroscopic images, no stent Description of Surgical Findings:: This is a patient who presents to the hospital for treatment for an obstructing ureter calculi. I discussed with the patient how the surgery would be performed and we reviewed the risks and benefits of the surgery. The risk and benefits include the risk of failure to remove the stone completely and that the patient may need multiple procedures. We discussed the risk of an infection, the risk of bleeding. We discussed the very rare risk of serious complicated injury to the ureter. The patient understands that if the stone is not able to be removed safely that we may abort the procedure and place a stent. After full discussion and all questions address with the patient the consent form was signed the side was marked appropriately and the patient was taken back to the operating room for the procedure. The patient was taken back to the operating room. After induction of anesthesia by the anesthesiology team the patient was placed in dorsolithotomy position. The genitals were prepped and draped in usual sterile fashion. I went into the bladder with a 21 Khmer rigid cystourethroscope through the urethra. Upon entering the bladder I inspected the trigone the left and right ureteral orifice and the bladder itself. I then advanced a 0.038 Glidewire up into the kidney. Then over the Glidewire I advanced a 5 Fr Ureteral catheter and performed a retrograde pyelogram with about 10cc of contrast, to delineate the anatomy and identify the stone location. Over the 0.038 guidewire I went in with the flexible 7.5fr ureteroscope. I was able to go inside with the 7.5Fr utereroscope and I pulled out the guidewire and then through the ureteroscope I engage the stone with laser lithotripsy using a 270miron laser fiber with energy setting of 15 Hertz and 1.2 J until the stone was lasered into tiny little pieces that should pass on their own. A retrograde pyelogram was performed with 10cc of contrast and no extravasation of contrast or perforation was identified in the ureter there was some mild irritation of the ureter where the stone was located. I then drained the patient's bladder and the cystoscope was removed and the patient was taken back to the recovery room in good position. I did not put a stent back in since all the stones were dusted little fragments that she will pass. Surgeon: Yair Francois Type of Anesthesia: General Drains: none Estimated Blood Loss (mL): 0 Admit VTE Documentation VTE Present on Admission: No VTE Mechan Device Prophylaxis: SCD's VTE Pharm Prophylaxis ordered?: No
[2022-12-20 13:56] VITALS: BP 102/71; BP 123/62; PULSE 98; RESP 16; TEMP 36.1; O2SAT 100
[2022-12-20 14:00] VITALS: BP 102/71; BP 113/65; PULSE 98; RESP 16; O2SAT 100
[2022-12-20 14:15] VITALS: BP 102/71; BP 113/61; PULSE 97; RESP 16; O2SAT 100
[2022-12-20 14:30] VITALS: BP 102/71; BP 105/55; PULSE 92; RESP 16; TEMP 36.1; O2SAT 95
[2022-12-20 15:50] VITALS: BP 102/71; BP 107/63; PULSE 75; RESP 18; TEMP 36.1; O2SAT 95
== END 2022-12-20 16:00 | disposition home or self-care (01) ==
LOC: SDC 09:11 → AC 09:13
PROVIDERS: PCP Internal Medicine; Referring Provider Urology; Visit Provider Urology
PROC: 0TJ98ZZ Inspection of Ureter, Via Natural or Artificial Opening Endoscopic (ICD-10-PCS; CPT 52352; principal; 2022-12-20 12:20)
DX: N20.2 Calculus of kidney with calculus of ureter (principal); I10 Essential (primary) hypertension; Z86.16 Personal history of COVID-19; Z79.899 Other long term (current) drug therapy; Z79.82 Long term (current) use of aspirin
CPT/HCPCS: 52353; 00918; 76000; J7120; C1769; J2405

== ENCOUNTER 2023-01-08 10:14 | Observation (INO) | payer MEDICARE, OTHER, SELFPAY ==
[2023-01-08 10:15] VITALS: BP 114/65; PULSE 85; RESP 14; TEMP 36.4; O2SAT 97
[2023-01-08 10:29] VITALS: BMI 47.3
--- NOTE | 2023-01-08 10:39 | ED.VIS.GI ---
HPI HPI - GI History of Present Illness Chief Complaint: GI Bleed Narrative Narrative: 78-year-old female presents from transitional care at an outside facility with continued rectal bleeding that she has had for the last few weeks. Patient and her daughter relate history that she had colonoscopy performed over a month ago by Dr. Gant. They state that he removed a polyp, and treated an ulceration and she was in the clear. She was seemed to be doing well for the next few days after colonoscopy, but has had intermittent GI bleeding over the last 1 to 2 months. Daughter states that on 12/20/22 it was documented that she had unspecified GI hemorrhage. She does take a low-dose of Eliquis for pulmonary embolism currently. Patient denies any chest pain or shortness of breath, no weakness or abdominal pain, no nausea, vomiting, or hematemesis. She does not know the color of her stool and is unsure if she has bleeding with every bowel movement. Patient and daughter states that they were told by the RN at the transitional care facility that she is having active GI bleeding and needs to be evaluated for endoscopy again. [facility] Medical History Acute kidney injury Arthritis Chronic acquired lymphedema Depression Elevated d-dimer Elevated troponin H/O renal calculi Headache, migraine Hiatal hernia History of echocardiogram Hypertension Hypokalemia [facility] Memory deficit Morbid obesity Respiratory failure Sepsis Septic shock Severe acute respiratory syndrome coronavirus 2 (SARS-CoV-2) detected UTI (urinary tract infection) Venous insufficiency of both lower extremities Home Medications acetaminophen 500 mg capsule 1,000 mg PO Q8H PRN Pain 12/19/22 [History Last Taken Unknown] citalopram 10 mg tablet 10 mg PO DAILY 12/20/22 [History Last Taken 01/08/23] ferrous sulfate 325 mg (65 mg iron) tablet 325 mg PO DAILY 12/20/22 [History Last Taken 01/07/23] pantoprazole 40 mg tablet,delayed release (Protonix) 40 mg PO DAILY 12/20/22 [History Last Taken 01/08/23] sucralfate 1 gram tablet (Carafate) 1 g PO TID 12/20/22 [History Last Taken 01/08/23] apixaban 5 mg tablet (Eliquis) 5 mg PO BID BLOOD THINNER 01/08/23 [History Last Taken 01/08/23] aspirin 81 mg tablet,delayed release 81 mg PO DAILY HEART HEALTH 01/08/23 [History Last Taken Unknown] nystatin 100,000 unit/gram topical powder (Nystop) 1 applic topical 4XD CANDIDIASIS 01/08/23 [History Last Taken 01/08/23] sennosides 8.6 mg-docusate sodium 50 mg capsule (Senna Plus) 1 tab-cap PO BID CONSTIPATION 01/08/23 [History Last Taken 01/08/23] Allergy/AdvReac Type Severity Reaction Status Date / Time codeine Allergy Hives Verified 01/08/23 10:17 Penicillins Allergy Hives Verified 01/08/23 10:17 Family History Mother Myocardial infarction CAD (coronary artery disease) Hypertension Heart disease Father Bladder cancer Sister Diabetes Surgical History History of cystoscopy History of hysterectomy History of knee replacement History of umbilical hernia repair Social History household members: spouse Smoking Status: Never smoker alcohol intake: never substance use type: does not use what type of physical activity do you participate in: none ROS ROS ED ROS Narrative Constitutional: No fever, no chills. HEENT: No sore throat. No neck pain. No loss of vision. No rhinorrhea. Cardiovascular: No chest pain. No palpitations. No pedal edema. Respiratory: No cough, no shortness of breath. Abdominal: No abdominal pain. No nausea. No vomiting. Positive reported GI bleeding. Genitourinary: No dysuria. No hematuria. Musculoskeletal: No myalgias. No arthralgias. Neurologic: No headaches. No dizziness. No lightheadedness. Skin: No rash. No change in color. Psychiatric: No depression. No anxiety. EXAM Physical Exam Narrative Exam Narrative: Afebrile. Vital signs noted. HEENT: Normocephalic. Atraumatic. PERRL, EOMI. Neck soft and supple. No point tenderness or step off. Cardiovascular: Regular rate and rhythm. No murmurs, rubs, or gallops appreciated. Respiratory: No tachypnea. Lungs clear to auscultation bilaterally. Gastrointestinal: Abdomen soft, obese, nontender, with normoactive bowel sounds. No rebound or guarding. Neurological: Awake. Alert. Nonfocal, nonlateralizing. Skin: No rash. Normal color. No pallor. No subconjunctival pallor. Musculoskeletal: No pedal edema. Full range of motion extremities. Const Vital Signs: 01/08/23 10:15 01/08/23 12:14 Temperature 97.6 F L Temperature Source Temporal Pulse Rate 85 86 Respiratory Rate 14 21 H Blood Pressure 114/65 Blood Pressure Mean 81 Pulse Ox 97 97 Oxygen Delivery Method Room Air Nasal Cannula Oxygen Flow Rate (L/min) 2 MDM MDM MDM Narrative Medical decision making narrative: I reviewed the patient's endoscopy report prior ED visits. Her endoscopy report was from late October of this year, approximately a month and a half ago. 5 mm polyp was removed at the hepatic flexure, and mucosal ulceration was treated with heat. Patient has restarted her Eliquis but at a lower dose. I will obtain a type and screen along with a CBC and a CMP. I do not feel that imaging is indicated currently. I will discuss patient with Dr. Gant to see if his recommendation is admission for more urgent scoping given her continued GI bleeding. She did have reticulosis on her prior endoscopy, along with internal and external hemorrhoids that were not bleeding. I reviewed the patient's laboratory work, she has a normal white count of 4.6, hemoglobin stable at 11.7, hematocrit 36.4, platelet count normal at 177. Review of her CMP shows BUN normal at 16 with creatinine 0.69, glucose appropriately elevated at 107 with anion gap low at 3. Type and screen was performed. I did discuss patient with Dr. Gant with gastroenterology who would like the patient admitted to the hospitalist service and he can perform endoscopy as an inpatient for her continued GI bleeding. I then discussed patient with the hospitalist for admission. Patient was discussed with Dr. Schwartz for admission. Patient is in stable condition. I feel she can be admitted to the medical surgical floor. History & Record Review Discussion w/independent historian: Patient and Family Additional record(s) reviewed:: Prior outpatient record (Prior endoscopy in late October of this year), Prior ED visit and Prior labs Lab Data Attestation: I reviewed the patient's lab results. Labs: Laboratory Results - last 24 hr 01/08/23 01/08/23 01/08/23 10:39 10:39 10:39 WBC 4.6 RBC 3.85 L Hgb 11.7 L Hct 36.4 L MCV 94.5 MCH 30.4 MCHC 32.1 D RDW Std Deviation 46.9 H RDW Coeff of Gareth 13.7 Plt Count 177 MPV 10.1 Immature Gran % (Auto) 0.400 Neut % (Auto) 64.7 Lymph % (Auto) 23.6 [place] % (Auto) 6.3 Eos % (Auto) 4.6 Baso % (Auto) 0.4 Absolute Neuts (auto) 3.0 Absolute Lymphs (auto) 1.09 Nucleated RBC % 0 Sodium 140 Potassium 3.9 Chloride 106 Carbon Dioxide 31.0 Anion Gap 3 L BUN 16 Creatinine 0.69 Estim Creat Clear Calc 40.68 Est GFR (MDRD) Af Amer 106 Est GFR (MDRD) Non-Af 88 BUN/Creatinine Ratio 23.2 H Glucose 107 H Calcium 9.3 Total Bilirubin 0.40 AST 12 L ALT 16 Alkaline Phosphatase 75 Total Protein 6.2 L Albumin 2.9 L Globulin 3.3 Albumin/Globulin Ratio 0.9 Blood Type A POSITIVE Antibody Screen Not Reportable 01/08/23 10:39 WBC RBC Hgb Hct MCV MCH MCHC RDW Std Deviation RDW Coeff of Gareth Plt Count MPV Immature Gran % (Auto) Neut % (Auto) Lymph % (Auto) Wake % (Auto) Eos % (Auto) Baso % (Auto) Absolute Neuts (auto) Absolute Lymphs (auto) Nucleated RBC % Sodium Potassium Chloride Carbon Dioxide Anion Gap BUN Creatinine Estim Creat Clear Calc Est GFR (MDRD) Af Amer Est GFR (MDRD) Non-Af BUN/Creatinine Ratio Glucose Calcium Total Bilirubin AST ALT Alkaline Phosphatase Total Protein Albumin Globulin Albumin/Globulin Ratio Blood Type Antibody Screen NEGATIVE Management Discussion w/another healthcare provider: Hospitalist (Dr. Schwartz) and Senior Quality Control Technician (Gastroenterology, Dr. Gant) Discharge Plan Dx/Rx/DC Orders Clinical Impression: GI bleeding, Morbid obesity with BMI of 50.0-59.9, adult, Hypertension Disposition Disposition: Acute Care Hospital [facility]
[2023-01-08] MEDS: 0.9% Normal Saline 1,000 ML 125 ML IV ×2 (10:49→18:55)
[2023-01-08 11:06] LABS: Absolute Lymphocyte Count 1.09 X10^3/uL (0.83-4.51); Basophil# 0.02 X10^3/uL; Basophil% 0.4 % (0-1); Eosinophil# 0.21 X10^3/uL; Eosinophils% 4.6 % (0-5); Hematocrit 36.4 % (37-47); Hemoglobin 11.7 g/dL (12.0-15.0); Lymphocyte # 1.09 X10^3/ul (0.83-4.51); Lymphocyte % 23.6 % (19-41); Mean Corp Hgb Conc 32.1 g/dL (32-36); Mean Corpuscular Hgb 30.4 pg (27.0-32.0); Mean Corpuscular Volume 94.5 fL (81-99); Mean Platelet Vol. 10.1 fl (6.2-12.0); Monocyte# 0.29 X10^3/uL; Monocyte% 6.3 % (0-10); NRBC Flagged by Analyzer 0 % (0-5); Neutrophil # 2.98 X10^3/uL (2.7-7.7); Neutrophil % 64.7 % (47-70); Platelet Count 177 K/mm3 (150-450); RBC Distribution Width CV 13.7 % (11.6-14.6); RBC Distribution Width SD 46.9 fl (35.1-43.9); Red Blood Count 3.85 M/mm3 (4.2-5.4); White Blood Count 4.6 K/mm3 (4.4-11.0)
[2023-01-08 11:24] LABS: ALB/GLOB Ratio 0.9 RATIO (0.9-2.4); AST(SGOT) 12 U/L (15-37); Alanine Aminotransfer ALT/SGPT 16 U/L (13-56); Albumin, Serum 2.9 g/dL (3.2-5.0); Alkaline Phosphatase 75 U/L (45-117); Anion Gap 3 (5-15); BUN 16 mg/dL (7-18); BUN/Creat Ratio 23.2 RATIO (10-20); Calcium,Total 9.3 mg/dL (8.5-10.1); Chloride 106 mmol/L (98-107); Creatinine, Serum 0.69 mg/dL (0.55-1.02); EST Glomerular Filtration Rate 88 mL/min (>60); Est Glom Filt Rate - Afr Amer 106 mL/min (>60); Estimated Creatinine Clearance 40.68 ml/min; Globulin 3.3 g/dL (2.2-4.2); Glucose 107 mg/dL (74-106); Potassium 3.9 mmol/L (3.5-5.1); Protein, Total 6.2 g/dL (6.4-8.2); Sodium Level 140 mmol/L (136-145)
[2023-01-08 12:14] VITALS: PULSE 86; RESP 21; O2SAT 97
--- NOTE | 2023-01-08 14:48 | NURSING ---
MED SURG [facility] GI BLEED
[2023-01-08 16:00] VITALS: BP 118/78; BP 124/64; PULSE 74; PULSE 78; RESP 16; TEMP 36.4; O2SAT 97; O2SAT 99
[2023-01-08 17:01] VITALS: BMI 46.5
[2023-01-08 17:15] VITALS: BP 133/80; PULSE 61; RESP 18; TEMP 36.6; O2SAT 100
--- NOTE | 2023-01-08 17:53 | CON.PCM.GI_ITS ---
HPI Consult Data Date of Consult: 01/08/23 HPI Narrative Reason for Consultation: GI bleed HPI Narrative: BONNIE VELASQUEZ, is a 78 F who presents from TCU due to lower GI bleed. She has a past medical history of morbid obesity, dementia, generalized weakness, who currently lives in [facility]. I saw her back in October 2022 after she was admitted to the hospital October 19, 2022 for COVID-19, diagnosed with COVID-19, pulmonary embolus, started on Eliquis.? Patient has been at the [facility] for 10[facility] days.? The patient's hemoglobin co ntinued to drop.Patient's hemoglobin on October 25, 2022, hemoglobin 10.5, 9.5 on November 01, today is 8.8 on November 07, 2022.? Patient states that she has been feeling weak.? I was consulted for GI bleed during the visit. She underwent a colonoscopy and was discovered to have a very poor prep. Positi ve findings from the study were 2 adenomatous polyps that were removed and significant diverticular disease along with hemorrhoidal disease and some mild rectal prolapse. Currently at this time I am her heme but is 11 and she is on Eliquis 5 mg p.o. twice a day along with aspirin 81 mg a day. She is also been on ferrous sulfate 325 mg a day and Protonix 40 mg once a day with sulcal fate 1 g 3 times daily.?? [facility] Medical History Acute kidney injury Arthritis Chronic acquired lymphedema Depression Elevated d-dimer Elevated troponin H/O renal calculi Headache, migraine Hiatal hernia History of echocardiogram Hypertension Hypokalemia Lives in [facility] Memory deficit Morbid obesity Respiratory failure Sepsis Septic shock Severe acute respiratory syndrome coronavirus 2 (SARS-CoV-2) detected UTI (urinary tract infection) Venous insufficiency of both lower extremities Home Medications acetaminophen 500 mg capsule 1,000 mg PO Q8H PRN Pain 12/19/22 [History Last Taken Unknown] citalopram 10 mg tablet 10 mg PO DAILY 12/20/22 [History Last Taken 01/08/23] ferrous sulfate 325 mg (65 mg iron) tablet 325 mg PO DAILY 12/20/22 [History Las t Taken 01/07/23] pantoprazole 40 mg tablet,delayed release (Protonix) 40 mg PO DAILY 12/20/22 [History Last Taken 01/08/23] sucralfate 1 gram tablet (Carafate) 1 g PO TID 12/20/22 [History Last Taken 01/08/23] apixaban 5 mg tablet (Eliquis) 5 mg PO BID BLOOD THINNER 01/08/23 [History Last Taken 01/08/23] aspirin 81 mg tablet,delayed release 81 mg PO DAILY HEART HEALTH 01/08/23 [History Last Taken Unknown] nystatin 100,000 unit/gram topical powder (Nystop) 1 applic topical 4XD CANDIDIASIS 01/08/23 [History Last Taken 01/08/23] sennosides 8.6 mg-docusate sodium 50 mg capsule (Senna Plus) 1 tab-cap PO BID CONSTIPATION 01/08/23 [History Last Taken 01/08/23] Allergy/AdvReac Type Severity Reaction Status Date / Time codeine Allergy Hives Verified 01/08/23 10:17 Penicillins Allergy Hives Verified 01/08/23 10:17 Family History Mother Myocardial infarction CAD (coronary artery disease) Hypertension Heart disease Father Bladder cancer Sister Diabetes Surgical History History of cystoscopy History of hysterectomy History of knee replacement History of umbilical hernia repair Social History household members: spouse Smoking Status: Never smoker alcohol intake: never substance use type: does not use what type of physical activity do you participate in: none ROS ROS Narrative See HPI Physical Exam Narrative Physical exam General: Alert, Oriented x3, Cooperative, morbid obesity BMI 52.2 kg/m?. HEENT: Atraumatic, PERRLA, EOMI, Normocephalic Oral: Oral mucosa moist.? No Gingival or Mucosal Lesions/ Ulcerations Neck: Supple, No JVD, Negative Carotid Bruits Chest wall/lungs:? Air entry diminished in bilateral lung bases.? No crepitation/rhonchi. Cardiovascular: Sinus rhythm, Normal S1, Normal S2, No murmurs Abdomen: Bowel Sounds Present, Soft, Non Tender, Non-Distended : Incontinent.? No renal angle tenderness.? No suprapubic tenderness. Extremities: Bilateral chronic lymphedema. Capillary Refill Less than 3 Seconds Skin: No rashes, No breakdown Musculoskeletal: No Tenderness to Palpation of Joints or Extremities.? ROM severely limited.? Bilateral knee and hip joints arthritis. Neurological: Cranial nerves II-XII grossly intact, DTR? 2+/4, no acute focal neurological deficit. Psych/Mental Status: Flat affect. Lab / Micro Data Result Diagrams: 01/08/23 10:39 01/08/23 10:39 Labs: Laboratory Results - last 24 hr 01/08/23 10:39: Blood Type A POSITIVE, Antibody Screen Not Reportable 01/08/23 10:39: WBC 4.6, RBC 3.85 L, Hgb 11.7 L, Hct 36.4 L, MCV 94.5, MCH 30.4, MCHC 32.1 D, RDW Std Deviation 46.9 H, RDW Coeff of Gareth 13.7, Plt Count 177, MPV 10.1, Immature Gran % (Auto) 0.400, Neut % (Auto) 64.7, Lymph % (Auto) 23.6, [place] % (Auto) 6.3, Eos % (Auto) 4.6, Baso % (Auto) 0.4, Absolute Neuts (auto) 3.0, Absolute Lymphs (auto) 1.09, Nucleated RBC % 0 01/08/23 10:39: Sodium 140, Potassium 3.9, Chloride 106, Carbon Dioxide 31.0, Anion Gap 3 L, BUN 16, Creatinine 0.69, Estim Creat Clear Calc 40.68, Est GFR (MDRD) Af Amer 106, Est GFR (MDRD) Non-Af 88, BUN/Creatinine Ratio 23.2 H, Glucose 107 H, Calcium 9.3, Total Bilirubin 0.40, AST 12 L, ALT 16, Alkaline Phosphatase 75, Total Protein 6.2 L, Albumin 2.9 L, Globulin 3.3, Albumin/Globulin Ratio 0.9 01/08/23 10:39: Antibody Screen NEGATIVE Micro: Microbiology 01/08/23 11:35 Stool Stool Occult Blood (DANE) - Final Occult Blood Positive Assessment & Plan Assessment/Plan (1) Rectal bleed: PLAN: Plan Rectal bleeding. The differential diagnosis does include lower GI bleed secondary to diverticular disease, stercoral ulcer, ischemic colitis, less likely malignancy or hemorrhoidal disease. Since she had a very poor prep she will need to undergo colonoscopy. She will get a GoLytely prep. I will put on Reglan 10 mg IV every 6 hours and azithromycin 500 mg IV every 24 hours and hopefully this will speed up her GI motility. She is very nonmobile which increases the chances of her not being clear. If she is not clear she will need tapwater enemas until clear or possibly a 2-day prep. Charges/Coding Visit Charges Inpatient E&M: 28037 Init Hosp L2
[2023-01-08] MEDS: Electrolyte Solution/Peg's 4000 ML PO (18:49)
--- NOTE | 2023-01-08 18:49 | HP.PCM_ITS ---
HPI - General General Date of Admission: 01/08/23 Date of Service: 01/08/23 Chief Complaint: Bright red blood per rectum HPI Narrative BONNIE VELASQUEZ, is a 78 F who presents 2 days history of bright red blood per rectum. Patient is unable to quantify or describe stools as she uses the bedpan which [facility]. No bloody bowel movements today however. Patient has a prior history of GI bleeding and she is on chronic anticoagulation with Eliquis for history of pulmonary embolism and is on aspirin as well. Rectal examination was done Emergency Department by the ED physician which showed brown stool that was Hemoccult positive. Patient denies any abdominal pain nausea vomiting. Denies any fever or chills. [facility] Medical History Acute kidney injury Arthritis Chronic acquired lymphedema Depression Elevated d-dimer Elevated troponin H/O renal calculi Headache, migraine Hiatal hernia History of echocardiogram Hypertension Hypokalemia Lives in prison Memory deficit Morbid obesity Respiratory failure Sepsis Septic shock Severe acute respiratory syndrome coronavirus 2 (SARS-CoV-2) detected UTI (urinary tract infection) Venous insufficiency of both lower extremities Home Medications acetaminophen 500 mg capsule 1,000 mg PO Q8H PRN Pain 12/19/22 [History Last Taken Unknown] citalopram 10 mg tablet 10 mg PO DAILY 12/20/22 [History Last Taken 01/08/23] ferrous sulfate 325 mg (65 mg iron) tablet 325 mg PO DAILY 12/20/22 [History Last Taken 01/07/23] pantoprazole 40 mg tablet,delayed release (Protonix) 40 mg PO DAILY 12/20/22 [History Last Taken 01/08/23] sucralfate 1 gram tablet (Carafate) 1 g PO TID 12/20/22 [History Last Taken 01/08/23] apixaban 5 mg tablet (Eliquis) 5 mg PO BID BLOOD THINNER 01/08/23 [History Last Taken 01/08/23] aspirin 81 mg tablet,delayed release 81 mg PO DAILY HEART HEALTH 01/08/23 [History Last Taken Unknown] nystatin 100,000 unit/gram topical powder (Nystop) 1 applic topical 4XD CANDID IASIS 01/08/23 [History Last Taken 01/08/23] sennosides 8.6 mg-docusate sodium 50 mg capsule (Senna Plus) 1 tab-cap PO BID CONSTIPATION 01/08/23 [History Last Taken 01/08/23] Allergy/AdvReac Type Severity Reaction Status Date / Time codeine Allergy Hives Verified 01/08/23 10:17 Penicillins Allergy Hives Verified 01/08/23 10:17 Family History Mother Myocardial infarction CAD (coronary artery disease) Hypertension Heart disease Father Bladder cancer Sister Diabetes Surgical History History of cystoscopy History of hysterectomy History of knee replacement History of umbilical hernia repair Social History household members: spouse Smoking Status: Never smoker alcohol intake: never substance use type: does not use what type of physical activity do you participate in: none ROS ROS Narrative Denies any chest pain or shortness of breath. All other systems reviewed and essentially negative as above in the body of the history. Vital Signs Vital Signs Vital Signs: 01/08/23 10:15 01/08/23 12:14 01/08/23 16:00 Temperature 36.4 C L Temperature Source Temporal Pulse Rate 85 86 78 Respiratory Rate 14 21 H 16 Respiratory Effort Blood Pressure 114/65 118/78 Blood Pressure Mean 81 91 Blood Pressure Source Blood Pressure Position Blood Pressure Location Pulse Ox 97 97 99 Oxygen Delivery Method Room Air Nasal Cannula Room Air Oxygen Flow Rate (L/min) 2 01/08/23 16:00 01/08/23 16:00 01/08/23 16:01 Temperature 36.4 C L Temperature Source Temporal Pulse Rate 74 Respiratory Rate 16 Respiratory Effort Blood Pressure 124/64 H Blood Pressure Mean 84 Blood Pressure Source Blood Pressure Position Blood Pressure Location Pulse Ox 97 Oxygen Delivery Method Room Air Room Air Nasal Cannula Oxygen Flow Rate (L/min) 2 01/08/23 17:01 01/08/23 17:15 Temperature 36.6 C Temperature Source Temporal Pulse Rate 61 Respiratory Rate 18 Respiratory Effort Normal Non-Labored Blood Pressure 133/80 H Blood Pressure Mean 97 Blood Pressure Source Monitor Blood Pressure Position Semi-Fowlers Blood Pressure Location Left Arm Pulse Ox 100 Oxygen Delivery Method Nasal Cannula Nasal Cannula Oxygen Flow Rate (L/min) 2 2 Weight Weight: 123 kg Body Mass Index (BMI) 46.5 Physical Exam Narrative General exam. Elderly man, obese, not in any overt distress, quite pleasant HEENT. Oral mucosa moist no pallor or jaundice Neck. Neck is supple Heart. First and second heart sounds heard no murmurs. Abdomen. Obese, nontender, moves with respiration, no masses felt, no organomegaly. Extremities. Poorly pitting edema in the lower extremities mostly in the feet. 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 Cranial nerves II to XII grossly intact. Results Medical Records Data Attestation: I reviewed the patient's medical records Lab / Micro Data Attestation: I reviewed the patient's lab results. Result Diagrams: 01/08/23 10:39 01/08/23 10:39 Labs: Laboratory Results - last 24 hr 01/08/23 10:39: Blood Type A POSITIVE, Antibody Screen Not Reportable 01/08/23 10:39: WBC 4.6, RBC 3.85 L, Hgb 11.7 L, Hct 36.4 L, MCV 94.5, MCH 30.4, MCHC 32.1 D, RDW Std Deviation 46.9 H, RDW Coeff of Gareth 13.7, Plt Count 177, MPV 10.1, Immature Gran % (Auto) 0.400, Neut % (Auto) 64.7, Lymph % (Auto) 23.6, [place] % (Auto) 6.3, Eos % (Auto) 4.6, Baso % (Auto) 0.4, Absolute Neuts (auto) 3.0, Absolute Lymphs (auto) 1.09, Nucleated RBC % 0 01/08/23 10:39: Sodium 140, Potassium 3.9, Chloride 106, Carbon Dioxide 31.0, Anion Gap 3 L, BUN 16, Creatinine 0.69, Estim Creat Clear Calc 40.68, Est GFR (MDRD) Af Amer 106, Est GFR (MDRD) Non-Af 88, BUN/Creatinine Ratio 23.2 H, Glucose 107 H, Calcium 9.3, Total Bilirubin 0.40, AST 12 L, ALT 16, Alkaline Phosphatase 75, Total Protein 6.2 L, Albumin 2.9 L, Globulin 3.3, Albumin/Globulin Ratio 0.9 01/08/23 10:39: Antibody Screen NEGATIVE Micro: Microbiology 01/08/23 11:35 Stool Stool Occult Blood (DANE) - Final Occult Blood Positive ABG Data Attestation: I personally reviewed and interpreted this ABG as follows: Assessment & Plan Assessment/Plan (1) Acute lower GI bleeding: PLAN: Plan 1. Acute lower GI bleed. Known history of internal and external hemorrhoids. Also known history of diverticulosis. Suspect possibly 1 of these colorectal conditions. Suspect most likely the former. Hemoglobin is stable at 11.7 and actually better than the last time she was in the hospital. Remains hemodynamically stable as well. We will keep n.p.o. after midnight for possible endoscopy. Clear liquid diet. Keep an eye on counts. Repeat CBC in the [facility]. Hold Eliquis and aspirin. Consider resuming only Eliquis at discharge when stable. Charges/Coding Visit Charges Inpatient E&M: 88833 Init Hosp L3
[2023-01-08] MEDS: 0.9% Saline Lock 10 ML Syringe IV (18:56)
[2023-01-08] MEDS: Metoclopramide 10 MG/2 ML Vial 5 MG IV (18:56)
[2023-01-08 20:20] VITALS: BP 140/100; PULSE 63; RESP 18; TEMP 36.4; O2SAT 100
[2023-01-08 20:22] VITALS: O2SAT 97
[2023-01-08] MEDS: Nystatin Powder 15gm Bottle 1 APPLIC TOPICAL (20:44)
[2023-01-09] VITALS (10 sets, daily range): BP systolic 112–140; BP diastolic 49–98; PULSE 63–81; RESP 16–18; TEMP 36.3–37.2; O2SAT 93–100; BMI 46.5
[2023-01-09] MEDS: Metoclopramide 10 MG/2 ML Vial 5 MG IV ×3 (00:52→13:17)
[2023-01-09] MEDS: 0.9% Normal Saline 1,000 ML 125 ML IV ×2 (03:16→13:17)
--- NOTE | 2023-01-09 05:55 | EKG12_ITS ---
Test Reason : AM EKG Blood Pressure : / mmHG Vent. Rate : 060 BPM Atrial Rate : 060 BPM P-R Int : 232 ms QRS Dur : 104 ms QT Int : 414 ms P-R-T Axes : 050 -45 024 degrees QTc Int : 414 ms Sinus rhythm with 1st degree A-V block Left anterior fascicular block Abnormal ECG When compared with ECG of 07-NOV-2022 16:57, TX interval has increased Confirmed by DADA TRUONG, PEPPER ([id number]), metropolitan editor TORREY FLORES ([id number]) on 01/09/2023 9:44:03 AM Referred By: CAITLYN Confirmed By:PEPPER GARLAND MD
[2023-01-09 06:27] LABS: Absolute Lymphocyte Count 1.27 X10^3/uL (0.83-4.51); Absolute Neutrophil Count 2.3 X10^3/uL (2.0-7.7); Basophil# 0.03 X10^3/uL; Basophil% 0.7 % (0-1); Eosinophils% 7.3 % (0-5); Hematocrit 35.8 % (37-47); Lymphocyte # 1.27 X10^3/ul (0.83-4.51); Lymphocyte % 30.8 % (19-41); Mean Corp Hgb Conc 30.7 g/dL (32-36); Mean Corpuscular Hgb 29.3 pg (27.0-32.0); Mean Corpuscular Volume 95.5 fL (81-99); Mean Platelet Vol. 9.8 fl (6.2-12.0); Monocyte# 0.25 X10^3/uL; Monocyte% 6.1 % (0-10); NRBC Flagged by Analyzer 0 % (0-5); Neutrophil # 2.27 X10^3/uL (2.7-7.7); Neutrophil % 54.9 % (47-70); Platelet Count 170 K/mm3 (150-450); RBC Distribution Width CV 13.7 % (11.6-14.6); RBC Distribution Width SD 48.1 fl (35.1-43.9); Red Blood Count 3.75 M/mm3 (4.2-5.4); White Blood Count 4.1 K/mm3 (4.4-11.0)
[2023-01-09 06:38] LABS: International Normalized Ratio 1.2
[2023-01-09 06:51] LABS: Anion Gap 3 (5-15); BUN 13 mg/dL (7-18); BUN/Creat Ratio 25.6 RATIO (10-20); Calcium,Total 9.3 mg/dL (8.5-10.1); Chloride 109 mmol/L (98-107); Creatinine, Serum 0.51 mg/dL (0.55-1.02); EST Glomerular Filtration Rate 125 mL/min (>60); Est Glom Filt Rate - Afr Amer 151 mL/min (>60); Estimated Creatinine Clearance 40.68 ml/min; Glucose 88 mg/dL (74-106); Potassium 3.7 mmol/L (3.5-5.1); Sodium Level 142 mmol/L (136-145)
--- NOTE | 2023-01-09 09:46 | CASEMGMT ---
Social Work Pt is admitted from [facility]. SW met with pt and daughter who confirms pt plans to return to [place] when medically ready. Pt has been at [place] since September and is hopeful she can return home within the next month. bassam Garcia assistant account manager updated and will send clinicals to [place]. Plan: [facility], when medically ready NIHARIKA Temple
--- NOTE | 2023-01-09 09:48 | CASEMGMT ---
Discharge Planning Patient resides at [facility]. Updates sent via [facility]. Radha Harris, Discharge Planning Asst.
--- NOTE | 2023-01-09 10:40 | NURSING ---
pt taken to endo procedure by RUBY
--- NOTE | 2023-01-09 11:30 | COLBX_PTH ---
PATIENT: BONNIE VELASQUEZ LOC: MS3 U#:[id number] AGE/SX: 78/F ROOM: [facility] RE01/08/[address]: Dr. Corina Cates MD : 1945 BED: 1 DIS: 01/09/2023 SPEC #: [id number] RECD: 01/09/23 14:46 STATUS: JESSIE CASTANEDA #: [id number] IVONNE: 01/09/23 11:[address]: Micah Gant DEPT: SURGICAL PATHOLOGY RECD BY: Christopher Jennings ENTERED: 01/10/23 11:30 SP TYPE: COLON BX OTHR DR: MD Dr. Bea Delgado MD Dr. Nana Yaa Koram, MD Tissues: A - Cecum, NOS B - COLON BIOPSY Procedures: Surgery Specimen Level IV HEADER OPERATION: Colonoscopy (MAC), polypectomy PRE-OP DIAGNOSIS: Rectal bleed TISSUE SUBMITTED: A ? Cecal polyps (x2), B ? Hepatic flexure polyp MICROSCOPIC DIAGNOSIS A. Cecal polyps x2, polypectomy: Fragments of hyperplastic polyp. Fragments of fecal material. B. Hepatic flexure polyp, polypectomy: Fragments of hyperplastic polyp. SJ:jareth 01/11/2023 MICROSCOPIC DESCRIPTION Slides are reviewed. GROSS DESCRIPTION A - Received in fixative is one container labeled with the patient's name and designated cecal polyps. The specimen consists of two irregular fragments of light napoles soft tissue that in aggregate measure 0.5 x 0.3 x 0.1 cm. The specimen is totally submitted in one cassette. B - Received in fixative is one container labeled with the patient's name and designated hepatic flexure polyp. The specimen consists of multiple irregular fragments of light napoles soft tissue that in aggregate measure 1.5 x 0.5 x 0.4 cm. The specimen is totally submitted in one cassette. / AUDI:jareth 01/10/2023 TC:1 CPT: 09743 x2
--- NOTE | 2023-01-09 12:42 | OP.COLON_ITS ---
Patient Name: Modesta Hanson Procedure Date: 01/09/2023 11:23 AM Date of : 1945 Age: 78 Procedure: Colonoscopy Indications: Hematochezia Providers: Micah Gant DO Medicines: Monitored Anesthesia Care Patient Profile: This is a 78 year old female. Refer to note in patient chart for documentation of history and physical. Last Colonoscopy: within the past 3 months. Complications: No immediate complications. Procedure: Pre-Anesthesia Assessment: - Prior to the procedure, a History and Physical was performed, and patient medications and allergies were reviewed. The patient is competent. The risks and benefits of the procedure and the sedation options and risks were discussed with the patient. All questions were answered and informed consent was obtained. Patient identification and proposed procedure were verified by the physician. Mental Status Examination: normal. Prophylactic Antibiotics: The patient does not require prophylactic antibiotics. Prior Anticoagulants: The patient has taken no previous anticoagulant or antiplatelet agents. ASA Grade Assessment: III - A patient with severe systemic disease. After reviewing the risks and benefits, the patient was deemed in satisfactory condition to undergo the procedure. The anesthesia plan was to use moderate sedation / analgesia (conscious sedation). Immediately prior to administration of medications, the patient was re-assessed for adequacy to receive sedatives. The heart rate, respiratory rate, oxygen saturations, blood pressure, adequacy of pulmonary ventilation, and response to care were monitored throughout the procedure. The physical status of the patient was re-assessed after the procedure. After I obtained informed consent, the scope was passed under direct vision. Throughout the procedure, the patient's blood pressure, pulse, and oxygen saturations were monitored continuously. The pediatric colonoscope was introduced through the anus and advanced to the cecum, identified by appendiceal orifice and ileocecal valve. The colonoscopy was performed without difficulty. The patient tolerated the procedure well. The quality of the bowel preparation was poor. Scope In: 11:53:45 AM Scope Withdrawal Time 0 hours 16 minutes 5 seconds Scope Out: 12:32:54 PM Total Procedure Duration Time 0 hours 39 minutes 9 seconds Findings: An anal fissure was found on perianal exam. Multiple small and large-mouthed diverticula were found in the recto-sigmoid colon, sigmoid colon and descending colon. A large amount of stool was found in the rectum, in the recto-sigmoid colon, in the sigmoid colon and in the cecum, precluding visualization. Lavage of the area was performed, resulting in incomplete clearance with continued poor visualization. Three sessile polyps were found in the hepatic flexure and cecum. The polyps were 1 to 2 mm in size. These polyps were removed with a hot snare. Resection and retrieval were complete. Verification of patient identification for the specimen was done. Estimated blood loss was minimal. Two medium-sized localized angiodysplastic lesions with bleeding were found in the transverse colon. Coagulation for hemostasis using heater probe was successful. Estimated blood loss was minimal. Impression: - Preparation of the colon was poor. - Anal fissure found on perianal exam. - Diverticulosis in the recto-sigmoid colon, in the sigmoid colon and in the descending colon. - Stool in the rectum, in the recto-sigmoid colon, in the sigmoid colon and in the cecum. - Three 1 to 2 mm polyps at the hepatic flexure and in the cecum, removed with a hot snare. Resected and retrieved. - Two bleeding colonic angiodysplastic lesions. Treated with a heater probe. Recommendation: - Return patient to [facility] for [facility] care. - Resume regular diet. - Continue present medications. - Await pathology results. - Repeat colonoscopy in 6 months because the bowel preparation was suboptimal. Procedure Code(s): --- Professional --- 46515, 59, Colonoscopy, flexible; with control of bleeding, any method 79036, Colonoscopy, flexible; with removal of tumor(s), polyp(s), or other lesion(s) by snare technique CPT copyright 2017 [employer]. All rights reserved. The codes documented in this report are preliminary and upon over the road driver review may be revised to meet current compliance requirements. Micah Gant DO 01/09/2023 12:41:55 PM This report has been signed electronically. Number of Addenda: 0 Note Initiated On: 01/09/2023 11:23 AM
--- NOTE | 2023-01-09 12:42 | OP.CCLET_ITS ---
01/09/2023 Bea Mckeon [facility] [address] [place] [address] Re : Colonoscopy procedure for Modesta Hanson Dear Dr. Mckeon This procedure was performed on Monday, January 09, 2023. My impressions and recommendations are as follows: Impressions : - Preparation of the colon was poor. - Anal fissure found on perianal exam. - Diverticulosis in the recto-sigmoid colon, in the sigmoid colon and in the descending colon. - Stool in the rectum, in the recto-sigmoid colon, in the sigmoid colon and in the cecum. - Three 1 to 2 mm polyps at the hepatic flexure and in the cecum, removed with a hot snare. Resected and retrieved. - Two bleeding colonic angiodysplastic lesions. Treated with a heater probe. Recommendations : - Return patient to [facility] for ongoing care. - Resume regular diet. - Continue present medications. - Await pathology results. - Repeat colonoscopy in 6 months because the bowel preparation was suboptimal. My findings are described in the full procedure note, which is enclosed. If I can be of further assistance, please feel free to contact me at . Sincerely, Micah Gant, 01/09/2023 12:41:55 PM This report has been signed electronically.
[2023-01-09] MEDS: 0.9% Saline Lock 10 ML Syringe IV (13:17)
--- NOTE | 2023-01-09 15:34 | PCM.DC.SUM ---
Providers Date of Admission: 01/08/23 Date of Discharge: 01/09/23 Primary Care Physician: Dr. Bea Mckeon MD Consultations 01/08/23 18:47 Consult: Gastroenterology Routine Consulting Provider: AlfredaMicah Reason for Consult: LGIB EMERGENT Consult: No MD Notified: Yes Date Notified: 01/09/23 Time Notified: 07:18 Method of Notification: Text Reason For Visit: LOWER GI BLEEDING Diagnosis Discharge Diagnosis (1) Acute lower GI bleeding: Status: Acute Code(s): K92.2 - Gastrointestinal hemorrhage, unspecified (2) Rectal bleed: Status: Acute Code(s): K62.5 - Hemorrhage of anus and rectum Medications at Discharge Home Medications acetaminophen 500 mg capsule 1,000 mg PO Q8H PRN Pain 12/19/22 citalopram 10 mg tablet 10 mg PO DAILY 12/20/22 ferrous sulfate 325 mg (65 mg iron) tablet 325 mg PO DAILY 12/20/22 pantoprazole 40 mg tablet,delayed release (Protonix) 40 mg PO DAILY 12/20/22 sucralfate 1 gram tablet (Carafate) 1 g PO TID 12/20/22 apixaban 5 mg tablet (Eliquis) 5 mg PO BID BLOOD THINNER 01/08/23 aspirin 81 mg tablet,delayed release 81 mg PO DAILY HEART HEALTH 01/08/23 nystatin 100,000 unit/gram topical powder (Nystop) 1 applic topical 4XD CANDIDIASIS 01/08/23 sennosides 8.6 mg-docusate sodium 50 mg capsule (Senna Plus) 1 tab-cap PO BID CONSTIPATION 01/08/23 Hospital Course Operations None Procedures Colonoscopy Summary of Care Provided Minutes Spent on Discharge: 55 Hospital Course: Patient is a 78-year-old female with a past medical history as outlined was admitted through the ED on 01/08/2013 with a complaint of bright red blood per rectum. She could not quantify the amount of blood. She had a history of GI bleeds and also had a history of PE and had been on anticoagulation with Eliquis. On admission stool for occult blood was positive. Hemoglobin was stable at around 11. She was admitted to be managed for lower GI bleed. Gastroenterology was consulted. She was kept NPO. She had colonoscopy on 01/09/2023 which showed anal fissures as well as diverticulosis in the rectosigmoid colon, sigmoid colon and descending colon and stool in the rectum, rectosigmoid colon and sigmoid colon and in the cecum and three 1 to 2 mm polyps at the hepatic flexure and cecum as well as 2 bleeding colonic angiodysplastic lesions which were treated with a heater probe. Hemoglobin remained stable and per gastroenterology she was okay to resume her blood thinners. Patient remained stable and was discharged back to a nursing home facility on 01/09/2023. She is follow-up with her primary care doctor and gastroenterology within 1 to 2 weeks. Patient seen and examined prior to discharge. She had no complaints and had an uneventful night. Review of systems otherwise negative. Labs and vitals reviewed. Home medication reviewed and reconciled. Physical Exam Const alert, oriented x3 and no apparent distress General Appearance: cooperative, comfortable and well kempt HEENT normocephalic, head/scalp atraumatic, hearing grossly normal bilaterally and moist oral mucous membranes Mouth: oral and palatal mucosa normal Eyes PERRL, EOMs intact bilaterally and conjunctivae normal Neck no lymphadenopathy and supple Resp normal respiratory effort, no retractions, no use of accessory muscles and clear to auscultation bilaterally Cardio regular rate, regular rhythm, S1 normal heart sound, S2 normal heart sound and no murmurs GI normal to inspection, nondistended, normoactive bowel sounds, soft to palpation, non-tender and non-distended Skin no rashes or lesions noted, no wounds and skin turgor normal Neuro oriented x3, CN's II-XII intact bilaterally, moves all extremities and no focal motor deficits Sensorium / Orientation: awake and alert Motor Exam: strength 5/5 throughout Psych affect normal Weight / BMI Weight Weight: 271 lb 2.697 oz Body Mass Index (BMI) 46.5 ABG / Lab / Microbiology Data Result Diagrams: 01/09/23 06:05 01/09/23 06:05 Laboratory: Laboratory Results - last 24 hr 01/09/23 06:05: WBC 4.1 L, RBC 3.75 L, Hgb 11.0 L, Hct 35.8 L, MCV 95.5, MCH 29.3, MCHC 30.7 L, RDW Std Deviation 48.1 H, RDW Coeff of Gareth 13.7, Plt Count 170, MPV 9.8, Immature Gran % (Auto) 0.200, Neut % (Auto) 54.9, Lymph % (Auto) 30.8, [place] % (Auto) 6.1, Eos % (Auto) 7.3 H, Baso % (Auto) 0.7, Absolute Neuts (auto) 2.3, Absolute Lymphs (auto) 1.27, Nucleated RBC % 0 01/09/23 06:05: PT 15.0 H, INR 1.2, APTT 32.0 01/09/23 06:05: Sodium 142, Potassium 3.7, Chloride 109 H, Carbon Dioxide 30.0, Anion Gap 3 L, BUN 13, Creatinine 0.51 L, Estim Creat Clear Calc 40.68, Est GFR (MDRD) Af Amer 151, Est GFR (MDRD) Non-Af 125, BUN/Creatinine Ratio 25.6 H, Glucose 88, Calcium 9.3 Microbiology: Microbiology 01/08/23 11:35 Stool Stool Occult Blood (DANE) - Final Occult Blood Positive D/C Instructions Discharge Diet: Low fat / Low cholesterol Discharge Activity: Return to Normal Activity Weight Bearing Status: Weight bearing as tolerated Call your doctor if you observe: Fever of 101 or Higher, Shortness of breath, Dizziness, Swelling in the ankles, Chest pain and - (rectal bleeding) Meaningful Use Info Meaningful Use Diagnoses (Choose all that apply): None applicable Discharge Plan Admission Admit Date/Time: 01/08/23 16:22 Primary Reason for Your Visit: GI bleed Attending Provider: Corina Cates Primary Care Provider: Bea Mckeon Consulting Providers: Kinsey Schwartz ; Micah Gant Instructions Patient Instructions: ED Lower GI Bleeding (Stable) Discharge Orders/Prescriptions Prescriptions: Continued acetaminophen 500 mg Capsule 1,000 mg PO Q8H PRN (Reason: Pain) citalopram 10 mg Tablet 10 mg PO DAILY sucralfate [Carafate] 1 gram Tablet 1 g PO TID pantoprazole [Protonix] 40 mg Tablet,Delayed Release (Dr/Ec) 40 mg PO DAILY ferrous sulfate 325 mg (65 mg iron) Tablet 325 mg PO DAILY aspirin 81 mg Tablet,Delayed Release (Dr/Ec) 81 mg PO DAILY nystatin [Nystop] 100,000 unit/gram Powder 1 applic TOPICAL 4XD Eliquis 5 mg Tablet 5 mg PO BID Senna Plus 8.6-50 mg Capsule 1 tab-cap PO BID Referrals / Follow Up: Bea Mckeon MD [Primary Care Provider] - Within 2 Weeks Micah Gant DO [Med Staff - Active Staff] - Within 2 Weeks Disposition Disposition (needs filled in before D/C Order can be placed): Longterm Facility Charges/Coding Visit Charges Inpatient E&M: 32459 Disch Hosp >30min
--- NOTE | 2023-01-09 15:35 | NURSING ---
daughter updated on plans for discharge after talking with Dr. Cates. social work case manager updated.
--- NOTE | 2023-01-09 15:41 | CASEMGMT ---
Discharge Planning Notified WVM of patents discharge today. WVM transported patient, her wc and walker to hospital. Asked if they plan to transport back to facility. Awaiting response. Radha Harris, Discharge Planning Asst.
--- NOTE | 2023-01-09 15:42 | PCM.TXEXTCAR ---
Diet Diet Order/Speech Therapy: 01/09/23 14:17 Diet: Regular - General Is pt able to select menu?: Yes Routine Orders/Code Status Enema Type: Fleetz Enema Frequency: Daily PRN Suppository Type: Dulcolax 10mg Suppository Frequency: Daily PRN O2 Frequency: PRN Keep PO Greater than or Equal to (%): 90 Therapies Weight Bearing: Weight bearing as tolerated Physical Therapy: Eval and Treat Occupational Therapy: Eval and Treat Problem/Diagnosis (1) Acute lower GI bleeding: Status: Acute Code(s): K92.2 - Gastrointestinal hemorrhage, unspecified (2) Rectal bleed: Status: Acute Code(s): K62.5 - Hemorrhage of anus and rectum Allergies/Procedures Done in Hospital Allergies codeine Allergy (Verified 01/08/23 10:17) Hives Penicillins Allergy (Verified 01/08/23 10:17) Hives wheezing/sob Procedures: Colonoscopy Type of Care/Length of Stay Estimated LOS: Convalescent Care Less Than 30 days Type of Care Needed: Skilled Rehab Potential: Fair Prognosis: Fair Additional Orders/Day of Discharge Day of Discharge: 01/09/23 Dietary and Speech Recommendations Dietitian Recommendations/Changes: continue regular diet as tolerated; will consider ONS if PO intake at meals is poor Discharge Plan Admission Admit Date/Time: 01/08/23 16:22 Primary Reason for Your Visit: GI bleed Attending Provider: Corina Cates Primary Care Provider: Bea Mckeon Consulting Providers: Kinsey Schwartz ; Micah Gant Instructions Patient Instructions: ED Lower GI Bleeding (Stable) Discharge Orders/Prescriptions Prescriptions: Continued acetaminophen 500 mg Capsule 1,000 mg PO Q8H PRN (Reason: Pain) citalopram 10 mg Tablet 10 mg PO DAILY sucralfate [Carafate] 1 gram Tablet 1 g PO TID pantoprazole [Protonix] 40 mg Tablet,Delayed Release (Dr/Ec) 40 mg PO DAILY ferrous sulfate 325 mg (65 mg iron) Tablet 325 mg PO DAILY aspirin 81 mg Tablet,Delayed Release (Dr/Ec) 81 mg PO DAILY nystatin [Nystop] 100,000 unit/gram Powder 1 applic TOPICAL 4XD Eliquis 5 mg Tablet 5 mg PO BID Senna Plus 8.6-50 mg Capsule 1 tab-cap PO BID Referrals / Follow Up: Bea Mckeon MD [Primary Care Provider] - Within 2 Weeks Micah Gant DO [Med Staff - Active Staff] - Within 2 Weeks Disposition Disposition (needs filled in before D/C Order can be placed): Residential Facility
--- NOTE | 2023-01-09 16:30 | CASEMGMT ---
Discharge Planning Patients daughter, Gemma, notified of transfer back to [facility] today. Radha Harris, Discharge Planning Asst.
--- NOTE | 2023-01-09 16:41 | CASEMGMT ---
Addendum entered by Rhea Dewitt 01/09/23 16:51: Med list sent to [facility] via [employer]. JOSÉ MIGUEL requested [facility] call unit with time of seed cone picker. NIHARIKA Temple Original Note: Social Work Per physician, pt is ready for discharge at this time. [facility] is able to provide transportation and will be contacting pt's dgt to set up a time to seed cone picker pt. Orders and covid results sent to [facility] via [employer]. Med list to be faxed to [facility] by community product specialist when available. SW attempted to update pt who is sleeping soundly. Disposition: Return to [facility], skilled level of care NIHARIKA Temple
--- NOTE | 2023-01-09 16:53 | PHA.DC.MR ---
Pharmacy Service has performed discharge medication reconciliation for this patient. The patient's discharge medication list was reviewed for discrepancies and discrepancies were resolved. Home Medications acetaminophen 500 mg capsule 1,000 mg PO Q8H PRN Pain 12/19/22 citalopram 10 mg tablet 10 mg PO DAILY 12/20/22 ferrous sulfate 325 mg (65 mg iron) tablet 325 mg PO DAILY 12/20/22 pantoprazole 40 mg tablet,delayed release (Protonix) 40 mg PO DAILY 12/20/22 sucralfate 1 gram tablet (Carafate) 1 g PO TID 12/20/22 apixaban 5 mg tablet (Eliquis) 5 mg PO BID BLOOD THINNER 01/08/23 aspirin 81 mg tablet,delayed release 81 mg PO DAILY HEART HEALTH 01/08/23 nystatin 100,000 unit/gram topical powder (Nystop) 1 applic topical 4XD CANDIDIASIS 01/08/23 sennosides 8.6 mg-docusate sodium 50 mg capsule (Senna Plus) 1 tab-cap PO BID CONSTIPATION 01/08/23
--- NOTE | 2023-01-09 17:17 | NURSING ---
talked with Rupa nurse from [facility] attempted to give report, she stated their transport person has left for the day and patient would need to be transported via cot. racing secretary and handicapper and case mgmt kendlel updated.
--- NOTE | 2023-01-09 17:24 | NURSING ---
attempted to update daughter Gemma with fern picker time per pathology secretary/transcriptionist of 18:00, no answer unable to leave voice mail.
--- NOTE | 2023-01-09 17:26 | NURSING ---
got harlan of pt's daughter updated on discharge/picker / packer time.
--- NOTE | 2023-01-09 17:59 | NURSING ---
report called to elieser nixon at [facility]
--- NOTE | 2023-01-09 18:15 | NURSING ---
verbal report given to transport
--- NOTE | 2023-01-09 18:27 | NURSING ---
Rupa at [facility] called and informed per squad they are unable to transport patient's wheelchair. They stated they have removed everything off the wheelchair they could but [facility] will need to come get wheelchair tomorrow.
== END 2023-01-09 18:36 | disposition skilled nursing facility (03) ==
LOC: ED 14:01 → MS3 15:13
PROVIDERS: Anesthesiology; Internal Medicine Gastroenterology; Admitting Provider Internal Medicine; Emergency Provider Emergency Medicine; PCP Internal Medicine; Visit Provider Student in an Organized Health Care Education/Training Program
PROC: 0DJD8ZZ Inspection of Lower Intestinal Tract, Via Natural or Artificial Opening Endoscopic (ICD-10-PCS; CPT 45378; principal; 2023-01-09 11:25)
DX: K55.21 Angiodysplasia of colon with hemorrhage (principal); E66.01 Morbid (severe) obesity due to excess calories; Z68.43 Body mass index [BMI] 50.0-59.9, adult; K62.5 Hemorrhage of anus and rectum; I10 Essential (primary) hypertension; Z79.01 Long term (current) use of anticoagulants; Z79.82 Long term (current) use of aspirin; Z86.16 Personal history of COVID-19; Z79.899 Other long term (current) drug therapy; M19.90 Unspecified osteoarthritis, unspecified site; K63.5 Polyp of colon; Z86.711 Personal history of pulmonary embolism; K57.30 Diverticulosis of large intestine without perforation or abscess without bleeding; K60.2 Anal fissure, unspecified; F32.A Depression, unspecified
CPT/HCPCS: 45382; 45385; 36415; 80048; 80053; 82274; 85025; 85610; 85730; 86850; 86900; 86901; 87811; 88305; 93005; 96361; 96365; 96375; 96376; 97802; 99221; 99284; J7030; J7120; A4216; G0378; J2405

== ENCOUNTER → 2023-03-02 | Outpatient (CLI) | payer MEDICARE, OTHER, SELFPAY ==
[2023-03-02 09:30] LABS: Bacteria 0 SEEN /hpf (None Seen); Mucous, Urine 0 SEEN /hpf (<or=2+); Red Blood Cells-Urine 0 SEEN /hpf (0-5)
[2023-03-02 09:34] LABS: Color, Urine Yellow (Yellow); Glucose, Dipstick Normal (Normal); Ketone-Dipstick Negative (Negative); Leukocyte Esterase-Dipstick 25 /ul (Negative); Nitrite-Dipstick Negative (Negative); Occult Blood-Urine 10 /ul (Negative); Protein-Dipstick 15 mg/dl (Negative); Specific Gravity, Urine 1.015 (1.002-1.030); Urine Bilirubin Dipstick Negative (Negative); Urine Clarity Clear (Clear); Urine Urobilinogen Normal (Normal); Urine pH 6.5 (5.0 - 8.0)
[2023-03-02 09:40] LABS: Squamous Epithelial Cells - UA 0-5 SEEN /hpf (5-10); White Blood Cells 5-10 SEEN /hpf (0-5)
== END | disposition home or self-care (01) ==
LOC: LABSPEC 07:46
PROVIDERS: PCP Internal Medicine; Visit Provider Internal Medicine
DX: R39.9 Unspecified symptoms and signs involving the genitourinary system (principal)
CPT/HCPCS: 81001; 87077; 87086; 87088; 87186